=== PATIENT | female | born 1945 | race Caucasian/White ===

== ENCOUNTER → 2017-09-01 10:49 | Outpatient (POV) | payer MEDICARE, SELFPAY | PROVIDERS: PCP Internal Medicine Adolescent Medicine; Visit Provider Specialist | DX: R20.2 Paresthesia of skin (principal) | CPT/HCPCS: 95886; 95908 ==

== ENCOUNTER → 2018-04-30 10:43 | Outpatient (CLI) | payer MEDICARE, SELFPAY ==
--- NOTE | 2018-04-30 10:48 | MM_ITS ---
MM Dig screening mamm BI w/CAD ORDERING PHYSICIAN : Cheyenne Scott PATIENT AGE: 72 years GENDER: Female COMPARISON: Digital mammogram studies October 2016. June 2015. . Film screen mammogram February 2014. July INDICATION: ITS.REASON: SCREENING .... Takes Premarin.. No new complaints.Noncontributory family history TECHNIQUE: Standard CC and MLO images were obtained. R2 CAD reviewed. FINDINGS: Moderately dense breast bilaterally with a stable appearing mild asymmetry .. Overall parenchymal pattern and architecture is similar to previous studies. No suspicious dominant mass or suspicious calcifications either breast. Vascular calcifications bilaterally. RIGHT BREAST:. No significant new findings. Asymmetric glandular tissue at the central breast have been present since studies dating back to 2010, with no significant nor appreciable change. Follow-up in one year adequate LEFT BREAST:. No significant new findings. IMPRESSION: No significant new areas of concern Overall stable mammogram. Bilateral follow-up in one year recommended and should be encouraged. BI-RADS Category: 2 Benign Finding(s) RECOMMENDED FOLLOW-UP: 1YR 1 YEAR FOLLOW-UP (A letter has been sent to the patient regarding results of the study.)
== END ==
PROVIDERS: PCP Internal Medicine Adolescent Medicine; Visit Provider Nurse Practitioner Family
DX: Z12.31 Encounter for screening mammogram for malignant neoplasm of breast (principal)
CPT/HCPCS: 77067

== ENCOUNTER 2018-07-28 20:16 | Observation (INO) ==
--- NOTE | 2018-07-28 20:50 | Emergency Department Note ---
ED Disposition Clinical Impression: Urinary tract infection, Weakness, Fever Disposition: Admitted as Observation Condition on Discharge: Good Time of Disposition: 22:53 - Critical Care Critical Care Time: No Attestation: On , the high probability of a clinically significant, sudden or life threatening deterioration of the following system(s) required my full and direct attention, intervention and personal management. The time I documented below is in addition to time spent performing reported procedures but includes the following listed in this critical care notation. Medical Decision Making - Medical Records Medical records reviewed: Yes: I reviewed the patient's medical records. - Jose Inquiry Pt receiving controlled substance: No Jose was queried for this patient: No Vital Signs: 07/28/18 20:23 07/28/18 21:48 07/28/18 22:00 Temperature 101.4 F H Temperature Source Oral Pulse Rate Pulse Rate [Right] 124 H 105 H 89 Respiratory Rate 18 17 Blood Pressure Blood Pressure [Right Arm] 112/65 138/71 Blood Pressure Mean [Right Arm] 80 93 Blood Pressure Source [Right Arm] Blood Pressure Position [Right Arm] Sitting 02 Sat by Pulse Oximetry 94 L 97 Oxygen Delivery Method 07/28/18 22:30 07/28/18 23:00 07/28/18 23:13 Temperature 99 F Temperature Source Oral Pulse Rate 89 Pulse Rate [Right] 91 H 89 Respiratory Rate 18 16 17 Blood Pressure 132/69 Blood Pressure [Right Arm] 130/62 134/64 Blood Pressure Mean [Right Arm] 84 87 Blood Pressure Source [Right Arm] Automatic Cuff Blood Pressure Position [Right Arm] Sitting 02 Sat by Pulse Oximetry 97 Oxygen Delivery Method Room Air Room Air - Lab Data Lab results reviewed: Yes: I reviewed the patient's lab results. Lab Results 07/28/18 20:45: WBC 15.2 H, RBC 4.31, Hgb 13.0, Hct 40.2, MCV 93.3, MCH 30.1, MCHC 32.3, RDW 12.7, Plt Count 255, MPV 8.3, Neut % (Auto) 78.3, Lymph % (Auto) 11.7, [place] % (Auto) 9.4 H, Eos % (Auto) 0.3, Baso % (Auto) 0.4, Neut # (Auto) 11.9 H, Lymph # (Auto) 1.8, [place] # (Auto) 1.4 H, Eos # (Auto) 0.1, Baso # (Auto) 0.1, Total Counted 100, Neutrophils % (Manual) 84 H, Lymphocytes % (Manual) 10, Monocytes % (Manual) 6, Platelet Estimate Normal, Stomatocytes 1+ 07/28/18 20:45: Urine Color Yellow, Urine Appearance Clear, Urine pH 6.5, Ur Specific [place] 1.015, Urine Protein 1+, Urine Glucose (UA) 1+, Urine Ketones Trace, Urine Blood Trace-i, Urine Nitrate Positive, Urine Bilirubin Negative, Urine Urobilinogen 0.2, Ur Leukocyte Esterase Trace, Urine RBC 5-10, Urine WBC 5-10, Ur Squamous Epith Cells 5-10, Urine Bacteria 1+ 07/28/18 20:45: Sodium 133 L, Potassium 4.6, Chloride 97 L, Carbon Dioxide 26, Anion Gap 14.6, BUN 28 H, Creatinine 1.64 H, Estimated Creat Clear 43, Estimated GFR 31 L, Est GFR ( Amer) 37 L, Glucose 178 H, Calcium 8.9, Total Bilirubin 0.6, AST 18, ALT 28, Alkaline Phosphatase 75, Total Protein 7.1, Albumin 3.3 L, Globulin 3.8 H, Albumin/Globulin Ratio 0.9 L 07/28/18 20:45: Influenza Type A Ag Negative, Influenza Type B Ag Negative 07/28/18 20:45: Lactate 1.8 Result diagrams: 07/28/18 20:45 07/28/18 20:45 Orders (Tests/Meds): ED MEDICATIONS Generic Name Dose Route Start Last Admin Trade Name Freq PRN Reason Stop Dose Admin Carvedilol 12.5 mg 07/29/18 09:00 Coreg 12.5mg Tablet PO 08/28/18 08:59 DAILY ELISSA Gabapentin 300 mg 07/29/18 09:00 Neurontin 300mg Capsule PO 08/28/18 08:59 BID ELISSA Sodium Chloride 1,000 mls @ 999 mls/hr 07/28/18 23:08 Sod Chlor 0.9% 1000ml Bag IV 07/29/18 00:08 .Q1H1M ELISSA Ceftriaxone Sodium 2 gm/ 100 mls @ 200 mls/hr 07/29/18 22:15 Sodium Chloride IV 08/11/18 22:14 Q24H [facility] Protocol Insulin Human Lispro 0 unit 07/29/18 06:00 Humalog 100 Units/Ml 3ml Vial (Ssi) SQ 08/28/18 05:59 ACHS ELISSA Protocol Levothyroxine Sodium 50 mcg 07/29/18 09:00 Synthroid 50mcg (0.05mg) Tablet PO 08/28/18 08:59 DAILY ELISSA Non-Formulary Medication 150 mg 07/29/18 09:00 Fluconazole [Fluconazole] PO 08/28/18 08:59 DAILY ELISSA Non-Formulary Medication 4 mg 07/29/18 09:00 Glimepiride [Glimepiride] PO 08/28/18 08:59 DAILY ELISSA Non-Formulary Medication 20 mg 07/29/18 09:00 Lisinopril/Hydrochlorothiazide [Lisinopril-Hctz 20-25 Mg Tab] PO 08/28/18 08:59 DAILY ELISSA Non-Formulary Medication 15 mg 07/29/18 09:00 Meloxicam [Meloxicam] PO 08/28/18 08:59 DAILY ELISSA Sodium Chloride 10 ml 07/28/18 23:08 Saline Flush 10ml Syringe IV 08/27/18 20:42 NEEDED PRN Maintain IV Site Discontinued Medications Generic Name Dose Route Start Last Admin Trade Name Freq PRN Reason Stop Dose Admin Acetaminophen 1,000 mg 07/28/18 20:43 07/28/18 20:51 Tylenol 500mg Tablet PO 07/28/18 20:44 1,000 mg ONCE ONE Administration Sodium Chloride 1,000 mls @ 999 mls/hr 07/28/18 20:45 07/28/18 20:51 Sod Chlor 0.9% 1000ml Bag IV 07/28/18 21:45 999 mls/hr .Q1H1M ELISSA Administration Ceftriaxone Sodium 2 gm/ 100 mls @ 200 mls/hr 07/28/18 22:15 07/28/18 22:19 Sodium Chloride IV 08/11/18 22:14 200 mls/hr Q24H ELISSA Administration Protocol Ondansetron HCl 4 mg 07/28/18 20:45 07/28/18 20:52 Zofran 4mg/2ml Vial IV 07/28/18 20:46 4 mg ONCE ONE Administration Sodium Chloride 10 ml 07/28/18 20:43 Saline Flush 10ml Syringe IV 08/27/18 20:42 NEEDED PRN Maintain IV Site ORDERS Category Date Time Status Basic Metabolic Panel AMLAB Lab 07/29/18 06:00 Ordered Complete Blood Count Auto Diff AMLAB Lab 07/29/18 06:00 Ordered Blood Culture Stat Micro 07/28/18 20:52 Ordered - Radiology Data #1 Image(s): Chest Preliminary Findings: Normal/NAD #2 Image(s): Pelvis Image Reviewed: Yes I have reviewed radiologist's interpretation - CT Data CT Scan: Head, C-Spine Time Received: 11:[address] Reviewed: Yes: I have reviewed the patient's CT results Preliminary Findings: Normal/NAD - Physician Consults Physician Consulted: eliazar Time: 22:52 Reason -: Admission General Adult HPI - General Chief complaint: Weakness Stated complaint: DIZZY,NAUSA,FELL OUT OF CHAIR Time Seen by Provider: 07/28/18 22:08 Mode of Arrival: Wheelchair Limitations: No Limitations Description of Symptoms (Recalled from ER Triage Doc. by RN): pt c/o generalized weakness/dizziness that started at approx 1500, associated nausea/vomiting that started approx 30 mins ago after a ground level fall, no LOC, no complaints from fall. - History of Present Illness HPI narrative: Acute onset illness today, fever/rigors and weakness. Attempted to get out of a chair and rolled forward. No injuries. - Related Data Home Medications Medication Instructions Recorded Confirmed Fluconazole 150 mg PO DAILY 07/28/18 07/28/18 Glimepiride 4 mg PO DAILY 07/28/18 07/28/18 Lisinopril/Hydrochlorothiazide 20 mg PO DAILY 07/28/18 07/28/18 [Lisinopril-Hctz 20-25 mg Tab] Meloxicam 15 mg PO DAILY 07/28/18 07/28/18 RX: Carvedilol [Carvedilol 12.5mg 12.5 mg PO DAILY 07/28/18 07/28/18 Tab] RX: Gabapentin [Gabapentin 300mg 300 mg PO BID 07/28/18 07/28/18 Cap] RX: Levothyroxine Sodium 50 mcg PO DAILY 07/28/18 07/28/18 [Levothyroxine 50mcg (0.05mg) Tab] Allergies Allergy/AdvReac Type Severity Reaction Status Date / Time Sulfa (Sulfonamide Allergy Unknown UNKNOWN Verified 07/28/18 20:31 Antibiotics) [SULFA (SULFONAMIDE ANTIBIOTICS)] [facility] History - Hepatitis A Screen Drug use history?: No High risk sexual behaviors?: No History of sexually transmitted infection?: No Currently employed?: No Childcare worker?: No Do you have indoor plumbing?: Yes Do you have electricity?: Yes Attestation statement:: This patient has been screened for Hepatitis A risk factors. I have reviewed the patient's past medical history: Yes Medical History: Reports:: Diabetes Mellitus Type 1 - Social History Alcohol Intake: never - Psychiatric History Expresses thoughts of harming self/others: None Suicide Plan Description: No Plan ROS Obtained: Yes All systems reviewed & no additional complaints - Constitutional Constitutional: Reports system reviewed and no additional complaints, except as docu, Reports chills, Reports fever(s), Reports malaise, Reports weakness - Eyes Eyes: Reports system reviewed and no additional complaints, except as docu, Denies change in vision - ENT Ears, Nose, Mouth, and Throat: Reports system reviewed and no additional complaints, except as docu, Denies sore throat - Cardiovascular Cardiovascular: Reports system reviewed and no additional complaints, except as docu, Denies chest pain, Denies chest pain at rest, Denies diaphoresis, Denies slow heart rate - Respiratory Respiratory: Yes system reviewed and no additional complaints, except as docu, No chest congestion, No cough, No pain with cough - Gastrointestinal Gastrointestingal: Reports: system reviewed and no additional complaints, except as docu, nausea, vomiting, other (after the fall) - Genitourinary Female Genitourinary: Reports system reviewed and no additional complaints, e xcept as docu, Denies dysuria, Denies flank pain, Denies hematuria - Musculoskeletal Musculoskeletal: Reports system reviewed and no additional complaints, except as docu, Denies joint pain, Denies joint swelling - Integumentary/Breasts Skin/Breast: Reports system reviewed and no additional complaints, except as docu, Denies rash - Neurologic Neurologic: Reports system reviewed and no additional complaints, except as docu, Denies confusion, Denies headache(s), Denies sensory deficit, Denies syncope - Hematologic/Lymphatic Henatologic/Lymphatic: Denies easy bleeding, Denies easy bruising, Denies lymphadenopathy Physical Exam - General General appearance: alert, in no apparent distress - Head Head exam: atraumatic, normocephalic, normal inspection - Eye Eye exam: Present: normal appearance, PERRL, EOMI - ENT ENT exam: Present: normal exam, normal oropharynx, mucous membranes moist, TM's normal bilaterally, normal external ear exam - Respiratory Respiratory exam: Present: normal lung sounds bilaterally. Absent: respiratory distress - Cardiovascular Cardiovascular exam: Present: regular rate, normal rhythm. Absent: JVD - Abdominal Exam Abdominal exam: Present: soft, normal bowel sounds. Absent: distention, tenderness, guarding - Extremities Exam Extremities exam: Present: normal inspection, full ROM, normal capillary refill. Absent: calf tenderness - Back Exam Back exam: Present: normal inspection. Absent: tenderness - Neurological Exam Neurological exam: Present: alert, oriented X3 - Psychiatric Psychiatric exam: Present: normal affect, normal mood - Skin Skin exam: Present: warm, dry, intact, normal color
[2018-07-28 21:02] LABS: Basophils # 0.1 K/mm3 (0-0.2); Basophils % 0.4 % (0.1-2.0); Eosinophils # 0.1 K/mm3 (0.0-0.4); Eosinophils % 0.3 % (0.1-12.0); Hematocrit 40.2 % (37.0-47.0); Lymphocytes # 1.8 K/mm3 (0.7-4.5); Lymphocytes % 11.7 % (10-50); Mean Corpuscular HGB Conc 32.3 g/dL (31.8-35.4); Mean Corpuscular Hemoglobin 30.1 pg (27.0-31.2); Mean Corpuscular Volume 93.3 fl (81-99); Mean Platelet Volume 8.3 fl (7.4-10.4); Monocytes # 1.4 K/mm3 (0.1-1.0); Monocytes % 9.4 % (1.7-9.3); Neutrophils # 11.9 K/mm3 (1.8-7.8); Neutrophils % 78.3 % (37.0-80.0); Platelet Count 255 K/mm3 (142-424); Red Blood Count 4.31 M/mm3 (4.20-5.40); Red Cell Distribution Width 12.7 % (11.5-17.5); White Blood Count 15.2 K/mm3 (4.8-10.8)
[2018-07-28 21:18] LABS: Albumin Level 3.3 gm/dL (3.4-5.0); Albumin/Globulin Ratio 0.9 (1.1-1.8); Anion Gap 14.6 mEq/L (5-15); Bilirubin,Total 0.6 mg/dL (0.2-1.0); Calcium 8.9 mg/dL (8.5-10.1); Globulin 3.8 gm/dl (1.3-3.2); Potassium 4.6 mmoL/L (3.5-5.1); Total Protein,Serum 7.1 gm/dL (6.4-8.2)
[2018-07-28 21:40] LABS: Lymphocytes % 10 % (10-50); Monocytes % 6 % (2-9); Neutrophils % 84 % (42-76); Total Cells Counted 100
[2018-07-28 21:41] LABS: Stomatocytes 1+
[2018-07-29 06:35] LABS: Basophils % 0.2 % (0.1-2.0); Eosinophils % 0.2 % (0.1-12.0); Hematocrit 36.5 % (37.0-47.0); Hemoglobin 11.7 g/dL (12.2-16.2); Lymphocytes # 1.7 K/mm3 (0.7-4.5); Lymphocytes % 15.7 % (10-50); Mean Corpuscular HGB Conc 31.9 g/dL (31.8-35.4); Mean Corpuscular Hemoglobin 30.8 pg (27.0-31.2); Mean Corpuscular Volume 96.5 fl (81-99); Mean Platelet Volume 7.8 fl (7.4-10.4); Monocytes # 0.8 K/mm3 (0.1-1.0); Monocytes % 6.9 % (1.7-9.3); Neutrophils # 8.5 K/mm3 (1.8-7.8); Neutrophils % 77.1 % (37.0-80.0); Platelet Count 175 K/mm3 (142-424); Red Blood Count 3.78 M/mm3 (4.20-5.40); Red Cell Distribution Width 12.8 % (11.5-17.5)
[2018-07-29 06:53] LABS: Calcium 7.7 mg/dL (8.5-10.1)
--- NOTE | 2018-07-29 07:53 | Pharmacy Consult Notes ---
[facility] Pharmacy VTE Monitoring - Patient Demographics Admission date: 07/29/18 Report Date: 07/29/18 Time: 07:53 Allergies/Adverse Reactions: Patient Allergies Sulfa (Sulfonamide Antibiotics) [SULFA (SULFONAMIDE ANTIBIOTICS)] Allergy (Unknown, Verified 07/28/18 20:31) UNKNOWN Height: 1.65 m Weight: 88.025 kg Patient Problems: Current Active Problems Urinary tract infection (Acute) Weakness (Acute) Fever (Acute) - VTE Risk Labs: VTE Related Lab Results Hgb 11.7 g/dL (12.2-16.2) L 07/29/18 06:05 Hct 36.5 % (37.0-47.0) L 07/29/18 06:05 Plt Count 175 K/mm3 (142-424) D 07/29/18 06:05 BUN 24 mg/dL (7-18) H 07/29/18 06:05 Creatinine 1.56 mg/dL (0.55-1.02) H 07/29/18 06:05 Estimated Creat Clear 43 mL/min (50-200) 07/28/18 20:45 Was VTE Risk Assessment Performed: Yes VTE Score: 3 VTE Risk Level: Low Risk - Prophylaxis VTE Prophylaxis Ordered?: Yes Types of VTE Prophylaxis: TEDS Knee High Location of Applied Device: Bilateral Lower Extremeties - VTE Diagnosis Confirmed Treatment or plan recommended: Continue Current Treatment
--- NOTE | 2018-07-29 08:06 | H&P/Discharge Summary ---
General - General Admission date:: 07/28/18 Discharge date: 07/29/18 *Admission Date: 07/29/18 *Chief complaint: Weakness and fever *History of present illness: 72-year-old white female with several medical problems who came to the emergency department with weakness, fever and poor p.o. intake. She was found to have evidence of urinary tract infection on cath urine specimen and also renal insufficiency with creatinine at 1.6 which is slightly above her baseline. She was admitted to hospital for IV antibiotics, IV fluids and repeat labs. [facility] History I have reviewed the patient's past medical history: Yes Medical History: Reports:: Diabetes Mellitus Type 2 Other Medical History: Reports: Thyroid Disease Comment: History of renal insufficiency with baseline creatinine 1.3 Laterality Cases: Bilateral: Tonsillectomy Other Surgeries: Yes: Hysterectomy-Total - *Social History Educational Level: Attended College Smoking Status: Never smoker Alcohol Intake: never Occupational Status: retired Housing: house Household Members: family - Psychiatric History Expresses thoughts of harming self/others: None Suicide Plan Description: No Plan *Family Hx:: Cancer, Coronary Artery Disease, Diabetes, Heart Attack, Hyperlipidemia, Hypertension, Kidney Disease, Thyroid Disorder Review of Systems - Review of Systems Review of systems:: pertinent systems reviewed and negative unless documented below This morning patient is feeling much better than on admission. Denies nausea or vomiting or diarrhea or constipation. Reports good p.o. intake. Denies shortness of air, chest pain or palpitations. Denies swelling. Denies confusion or disorientation. - *Neurologic Reports weakness, Denies confusion, Denies headache(s), Denies sensory deficit, Denies fainting Exam Vital signs and Labs for Last 24 Hours: Temp Pulse Resp BP Pulse Ox 97.8 F 84 18 121/52 L 98 07/29/18 04:00 07/29/18 04:00 07/29/18 04:00 07/29/18 04:00 07/29/18 04:00 Laboratory Results - last 24 hr 07/28/18 20:45: WBC 15.2 H, RBC 4.31, Hgb 13.0, Hct 40.2, MCV 93.3, MCH 30.1, MCHC 32.3, RDW 12.7, Plt Count 255, MPV 8.3, Neut % (Auto) 78.3, Lymph % (Auto) 11.7, [place] % (Auto) 9.4 H, Eos % (Auto) 0.3, Baso % (Auto) 0.4, Neut # (Auto) 11.9 H, Lymph # (Auto) 1.8, [place] # (Auto) 1.4 H, Eos # (Auto) 0.1, Baso # (Auto) 0.1, Total Counted 100, Neutrophils % (Manual) 84 H, Lymphocytes % (Manual) 10, Monocytes % (Manual) 6, Platelet Estimate Normal, Stomatocytes 1+ 07/28/18 20:45: Urine Color Yellow, Urine Appearance Clear, Urine pH 6.5, Ur Specific [place] 1.015, Urine Protein 1+, Urine Glucose (UA) 1+, Urine Ketones Trace, Urine Blood Trace-i, Urine Nitrate Positive, Urine Bilirubin Negative, Urine Urobilinogen 0.2, Ur Leukocyte Esterase Trace, Urine RBC 5-10, Urine WBC 5-10, Ur Squamous Epith Cells 5-10, Urine Bacteria 1+ 07/28/18 20:45: Sodium 133 L, Potassium 4.6, Chloride 97 L, Carbon Dioxide 26, Anion Gap 14.6, BUN 28 H, Creatinine 1.64 H, Estimated Creat Clear 43, Estimated GFR 31 L, Est GFR ( Amer) 37 L, Glucose 178 H, Calcium 8.9, Total Bilirubin 0.6, AST 18, ALT 28, Alkaline Phosphatase 75, Total Protein 7.1, Albumin 3.3 L, Globulin 3.8 H, Albumin/Globulin Ratio 0.9 L 07/28/18 20:45: Influenza Type A Ag Negative, Influenza Type B Ag Negative 07/28/18 20:45: Lactate 1.8 07/29/18 05:45: POC Glucose 229 H 07/29/18 06:05: WBC 11.0 H D, RBC 3.78 L, Hgb 11.7 L, Hct 36.5 L, MCV 96.5, MCH 30.8, MCHC 31.9, RDW 12.8, Plt Count 175 D, MPV 7.8, Neut % (Auto) 77.1, Lymph % (Auto) 15.7, [place] % (Auto) 6.9, Eos % (Auto) 0.2, Baso % (Auto) 0.2, Neut # (Auto) 8.5 H, Lymph # (Auto) 1.7, [place] # (Auto) 0.8, Eos # (Auto) 0.0, Baso # (Auto) 0.0 07/29/18 06:05: Sodium 137, Potassium 4.0, Chloride 104, Carbon Dioxide 25, BUN 24 H, Creatinine 1.56 H, Glucose 242 H D, Calcium 7.7 L D I & O for Last 24 hours: Intake & Output 07/26/18 07/27/18 07/28/18 07/29/18 11:59 11:59 11:59 11:59 Intake Total 120 / 120 Output Total 1300 / 1300 Balance -1180 / -1180 Weight 194 lb 1 oz Narrative: Patient is alert. Pleasant. Has eaten 80% of her breakfast. Oropharynx clear and moist. No JVD. No cranial nerve deficits. Able to move all arms and legs symmetric. No edema or clubbing. No cyanosis, distal peripheral excellent in all 4 extremities. Lungs are clear Heart rate regular without murmurs. Abdomen soft and nontender peer Hospital Course Hospital Course: Patient was admitted, hydrated overnight and this morning her creatinine had gone down to 1.5. She was feeling much better and ate well. Plan will be to discharge home on cephalosporin antibiotics while we await urine culture. she will have close follow-up with labs in 2 days to monitor her kidney function and blood counts and follow-up in the office on Friday morning. Please note that because of her weakness issues we will hold lisinopril/HCTZ until Friday and monitor renal function. She may need to be restarted on lisinopril only and hold the diuretic component because of her issues with kidney insufficiency. Results Labs on day of discharge: Labs from last 24 hours 07/29/18 07/29/18 07/29/18 06:05 06:05 05:45 WBC 11.0 H D RBC 3.78 L Hgb 11.7 L Hct 36.5 L MCV 96.5 MCH 30.8 MCHC 31.9 RDW 12.8 Plt Count 175 D MPV 7.8 Neut % (Auto) 77.1 Lymph % (Auto) 15.7 [place] % (Auto) 6.9 Eos % (Auto) 0.2 Baso % (Auto) 0.2 Neut # (Auto) 8.5 H Lymph # (Auto) 1.7 [place] # (Auto) 0.8 Eos # (Auto) 0.0 Baso # (Auto) 0.0 Total Counted Neutrophils % (Manual) Lymphocytes % (Manual) Monocytes % (Manual) Platelet Estimate Stomatocytes Sodium 137 Potassium 4.0 Chloride 104 Carbon Dioxide 25 Anion Gap BUN 24 H Creatinine 1.56 H Estimated Creat Clear Estimated GFR Est GFR ( Amer) Glucose 242 H D POC Glucose 229 H Lactate Calcium 7.7 L D Total Bilirubin AST ALT Alkaline Phosphatase Total Protein Albumin Globulin Albumin/Globulin Ratio Urine Color Urine Appearance Urine pH Ur Specific [place] Urine Protein Urine Glucose (UA) Urine Ketones Urine Blood Urine Nitrate Urine Bilirubin Urine Urobilinogen Ur Leukocyte Esterase Urine RBC Urine WBC Ur Squamous Epith Cells Urine Bacteria Influenza Type A Ag Influenza Type B Ag 07/28/18 07/28/18 07/28/18 20:45 20:45 20:45 WBC RBC Hgb Hct MCV MCH MCHC RDW Plt Count MPV Neut % (Auto) Lymph % (Auto) [place] % (Auto) Eos % (Auto) Baso % (Auto) Neut # (Auto) Lymph # (Auto) [place] # (Auto) Eos # (Auto) Baso # (Auto) Total Counted Neutrophils % (Manual) Lymphocytes % (Manual) Monocytes % (Manual) Platelet Estimate Stomatocytes Sodium 133 L Potassium 4.6 Chloride 97 L Carbon Dioxide 26 Anion Gap 14.6 BUN 28 H Creatinine 1.64 H Estimated Creat Clear 43 Estimated GFR 31 L Est GFR ( Amer) 37 L Glucose 178 H POC Glucose Lactate 1.8 Calcium 8.9 Total Bilirubin 0.6 AST 18 ALT 28 Alkaline Phosphatase 75 Total Protein 7.1 Albumin 3.3 L Globulin 3.8 H Albumin/Globulin Ratio 0.9 L Urine Color Urine Appearance Urine pH Ur Specific [place] Urine Protein Urine Glucose (UA) Urine Ketones Urine Blood Urine Nitrate Urine Bilirubin Urine Urobilinogen Ur Leukocyte Esterase Urine RBC Urine WBC Ur Squamous Epith Cells Urine Bacteria Influenza Type A Ag Negative Influenza Type B Ag Negative 07/28/18 07/28/18 20:45 20:45 WBC 15.2 H RBC 4.31 Hgb 13.0 Hct 40.2 MCV 93.3 MCH 30.1 MCHC 32.3 RDW 12.7 Plt Count 255 MPV 8.3 Neut % (Auto) 78.3 Lymph % (Auto) 11.7 [place] % (Auto) 9.4 H Eos % (Auto) 0.3 Baso % (Auto) 0.4 Neut # (Auto) 11.9 H Lymph # (Auto) 1.8 [place] # (Auto) 1.4 H Eos # (Auto) 0.1 Baso # (Auto) 0.1 Total Counted 100 Neutrophils % (Manual) 84 H Lymphocytes % (Manual) 10 Monocytes % (Manual) 6 Platelet Estimate Normal Stomatocytes 1+ Sodium Potassium Chloride Carbon Dioxide Anion Gap BUN Creatinine Estimated Creat Clear Estimated GFR Est GFR ( Amer) Glucose POC Glucose Lactate Calcium Total Bilirubin AST ALT Alkaline Phosphatase Total Protein Albumin Globulin Albumin/Globulin Ratio Urine Color Yellow Urine Appearance Clear Urine pH 6.5 Ur Specific [place] 1.015 Urine Protein 1+ Urine Glucose (UA) 1+ Urine Ketones Trace Urine Blood Trace-i Urine Nitrate Positive Urine Bilirubin Negative Urine Urobilinogen 0.2 Ur Leukocyte Esterase Trace Urine RBC 5-10 Urine WBC 5-10 Ur Squamous Epith Cells 5-10 Urine Bacteria 1+ Influenza Type A Ag Influenza Type B Ag DS: Diagnosis - Discharge Diagnosis (1) Fever Status: Resolved (2) Urinary tract infection Status: Acute (3) Weakness Status: Resolved (4) Acute kidney injury Status: Acute Discharge Medications - Medications for Discharge Home Medication List at Discharge: New Cefdinir [Omnicef 300mg Capsule] 300 mg PO BID #14 cap Cefdinir [Omnicef 300mg Capsule] 300 mg PO BID #14 cap Continue Levothyroxine Sodium [Levothyroxine 50mcg (0.05mg) Tab] 50 mcg PO DAILY Glimepiride 4 mg PO DAILY Fluconazole 150 mg PO DAILY Carvedilol [Carvedilol 12.5mg Tab] 12.5 mg PO DAILY Aspirin [Aspirin 81mg chewable tab] 81 mg PO DAILY Gabapentin [Gabapentin 300mg Cap] 900 mg PO HS Sitagliptin Phosphate [Januvia 100mg tablet] 100 mg PO DAILY Metformin HCl [Glucophage Xr] 500 mg PO BID Estrogens, Conjugated [Premarin] 0.3 mg PO DAILY Discontinued Lisinopril/Hydrochlorothiazide [Lisinopril-Hctz 20-25 mg Tab] 20 mg PO DAILY Meloxicam 15 mg PO DAILY Disposition Disposition: Home, Self-Care
== END 2018-07-29 09:15 | disposition home or self-care (01) ==
LOC: 2ND 20:16 → ER 20:16 → 2ND 23:32
PROVIDERS: ADMIT Family Medicine; ATTEND Internal Medicine Adolescent Medicine
CPT/HCPCS: 36415; 70450; 71010; 71045; 72125; 72170; 80048; 80053; 81001; 82962; 83605; 85007; 85025; 87040; 87086; 87088; 87186; 87275; 87276; 96365; 96367; 96375; 99285; G0378; J2405

== ENCOUNTER → 2018-07-31 11:04 | Outpatient (CLI) | payer MEDICARE, SELFPAY ==
[2018-07-31 11:37] LABS: Basophils % 0.5 % (0.1-2.0); Eosinophils # 0.2 K/mm3 (0.0-0.4); Eosinophils % 2.7 % (0.1-12.0); Hemoglobin 11.7 g/dL (12.2-16.2); Lymphocytes # 1.3 K/mm3 (0.7-4.5); Mean Corpuscular HGB Conc 32.5 g/dL (31.8-35.4); Mean Corpuscular Hemoglobin 30.8 pg (27.0-31.2); Mean Corpuscular Volume 94.9 fl (81-99); Mean Platelet Volume 8.3 fl (7.4-10.4); Monocytes # 0.4 K/mm3 (0.1-1.0); Monocytes % 7.7 % (1.7-9.3); Neutrophils # 3.9 K/mm3 (1.8-7.8); Neutrophils % 67.2 % (37.0-80.0); Platelet Count 207 K/mm3 (142-424); Red Blood Count 3.79 M/mm3 (4.20-5.40); Red Cell Distribution Width 12.6 % (11.5-17.5); White Blood Count 5.7 K/mm3 (4.8-10.8)
[2018-07-31 12:31] LABS: Anion Gap 12.5 mEq/L (5-15); Blood Urea Nitrogen 15 mg/dL (7-18); Calcium 8.4 mg/dL (8.5-10.1); Carbon Dioxide 27 mmol/L (21.0-32.0); Chloride 98 mmol/L (98-107); Estimated Glomerular Filt Rate 44 ml/min (>60); GFR (African American) 54 ML/MIN (>60); Glucose 213 mg/dL (74-106); Potassium 4.5 mmoL/L (3.5-5.1); Sodium 133 mmol/L (136-145)
== END ==
PROVIDERS: Visit Provider Internal Medicine Adolescent Medicine
DX: N17.9 Acute kidney failure, unspecified (principal)
CPT/HCPCS: 36415; 80048; 85025

== ENCOUNTER → 2019-03-11 12:33 | Outpatient (CLI) | payer MEDICARE, SELFPAY ==
--- NOTE | 2019-03-11 12:36 | MM_ITS ---
PROCEDURE: MM DIG MAMM DX UNILAT RT CAD CLINICAL INDICATION: NEW PALPABLE NODULE Palpable nodule reported in the medial aspect of the right breast COMPARISON: [facility] DIG MAMM-SCREEN VERONICA from 07/26/2015 [facility] DIG MAMM-SCREEN VERONICA W/CAD from 10/28/2016 [facility] MM Dig screening mamm BI w/CAD from 04/30/2018 US BREAST RT COMPLETE from 03/11/2019 TECHNIQUE: Standard images performed along with spot compression views and right breast ultrasound FINDINGS: There is average fibroglandular tissue.. No mammographic abnormality detected in the region of the reported palpable abnormality. There is a small a asymmetric density in the upper outer aspect of the right breast which appeared to partially compress out with the spot compression views. No malignant appearing mass or malignant-appearing microcalcification. Right breast ultrasound: There is a 3 mm cyst at 1 o'clock, 2 mm cyst at 3 o'clock, a 3 mm cyst at 9 o'clock. No sonographic abnormality noted in the area of the palpable abnormality. IMPRESSION: No mammographic abnormality or sonographic abnormality in the area palpable concern. Any palpable abnormality should be managed on clinical basis despite negative mammogram and negative ultrasound. There is an asymmetric density in the upper outer aspect of the right breast which may be due to overlapping fibroglandular tissue. Six-month mammographic and sonographic follow-up suggested BI-RAD Category: 3 Probably Benign Finding Short Term Follow-up FOLLOW-UP: 6M 6Month Follow-up Dictated by: Shamar Edwards MD 03/15/2019 09:50 Signed by: <Electronically signed by Shamar Edwards MD in [place]> 03/15/2019 09:50
--- NOTE | 2019-03-11 12:37 | US_ITS ---
PROCEDURE: US BREAST RT COMPLETE CLINICAL INDICATION: NEW PALPABLE NODULE Palpable nodule upper inner aspect of the right breast COMPARISON: Mammogram of the same day FINDINGS: There is a 3 mm cyst at 1 o'clock, a 2 mm cyst at 3 o'clock, a 3 mm cyst at 9 o'clock, small nodes in the right axilla. No sonographic abnormality evident at the region of the palpable abnormality IMPRESSION: Small right breast cyst. No sonographic abnormality evident at the region of the palpable abnormality. Negative ultrasound does not exclude the possibility of malignancy. Any palpable nodule should be managed on a clinical basis. Dictated by: Shamar Edwards MD 03/15/2019 10:03 Signed by: <Electronically signed by Shamar Edwards MD in [facility]> 03/15/2019 10:03
== END ==
PROVIDERS: PCP Nurse Practitioner Family; Visit Provider Nurse Practitioner Family
DX: N63.12 Unspecified lump in the right breast, upper inner quadrant (principal)
CPT/HCPCS: 76641; 77065

== ENCOUNTER → 2019-09-13 12:32 | Outpatient (CLI) | payer MEDICARE, SELFPAY ==
--- NOTE | 2019-09-13 12:42 | MM_ITS ---
PROCEDURE: MM DIG MAMM DX UNILAT RT CAD CLINICAL INDICATION: ABNORMAL MAMM COMPARISON: [facility] DIG MAMM-SCREEN VERONICA W/CAD from 10/28/2016 [facility] MM Dig screening mamm BI w/CAD from 04/30/2018 MM DIG MAMM DX UNILAT RT CAD from 03/11/2019 TECHNIQUE: Standard CC and MLO images and 3D Tomosynthesis was obtained. R2 CAD reviewed. FINDINGS: Previously reported area of asymmetrical density in the upper-outer quadrant of the right breast is not reproduced. Note is made of a benign appearing nodule at the 12 o'clock position of the central right breast 2.8 millimeters. There is no new findings suspicious for malignancy. Benign appearing calcifications are noted. IMPRESSION: BI-RAD Category: 3 probably benign FOLLOW-UP: Six-month follow-up bilateral mammogram to place the patient back on routine screening schedule is recommended. (A letter has been sent to the patient regarding results of the study.) Dictated by: Bacilio Smith 09/14/2019 17:26 Electronically signed by Bacilio Smith in [facility] 09/14/2019 17:26
--- NOTE | 2019-09-13 12:43 | US_ITS ---
PROCEDURE: US BREAST RT COMPLETE CLINICAL INDICATION: ABNORMAL MAMM COMPARISON: US BREAST RT COMPLETE from 03/11/2019 mammogram from FINDINGS: 09/13/2019 at the 1 o'clock position near the nipple a 3.2 x 2.6 millimeter hypoechoic nodule is noted. At 9 o'clock near the nipple a 2.9 x 4.8 x 1.6 millimeter hypoechoic nodule is noted. These are probably benign. No definite mammographic correlates are apparent. No sonographic correlate for the probably benign 2.9 millimeter nodule in the right breast at 12 o'clock is apparent. The lesion at 1 o'clock is not significantly changed over the interval. There is no predominantly solid nodule suspicious for malignancy. IMPRESSION: BI-RADS category 3 probably benign findings. Dictated by: Bacilio Smith 09/14/2019 17:30 Electronically signed by Bacilio Smith in [facility] 09/14/2019 17:30
== END ==
PROVIDERS: PCP Nurse Practitioner Family; Visit Provider Nurse Practitioner Family
DX: R92.8 Other abnormal and inconclusive findings on diagnostic imaging of breast (principal)
CPT/HCPCS: 76641; 77061; 77065; G0279

== ENCOUNTER → 2020-03-22 10:38 | Outpatient (CLI) | payer MEDICARE, SELFPAY ==
--- NOTE | 2020-03-22 10:44 | MM_ITS ---
PROCEDURE: MM DIG SCREENING MAMM BI W/CAD Digital Breast Tomosynthesis Included CLINICAL INDICATION: SCREENING There is no personal or family history of breast cancer. The patient is currently on Premarin. COMPARISON: MG [facility] MM Dig screening mamm BI w/CAD from 04/30/2018 MG MM DIG MAMM DX UNILAT RT CAD from 03/11/2019 MG MM DIG MAMM DX UNILAT RT CAD from 09/13/2019 TECHNIQUE: Standard CC and MLO images and 3D Tomosynthesis was obtained. R2 CAD reviewed. FINDINGS: Moderate diffuse fibroglandular densities are seen in both breasts. There is moderate arterial calcification in both breasts. There are scattered benign-appearing calcifications in both breasts more numerous left than right. There is no suspicious lesion in either breast and no suspicious microcalcifications. IMPRESSION: Moderate breast density with no suspicious lesions seen BI-RAD Category: 2 Benign Finding(s) FOLLOW-UP: 1YR 1 Year Follow-up (A letter has been sent to the patient regarding results of the study.) Dictated by: Dr. Sushil Padilla MD 03/25/2020 13:39 Dr. Sushil Padilla MD in [place] 03/25/2020 13:39
== END ==
PROVIDERS: PCP Nurse Practitioner Family; Visit Provider Nurse Practitioner Family
DX: Z12.31 Encounter for screening mammogram for malignant neoplasm of breast (principal)
CPT/HCPCS: 77063; 77067

== ENCOUNTER 2020-05-26 17:43 | Inpatient (IN) | payer MEDICARE, SELFPAY ==
[2020-05-26] VITALS (17 sets, daily range): BP systolic 139–247; BP diastolic 73–115; PULSE 80–99; RESP 12–20; TEMP -17.7–37.1; O2SAT 92–99; BMI 32.4; BMI 32.6
--- NOTE | 2020-05-26 | IR_ITS ---
APPROVED REPORT Patient Location: Emergent Truck Crane Operator: RAOUL Rodriguez RT (R) PROCEDURES Left heart catheterization Left ventriculogram Selective coronary angiogram Drug-eluting stent deployment to the proximal LAD and mid LAD in a noncontiguous manner INDICATION Acute anterior ST elevation myocardial infarction, Coronary artery disease Informed consent was obtained prior to the procedure. COMPLICATIONS NONE Estimated Blood Loss: LESSS THAN 10 ML TECHNIQUE One percent lidocaine used to anesthetize the right anterior aspect of the wrist. The right radial artery was accessed via the Seldinger technique. A 6 Syrian sheath was placed in the right radial artery. 2.5 mg of verapamil, 800 mcg of nitroglycerin, 1mg Lidocaine and 5000 U Heparin were given through the arterial sheath. And I Maite left guide catheter was used to perform left heart catheterization left ventriculogram and selective coronary angiogram. Therapeutic heparin was administered with a therapeutic ACT. The guide catheter was placed in the left main artery and a Choice PT extra-support wire was placed distally in the LAD. Primary stenting could not be performed therefore a 2 mm balloon was used to predilate the stenosis. Following this a 2.5 x 38 mm resolute jessica stent was deployed at 16 anna reducing the critical stenosis to 0%. An additional 2 mm x 26 mm resolute jessica stent was placed in the mid LAD and deployed at 18 anna reducing the stenosis to 0%. MARTELL II flow was present at the beginning of the procedure with MARTELL-3 flow at the end of the procedure. At the end the procedure the apparatus was removed the sheath was removed good hemostasis was achieved using TR banding patient was transferred to the postop holding area stable condition ANGIOGRAPHIC RESULTS The left main artery Normal The left anterior descending artery Has critical 90% tandem stenoses followed by mid vessel 90% stenoses The circumflex artery Is a large dominant vessel with mild luminal irregularities The right coronary artery Small nondominant and normal The STINSON ventriculogram reveals Dilated ventricle mid anterior apical hypokinesis estimated ejection fraction 30% The left ventricular end-diastolic pressure Elevated at 30 mmHg IMPRESSION Critical coronary disease involving the proximal and mid LAD as described above Successful stenting in the proximal and mid LAD critical disease reduced to 0% with 2 drug-eluting stents in a noncontiguous manner Severely reduced ejection fraction with large regional wall motion abnormality Elevated LVEDP PLAN 1. Brilinta 90 twice daily plus aspirin 81 mg daily 2. Start ROBERT inhibitors and carvedilol once hemodynamically stable 3. LDL less than 55 4. Tight control of diabetes 5. Avoidance of tobacco products 6. Cardiac rehabilitation 7. Patient should remain in the hospital until Friday and obtain an echocardiogram. If ejection fraction is less than 35% as anticipated a LifeVest should be placed prior to discharge home Electronically signed by : Lucio Mckinnon, 05/26/2020 20:08:48
--- NOTE | 2020-05-26 18:06 | CT_ITS ---
PROCEDURE: CT ABDOMEN PELVIS W CON CLINICAL INDICATION: abd pain Vomiting, generalized abdominal pain and weakness COMPARISON: CT ABDPELW/O CT ABD PELVIS W/O CONTRAST from 11/19/2016 TECHNIQUE: IV Contrast: 75ML OPTIRAY 350 Oral Contrast None Axial images obtained with sagittal and coronal reformats. All CT scans at the facility use one or more dose reduction, viz: automated exposure control, ma/kV adjustment per patient size (including targeted exams where dose is matched to indication, i.e. head), or iterative reconstruction technique. FINDINGS: LOWER THORAX: There is mild thickening of the major fissure laterally on the right. There is minimal thickening of the pericardium and coronary artery calcifications are present. ABDOMEN & PELVIS: The liver, gallbladder, spleen, adrenal glands, and pancreas have an unremarkable appearance. There is mild stranding of the perinephric renal fat. Mild motion artifact somewhat obscures fine detail of the bowel. There are post hysterectomy changes. No renal or ureteral calculi. No hydronephrosis. No evidence of appendicitis, diverticulitis, intestinal obstruction, or free air. Degenerative disc disease is present at L3-L4. In the mid aspect of the left kidney there is an area of decreased attenuation which may be due to renal cyst. However, there is a question of an enhancing rim. This could be due to artifact from mild motion. MRI of the kidneys without and with gadolinium enhancement may provide further evaluation if the patient can remain motionless. IMPRESSION: 1. No acute finding. 2. Possible complex left renal cyst versus artifact from motion. MRI of the kidneys without and with enhancement may provide further evaluation. Dictated by: Shamar Edwards MD 05/27/2020 10:22 Shamar Edwards MD in [place] 05/27/2020 10:22
--- NOTE | 2020-05-26 18:07 | HMH.EDGENADL ---
ED Disposition Clinical Impression: STEMI (ST elevation myocardial infarction) Qualifiers: Involved coronary artery: LAD coronary artery Qualified Code(s): I21.02 - ST elevation (STEMI) myocardial infarction involving left anterior descending coronary artery Disposition: Admitted As Inpatient Condition on Discharge: Serious Referrals: Cheyenne Scott APRN [Primary Care Provider] - - Critical Care Critical Care Time: No Attestation: On 05/26/20, the high probability of a clinically significant, sudden or life threatening deterioration of the following system(s) required my full and direct attention, intervention and personal management. The time I documented below is in addition to time spent performing reported procedures but includes the following listed in this critical care notation. Medical Decision Making - Medical Records Medical records reviewed: Yes: I reviewed the patient's medical records. - Jose Inquiry Pt receiving controlled substance: No Vital Signs: 05/26/20 17:44 05/26/20 18:22 05/26/20 18:25 Temperature 98.7 F Temperature Source Oral Pulse Rate [Left Radial] 80 86 Respiratory Rate 20 18 Blood Pressure 247/115 H Blood Pressure [Right Arm] 215/115 H 191/96 H Blood Pressure Mean [Right Arm] 148 127 Blood Pressure Source [Right Arm] Automatic Cuff Automatic Cuff Blood Pressure Position [Right Arm] Sitting Sitting 02 Sat by Pulse Oximetry 94 L 93 L Oxygen Delivery Method Room Air Room Air - Lab Data Lab results reviewed: Yes: I reviewed the patient's lab results. Lab Results 05/26/20 18:12: WBC 8.0, RBC 4.73, Hgb 14.9, Hct 45.0, MCV 95.1, MCH 31.6 H, MCHC 33.2, RDW 12.5, Plt Count 235, MPV 8.1, Neut % (Auto) 69.3, Lymph % (Auto) 17.2, [place] % (Auto) 11.6 H, Eos % (Auto) 0.9, Baso % (Auto) 1.0, Neut # (Auto) 5.5, Lymph # (Auto) 1.4, [place] # (Auto) 0.9, Eos # (Auto) 0.1, Baso # (Auto) 0.1 05/26/20 18:12: Sodium 125 L, Potassium 4.0, Chloride 89 L, Carbon Dioxide 26, Anion Gap 14.0, BUN 12, Creatinine 0.90, Estimated Creat Clear 71, Estimated GFR 62, Est GFR ( Amer) 74, Glucose 260 H, Calcium 9.2, Total Bilirubin 0.5, AST 70 H, ALT 37, Alkaline Phosphatase 67, Troponin I 4.09 H, Total Protein 7.1, Albumin 4.2, Globulin 2.9, Albumin/Globulin Ratio 1.4, Lipase 115 Result diagrams: 05/26/20 18:12 05/26/20 18:12 Orders (Tests/Meds): ED MEDICATIONS Generic Name Dose Route Start Last Admin Trade Name Freq PRN Reason Stop Dose Admin Lactated Ringer's 1,000 mls @ 999 mls/hr 05/26/20 18:15 05/26/20 18:25 Lactated Ringer's 1000 Ml Bag IV 05/26/20 19:15 999 mls/hr .Q1H1M ELISSA Administration Discontinued Medications Generic Name Dose Route Start Last Admin Trade Name Freq PRN Reason Stop Dose Admin Labetalol HCl 10 mg 05/26/20 18:16 05/26/20 18:22 Labetalol 5mg/Ml 20ml Mdv IV 05/26/20 18:17 10 mg ONCE ONE Administration Promethazine HCl 12.5 mg 05/26/20 18:05 05/26/20 18:24 Promethazine Hcl 25mg/Ml 1ml Vial IV 05/26/20 18:06 12.5 mg ONCE ONE Administration Sodium Chloride 25 ml 05/26/20 18:05 05/26/20 18:24 Sodium Chloride 0.9% 25ml Bag IV 05/26/20 18:06 25 ml ONCE ONE Administration ORDERS Category Date Time Status CT abdomen pelvis w con Stat Cat Scan 05/26/20 18:06 Ordered Covid-19 IgG/IgM ([facility]) Stat Lab 05/26/20 18:18 Received Troponin I Q3H Lab 05/26/20 21:15 Ordered Troponin I Q3H Lab 05/27/20 00:15 Ordered Urinalysis-Acute [Urinalysis and Microscopic] Stat Lab 05/26/20 18:04 Ordered EKG Request [ECG Request by /Nse] Stat Y 05/26/20 18:04 Ordered Medical Decision Narrative: 74-year-old female with diabetes presenting with nausea and vomiting. Wellinoid changes on initial EKG initial troponin of 4.5 so cardiology was consulted and agreed to activate Cvor Nurse. Aspirin and Brilinta were administered as was Phenergan for her nausea. Patient remained stable in the ED prior to going to Cvor Nurse.
[2020-05-26 18:16] LABS: Basophils # 0.1 K/mm3 (0-0.2); Eosinophils # 0.1 K/mm3 (0.0-0.4); Eosinophils % 0.9 % (0.1-12.0); Hemoglobin 14.9 g/dL (12.2-16.2); Lymphocytes # 1.4 K/mm3 (0.7-4.5); Lymphocytes % 17.2 % (10-50); Mean Corpuscular HGB Conc 33.2 g/dL (31.8-35.4); Mean Corpuscular Hemoglobin 31.6 pg (27.0-31.2); Mean Corpuscular Volume 95.1 fl (81-99); Mean Platelet Volume 8.1 fl (7.4-10.4); Monocytes # 0.9 K/mm3 (0.1-1.0); Monocytes % 11.6 % (1.7-9.3); Neutrophils # 5.5 K/mm3 (1.8-7.8); Neutrophils % 69.3 % (37.0-80.0); Platelet Count 235 K/mm3 (142-424); Red Blood Count 4.73 M/mm3 (4.20-5.40); Red Cell Distribution Width 12.5 % (11.5-17.5)
--- NOTE | 2020-05-26 18:17 | ECG_ITS ---
APPROVED REPORT Exam: Resting ECG HR:85 bpm ECG Measurements Heart Rate 85 AXES OH 158 P 66 QRSd 84 QRS 4 QT 450 T 42 QTc 535 Conclusion Normal sinus rhythm [address] & T wave abnormality, consider inferior ischemia ST & T wave abnormality, consider anterolateral ischemia Prolonged QT Abnormal ECG Electronically signed by : Sami Jauregui, 05/29/2020 16:18:26
[2020-05-26 18:20] LABS: Chloride 89 mmol/L (98-107); Sodium 125 mmol/L (136-145)
[2020-05-26 18:22] LABS: Alanine Aminotransferase 37 U/L (12-78); Aspartate Amino Transferase 70 U/L (14-36); Blood Urea Nitrogen 12 mg/dl (7-17); Creatinine Clearance Estimated 71 mL/min (50-200); Estimated Glomerular Filt Rate 62 ml/min (>60); GFR (African American) 74 ML/MIN (>60)
[2020-05-26 18:23] LABS: Albumin Level 4.2 g/dl (3.5-5.0); Albumin/Globulin Ratio 1.4 (1.1-1.8); Alkaline Phosphatase 67 U/L (38-126); Bilirubin,Total 0.5 mg/dl (0.2-1.3); Calcium 9.2 mg/dl (8.4-10.2); Carbon Dioxide 26 mmol/L (22.0-30.0); Globulin 2.9 g/dL (1.3-3.2); Glucose 260 mg/dl (74-100); Lipase 115 U/L (23-300); Total Protein,Serum 7.1 g/dl (6.3-8.2)
[2020-05-26 18:44] LABS: Troponin I 4.09 ng/ml (0.00-0.034)
--- NOTE | 2020-05-26 18:44 | PC.NURSE ---
Troponin 4.09, aware
--- NOTE | 2020-05-26 18:44 | PC.NURSE ---
CRITICAL TROPONIN REPORTED TO DR WOODS. CARDIOLOGY PAGED FOR CONSULT.
--- NOTE | 2020-05-26 18:45 | PC.NURSE ---
speaking with cardiology
--- NOTE | 2020-05-26 18:48 | PC.NURSE ---
STEMI ALERT CALLED PER DR GUAJARDO AFTER CONSULT WITH DR WOODS.
--- NOTE | 2020-05-26 18:55 | PC.NURSE ---
radiology arrived with pt to room, pt is placed in a gown, shaved groins, pads placed on pt and placed back on the monitor. Second IV is started in right ac 20 g. VSS, pt awaiting transport to the pathology laboratory aide once they arrive at facility. Family is aware and daughter is at bedside.
--- NOTE | 2020-05-26 19:04 | XR_ITS ---
PROCEDURE: XR CHEST PORTABLE CLINICAL HISTORY: STEMI Chest pain COMPARISON: CR CXR CHEST(2 VIEWS-NOT PORTABLE) from 04/27/2015 CR CXR CHEST(2 VIEWS-NOT PORTABLE) from 07/26/2015 CR CXR1VP XR chest portable from 07/28/2018 FINDINGS: The cardiomediastinal silhouette and pulmonary vascularity are within normal limits. Right hemidiaphragm is slightly elevated. No lobar consolidation or collapse. No acute bony abnormalities. IMPRESSION: No change with no acute finding Dictated by: Shamar Edwards MD 05/27/2020 08:35 Shamar Edwards MD in [place] 05/27/2020 08:35
[2020-05-26 19:11] LABS: Coronavirus 19 IgG Antibody Negative (Negative); Coronavirus 19 IgM Antibody Negative (Negative)
--- NOTE | 2020-05-26 19:17 | PC.NURSE ---
Pt being transported to manufacturing laborer at this time
[2020-05-26 20:32] LABS: CATHL Activated Clotting Time > 400 SEC (74-125)
[2020-05-26 20:33] LABS: CATHL Activated Clotting Time > 400 SEC (74-125)
--- NOTE | 2020-05-26 22:06 | PC.NURSE ---
patient arrived to floor @ 20:39.
[2020-05-27] VITALS (12 sets, daily range): BP systolic 131–170; BP diastolic 57–107; PULSE 67–94; RESP 14–18; TEMP 36.4–37.1; O2SAT 96–100; BMI 32.2
--- NOTE | 2020-05-27 00:47 | PC.NURSE ---
dr. starkey notified of consistently elevated blood pressures. new orders received, repeated back and verified. orders sent to [facility]
--- NOTE | 2020-05-27 05:17 | PC.NURSE ---
shift summary blood pressures decreased since receiving dose of coreg. groundwater monitoring technician now shows sr with inverted t wave, st elevation improved. right radial cath site dressing clean dry intact. soft to touch. patient has denied pain, nausea or vomiting. patient complained of not being able to take deep breath, sats were 98% on r/a. o2 at t2l nc applied for comfort.
[2020-05-27 06:29] LABS: Chloride 92 mmol/L (98-107); Potassium 3.9 mmoL/L (3.5-5.1); Sodium 125 mmol/L (136-145)
[2020-05-27 06:32] LABS: Anion Gap 11.9 mEq/L (5-15); Blood Urea Nitrogen 15 mg/dl (7-17); Calcium 8.6 mg/dl (8.4-10.2); Carbon Dioxide 25 mmol/L (22.0-30.0); Creatinine Clearance Estimated 70 mL/min (50-200); Estimated Glomerular Filt Rate 62 ml/min (>60); GFR (African American) 74 ML/MIN (>60); Glucose 196 mg/dl (74-100)
[2020-05-27 07:14] LABS: Basophils % 0.4 % (0.1-2.0); Eosinophils % 0.4 % (0.1-12.0); Hematocrit 38.6 % (37.0-47.0); Hemoglobin 13.5 g/dL (12.2-16.2); Lymphocytes # 1.6 K/mm3 (0.7-4.5); Lymphocytes % 23.9 % (10-50); Mean Corpuscular HGB Conc 34.9 g/dL (31.8-35.4); Mean Corpuscular Volume 91.8 fl (81-99); Mean Platelet Volume 8.9 fl (7.4-10.4); Monocytes # 0.9 K/mm3 (0.1-1.0); Monocytes % 13.7 % (1.7-9.3); Neutrophils % 61.7 % (37.0-80.0); Platelet Count 173 K/mm3 (142-424); Red Blood Count 4.21 M/mm3 (4.20-5.40); Red Cell Distribution Width 12.8 % (11.5-17.5); White Blood Count 6.6 K/mm3 (4.8-10.8)
--- NOTE | 2020-05-27 08:33 | HMH.PHAVTE ---
[facility] Pharmacy VTE Monitoring - Patient Demographics Admission date: 05/26/20 Report Date: 05/27/20 Time: 08:33 Allergies/Adverse Reactions: Patient Allergies codeine Allergy (Mild, Verified 05/26/20 22:16) Flushing Sulfa (Sulfonamide Antibiotics) [SULFA (SULFONAMIDE ANTIBIOTICS)] Allergy (Unknown, Verified 05/26/20 22:16) UNKNOWN Height: 1.65 m Weight: 87.77 kg Patient Problems: Current Active Problems STEMI (ST elevation myocardial infarction) (Acute) - VTE Risk Labs: VTE Related Lab Results Hgb 13.5 g/dL (12.2-16.2) 05/27/20 05:00 Hct 38.6 % (37.0-47.0) 05/27/20 05:00 Plt Count 173 K/mm3 (142-424) D 05/27/20 05:00 BUN 15 mg/dl (7-17) 05/27/20 05:00 Creatinine 0.90 mg/dl (0.52-1.04) 05/27/20 05:00 Estimated Creat Clear 70 mL/min (50-200) 05/27/20 05:00 VTE Score: 3 VTE Risk Level: Low Risk - Prophylaxis VTE Prophylaxis Ordered?: Yes Types of VTE Prophylaxis: TEDS Knee High Location of Applied Device: Bilateral Lower Extremeties - VTE Diagnosis Confirmed Treatment or plan recommended: Continue Current Treatment
--- NOTE | 2020-05-27 08:33 | HMH.PHAINT ---
MEDICATION RECONCILIATION COMPLETED ON PATIENT USING EXTERNAL FILL HISTORY FROM PHARMACY. -LEVI DUQUE, DESTINEED
--- NOTE | 2020-05-27 08:39 | HMH.HP ---
*Admission Date: 05/26/20 *Chief complaint: Chest pain/non-STEMI *History of present illness: 74-year-old white female with multiple cardiac risk factors presented to the emergency department with chest pain and pressure and dyspnea. Initial troponin level was greater than 4. Cardiac Fitness Teacher was activated and patient was admitted to hospital after catheterization procedure. [facility] History I have reviewed the patient's past medical history: Yes Medical History: Reports:: Diabetes Mellitus Type 2, Hypertension Denies:: Cancer, Diabetes Mellitus Type 1, Internal Pacemaker, MRSA, Seizures *Have you ever received a pneumonia vaccine?: Yes *Have you received a flu vaccine this season?: Yes Other Medical History: Reports: Hypothyroidism, Thyroid Disease Laterality Cases: Bilateral: Tonsillectomy Other Surgeries: Yes: Hysterectomy-Total. No: Pacemaker Amputation: No Fractures: No - *Social History Last grade of school completed: Some college Smoking Status: Never smoker Alcohol Intake: never Substance Use Type: denies use *Occupational Status:: retired Housing: house Household Members: family *Travel in the last 8 weeks: None Family Hx:: Cancer, Coronary Artery Disease, Diabetes, Heart Attack, Hyperlipidemia, Hypertension, Kidney Disease, Thyroid Disorder Review of Systems - Review of Systems Review of systems:: pertinent systems reviewed and negative unless documented below Meds Home Medications Medication Instructions Recorded Confirmed Type Levothyroxine Sodium 50 mcg PO DAILY 07/28/18 05/26/20 History [Levothyroxine 50mcg (0.05mg) Tab] Aspirin [Aspirin 81mg chewable 81 mg PO DAILY 07/29/18 05/26/20 History tab] Escitalopram Oxalate [Lexapro] 20 mg PO DAILY 05/27/20 05/27/20 History Gabapentin [Neurontin 600mg 600 mg PO TID 05/27/20 05/27/20 History tablet] Glimepiride [Amaryl] 4 mg PO BID 05/27/20 05/27/20 History Meloxicam [Mobic 15 mg tab] 15 mg PO DAILY 05/27/20 05/27/20 History Metformin HCl [Metformin 1000mg 1,000 mg PO BIDWM 05/27/20 05/27/20 History Tablets] Rosuvastatin Calcium [Crestor 10mg 10 mg PO DAILY 05/27/20 05/27/20 History Tablets] carvediloL [Carvedilol 25mg Tab] 25 mg PO BID 05/27/20 05/27/20 History lisinopriL [Lisinopril 20mg Tab] 20 mg PO DAILY 05/27/20 05/27/20 History Allergies Allergy/AdvReac Type Severity Reaction Status Date / Time codeine Allergy Mild Flushing Verified 05/26/20 22:16 Sulfa (Sulfonamide Allergy Unknown UNKNOWN Verified 05/26/20 22:16 Antibiotics) [SULFA (SULFONAMIDE ANTIBIOTICS)] Exam Vital signs and Labs for Last 24 Hours: Temp Pulse Resp BP Pulse Ox 98.5 F 76 16 158/81 H 97 05/27/20 04:00 05/27/20 06:00 05/27/20 06:00 05/27/20 06:00 05/27/20 07:42 Laboratory Results - last 24 hr 05/26/20 18:12: WBC 8.0, RBC 4.73, Hgb 14.9, Hct 45.0, MCV 95.1, MCH 31.6 H, MCHC 33.2, RDW 12.5, Plt Count 235, MPV 8.1, Neut % (Auto) 69.3, Lymph % (Auto) 17.2, [place] % (Auto) 11.6 H, Eos % (Auto) 0.9, Baso % (Auto) 1.0, Neut # (Auto) 5.5, Lymph # (Auto) 1.4, [place] # (Auto) 0.9, Eos # (Auto) 0.1, Baso # (Auto) 0.1 05/26/20 18:12: Sodium 125 L, Potassium 4.0, Chloride 89 L, Carbon Dioxide 26, Anion Gap 14.0, BUN 12, Creatinine 0.90, Estimated Creat Clear 71, Estimated GFR 62, Est GFR ( Amer) 74, Glucose 260 H, Calcium 9.2, Total Bilirubin 0.5, AST 70 H, ALT 37, Alkaline Phosphatase 67, Troponin I 4.09 H, Total Protein 7.1, Albumin 4.2, Globulin 2.9, Albumin/Globulin Ratio 1.4, Lipase 115 05/26/20 18:18: SARS-CoV-2 IgG Ab (Rapid) Negative, SARS-CoV-2 IgM Ab (Rapid) Negative 05/26/20 19:44: Activated Clotting Time > 400 H* 05/26/20 20:03: Activated Clotting Time > 400 H* 05/27/20 05:00: WBC 6.6, RBC 4.21, Hgb 13.5, Hct 38.6, MCV 91.8, MCH 32.0 H, MCHC 34.9, RDW 12.8, Plt Count 173 D, MPV 8.9, Neut % (Auto) 61.7, Lymph % (Auto) 23.9, [place] % (Auto) 13.7 H, Eos % (Auto) 0.4, Baso % (Auto) 0.4, Neut # (Auto) 4.0, Lymph # (Auto)
--- NOTE | 2020-05-27 16:23 | PC.NURSE ---
Remains on room air. Denies chest pain, reports some soreness in (R) wrist from cardiac cath. (R) radial cath site w/ dressing C/D/I. 2+ pulses palpable. Cap refill <3 sec. Pt up to chair this shift. Showered independently using shower chair. Voiding w/o difficulty. Pt transferred out of step-down this shift. Family remain at bedside. Call bhargavi w/in reach.
[2020-05-27 21:26] LABS: POC Glucose,Bedside 257 (70-110)
--- NOTE | 2020-05-27 21:45 | PC.NURSE ---
patient complaining of feeling nervous and jittery inside. blood pressure 144/80, fsbs 257. medications reviewed. patient and family disagreeing on whether or not she has been taking lexapro. daughter that she resides with said she has been taking it since a resent in the family and the last time she took it was 3 days ago. patient states that she hasn't been taking it. dr. guzman was paged and notified, new order received, repeated back and clarified. order sent to pharmacy
[2020-05-28] VITALS: BP 134/70; PULSE 76; PULSE 80; RESP 18; TEMP 36.4; O2SAT 100
[2020-05-28 04:00] VITALS: BP 172/85; PULSE 80; PULSE 87; RESP 18; TEMP 36.6; O2SAT 97
[2020-05-28 05:00] VITALS: BMI 32.4
[2020-05-28 06:14] LABS: Basophils % 0.3 % (0.1-2.0); Eosinophils # 0.1 K/mm3 (0.0-0.4); Eosinophils % 1.6 % (0.1-12.0); Hematocrit 37.9 % (37.0-47.0); Hemoglobin 12.5 g/dL (12.2-16.2); Lymphocytes # 1.4 K/mm3 (0.7-4.5); Lymphocytes % 21.3 % (10-50); Mean Corpuscular HGB Conc 33.1 g/dL (31.8-35.4); Mean Corpuscular Hemoglobin 31.4 pg (27.0-31.2); Mean Corpuscular Volume 94.9 fl (81-99); Mean Platelet Volume 8.2 fl (7.4-10.4); Monocytes # 0.7 K/mm3 (0.1-1.0); Neutrophils # 4.4 K/mm3 (1.8-7.8); Platelet Count 187 K/mm3 (142-424); Red Blood Count 3.99 M/mm3 (4.20-5.40); Red Cell Distribution Width 12.8 % (11.5-17.5); White Blood Count 6.5 K/mm3 (4.8-10.8)
[2020-05-28 06:22] LABS: Anion Gap 9.1 mEq/L (5-15); Blood Urea Nitrogen 19 mg/dl (7-17); Calcium 8.2 mg/dl (8.4-10.2); Carbon Dioxide 26 mmol/L (22.0-30.0); Chloride 96 mmol/L (98-107); Creatinine Clearance Estimated 64 mL/min (50-200); Estimated Glomerular Filt Rate 49 ml/min (>60); GFR (African American) 59 ML/MIN (>60); Glucose 241 mg/dl (74-100); Potassium 4.1 mmoL/L (3.5-5.1); Sodium 127 mmol/L (136-145)
--- NOTE | 2020-05-28 07:00 | PC.NURSE ---
shift summary color television console monitor has shown sr with inverted t waves. patient has denied nausea, vomiting, diarrhea or pain. breath sounds clear to auscultation. sats greater than 92% on r/a. bowel sounds active x 4 quads. right radial cath site dressing removed, moderate size bruise present, soft to touch
[2020-05-28 08:00] VITALS: BP 137/83; PULSE 70; PULSE 95; RESP 18; TEMP 36.6; O2SAT 99
--- NOTE | 2020-05-28 08:39 | P.PN_ITS ---
Internal Medicine - PN: Subj *Date: 05/28/20 *Time: 08:39 Interval history: Patient did fairly well overnight. Has been somewhat nauseated with the new medication she is taking. Denies chest pain, shortness of air or palpitations. Exam Vital signs and Labs for Last 24 Hours: Temp Pulse Resp BP Pulse Ox 98 F 87 18 172/85 H 97 05/28/20 04:00 05/28/20 04:00 05/28/20 04:00 05/28/20 04:00 05/28/20 04:00 Laboratory Results - last 24 hr 05/27/20 21:16: POC Glucose 257 H 05/28/20 05:35: WBC 6.5, RBC 3.99 L, Hgb 12.5, Hct 37.9, MCV 94.9, MCH 31.4 H, MCHC 33.1, RDW 12.8, Plt Count 187, MPV 8.2, Neut % (Auto) 67.0, Lymph % (Auto) 21.3, Cavalier % (Auto) 10.0 H, Eos % (Auto) 1.6, Baso % (Auto) 0.3, Neut # (Auto) 4.4, Lymph # (Auto) 1.4, Cavalier # (Auto) 0.7, Eos # (Auto) 0.1, Baso # (Auto) 0.0 05/28/20 05:35: Sodium 127 L, Potassium 4.1, Chloride 96 L, Carbon Dioxide 26, Anion Gap 9.1, BUN 19 H D, Creatinine 1.10 H D, Estimated Creat Clear 64, Estimated GFR 49 L, Est GFR ( Amer) 59 D, Glucose 241 H, Calcium 8.2 L I & O for Last 24 hours: Intake & Output 05/25/20 05/26/20 05/27/20 05/28/20 11:59 11:59 11:59 10:59 Intake Total 360 / 360 480 / 480 Output Total 450 / 450 Balance 360 / 360 / 30 Weight 193 lb 8 oz 194 lb 9 oz Narrative: Alert, pleasant, no distress. Blood pressure noted to be somewhat high in the evening yesterday. Sinus rhythm on monitor. Very rare PACs noted. Heart rate regular. Lungs clear. Abdomen soft nontender. No clubbing or edema. ENT exam clear. Neurologic exam intact Assessment and Plan (1) Ischemic cardiomyopathy Status: Acute Category: Medical Code(s): I25.5 - Ischemic cardiomyopathy (2) Hyponatremia Status: Acute Category: Medical Code(s): E87.1 - Hypo-osmolality and hyponatremia (3) STEMI (ST elevation myocardial infarction) Status: Acute Qualifiers: Involved coronary artery: LAD coronary artery Qualified Code(s): I21.02 - ST elevation (STEMI) myocardial infarction involving left anterior descending coronary artery Category: Medical Code(s): I21.3 - ST elevation (STEMI) myocardial infarction of unspecified site (4) Acute kidney injury Status: Acute Category: Medical Code(s): N17.9 - Acute kidney failure, unspecified (5) Diabetes mellitus type 2 in obese Status: Acute Category: Medical Code(s): E11.69 - Type 2 diabetes mellitus with other specified complication; E66.9 - Obesity, unspecified - Assessment and plan all Dx Assessment and Plan for all problems:: Overall stable. No change in plans. Echocardiogram tomorrow, LifeVest possibility discussed with patient. Start sliding scale insulin today for hyperglycemia. Hold metformin and glimepiride. Patient will be a good candidate for SGLT2 inhibitor on discharge given her left ventricular dysfunction.
[2020-05-28 11:56] LABS: POC Glucose,Bedside 272 (70-110)
[2020-05-28 12:00] VITALS: BP 129/69; PULSE 70; RESP 16; TEMP 36.6; O2SAT 98
[2020-05-28 16:00] VITALS: BP 135/71; PULSE 68; PULSE 70; RESP 18; TEMP 36.7; O2SAT 98
[2020-05-28 16:26] LABS: POC Glucose,Bedside 305 (70-110)
--- NOTE | 2020-05-28 18:25 | PC.NURSE ---
Patient alert x 4. Has eaten rougly 50% of her meals today. Reported nausea at the beginning of the shift but responded well to zofran and has not had any additional complaints of nausea. Patient has had no c/o pain or discomfort. Patient has required insulin for elevated blood glucose levels. Has been drowsy for much of the day and just now appears to not be drowsy.
[2020-05-28 20:00] VITALS: BP 136/61; PULSE 77; PULSE 80; RESP 18; TEMP 36.6; O2SAT 96
[2020-05-28 20:46] LABS: POC Glucose,Bedside 141 (70-110)
[2020-05-29] VITALS (9 sets, daily range): BP systolic 123–155; BP diastolic 51–83; PULSE 58–93; RESP 16–18; TEMP 36.3–36.9; O2SAT 96–99; BMI 33.0
--- NOTE | 2020-05-29 03:02 | PC.NURSE ---
Pt is A&Ox3 and has ambulated to the BR with staff SBA and tolerated well. Pt reports to feeling weak but asl states it feels good to get up and out of bed. Pt encouraged to take a short walk outside of the room with staff, but pt refused and stated, I don't think I feel that good . Pt denies any pain, SOB, dyspnea, or nausea thus far. Pt sat in recliner chair for several hours after the change of shift and tolerated very well. NSR with inverted T wave noted on cardiac monitoring. Lungs CTA and on room air with sats >94%. ABD is soft, non-tender with active BS and pt reports BM during prev shift. Pt denies any diarrhea. Pt refused TEDS. Bruising noted to bilat forearms and edematous site noted beside lateral to peripheral IV. IV flushes well and good blood return is noted. IV is absent of any s/s/ of infiltration or infection. Pt reports she thinks site is from the other IV I had in. Family at bedside and active in pts care. NS infusing 75ml/hr. VSS, call light within reach. report given to Shweta Quiñones RN.
[2020-05-29 05:47] LABS: POC Glucose,Bedside 156 (70-110)
[2020-05-29 05:57] LABS: Basophils % 0.3 % (0.1-2.0); Eosinophils # 0.2 K/mm3 (0.0-0.4); Eosinophils % 2.3 % (0.1-12.0); Hematocrit 36.7 % (37.0-47.0); Hemoglobin 11.8 g/dL (12.2-16.2); Lymphocytes # 1.7 K/mm3 (0.7-4.5); Lymphocytes % 26.5 % (10-50); Mean Corpuscular HGB Conc 32.1 g/dL (31.8-35.4); Mean Corpuscular Hemoglobin 30.6 pg (27.0-31.2); Mean Corpuscular Volume 95.2 fl (81-99); Mean Platelet Volume 8.5 fl (7.4-10.4); Monocytes # 0.6 K/mm3 (0.1-1.0); Monocytes % 8.7 % (1.7-9.3); Neutrophils % 62.1 % (37.0-80.0); Platelet Count 184 K/mm3 (142-424); Red Blood Count 3.85 M/mm3 (4.20-5.40); Red Cell Distribution Width 12.9 % (11.5-17.5); White Blood Count 6.5 K/mm3 (4.8-10.8)
--- NOTE | 2020-05-29 07:48 | P.PN_ITS ---
Internal Medicine - PN: Subj *Date: 05/29/20 *Time: 07:48 Interval history: Patient feels much better than yesterday, no nausea, up in a chair. No chest pain, palpitations or dyspnea. Exam Vital signs and Labs for Last 24 Hours: Temp Pulse Resp BP Pulse Ox 98.5 F 93 H 16 139/83 98 05/29/20 04:00 05/29/20 04:00 05/29/20 04:00 05/29/20 04:00 05/29/20 04:00 Laboratory Results - last 24 hr 05/28/20 11:15: POC Glucose 272 H 05/28/20 16:10: POC Glucose 305 H* 05/28/20 20:39: POC Glucose 141 H 05/29/20 05:20: WBC 6.5, RBC 3.85 L, Hgb 11.8 L, Hct 36.7 L, MCV 95.2, MCH 30.6, MCHC 32.1, RDW 12.9, Plt Count 184, MPV 8.5, Neut % (Auto) 62.1, Lymph % (Auto) 26.5, Hamilton % (Auto) 8.7, Eos % (Auto) 2.3, Baso % (Auto) 0.3, Neut # (Auto) 4.0, Lymph # (Auto) 1.7, Hamilton # (Auto) 0.6, Eos # (Auto) 0.2, Baso # (Auto) 0.0 05/29/20 05:38: POC Glucose 156 H I & O for Last 24 hours: Intake & Output 05/26/20 05/27/20 05/28/20 05/29/20 12:59 12:59 11:59 11:59 Intake Total 2196 / 2197 Output Total 100 / 100 Balance 2096 / 2096 Weight 198 lb 6 oz Narrative: Patient alert, heart rate regular. Breathing easily. No abdominal distention. No visible edema. Neurologic exam grossly intact. Oropharynx clear Assessment and Plan (1) Ischemic cardiomyopathy Status: Acute Category: Medical Code(s): I25.5 - Ischemic cardiomyopathy (2) Hyponatremia Status: Acute Category: Medical Code(s): E87.1 - Hypo-osmolality and hyponatremia (3) STEMI (ST elevation myocardial infarction) Status: Acute Qualifiers: Involved coronary artery: LAD coronary artery Qualified Code(s): I21.02 - ST elevation (STEMI) myocardial infarction involving left anterior descending coronary artery Category: Medical Code(s): I21.3 - ST elevation (STEMI) myocardial infarction of unspecified site (4) Acute kidney injury Status: Acute Category: Medical Code(s): N17.9 - Acute kidney failure, unspecified (5) Diabetes mellitus type 2 in obese Status: Acute Category: Medical Code(s): E11.69 - Type 2 diabetes mellitus with other specified complication; E66.9 - Obesity, unspecified - Assessment and plan all Dx Assessment and Plan for all problems:: See yesterday's notes for plan. Echo today. Hopefully discharge today with LifeVest if ejection fraction still suppressed.
--- NOTE | 2020-05-29 08:36 | CA_ITS ---
APPROVED REPORT EXAM: Comprehensive 2D, Doppler, and color-flow Echocardiogram Agricultural Scientist: Elzbieta Schmid CRT Ht: 5 ft 4 in Wt: 198lbs BSA: 1.95 BP: 134/83 mmHg Indications: Chest Pain, Shortness of Breath, Diabetes, Hypertension/HDD, stents, ischemic cm Echo Enhancing Agent Indication: Endocardial border delineation Agent(s) / Amount(s) Used: Definity 2 cc 2D Dimensions Aortic Root 1.91 cm LVEF (Hurley's) 38.00 % LVOT 1.99 cm (M/F) 1.5-2.5 LV Volume 106.10 mL M-Mode Dimensions RVDd 2.79 cm (0.9-2.6) LA Diam 3.35 cm (1.9-4.0) LVDd 4.75 cm (3.5-5.7) Ao Diam 3.20 cm (2.0-3.7) LVDs 3.54 cm (3.5-5.7) IVSd 1.00 cm (0.6-1.1) PWd 0.68 cm (0.6-1.1) EF (Teich) 50.10% FS 25.50% EDV (Teich) 104.90 mL ESV (Teich) 52.30 mL LV Diastology E Decel Time 150.00 (160-240 msec) E/A Ratio 0.36 Aortic Valve AO Peak GR. 5.70 mmHg Mitral Valve MV E Max Ji. 50.00 (40-130 cm/s) MV A Velocity 137.00 (40-130 cm/s) E/A Ratio 0.36 MV Decel. Time 150.00 (160-240 ms) MV PHT 44.00 ms Tricuspid Valve TR P. Velocity 244.00 cm/s RAP Estimate 10.00 mmHg RVSP 33.80 mmHg Left Ventricle Technically difficult study, Definity contrast was utilized to delineate the endocardial surfaces. Left atrium is mildly enlarged, left ventricle is mildly dilated, there is severe reduced left ventricular systolic function, visually estimated ejection fraction 30%, there is marked hypokinesis involving mid to distal septum, anterior, anterior apical and anterolateral wall. There is no left ventricular thrombus seen. Grade 1 diastolic dysfunction seen with tissue Doppler evidence of raise left atrial pressure. Right Ventricle Right atrium and right ventricle are normal size and contractility. Aortic Valve Aortic valve is minimally thickened and fibrosed, there is no aortic stenosis or aortic insufficiency. Mitral Valve Mitral valve leaflets are minimally thickened, there is no mitral stenosis, there is moderate mitral regurgitation. Tricuspid Valve Tricuspid valve is grossly normal, there is moderate tricuspid regurgitation, tricuspid regurgitation jet velocity is inadequate for assessment of the right ventricular systolic pressure. Pulmonic Valve Pulmonic valve is poorly visualized. Great Vessels Aortic root is normal size. Pericardium No significant pericardial effusion noted. Conclusion 1. Mildly enlarged left atrium, mildly dilated left ventricle, visually estimated ejection fraction 30% with segmental wall motion abnormality described above, Definity contrast was utilized to delineate the endocardial surfaces, there is no left ventricular thrombus seen. Grade 1 diastolic dysfunction seen with tissue Doppler evidence of raise left atrial pressure. 2. Moderate mitral and tricuspid regurgitation. 3. No significant pericardial effusion noted. Electronically signed by : Kolby Germain, 05/30/2020 05:11:44
--- NOTE | 2020-05-29 09:45 | HMH.CNCARD ---
History of Present Illness Consult date: 05/29/20 Requesting physician: Edinson García Consult reason: shortness of breath Chief complaint: SOA Additional Medical History:: 1. Diabetes mellitus, treated for about 10 years 2. Hypertension 3. Hyperlipidemia 4. Family history of early coronary artery disease in her parents in their 60s 5. Coronary artery disease A. STEMI, 05/26/2020 B. [facility] results: ANGIOGRAPHIC RESULTS The left main artery Normal The left anterior descending artery Has critical 90% tandem stenoses followed by mid vessel 90% stenoses The circumflex artery Is a large dominant vessel and has a proximal 10 to 20% stenosis followed by a 30% stenosis between the first and second obtuse marginal artery followed by 30 to 40% stenosis in the mid vessel. A large first obtuse marginal artery has an ostial 60% stenosis The right coronary artery Small nondominant and normal The STINSON ventriculogram reveals Dilated ventricle mid anterior apical hypokinesis estimated ejection fraction 30% The left ventricular end-diastolic pressure Elevated at 30 mmHg IMPRESSION Critical coronary disease involving the proximal and mid LAD as described above Successful stenting in the proximal and mid LAD critical disease reduced to 0% with 2 drug-eluting stents in a noncontiguous manner Severely reduced ejection fraction with large regional wall motion abnormality Elevated LVEDP PLAN 1. Brilinta 90 twice daily plus aspirin 81 mg daily 2. Start ROBERT inhibitors and carvedilol once hemodynamically stable 3. LDL less than 55 4. Tight control of diabetes 5. Avoidance of tobacco products 6. Cardiac rehabilitation 7. Patient should remain in the hospital until Friday and obtain an echocardiogram. If ejection fraction is less than 35% as anticipated a LifeVest should be placed prior to discharge home 8. Medical management for the circumflex artery stenosis 6. Hypothyroidism History of present illness: 74-year-old white female with history of diabetes and hypertension presented to the emergency department for increasing shortness of breath with activity and severe nausea. Patient denies any significant chest pain, pressure or tightness. ER evaluation noted elevated troponin of greater than [address] elevation [place] on EKG and patient was taken urgently to the cardiac [facility] where she received coronary stenting to her LAD. Due to STEMI and ischemic cardiomyopathy, patient has been observed over the weekend on telemetry with plans for echocardiogram today to decide on whether she needs a LifeVest or not. Patient denies any chest discomfort or shortness of breath since the procedure. [facility] History Medical History: Reports:: Diabetes Mellitus Type 2, Hypertension Denies:: Cancer, Diabetes Mellitus Type 1, Internal Pacemaker, MRSA, Seizures *Have you ever received a pneumonia vaccine?: Yes *Have you received a flu vaccine this season?: Yes Other Medical History: Reports: Hypothyroidism, Thyroid Disease Laterality Cases: Bilateral: Tonsillectomy Other Surgeries: Yes: Hysterectomy-Total. No: Pacemaker Amputation: No Fractures: No - *Social History Last grade of school completed: Some college Smoking Status: Never smoker Alcohol Intake: never Substance Use Type: denies use *Occupational Status:: retired Housing: house Household Members: family *Travel in the last 8 weeks: None Family Hx:: Cancer, Coronary Artery Disease, Diabetes, Heart Attack, Hyperlipidemia, Hypertension, Kidney Disease, Thyroid Disorder Meds Home Medications Medication Instructions Recorded Confirmed Type Levothyroxine Sodium 50 mcg PO DAILY 07/28/18 05/26/20 History [Levothyroxine 50mcg (0.05mg) Tab] Aspirin [Aspirin 81mg chewable 81 mg PO DAILY 07/29/18 05/26/20 History tab] Escitalopram Oxalate [Lexapro] 20 mg PO DAILY 05/27/20 05/27/20 History Gabapentin [Neurontin 600mg 600 mg PO TID 05/27/20 05/27/20 Histor
[2020-05-29 11:56] LABS: POC Glucose,Bedside 201 (70-110)
[2020-05-29 12:50] LABS: Chloride 98 mmol/L (98-107); Sodium 128 mmol/L (136-145)
[2020-05-29 12:51] LABS: Potassium 4.3 mmoL/L (3.5-5.1)
[2020-05-29 12:54] LABS: Anion Gap 8.3 mEq/L (5-15); Blood Urea Nitrogen 20 mg/dl (7-17); Calcium 7.8 mg/dl (8.4-10.2); Carbon Dioxide 26 mmol/L (22.0-30.0); Creatinine Clearance Estimated 60 mL/min (50-200); Estimated Glomerular Filt Rate 44 ml/min (>60); GFR (African American) 53 ML/MIN (>60); Glucose 160 mg/dl (74-100)
--- NOTE | 2020-05-29 15:27 | PC.NURSE ---
A&O x4. Lungs clear. Bowel sounds active. She was up to the chair for a few hours this morning and tolerated well. She has ambulated to the bathroom with standby assist. Swelling noted to left forearm. Open area to left lower back as well. Pt states she thinks its from the zoll monitor pads. VSS. No complaints verbalized. Will continue to monitor.
--- NOTE | 2020-05-29 16:09 | ECG_ITS ---
APPROVED REPORT Exam: Resting ECG HR:67 bpm ECG Measurements Heart Rate 67 AXES MN 140 P 40 QRSd 78 QRS 14 QT 436 T 62 QTc 460 Conclusion Normal sinus rhythm Low voltage QRS Cannot rule out Anterior infarct, age undetermined T wave abnormality, consider Anterolateral ischemia Abnormal ECG Electronically signed by : Sami Jauregui, 05/30/2020 16:48:21
[2020-05-29 16:34] LABS: POC Glucose,Bedside 253 (70-110)
--- NOTE | 2020-05-29 16:43 | PC.NURSE ---
I received a call from the life vest jewelry sales representative, she requested a face sheet and recent note from cardiology to be faxed to her. She stated they bring the life vest tomorrow for patient.
--- NOTE | 2020-05-29 19:24 | PC.NURSE ---
report given to alexandrea
[2020-05-29 20:43] LABS: POC Glucose,Bedside 272 (70-110)
[2020-05-30] VITALS: PULSE 70
[2020-05-30 04:00] VITALS: BP 136/68; PULSE 70; RESP 18; TEMP 36.4; O2SAT 96
[2020-05-30 04:19] VITALS: BMI 32.5
--- NOTE | 2020-05-30 04:37 | PC.NURSE ---
patient has rested throughout the night, telemetry monitor has shown sr with a controlled rate. has remained on room air with sats greater than 95%. breath sounds clear. family voiced questions regarding life vest, information provided. has denied soa, pain, nausea, vomiting or diarrhea.
[2020-05-30 06:07] LABS: POC Glucose,Bedside 187 (70-110)
--- NOTE | 2020-05-30 07:14 | HMH.DCSUM ---
General - General Admission date:: 05/26/20 Discharge date: 05/30/20 HPI HPI: 74-year-old white female with multiple cardiac risk factors presented to the emergency department with chest pain and pressure and dyspnea. Initial troponin level was greater than 4. Cardiac Automobile Repossessor was activated and patient was admitted to hospital after catheterization procedure. Hospital Course Hospital Course: 74-year-old female admitted to the hospital for STEMI. Taken to the Automobile Repossessor urgently. Automobile Repossessor findings as follows: STEMI, 05/26/2020 with [facility] results: ANGIOGRAPHIC RESULTS The left main artery Normal The left anterior descending artery Has critical 90% tandem stenoses followed by mid vessel 90% stenoses The circumflex artery Is a large dominant vessel and has a proximal 10 to 20% stenosis followed by a 30% stenosis between the first and second obtuse marginal artery followed by 30 to 40% stenosis in the mid vessel. A large first obtuse marginal artery has an ostial 60% stenosis The right coronary artery Small nondominant and normal The STINSON ventriculogram reveals Dilated ventricle mid anterior apical hypokinesis estimated ejection fraction 30% The left ventricular end-diastolic pressure Elevated at 30 mmHg IMPRESSION Critical coronary disease involving the proximal and mid LAD as described above Successful stenting in the proximal and mid LAD critical disease reduced to 0% with 2 drug-eluting stents in a noncontiguous manner Severely reduced ejection fraction with large regional wall motion abnormality Elevated LVEDP Cardiology involved intimately with patient's care. Echo performed day before discharge showing EF of 30%. Met criteria for LifeVest. Will need follow-up in 3 months with repeat echo to see if left ventricular function improves or if she will need placement of an ICD. LifeVest to be fitted today prior to discharge. Patient will be discharged on goal-directed therapy including ROBERT inhibitor and beta-shaq which she was already on prior to admission. Continue statin therapy with resumption of her home Crestor. Initiated Brilinta for antiplatelet therapy along with aspirin for dual antiplatelet therapy. She will need improved control of her diabetes, transition from glimepiride to Jardiance given contraindication of glimepiride in the setting of heart failure. We will plan for cardiac rehab in the outpatient setting. Patient had no further episodes or chest pain after stenting. Stable for discharge home. Additional Notes from cardiology: Okay for discharge from cardiology standpoint after LifeVest has been fitted today. Patient she will follow-up in our office in 1 week. Plan to perform limited echocardiogram in about 45 days to decide if LifeVest is still needed. Full echo cardiogram planned in 90 days to decide if defibrillator is needed. Objective Vital signs: Temp Pulse Resp BP Pulse Ox 97.6 F 70 18 136/68 96 05/30/20 04:00 05/30/20 04:00 05/30/20 04:00 05/30/20 04:00 05/30/20 04:00 no acute distress, obese - *Routine HEENT Exam Head: Present: normocephalic Eye: Present: EOMI, PERRL ENT: Present: mucous membranes moist - *Routine Neck Exam Present: supple - *Routine Respiratory Exam Present: CTA bilaterally - *Routine Cardiovascular Exam Present: RRR - *Routine Abdominal Exam Present: soft, normoactive bowel sounds. Absent: tenderness - *Routine Extremities Exam Absent: cyanosis, clubbing, edema Comments: Ecchymoses on left forearm with clean dry intact insertion site from cath overlying right radial artery. No bruit - *Routine Skin Exam Present: warm. Absent: rash Results Labs on day of discharge: Labs from last 24 hours 05/30/20 05/29/20 05/29/20 05:52 20:29 16:25 Sodium Potassium Chloride Carbon Dioxide Anion Gap BUN Creatinine Estimated Creat Clear Estimated GFR Est GFR ( Amer)
[2020-05-30 07:54] VITALS: BP 128/64; PULSE 73; RESP 18; TEMP 36.6; O2SAT 98
[2020-05-30 08:00] VITALS: PULSE 76
--- NOTE | 2020-05-30 08:39 | HMH.PNCARD ---
Subjective Date: 05/30/20 Time: 08:39 Principal diagnosis: STEMI Interval history: Bang is 74-year-old white female sitting in chair in no acute distress. No complaints overnight. Her LifeVest was approved and will be fit today. Exam Vital signs and Labs for Last 24 Hours: Temp Pulse Resp BP Pulse Ox 97.9 F 73 18 128/64 98 05/30/20 07:54 05/30/20 07:54 05/30/20 07:54 05/30/20 07:54 05/30/20 07:54 Laboratory Results - last 24 hr 05/29/20 05:20: Sodium 128 L, Potassium 4.3, Chloride 98, Carbon Dioxide 26, Anion Gap 8.3, BUN 20 H, Creatinine 1.20 H, Estimated Creat Clear 60, Estimated GFR 44 L, Est GFR ( Amer) 53 L, Glucose 160 H D, Calcium 7.8 L 05/29/20 11:42: POC Glucose 201 H 05/29/20 16:25: POC Glucose 253 H 05/29/20 20:29: POC Glucose 272 H 05/30/20 05:52: POC Glucose 187 H I & O for Last 24 hours: Intake & Output 05/27/20 05/28/20 05/29/20 05/30/20 12:59 11:59 11:59 11:59 Intake Total 2197 / 2197 2800 / 2800 Output Total 100 / 100 Balance 2097 / 2097 2800 / 2800 Weight 198 lb 6 oz 195 lb 1.745 oz - Constitutional no acute distress - *Routine Respiratory Exam Present: CTA bilaterally - *Routine Cardiovascular Exam Present: RRR - *Routine Extremities Exam Absent: cyanosis, clubbing, edema - *Routine Neurological Exam Present: alert, oriented X3 Progress Note: A&P (1) Ischemic cardiomyopathy Status: Acute (2) Hyponatremia Status: Acute (3) STEMI (ST elevation myocardial infarction) Status: Acute (4) Acute kidney injury Status: Acute (5) Diabetes mellitus type 2 in obese Status: Acute Assessment and Plan for All Diagnoses:: 1. STEMI, status post LAD [place]. On aspirin and Brilinta 2. Ischemic cardiomyopathy, on Coreg, lisinopril and will add digoxin 0.125 mg daily with ejection fraction of about 30%. No evidence of CHF on chest x-ray or clinical exam. We will hold off on diuretic therapy at this time. 3. Hyperlipidemia, on atorvastatin therapy Okay for discharge from cardiology standpoint after LifeVest has been fitted today. Patient she will follow-up in our office in 1 week. Plan to perform limited echocardiogram in about 45 days to decide if LifeVest is still needed. Full echo cardiogram planned in 90 days to decide if defibrillator is needed.
[2020-05-30 10:00] VITALS: PULSE 78
--- NOTE | 2020-05-30 10:27 | HMH.PHACLD ---
Marilyn Sepulveda has received discharge medication counseling on the following medications: MD CONTINUING WITH ASPIRIN 81 MG DAILY, ATORVASTATIN 40 MG HS, LISINOPRIL 20 MG DAILY, AND CARVEDILOL 25 MG BID. MD ALSO STARTED BRILINTA 90 MG BID.
[2020-05-30 12:00] VITALS: BP 124/76; PULSE 72; RESP 16; O2SAT 98
== END 2020-05-30 12:20 | disposition home or self-care (01) | DRG 247 ==
LOC: ER 19:00 → CATHLAB 19:40 → 2ND 21:57
PROVIDERS: Admitting Provider Internal Medicine; Emergency Provider Physician Assistant; PCP Nurse Practitioner Family; Visit Provider Internal Medicine Adolescent Medicine
PROC: 027035Z Dilation of Coronary Artery, One Artery with Two Drug-eluting Intraluminal Devices, Percutaneous Approach (ICD-10-PCS; principal; 2020-05-26 19:15)
DX: I21.02 ST elevation (STEMI) myocardial infarction involving left anterior descending coronary artery (principal); E87.1 Hypo-osmolality and hyponatremia; N17.9 Acute kidney failure, unspecified; I25.10 Atherosclerotic heart disease of native coronary artery without angina pectoris; E11.9 Type 2 diabetes mellitus without complications; I10 Essential (primary) hypertension; E03.9 Hypothyroidism, unspecified; I25.5 Ischemic cardiomyopathy; Z88.2 Allergy status to sulfonamides; Z79.899 Other long term (current) drug therapy; Z79.84 Long term (current) use of oral hypoglycemic drugs
CPT/HCPCS: 36415; 71045; 74177; 80048; 80053; 82962; 83690; 84484; 85025; 85347; 86328; 92941; 93005; 93306; 93458; 96365; 96375; 99152; 99153; 99284; C1725; C1769; C1876; C9606; J1644; J2405; Q9957; Q9967

== ENCOUNTER 2020-06-13 09:05 | Outpatient (RCR) | payer MEDICARE, SELFPAY | END 2020-09-27 13:57 | disposition home or self-care (01) | LOC: PT 09:05 | PROVIDERS: Visit Provider Internal Medicine | DX: Z95.5 Presence of coronary angioplasty implant and graft (principal) | CPT/HCPCS: 93798 ==

== ENCOUNTER → 2020-07-14 14:08 | Outpatient (CLI) | payer MEDICARE, SELFPAY ==
--- NOTE | 2020-07-14 14:09 | CA_ITS ---
APPROVED REPORT EXAM: Limited 2D Echocardiogram Shoe Lay Out Planner: Maryuri Silva RVT Ht: 5 ft 4 in Wt: 182lbs BSA: 1.88 BP: 132/89 mmHg Indications: CM EF OF 30% ON 05/29,PT HAS LIFE VEST, DM,HTN,CAD M-Mode Dimensions RVDd 2.13 cm (0.9-2.6) LA Diam 3.47 cm (1.9-4.0) LVDd 4.34 cm (3.5-5.7) Ao Diam 2.74 cm (2.0-3.7) LVDs 3.50 cm (3.5-5.7) IVSd 0.93 cm (0.6-1.1) PWd 0.97 cm (0.6-1.1) EF (Teich) 40.00% FS 19.40% EDV (Teich) 84.90 mL ESV (Teich) 50.90 mL Conclusion 1. Limited echocardiogram was performed to assess left ventricular systolic function. 2. Normal left ventricular size, preserved left ventricular systolic function, visually estimated ejection fraction 55% with no regional wall motion abnormality. 3. No significant pericardial effusion noted. Electronically signed by : Kolby Germain, 07/18/2020 05:47:20
== END ==
PROVIDERS: PCP Nurse Practitioner Family; Visit Provider Urology
DX: E11.69 Type 2 diabetes mellitus with other specified complication (principal); E66.9 Obesity, unspecified; I25.10 Atherosclerotic heart disease of native coronary artery without angina pectoris; I25.5 Ischemic cardiomyopathy; I50.20 Unspecified systolic (congestive) heart failure; R00.0 Tachycardia, unspecified
CPT/HCPCS: 93308

== ENCOUNTER 2020-11-03 19:35 | Emergency (ER) | payer MEDICARE, SELFPAY ==
[2020-11-03 19:49] LABS: POC Glucose,Bedside 428 (70-110)
--- NOTE | 2020-11-03 20:14 | HMH.EDGENADL ---
ED Disposition Clinical Impression: Hyperglycemia, drug-induced Disposition: Home, Self-Care Condition on Discharge: Good Instructions: DI for Hyperglycemia -- Adult Additional Instructions: Drink plenty of water over the next several days. Check blood sugar every 2-3 hours or if there are any changes in patient's symptoms. If BGL > 400 mg/dL report back to our ER immediately. Call help desk intern in the morning to discuss decreasing steroids more aggressively. Do not abruptly stop steroids as this can lead to some serious adverse outcomes. Patient is a very closely observed and monitored to ensure no falls. If walking, someone should be at her side. She should follow-up with her PCP in 48 to 72 hours for recheck. If she has any nausea/vomiting, lightheadedness, worsening weakness, or other new concerning symptoms please immediately report back to our emergency department. Referrals: Cheyenne Scott APRN [Primary Care Provider] - - Critical Care Critical Care Time: No Attestation: On 11/03/20, the high probability of a clinically significant, sudden or life threatening deterioration of the following system(s) required my full and direct attention, intervention and personal management. The time I documented below is in addition to time spent performing reported procedures but includes the following listed in this critical care notation. Medical Decision Making - Medical Records Medical records reviewed: Yes: I reviewed the patient's medical records. - Jose Inquiry Pt receiving controlled substance: No Vital Signs: 11/03/20 20:20 Temperature 98.3 F Temperature Source Oral Pulse Rate [Left Radial] 95 H Respiratory Rate 16 Blood Pressure [Right Arm] 107/50 L Blood Pressure Mean [Right Arm] 69 Blood Pressure Source [Right Arm] Automatic Cuff Blood Pressure Position [Right Arm] Sitting 02 Sat by Pulse Oximetry 99 Oxygen Delivery Method Room Air - Lab Data Lab Results 11/03/20 19:41: POC Glucose 428 H* 11/03/20 19:50: Urine Color Yellow, Urine Appearance Clear, Urine pH 5.5, Ur Specific [place] 1.015, Urine Protein Negative, Urine Glucose (UA) 3+, Urine Ketones Negative, Urine Blood Negative, Urine Nitrate Negative, Urine Bilirubin Negative, Urine Urobilinogen 0.2, Ur Leukocyte Esterase Negative, Amorphous Sediment 2+ 11/03/20 19:50: WBC 12.9 H, RBC 4.08 L, Hgb 12.7, Hct 38.7, MCV 94.8, MCH 31.1, MCHC 32.8, RDW 13.1, Plt Count 231, MPV 8.4, Neut % (Auto) 88.8 H, Lymph % (Auto) 7.4 L, [place] % (Auto) 3.4, Eos % (Auto) 0.2, Baso % (Auto) 0.2, Neut # (Auto) 11.4 H, Lymph # (Auto) 1.0, [place] # (Auto) 0.4, Eos # (Auto) 0.0, Baso # (Auto) 0.0, Total Counted 100, Neutrophils % (Manual) 92 H, Lymphocytes % (Manual) 3 L, Monocytes % (Manual) 4, Eosinophils % (Manual) 1, Platelet Estimate Normal, RBC Morphology Normal 11/03/20 19:50: Sodium 127 L, Potassium 5.3 H, Chloride 98, Carbon Dioxide 20 L, Anion Gap 14.3, BUN 49 H, Creatinine 1.80 H, Estimated Creat Clear 33, Estimated GFR 28 L, Est GFR ( Amer) 33 L, Glucose 405 H*, Calcium 9.2, Total Bilirubin 0.5, AST 31, ALT 31, Alkaline Phosphatase 161 H, Total Protein 6.1 L, Albumin 3.6, Globulin 2.5, Albumin/Globulin Ratio 1.4 11/03/20 21:12: VBG pH 7.32, VBG pCO2 40.0, VBG pO2 72.8 H, VBG HCO3 20.3 L, VBG Total CO2 21.5 L, VBG O2 Saturation 94.1 H, VBG Base Excess -5.8 L 11/03/20 23:19: POC Glucose 346 H* Result diagrams: 11/03/20 19:50 11/03/20 19:50 Orders (Tests/Meds): ORDERS Category Date Time Status CT cervical spine wo con Stat Cat Scan 11/03/20 21:[address] head/brain wo con Stat Cat Scan 11/03/20 21:00 Taken Medical Decision Narrative: Patient presents with headache and blood sugar complaint. She has had some tremulousness, intermittent weakness. Weakness is generalized. Normal neurologic exam. Stable/steady gait. BGL is elevated to 450 mg/dL on arrival. Differential diagnosis does include DKA versus nonketotic hyperglycemia versus acute IC
[2020-11-03 20:20] VITALS: BP 107/50; PULSE 95; RESP 16; TEMP 36.8; O2SAT 99; BMI 28.8
[2020-11-03 20:41] LABS: Microscopic, Urine URINE MICROSCOPIC (MICROSCOPIC)
[2020-11-03 20:43] LABS: Appearance,Urine CLEAR (Clear); Basophils % 0.2 % (0.1-2.0); Bilirubin,Urine Negative (Negative); Blood, Urine Negative (Negative); Color,Urine YELLOW (Yellow); Eosinophils % 0.2 % (0.1-12.0); Glucose,Urine (UA) 3+ (Negative); Hematocrit 38.7 % (37.0-47.0); Hemoglobin 12.7 g/dL (12.2-16.2); Ketones,Urine Negative (Negative); Leukocyte Esterase,Urine Negative (Negative); Lymphocytes % 7.4 % (10-50); Mean Corpuscular HGB Conc 32.8 g/dL (31.8-35.4); Mean Corpuscular Hemoglobin 31.1 pg (27.0-31.2); Mean Corpuscular Volume 94.8 fl (81-99); Mean Platelet Volume 8.4 fl (7.4-10.4); Monocytes # 0.4 K/mm3 (0.1-1.0); Monocytes % 3.4 % (1.7-9.3); Neutrophils # 11.4 K/mm3 (1.8-7.8); Neutrophils % 88.8 % (37.0-80.0); Nitrate,Urine Negative (Negative); PH,Urine 5.5 (5.0-8.5); Platelet Count 231 K/mm3 (142-424); Protein,Urine Negative (Negative); Red Blood Count 4.08 M/mm3 (4.20-5.40); Red Cell Distribution Width 13.1 % (11.5-17.5); Specific Gravity, Urine 1.015 (1.005-1.030); Urobilinogen,Urine 0.2 EU/dl (0.2); White Blood Count 12.9 K/mm3 (4.8-10.8)
[2020-11-03 20:45] LABS: Chloride 98 mmol/L (98-107); Potassium 5.3 mmoL/L (3.5-5.1); Sodium 127 mmol/L (136-145)
[2020-11-03 20:47] LABS: Blood Urea Nitrogen 49 mg/dl (7-17); Creatinine Clearance Estimated 33 mL/min (50-200); Estimated Glomerular Filt Rate 28 ml/min (>60); GFR (African American) 33 ML/MIN (>60); MANUAL DIFFERENTIAL MANUAL DIFFERENTIAL (MANUAL DIFF)
[2020-11-03 20:48] LABS: Alanine Aminotransferase 31 U/L (12-78); Albumin Level 3.6 g/dl (3.5-5.0); Albumin/Globulin Ratio 1.4 (1.1-1.8); Alkaline Phosphatase 161 U/L (38-126); Anion Gap 14.3 mEq/L (5-15); Aspartate Amino Transferase 31 U/L (14-36); Bilirubin,Total 0.5 mg/dl (0.2-1.3); Calcium 9.2 mg/dl (8.4-10.2); Carbon Dioxide 20 mmol/L (22.0-30.0); Globulin 2.5 g/dL (1.3-3.2); Total Protein,Serum 6.1 g/dl (6.3-8.2)
[2020-11-03 20:49] LABS: Amorphous Sediment,Urine 2+ /lpf
[2020-11-03 20:50] LABS: Glucose 405 mg/dl (74-100)
--- NOTE | 2020-11-03 21:00 | CT_ITS ---
PROCEDURE: CT HEAD/BRAIN WO CON CLINICAL INDICATION: headache Severe headache COMPARISON: CT HEADWO CT head/brain wo con from 07/28/2018 TECHNIQUE: Axial images obtained. All CT scans at the facility use one or more dose reduction, viz: automated exposure control, ma/kV adjustment per patient size (including targeted exams where dose is matched to indication, i.e. head), or iterative reconstruction technique. FINDINGS: No midline shift, mass effect, intracranial hemorrhage, hydrocephalus, or extra-axial fluid collection is evident. Nonspecific decreased attenuation in the periventricular white matter. Focal small area of decreased density in the left centrum semiovale consistent with an old lacunar infarction. The calvarium has an unremarkable appearance. No mastoid effusion. No sinus air-fluid level. IMPRESSION: No acute intracranial finding Dictated by: Shamar Edwards MD 11/04/2020 08:44 Shamar Edwards MD in [place] 11/04/2020 08:44
--- NOTE | 2020-11-03 21:01 | CT_ITS ---
PROCEDURE: CT CERVICAL SPINE WO CON CLINICAL INDICATION: fall with neck pain Headache, extremity weakness COMPARISON: CT SPCERVWO CT cervical spine wo con from 07/28/2018 TECHNIQUE: Axial images obtained with sagittal and coronal reformats. All CT scans at the facility use one or more dose reduction, viz: automated exposure control, ma/kV adjustment per patient size (including targeted exams where dose is matched to indication, i.e. head), or iterative reconstruction technique. Axial spiral CT scanning performed of the cervical spine beginning at the base of the skull and continuing to the upper T-spine. 3-D multiplanar reconstruction with 3-D manipulation of volumetric data set in image rendering was completed by the radiologist and/or technologist with the supervision of the radiologist on independent workstation. FINDINGS: There is slight reversal of the cervical lordosis. No acute fracture or dislocation. No lytic or blastic change. Multilevel cervical spondylosis. C2-C3:. Left-sided foraminal narrowing from uncovertebral and facet hypertrophy not significantly changed C3-C4: Degenerative disc disease with broad-based partially calcified disc eccentric to the left with severe left-sided foraminal narrowing unchanged. C4-C5: 2 mm anterolisthesis of C4 C5-C6: Degenerative disc disease. C6-C7: Degenerative disc disease with mild uncovertebral hypertrophy. C7-T1: 3 mm anterolisthesis of C7 with mild degenerative disc disease. IMPRESSION: Multilevel cervical spondylosis as described above. Overall not significantly changed Dictated by: Shamar Edwards MD 11/04/2020 08:49 Shamar Edwards MD in [place] 11/04/2020 08:49
[2020-11-03 21:26] LABS: VBG Base Excess -5.8 mmol/L (-2.4-2.3); VBG HCO3 20.3 mmol/L (23-30); VBG Oxygen Saturation 94.1 % (50-70); VBG PH 7.32 mmol/L (7.31-7.41); VBG PO2 72.8 mmol/L (28-40); VBG Total CO2 21.5 mmol/L (23-27)
[2020-11-03 21:31] LABS: Eosinophils % 1 % (0-3); Lymphocytes % 3 % (10-50); Monocytes % 4 % (2-9); Neutrophils % 92 % (42-76); Platelet Estimate Normal; RBC Morphology Normal; Total Cells Counted 100
[2020-11-03 22:30] VITALS: BP 133/61; PULSE 72; RESP 18; O2SAT 97
[2020-11-03 23:00] VITALS: BP 132/64; PULSE 86; O2SAT 98
--- NOTE | 2020-11-03 23:23 | PC.NURSE ---
FS 348
[2020-11-03 23:27] LABS: POC Glucose,Bedside 346 (70-110)
[2020-11-03 23:30] VITALS: BP 138/61; PULSE 86; RESP 18; O2SAT 100
[2020-11-04] VITALS: BP 150/71; PULSE 77; RESP 18; O2SAT 98
[2020-11-04 00:37] VITALS: BP 152/61; PULSE 84; RESP 20; TEMP 36.7; O2SAT 99
== END 2020-11-04 00:44 | disposition home or self-care (01) ==
PROVIDERS: Emergency Medicine; Emergency Provider Student in an Organized Health Care Education/Training Program; PCP Nurse Practitioner Family
DX: E11.65 Type 2 diabetes mellitus with hyperglycemia (principal); E03.9 Hypothyroidism, unspecified; I25.10 Atherosclerotic heart disease of native coronary artery without angina pectoris; I10 Essential (primary) hypertension; Z88.2 Allergy status to sulfonamides; Z88.5 Allergy status to narcotic agent; Z79.51 Long term (current) use of inhaled steroids; Z79.899 Other long term (current) drug therapy
CPT/HCPCS: 70450; 72125; 80053; 81001; 82803; 82962; 85007; 85025; 96365; 99283

== ENCOUNTER → 2020-12-20 15:14 | Outpatient (CLI) | payer MEDICARE, SELFPAY ==
[2020-12-20 15:55] LABS: Basophils # 0.1 K/mm3 (0-0.2); Basophils % 0.5 % (0.1-2.0); Eosinophils % 0.4 % (0.1-12.0); Hematocrit 41.4 % (37.0-47.0); Hemoglobin 13.6 g/dL (12.2-16.2); Lymphocytes # 0.8 K/mm3 (0.7-4.5); Lymphocytes % 8.9 % (10-50); Mean Corpuscular HGB Conc 32.8 g/dL (31.8-35.4); Mean Corpuscular Hemoglobin 31.3 pg (27.0-31.2); Mean Corpuscular Volume 95.6 fl (81-99); Mean Platelet Volume 8.5 fl (7.4-10.4); Monocytes # 0.2 K/mm3 (0.1-1.0); Monocytes % 2.1 % (1.7-9.3); Neutrophils # 8.2 K/mm3 (1.8-7.8); Neutrophils % 88.1 % (37.0-80.0); Platelet Count 207 K/mm3 (142-424); Red Blood Count 4.33 M/mm3 (4.20-5.40); Red Cell Distribution Width 13.9 % (11.5-17.5); White Blood Count 9.3 K/mm3 (4.8-10.8)
[2020-12-20 16:03] LABS: MANUAL DIFFERENTIAL MANUAL DIFFERENTIAL (MANUAL DIFF)
[2020-12-20 20:25] LABS: Alanine Aminotransferase 16 U/L (12-78); Alkaline Phosphatase 90 U/L (38-126); Aspartate Amino Transferase 29 U/L (14-36); Bilirubin,Direct 0.5 mg/dl (0.0-0.4); Bilirubin,Indirect 0.1 mg/dL (0.0-0.9); Bilirubin,Total 0.6 mg/dl (0.2-1.3); Bilirubin,Unconjugated 0.1 mg/dL (0.0-1.1); Chol/HDL Ratio 4.3 (1-3.5); Cholesterol 248 mg/dl (140-200); HDL Cholesterol 58 mg/dl (40-60); Total Protein,Serum 6.6 g/dl (6.3-8.2); Triglycerides 297 mg/dl (30-150); VLDL Cholesterol 59 mg/dL (0-40)
[2020-12-20 20:26] LABS: Alanine Aminotransferase 15 U/L (12-78); Albumin/Globulin Ratio 1.5 (1.1-1.8); Alkaline Phosphatase 88 U/L (38-126); Anion Gap 12.3 mEq/L (5-15); Aspartate Amino Transferase 27 U/L (14-36); Bilirubin,Total 0.6 mg/dl (0.2-1.3); Blood Urea Nitrogen 28 mg/dl (7-17); Calcium 9.2 mg/dl (8.4-10.2); Carbon Dioxide 25 mmol/L (22.0-30.0); Chloride 102 mmol/L (98-107); Estimated Glomerular Filt Rate 37 ml/min (>60); GFR (African American) 45 ML/MIN (>60); Globulin 2.6 g/dL (1.3-3.2); Glucose 263 mg/dl (74-100); Magnesium 1.7 mg/dl (1.6-2.3); Potassium 5.3 mmoL/L (3.5-5.1); Sodium 134 mmol/L (136-145); Total Protein,Serum 6.6 g/dl (6.3-8.2)
[2020-12-20 20:37] LABS: Direct LDL Cholesterol 136.08 mg/dL (100-129)
[2020-12-20 20:41] LABS: Hemoglobin A1C 9.8 % (4.0-6.0)
[2020-12-20 20:57] LABS: Thyroid Stimulating Hormone 1.41 uIU/mL (0.465-4.68)
[2020-12-20 21:15] LABS: Vitamin B12 295 pg/mL (239-931)
[2020-12-20 23:09] LABS: Eosinophils % 1 % (0-3); Lymphocytes % 5 % (10-50); Neutrophils % 94 % (42-76); Platelet Estimate Normal; RBC Morphology Normal; Total Cells Counted 100
== END ==
PROVIDERS: Nurse Practitioner Family; Visit Provider Physician Assistant
DX: E11.69 Type 2 diabetes mellitus with other specified complication (principal); E66.9 Obesity, unspecified; I21.02 ST elevation (STEMI) myocardial infarction involving left anterior descending coronary artery; I25.10 Atherosclerotic heart disease of native coronary artery without angina pectoris; I25.5 Ischemic cardiomyopathy; I50.20 Unspecified systolic (congestive) heart failure; R94.31 Abnormal electrocardiogram [ECG] [EKG]; Z79.84 Long term (current) use of oral hypoglycemic drugs; Z68.29 Body mass index [BMI] 29.0-29.9, adult
CPT/HCPCS: 36415; 80053; 80061; 80076; 82607; 83036; 83735; 84443; 85007; 85025

== ENCOUNTER → 2020-12-27 08:25 | Outpatient (CLI) | payer MEDICARE, SELFPAY ==
--- NOTE | 2020-12-27 | CA_ITS ---
APPROVED REPORT Childbirth Educator: SIS Laterality: Bilateral Indications: Dizziness, left foot drop, back pain Risk Factors Hypertension: Diabetes Doppler Spectral Velocity Analysis ECA (R) 68.10/7.10 cm/s ECA (L) 52.70/11.60 cm/s dICA (R) 63.30/21.40 cm/s dICA (L) 52.00/15.40 cm/s Dee (R) 92.50/28.30 cm/s Dee (L) 55.90/14.80 cm/s pICA (R) 50.70/14.10 cm/s pICA (L) 65.10/18.00 cm/s dCCA (R) 48.80/12.80 cm/s dCCA (L) 52.40/8.50 cm/s pCCA (R) 100.50/11.80 cm/s pCCA (L) 86.80/9.70 cm/s Vert (R) 35.50/9.80 cm/s Vert (L) 31.50/10.30 cm/s ICA/CCA 1.90 ICA/CCA 1.24 Findings Duplex evaluation demonstrates stenosis of the right proximal internal carotid artery <20%. Duplex evaluation demonstrates stenosis of the left proximal internal carotid artery <20%. Conclusion Duplex evaluation demonstrates stenosis of the right proximal internal carotid artery <20%. Duplex evaluation demonstrates stenosis of the left proximal internal carotid artery <20%. Electronically signed by : Shamar Edwards MD 12/27/2020 16:43:57
--- NOTE | 2020-12-27 08:28 | MR_ITS ---
PROCEDURE INFORMATION: Exam: MR Lumbar Spine Without Contrast Exam date and time: 12/27/2020 8:28 AM Age: 75 years old Clinical indication: Low back pain; Additional info: Foot drop left, lumbar ddd. Headaches, pain in shoulders that goes down arms, muscle weakness in lower extremities more so on left side, left foot drop. Symptoms x5 months. Prior mri 04-01-17. TECHNIQUE: Imaging protocol: Multiplanar magnetic resonance images of the lumbar spine without intravenous contrast. COMPARISON: [employer]PER[employer]OR/O MRI-L-SPINE W/O 04/01/2017 3:49 PM FINDINGS: Vertebrae: There is what likely represents a hemangioma in the L1 vertebra. Spinal cord: Normal signal. No cord compression. L1-L2: There is disc desiccation. There is mild disc bulging. There is mild bilateral neuroforaminal narrowing. There is facet arthropathy and ligamentum flavum hypertrophy. There is mild spinal canal stenosis. L2-L3: There is disc desiccation. There is mild disc bulging. Disc bulging extends into both neural foramen causing mild bilateral neural foraminal narrowing. There is facet arthropathy and ligamentum flavum hypertrophy. There is mild spinal canal stenosis. L3-L4: There is mild retrolisthesis at this level. There is disc space narrowing and desiccation. There are moderate degenerative end plate changes at this level. There is a moderate disc/osteophyte complex that flattens the ventral thecal sac. There is moderate/severe bilateral neural foraminal narrowing on a degenerative basis. There is exuberant bilateral facet arthropathy and ligamentum flavum hypertrophy. There is mild/moderate spinal canal stenosis. L4-L5: There is degenerative disc disease including disc space narrowing and dessication. There is a moderate disc bulge with a moderate superimposed broad-based right paracentral/foraminal disc herniation that causes moderate compromise of the right L4/5 neural foramen. This is exacerbated by exuberant bilateral facet arthropathy, right worse than left. There is a small right-sided synovial cyst. There is moderate/severe spinal canal stenosis. L5-S1: There is mild retrolisthesis at this level. There is disc space narrowing and desiccation. There are moderate degenerative end plate changes at this level. There is a moderate disc/osteophyte complex that flattens the ventral thecal sac. Disc bulging extends into both neural foramen causing moderate/severe bilateral neural foraminal narrowing, left worse than right. There is facet arthropathy and ligamentum flavum hypertrophy. There is mild spinal canal stenosis. Soft tissues: Unremarkable. IMPRESSION: Advanced multilevel degenerative changes causing variable degrees of spinal canal and neuroforaminal narrowing as described above. Moderate/severe spinal canal stenosis at L4/5, partly due to a broad-based disc herniation and exuberant facet arthropathy. These findings have moderately progressed since prior study, especially at L4/5. Please see details above.
--- NOTE | 2020-12-27 08:28 | MR_ITS ---
PROCEDURE: MR HEAD/BRAIN WO CON CLINICAL INDICATION: FOOT DROP LEFT, DIZZINESS, HEADACHE Muscle weakness COMPARISON: CT HEADWO CT head/brain wo con from 07/28/2018 TECHNIQUE: Routine multiplanar multi echo sequences are performed without gadolinium enhancement. FINDINGS: No midline shift, mass effect, intracranial hemorrhage, hydrocephalus, or acute cortical infarction apparent. The cerebellopontine angles cerebellum, and brainstem have an unremarkable appearance. Nonspecific central T2 hyperintensity of the shady as well as nonspecific periventricular and subcortical T2 white matter hyperintensities most commonly seen with ischemic gliotic foci from microvascular disease. No evidence corpus callosum ule or cerebellar involvement. There is a small rounded area of decreased T1 and increased T2 signal in the left centrum semiovale measuring 8 mm with some peripheral increased T2 signal consistent with cystic encephalomalacia change from an old lacunar infarction. No evidence of acute infarction or restricted diffusion. The pituitary, optic chiasm, corpus callosum, and craniocervical junction have an unremarkable appearance. There are degenerative changes in the upper and mid cervical spine. Minimal amount of fluid signal noted in the left mastoid sinus. No paranasal sinus air-fluid level. IMPRESSION: 1. No acute intracranial findings. 2. Old small lacunar infarction of the left centrum semiovale with scattered periventricular and shady T2 hyperintensity most commonly seen with microvascular gliotic changes. Dictated by: Shamar Edwards MD 12/28/2020 08:53 Shamar Edwards MD in [place] 12/28/2020 08:53
== END ==
PROVIDERS: PCP Nurse Practitioner Family; Visit Provider Nurse Practitioner Family
DX: R42 Dizziness and giddiness (principal); R51.9 Headache, unspecified; M51.36 Other intervertebral disc degeneration, lumbar region; M21.372 Foot drop, left foot
CPT/HCPCS: 70551; 72148; 76376; 93880

== ENCOUNTER → 2021-02-26 11:23 | Outpatient (CLI) | payer MEDICARE, SELFPAY ==
--- NOTE | 2021-02-26 11:27 | XR_ITS ---
PROCEDURE: XR FOOT WT BEARING RT 3V CLINICAL INDICATION: RT FOOT PAIN COMPARISON: No exams were available for comparison FINDINGS: Mild hallux valgus with mild osteoarthritic change at the 1st MTP joint and bunion formation. There are some subchondral cystic changes involving the distal aspect of the 1st metatarsal. Nonspecific small calcific density is also present at the distal aspect of the 1st metatarsal medially. Mild osteoarthritic changes are present at the tarsal metatarsal junction of digits 2 through 5. There is a small calcaneal spur and nonspecific vascular calcification. IMPRESSION: Degenerative changes of the foot with hallux valgus Dictated by: Shamar Edwards MD 02/26/2021 11:57 Shamar Edwards MD in [place] 02/26/2021 11:57
== END ==
PROVIDERS: PCP Nurse Practitioner Family; Visit Provider Nurse Practitioner Family
DX: M79.671 Pain in right foot (principal)
CPT/HCPCS: 73630

== ENCOUNTER → 2021-03-20 15:55 | Outpatient (CLI) | payer MEDICARE, SELFPAY ==
[2021-03-20 17:14] LABS: Blood Urea Nitrogen 39 mg/dl (7-17); Estimated Glomerular Filt Rate 34 ml/min (>60); GFR (African American) 41 ML/MIN (>60)
== END ==
PROVIDERS: Visit Provider Nurse Practitioner Family
DX: R63.4 Abnormal weight loss (principal)
CPT/HCPCS: 36415; 82565; 84520

== ENCOUNTER → 2021-03-21 13:41 | Outpatient (CLI) | payer MEDICARE, SELFPAY ==
--- NOTE | 2021-03-21 13:48 | CT_ITS ---
PROCEDURE: CT CHEST W CON CLINCAL INDICATION: UNINTENTIONAL WEIGHT LOSS COMPARISON: CT CT ABDOMEN PELVIS W CON from 05/26/2020 TECHNIQUE: IV Contrast: 75ml Isovue 370 Axial images obtained with sagittal and coronal reformats. All CT scans at the facility use one or more dose reduction, viz: automated exposure control, ma/kV adjustment per patient size (including targeted exams where dose is matched to indication, i.e. head), or iterative reconstruction technique. FINDINGS: HEART AND MEDIASTINAL STRUCTURES: There is mild thickening of the pericardium. No mediastinal or hilar mass. No evidence of aortic aneurysm dissection. No central pulmonary embolus. Small amount air noted in the main pulmonary artery and may be due to IV access. Small nodes are present in the mediastinum LUNGS AND PLEURAL SPACES: Minimal nodularity is present in the right minor fissure and may be due to small lymph node measuring approximately 3 mm. There is evidence of old granulomatous disease. Calcified granuloma is present in the left lower lobe and in the left upper lobe. No lobar consolidation or collapse. BONY STRUCTURES: Mild midthoracic curvature convex right 11 UPPER ABDOMEN: 11 mm left renal cyst. Mild fatty liver. ADDITIONAL FINDINGS: No other significant abnormalities. IMPRESSION: No acute finding. Minimal thickening of the pericardium suggesting small pericardial effusion at approximately 7 mm in thickness. Dictated by: Shamar Edwards MD 03/22/2021 05:33 Shamar Edwards MD in [place] 03/22/2021 05:33
== END ==
PROVIDERS: PCP Nurse Practitioner Family; Visit Provider Nurse Practitioner Family
DX: R63.4 Abnormal weight loss (principal)
CPT/HCPCS: 71260; Q9967

== ENCOUNTER → 2021-04-30 15:50 | Outpatient (CLI) | payer MEDICARE, SELFPAY ==
--- NOTE | 2021-04-30 15:52 | MM_ITS ---
PROCEDURE: MM DIG SCREENING MAMM BI W/CAD Digital Breast Tomosynthesis Included CLINICAL INDICATION: SCREENING There is no personal or family history of breast cancer. COMPARISON: MG MM DIG MAMM DX UNILAT RT CAD from 09/13/2019 MG MM DIG SCREENING MAMM BI W/CAD from 03/22/2020 TECHNIQUE: Standard CC and MLO images and 3D Tomosynthesis was obtained. R2 CAD reviewed. FINDINGS: Moderate diffuse fibroglandular densities are seen in the central portions of both breast. There is prominent arterial calcification in each breast. There are few scattered benign-appearing microcalcifications in each breast CAD markings were reviewed and they appear to be benign. There is a mole marker left breast. There is no suspicious lesion and no suspicious microcalcifications. IMPRESSION: Moderate diffuse breast density with no suspicious lesions seen BI-RAD Category: 2 Benign Finding(s) FOLLOW-UP: 1YR 1 Year Follow-up (A letter has been sent to the patient regarding results of the study.) Dictated by: Dr. Sushil Padilla MD 05/04/2021 08:30 Dr. Sushil Padilla MD in [place] 05/04/2021 08:30
== END ==
PROVIDERS: PCP Nurse Practitioner Family; Visit Provider Nurse Practitioner Family
DX: Z12.31 Encounter for screening mammogram for malignant neoplasm of breast (principal)
CPT/HCPCS: 77063; 77067

== ENCOUNTER → 2021-06-05 13:52 | Outpatient (CLI) | payer MEDICARE, SELFPAY ==
--- NOTE | 2021-06-05 13:53 | CA_ITS ---
APPROVED REPORT EXAM: Comprehensive 2D, Doppler, and color-flow Echocardiogram Timber Framer Helper: JYOTI Humphries, RVS Ht: 5 ft 4 in Wt: 162lbs BSA: 1.79 BP: 99/59 mmHg Indications: Pre-op clearene, Syncope, Hx-CM, Dizziness, Hx-CVA 2D Dimensions LVDd 5.12 cm LVEF (Visual) 54.00 % LVDs 3.68 cm LA Volume 53.80 mL LVOT 1.80 cm (M/F) 1.5-2.5 LA Volume Index 30.10 mL/m2 (M/F) 16-34 M-Mode Dimensions RVDd 2.43 cm (0.9-2.6) LA Diam 3.46 cm (1.9-4.0) LVDd 5.08 cm (3.5-5.7) Ao Diam 2.78 cm (2.0-3.7) LVDs 3.08 cm (3.5-5.7) IVSd 0.97 cm (0.6-1.1) PWd 0.93 cm (0.6-1.1) EF (Teich) 69.60% EPSs 0.54 cm FS 39.40% EDV (Teich) 122.70 mL TAPSE 1.87 (<1.7) ESV (Teich) 37.30 mL LV Diastology E Decel Time 287.00 (160-240 msec) E/A Ratio 0.67 MED E' 5.10 (< 7 cm/sec) MED A' 12.80 cm/s E'/MED E' Ratio 18.86 (>14) LAT E' 9.40 (<10 cm/sec) LAT A' 18.60 cm/s E/LAT E' Ratio 10.23 (>14) Aortic Valve LVOT Max 112.00 (70-110 cm/s) LVOT VTI 24.87 cm AoV Peak Ji. 148.00 (50-130 cm/s) AO Peak GR. 8.80 mmHg AO Mean GR. 4.40 (<5 mmHg) AO VTI 30.39 (18-25 cm) ANTHONY (VTI) 2.08 (2.5-4.5 cm2) Mitral Valve MV A Velocity 144.00 (40-130 cm/s) E/A Ratio 0.67 MV Decel. Time 287.00 (160-240 ms) MV Mean Gr. 3.00 (<2mmHg) Pulmonary Valve PV Peak Velocity 86.00 (50-150 cm/s) Tricuspid Valve TR P. Velocity 262.00 cm/s RAP Estimate 10.00 mmHg RVSP 37.40 mmHg Left Ventricle Left atrium is mildly enlarged, left ventricle is normal size, mild concentric left ventricular hypertrophy, visually estimated ejection fraction 55% with no regional wall motion abnormality, grade 1 diastolic dysfunction seen without tissue Doppler evidence of late left atrial pressure. Right Ventricle Right atrium and right ventricle are normal size and contractility. Aortic Valve Aortic valve is minimally thickened and fibrosed, there is no aortic stenosis or aortic insufficiency. Mitral Valve Mitral valve grossly normal, there is mild mitral regurgitation. Tricuspid Valve Tricuspid grossly normal, there is mild tricuspid regurgitation, calculated right ventricular systolic pressure 32 mmHg. Pulmonic Valve Pulmonic valve is poorly visualized. Great Vessels Aortic root is normal size. Inferior vena cava is normal size with normal inspiratory collapse. Pericardium Trivial pericardial effusion noted. Conclusion 1. Mildly enlarged left atrium, normal left ventricular size, mild concentric left ventricular hypertrophy seen, visually estimated ejection fraction 55% with no regional wall motion abnormality, grade 1 diastolic dysfunction seen without tissue Doppler evidence of raise left atrial pressure. 2. Mild mitral and tricuspid regurgitation. 3. Trivial pericardial effusion noted. 4. Inferior vena cava is normal size with normal inspiratory collapse. Electronically signed by : Kolby Germain MD 06/05/2021 20:05:44
== END ==
PROVIDERS: PCP Nurse Practitioner Family; Visit Provider Nurse Practitioner Family
DX: E11.69 Type 2 diabetes mellitus with other specified complication (principal); E66.9 Obesity, unspecified; I21.02 ST elevation (STEMI) myocardial infarction involving left anterior descending coronary artery; I25.10 Atherosclerotic heart disease of native coronary artery without angina pectoris; I25.5 Ischemic cardiomyopathy; I50.20 Unspecified systolic (congestive) heart failure; R94.31 Abnormal electrocardiogram [ECG] [EKG]
CPT/HCPCS: 93306

== ENCOUNTER → 2021-06-27 10:02 | Outpatient (CLI) | payer MEDICARE, SELFPAY ==
[2021-06-27 11:39] LABS: Chloride 102 mmol/L (98-107); Sodium 140 mmol/L (136-145)
[2021-06-27 11:40] LABS: Potassium 4.7 mmoL/L (3.5-5.1)
[2021-06-27 11:42] LABS: Blood Urea Nitrogen 26 mg/dl (7-17); Estimated Glomerular Filt Rate 32 ml/min (>60); GFR (African American) 38 ML/MIN (>60)
[2021-06-27 11:43] LABS: Anion Gap 8.7 mEq/L (5-15); Calcium 9.6 mg/dl (8.4-10.2); Carbon Dioxide 34 mmol/L (22.0-30.0); Chol/HDL Ratio 3.2 (1-3.5); Cholesterol 227 mg/dl (140-200); Glucose 107 mg/dl (74-100); HDL Cholesterol 72 mg/dl (40-60); Triglycerides 142 mg/dl (30-150); VLDL Cholesterol 28 mg/dL (0-40)
[2021-06-27 11:54] LABS: Direct LDL Cholesterol 127.19 mg/dL (100-129)
== END ==
PROVIDERS: Visit Provider Nurse Practitioner Family
DX: E11.40 Type 2 diabetes mellitus with diabetic neuropathy, unspecified (principal)
CPT/HCPCS: 36415; 80048; 80061; 83036

== ENCOUNTER → 2021-07-09 12:01 | Outpatient (CLI) | payer MEDICARE, SELFPAY | PROVIDERS: PCP Nurse Practitioner Family; Visit Provider Nurse Practitioner | DX: Z20.822 Contact with and (suspected) exposure to COVID-19 (principal) | CPT/HCPCS: C9803; U0003; U0005 ==

== ENCOUNTER → 2021-08-17 08:48 | Outpatient (CLI) | payer MEDICARE, SELFPAY ==
--- NOTE | 2021-08-17 08:56 | XR_ITS ---
FINAL REPORT TECHNIQUE: Bone mineral density was calculated of the lumbar spine and hip. CLINICAL HISTORY: . post menopausal screening FINDINGS: Using L1-4, the bone mineral density of the spine is 1.435 g/cm2, corresponding to T-score of 3.5. Using the left hip, the bone mineral density of the femoral neck is 0.952 g/cm2, corresponding to a T-score of 0.9. NOTE: T-score: Standard deviation compared with peak bone mass of young adult mean. *Following the recommendations of the International Society of Bone densitometry, classification of hip BMD is based on the lower of two T-scores; total hip or femoral neck. IMPRESSION: Normal bone mineral density of the lumbar spine and left hip. Reviewed, Interpreted and Dictated by Carlos Bennett III, MD Transcribed by Lacy Gale Authenticated by Carlos Bennett III, MD on 08/17/2021 10:33:05 AM [facility]
== END ==
PROVIDERS: PCP Nurse Practitioner Family; Visit Provider Nurse Practitioner Family
DX: Z78.0 Asymptomatic menopausal state (principal); Z13.820 Encounter for screening for osteoporosis
CPT/HCPCS: 77080

== ENCOUNTER 2021-10-02 14:14 | Emergency (ER) | payer MEDICARE, SELFPAY ==
[2021-10-02] VITALS (10 sets, daily range): BP systolic 150–175; BP diastolic 81–108; PULSE 92–136; RESP 16–20; TEMP 36.6; O2SAT 77–100; BMI 26.9
[2021-10-02 14:37] LABS: Basophils # 0.2 K/mm3 (0-0.2); Basophils % 1.3 % (0.1-2.0); Eosinophils # 0.2 K/mm3 (0.0-0.4); Eosinophils % 1.2 % (0.1-12.0); Hematocrit 54.1 % (37.0-47.0); Hemoglobin 17.4 g/dL (12.2-16.2); Lymphocytes # 2.5 K/mm3 (0.7-4.5); Lymphocytes % 14.6 % (10-50); Mean Corpuscular HGB Conc 32.2 g/dL (31.8-35.4); Mean Corpuscular Hemoglobin 31.5 pg (27.0-31.2); Mean Corpuscular Volume 97.9 fl (81-99); Mean Platelet Volume 8.8 fl (7.4-10.4); Monocytes # 0.6 K/mm3 (0.1-1.0); Monocytes % 3.8 % (1.7-9.3); Neutrophils # 13.4 K/mm3 (1.8-7.8); Neutrophils % 79.2 % (37.0-80.0); Platelet Count 353 K/mm3 (142-424); Red Blood Count 5.53 M/mm3 (4.20-5.40); Red Cell Distribution Width 13.1 % (11.5-17.5)
[2021-10-02 14:39] LABS: MANUAL DIFFERENTIAL MANUAL DIFFERENTIAL (MANUAL DIFF)
--- NOTE | 2021-10-02 14:40 | HMH.EDGENADL ---
ED Disposition Clinical Impression: Dehydration Vomiting Qualifiers: Vomiting type: unspecified Nausea presence: with nausea Qualified Code(s): R11.2 - Nausea with vomiting, unspecified Disposition: Home, Self-Care Condition on Discharge: Good Instructions: DI for Nausea -- Adult Additional Instructions: Phenergan as prescribed for nausea and vomiting. Follow-up with Dr. Mendez in his office, call tomorrow to arrange follow-up. Additional instructions for VOMITING: See your physician as soon as possible for further evaluation. Return immediately if severe abdominal pain, uncontrollable vomiting, shortness of breath, fever, vomiting of blood or abdominal distention. Prescriptions: Promethazine HCl [Phenergan 12.5mg tablet] 12.5 mg PO Q6H PRN #6 tab PRN Reason: Nausea Transmission Status: Pending to [id number] Referrals: Dylan Mendez MD [Primary Care Provider] - - Critical Care Critical Care Time: No Attestation: On 10/02/21, the high probability of a clinically significant, sudden or life threatening deterioration of the following system(s) required my full and direct attention, intervention and personal management. The time I documented below is in addition to time spent performing reported procedures but includes the following listed in this critical care notation. Medical Decision Making - Jose Inquiry Pt receiving controlled substance: No Vital Signs: 10/02/21 14:15 10/02/21 14:19 10/02/21 14:46 Temperature 97.9 F Temperature Source Oral Pulse Rate 136 H 95 H Pulse Rate [Right Radial] 110 H Respiratory Rate 16 Blood Pressure 150/88 H Blood Pressure [Right Arm] 158/108 H Blood Pressure Mean Blood Pressure Mean [Right Arm] 124 Blood Pressure Source [Right Arm] Automatic Cuff Blood Pressure Position [Right Arm] Sitting 02 Sat by Pulse Oximetry 98 77 L 99 Oxygen Delivery Method Room Air 10/02/21 14:47 10/02/21 15:00 10/02/21 15:30 Temperature Temperature Source Pulse Rate 105 H 98 H 98 H Pulse Rate [Right Radial] Respiratory Rate Blood Pressure 150/88 H 163/81 H 155/88 H Blood Pressure [Right Arm] Blood Pressure Mean Blood Pressure Mean [Right Arm] Blood Pressure Source [Right Arm] Blood Pressure Position [Right Arm] 02 Sat by Pulse Oximetry 100 99 100 Oxygen Delivery Method 10/02/21 16:00 10/02/21 16:30 10/02/21 17:00 Temperature Temperature Source Pulse Rate 98 H 94 H 94 H Pulse Rate [Right Radial] Respiratory Rate 18 18 Blood Pressure 161/87 H 161/96 H 164/86 H Blood Pressure [Right Arm] Blood Pressure Mean 111 107 Blood Pressure Mean [Right Arm] Blood Pressure Source [Right Arm] Blood Pressure Position [Right Arm] 02 Sat by Pulse Oximetry 98 98 98 Oxygen Delivery Method Room Air Room Air - Lab Data Lab Results 10/02/21 14:21: POC Glucose 228 H 10/02/21 14:25: WBC 17.0 H, RBC 5.53 H, Hgb 17.4 H, Hct 54.1 H, MCV 97.9, MCH 31.5 H, MCHC 32.2, RDW 13.1, Plt Count 353, MPV 8.8, Neut % (Auto) 79.2, Lymph % (Auto) 14.6, [place] % (Auto) 3.8, Eos % (Auto) 1.2, Baso % (Auto) 1.3, Neut # (Auto) 13.4 H, Lymph # (Auto) 2.5, [place] # (Auto) 0.6, Eos # (Auto) 0.2, Baso # (Auto) 0.2, Total Counted 100, Neutrophils % (Manual) 78 H, Lymphocytes % (Manual) 17, Monocytes % (Manual) 4, Eosinophils % (Manual) 1, Platelet Estimate Normal 10/02/21 14:25: Sodium 136, Potassium 4.5, Chloride 95 L, Carbon Dioxide 28, Anion Gap 17.5 H, BUN 24 H, Creatinine 1.30 H, Estimated Creat Clear 43, Estimated GFR 40 L, Est GFR ( Amer) 48 L, Glucose 252 H, Calcium 10.2, Total Bilirubin 0.8, AST 29, ALT 22, Alkaline Phosphatase 95, Total Protein 8.0, Albumin 4.7, Globulin 3.3 H, Albumin/Globulin Ratio 1.4 10/02/21 14:25: Lipase 131 10/02/21 16:37: Urine Color Yellow, Urine Appearance Clear, Urine pH 5.5, Ur Specific [place] 1.010, Urine Protein Negative, Urine Glucose (UA) 3+, Urine Ketones 1+, Urine Blood Negative, Ur
[2021-10-02 14:41] LABS: POC Glucose,Bedside 228 (70-110)
[2021-10-02 14:44] LABS: Alanine Aminotransferase 22 U/L (12-78); Albumin Level 4.7 g/dl (3.5-5.0); Albumin/Globulin Ratio 1.4 (1.1-1.8); Alkaline Phosphatase 95 U/L (38-126); Anion Gap 17.5 mEq/L (5-15); Aspartate Amino Transferase 29 U/L (14-36); Bilirubin,Total 0.8 mg/dl (0.2-1.3); Blood Urea Nitrogen 24 mg/dl (7-17); Calcium 10.2 mg/dl (8.4-10.2); Carbon Dioxide 28 mmol/L (22.0-30.0); Chloride 95 mmol/L (98-107); Creatinine Clearance Estimated 43 mL/min (50-200); Estimated Glomerular Filt Rate 40 ml/min (>60); GFR (African American) 48 ML/MIN (>60); Globulin 3.3 g/dL (1.3-3.2); Glucose 252 mg/dl (74-100); Potassium 4.5 mmoL/L (3.5-5.1); Sodium 136 mmol/L (136-145)
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
--- NOTE | 2021-10-02 15:03 | PC.NURSE ---
pt to rad
[2021-10-02 15:05] LABS: Lipase 131 U/L (23-300)
[2021-10-02 15:08] LABS: Eosinophils % 1 % (0-3); Lymphocytes % 17 % (10-50); Monocytes % 4 % (2-9); Neutrophils % 78 % (42-76); Total Cells Counted 100
[2021-10-02 15:09] LABS: Platelet Estimate Normal
--- NOTE | 2021-10-02 15:32 | PC.NURSE ---
pt resting in bed at this time, updated pt that we are waiting on CT scan results. pt states no needs at this time, will continue to monitor
--- NOTE | 2021-10-02 16:24 | PC.NURSE ---
notified pt family that pt ct scan just recently resulted, stated I will notify ER that it has resulted and have him review it and update pt and discuss POC.
--- NOTE | 2021-10-02 16:34 | PC.NURSE ---
waiting credit control administrator back from Dr. Mendez
--- NOTE | 2021-10-02 16:35 | PC.NURSE ---
took pt to restroom
--- NOTE | 2021-10-02 16:38 | PC.NURSE ---
Urine sent to lab at this time
--- NOTE | 2021-10-02 16:39 | PC.NURSE ---
Dr Mendez talking to Dr Hernandez about patient that he sent over.
[2021-10-02 16:43] LABS: Microscopic, Urine URINE MICROSCOPIC (MICROSCOPIC)
[2021-10-02 16:46] LABS: Appearance,Urine CLEAR (Clear); Bilirubin,Urine Negative (Negative); Blood, Urine Negative (Negative); Color,Urine YELLOW (Yellow); Glucose,Urine (UA) 3+ (Negative); Ketones,Urine 1+ (Negative); Leukocyte Esterase,Urine Negative (Negative); Nitrate,Urine POSITIVE (Negative); PH,Urine 5.5 (5.0-8.5); Protein,Urine Negative (Negative); Urobilinogen,Urine 0.2 EU/dl (0.2)
--- NOTE | 2021-10-02 16:49 | PC.NURSE ---
updated pt on POC, given warm blanket, call light within reach, family at BS. will continue to monitor
[2021-10-02 16:59] LABS: Bacteria,Urine 1+ /lpf
--- NOTE | 2021-10-02 17:29 | PC.NURSE ---
pt resting in bed, family at BS, call light within reach. pt states no needs at this time. notified ER pt has approx 400 ML of IVF bolus left at this time.
== END 2021-10-02 18:17 | disposition home or self-care (01) ==
PROVIDERS: Emergency Provider Emergency Medicine; PCP Internal Medicine Adolescent Medicine
DX: E86.0 Dehydration (principal); E11.65 Type 2 diabetes mellitus with hyperglycemia; I25.10 Atherosclerotic heart disease of native coronary artery without angina pectoris; I10 Essential (primary) hypertension; I25.2 Old myocardial infarction; E03.9 Hypothyroidism, unspecified; Z79.899 Other long term (current) drug therapy; Z88.2 Allergy status to sulfonamides; Z88.5 Allergy status to narcotic agent
CPT/HCPCS: 74177; 80053; 81001; 82962; 83690; 85007; 85025; 87086; 87088; 87186; 96365; 96367; 96375; 99284; J2405; Q9967

== ENCOUNTER → 2021-11-15 12:10 | Outpatient (CLI) | payer MEDICARE, SELFPAY ==
--- NOTE | 2021-11-15 12:17 | XR_ITS ---
FINAL REPORT CLINICAL HISTORY: TYPE II DIABETES,RT FOOT PAIN ON TOP OF FOOT COMPARISON: February 26, 2021 FINDINGS: RIGHT FOOT: Three views of the right foot were obtained. There is no acute fracture or dislocation. There is hallux valgus deformity. There are mild degenerative changes. There is a plantar calcaneal spur. Vascular calcifications are present. IMPRESSION: Mild degenerative change. Reviewed, Interpreted and Dictated by Carlos Bennett III, MD Transcribed by Noel Ozuna Authenticated by Carlos Bennett III, MD on 11/15/2021 01:18:53 PM [facility]
== END ==
PROVIDERS: PCP Nurse Practitioner Family; Visit Provider Nurse Practitioner Family
DX: E11.22 Type 2 diabetes mellitus with diabetic chronic kidney disease (principal); M79.671 Pain in right foot
CPT/HCPCS: 73630

== ENCOUNTER 2022-03-27 13:05 | Emergency (ER) | payer MEDICARE, SELFPAY ==
[2022-03-27 13:05] VITALS: BP 193/100; PULSE 92; RESP 12; TEMP 36.7; O2SAT 97; BMI 27.4
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
[2022-03-27 14:09] VITALS: BP 204/106; PULSE 86; O2SAT 97
--- NOTE | 2022-03-27 14:30 | PC.NURSE ---
pt reports need to urinate, offered pt a bedpan as ER MD states pt does not need to be up ambulating yet until CT scans are resulted. Pt refused bedpan, states she will just hold it . Stated to pt if she changed her mind I would be happy to help her, call light hooked on bedrail an within reach of pt. Pt daughter at .
[2022-03-27 16:31] VITALS: BP 189/98; PULSE 85; RESP 19; TEMP 36.7; O2SAT 95
== END 2022-03-27 16:40 | disposition home or self-care (01) ==
PROVIDERS: Emergency Provider Emergency Medicine; PCP Internal Medicine Adolescent Medicine
DX: M54.2 Cervicalgia (principal); V43.63XA Car passenger injured in collision with pick-up truck in traffic accident, initial encounter
CPT/HCPCS: 70450; 71046; 72125; 72128; 73521; 99285

== ENCOUNTER 2022-05-10 14:00 | Outpatient (RCR) | payer MEDICARE, SELFPAY | END 2022-05-10 14:05 | disposition home or self-care (01) | LOC: PT 14:00 | PROVIDERS: Visit Provider Nurse Practitioner Family | DX: S16.1XXD Strain of muscle, fascia and tendon at neck level, subsequent encounter (principal) | CPT/HCPCS: 97010; 97014; 97035; 97110; 97163; G0283 ==

== ENCOUNTER → 2022-05-27 10:39 | Outpatient (CLI) | payer MEDICARE, SELFPAY ==
--- NOTE | 2022-05-27 10:43 | MM_ITS ---
PROCEDURE INFORMATION: Exam: MG Bilateral Screening 3D Mammography Exam date and time: 05/27/2022 10:42 AM Age: 76 years old Clinical indication: Screening mammogram TECHNIQUE: Imaging protocol: Bilateral Screening tomosynthesis and 2D mammography including computer-aided detection (CAD) when performed. COMPARISON: 1. MG MM DIG SCREENING MAMM BI W/CAD 04/30/2021 3:47 PM 2. MG MM DIG SCREENING MAMM BI W/CAD 03/22/2020 10:49 AM 3. MG MM DIG MAMM DX UNILAT RT CAD 09/13/2019 1:06 PM 4. MG MM DIG MAMM DX UNILAT RT CAD 03/11/2019 1:16 PM FINDINGS: MAMMOGRAPHY: Breast composition: The breast is heterogeneously dense, which may obscure small masses. Mass: None. Architectural distortion: No new or suspicious architectural distortion. Calcifications: Stable benign-appearing calcifications are present. No new or suspicious cluster of microcalcifications have developed. Asymmetric density: No new or suspicious asymmetric density is present Skin thickening: None. Axillary adenopathy: None. IMPRESSION: No mammographic evidence of malignancy. Recommend annual screening mammography unless otherwise clinically indicated. ASSESSMENT: BI-RADS category 2: Benign
== END ==
PROVIDERS: PCP Internal Medicine Adolescent Medicine; Visit Provider Nurse Practitioner Family
DX: Z12.31 Encounter for screening mammogram for malignant neoplasm of breast (principal)
CPT/HCPCS: 77063; 77067

== ENCOUNTER → 2022-07-01 07:09 | Outpatient (CLI) | payer MEDICARE, SELFPAY ==
--- NOTE | 2022-07-01 09:33 | HMH.ITSHM ---
Current Home Medications as stated by this patient Marilyn Sepulveda or fraud representative. []SITAGLIPTIN SEMAGLUTIDE LEVOTHYROXINE ISOSORBIDE INSULIN GABAPENTIN ESCITILOPRAM DAPAGLIFLOZIN CARVEDILOL ATORVASTATIN ASA ALLOPURINOL
== END ==
PROVIDERS: PCP Nurse Practitioner Family; Visit Provider Nurse Practitioner Family
DX: R06.02 Shortness of breath; I20.8 Other forms of angina pectoris
CPT/HCPCS: 78452; 93017; 93306; A9502; J2785

== ENCOUNTER → 2022-07-11 13:56 | Outpatient (CLI) | payer MEDICARE, SELFPAY ==
--- NOTE | 2022-07-11 14:01 | XR_ITS ---
FINAL REPORT CLINICAL HISTORY: shoulder pain FINDINGS: LEFT SHOULDER 3 views of the left shoulder were obtained. There is no acute fracture or dislocation. There is mild degenerative change of the acromioclavicular joint. There is no soft tissue abnormality. IMPRESSION: Mild degenerative change of the acromioclavicular joint with no acute bony abnormality. Reviewed, Interpreted and Dictated by Carlos Bennett III, MD Transcribed by Lacy Gale Authenticated and . [facility]
== END ==
PROVIDERS: PCP Nurse Practitioner Family; Visit Provider Nurse Practitioner Family
DX: M25.512 Pain in left shoulder
CPT/HCPCS: 73030

== ENCOUNTER → 2022-08-13 10:59 | Outpatient (POV) | payer MEDICARE, SELFPAY | PROVIDERS: Visit Provider Dermatology | DX: Z00.00 Encounter for general adult medical examination without abnormal findings (principal) ==

== ENCOUNTER 2023-03-24 10:01 | Emergency (ER) | payer MEDICARE, SELFPAY ==
[2023-03-24 10:10] VITALS: BP 169/97; PULSE 83; O2SAT 96
[2023-03-24 10:12] VITALS: BP 169/97; PULSE 85; RESP 16; TEMP 36.4; O2SAT 94; BMI 26.6
--- NOTE | 2023-03-24 10:17 | CT_ITS ---
FINAL REPORT TECHNIQUE: multiple axial CT images were performed from the foramen magnum to the vertex without enhancement. CLINICAL HISTORY: fall, injury COMPARISON: 03/27/2022 FINDINGS: There is mild atrophy with proportional ventriculomegaly. Low-attenuation is seen in the deep white matter of the posterior left frontal lobe likely representing microvascular ischemic change. Physiologic calcifications are noted in the basal ganglia. There is no evidence of hemorrhage. No masses are identified. No extra-axial fluid is seen. The sinuses are normal. IMPRESSION: Atrophy and chronic changes without acute process. Reviewed, Interpreted and Dictated by Brendan Norton MD Transcribed by Tere Aguero Authenticated and [facility]
--- NOTE | 2023-03-24 10:17 | XR_ITS ---
FINAL REPORT CLINICAL HISTORY: fall, injury, lt shoulder pain COMPARISON: 07/11/2022 FINDINGS: LEFT SHOULDER 3 views of the left shoulder were obtained. There is no acute fracture or dislocation. Visualized joint spaces are normally aligned. Soft tissues are unremarkable. IMPRESSION: No acute bony abnormality. Reviewed, Interpreted and Dictated by Brendan Norton MD Transcribed by Ana Rosa Nolasco Authenticated and [facility]
--- NOTE | 2023-03-24 10:17 | XR_ITS ---
FINAL REPORT CLINICAL HISTORY: fall, injury COMPARISON: 03/27/2022 FINDINGS: The heart size is normal. The mediastinum is normal. There is no focal infiltrate or edema. There are no pleural effusions. There is no pneumothorax. There is no osseous abnormality. IMPRESSION: No acute cardiopulmonary process Reviewed, Interpreted and Dictated by Brendan Norton MD Transcribed by Ana Rosa Nolasco Authenticated and . [facility]
--- NOTE | 2023-03-24 10:17 | CT_ITS ---
FINAL REPORT TECHNIQUE: Axial images were obtained from skull base to the thoracic inlet by computed tomography. Coronal and sagittal reconstruction process performed. This study was performed with techniques to keep radiation doses as low as reasonably achievable (ALARA). Individualized dose reduction techniques using automated exposure control or adjustment of mA and/or kV according to the patient''s size were employed. CLINICAL HISTORY: fall, injury COMPARISON: 03/27/2022 FINDINGS: There is no acute fracture or subluxation. There is moderate disc space narrowing at C5-6 and C6-7. The facets are normally aligned. The soft tissues are unremarkable. Limited images of the lung apices are unremarkable. C2-3: Unremarkable. C3-4: Posterior osteophytes. C4-5: Unremarkable. C5-6: Mild endplate hypertrophy with mild bilateral neuroforaminal narrowing. C6-7: Mild endplate hypertrophy with mild bilateral neuroforaminal narrowing. C7-T1: Mild endplate hypertrophy with mild bilateral neuroforaminal narrowing. IMPRESSION: No acute fracture. Multilevel degenerative changes as above. Reviewed, Interpreted and Dictated by Brendan Norton MD Transcribed by Tere Aguero Authenticated and [facility]
--- NOTE | 2023-03-24 10:18 | HMH.EDGENADL ---
Discharge Plan Disposition Patient Disposition: Home, Self-Care Prescriptions Prescriptions: No Action allopurinol 300 mg tablet 150 mg PO DAILY prednisone 10 mg tablet 10 mg PO Q OTHER DAY isosorbide mononitrate 30 mg tablet extended release 24 hr 30 mg PO DAILY 90 Days Qty: 90 3RF venlafaxine 37.5 mg capsule,extended release 24hr 37.5 mg PO DAILY (DME) blood pressure monitor [Blood Pressure Kit] Kit See Rx Instructions .Route Qty: 1 0RF Rx Instructions: As directed aspirin 81 mg tablet,chewable 81 mg PO DAILY Qty: 30 5RF Ozempic 1 mg/dose (4 mg/3 mL) pen injector 1 mg SQ WEEKLY Toujeo Max U-300 SoloStar 300 unit/mL (3 mL) insulin pen 34 unit SQ HS Januvia 100 mg tablet 100 mg PO DAILY Farxiga 10 mg tablet 10 mg PO DAILY carvedilol 6.25 mg tablet See Rx Instructions .ROUTE .COMPLEX Qty: 180 3RF Dose Instruction: TAKE 1 TABLET TWICE DAILY. MUST ADMINISTER WITH A MEAL/FOOD. Rx Instructions: TAKE 1 TABLET TWICE DAILY. MUST ADMINISTER WITH A MEAL/FOOD. atorvastatin [Lipitor] 20 mg tablet 20 mg PO DAILY Qty: 90 3RF levothyroxine 50 MCG tablet 50 mcg PO DAILY gabapentin 600 MG tablet 600 mg PO TID escitalopram oxalate 20 MG tablet 20 mg PO DAILY promethazine 12.5 MG tablet 12.5 mg PO Q6H PRN (Reason: Nausea) Qty: 6 0RF Referrals Follow up/Referrals: Cheyenne Scott APRN [Primary Care Provider] - See instructions Activity Restrictions/Add. Instructions Additional Instructions/Restrictions: No acute injuries found on your CT imaging or x-rays. Take [id number] medication as needed for your symptoms and return with any worsening symptoms Clinical Impressions Clinical Impression: Minor head injury, Cervical strain, Contusion of left shoulder, Chest wall contusion, Fall Discharge ED Provider: Mac Carrillo General Adult HPI General Chief complaint: Fall Stated complaint: [email or web address], head pain, dizzy, blurry vision Time Seen by Provider: 03/24/23 10:09 Mode of Arrival: Ambulatory Source of Information: Patient Limitations: No Limitations Description of Symptoms (Recalled from ER Triage Doc. by RN): 77 yo F presents to ED with c/o fall that occurred 03/23 around 1800. pt states that her feet got tripped up and she fell. pt hit her head on the concrete floor. pt reports headache. History of Present Illness HPI narrative: 77-year-old female here after a fall yesterday evening. States it was mechanical she did not have any lightheadedness or syncopal episodes. She fell directly onto the back of her head and her left shoulder. Did not have any loss of consciousness no neurologic symptoms since that time had a little bit of bleeding on the posterior scalp. She is on aspirin but no other anticoagulants or antiplatelets that she is aware of. Has some mild neck pain left anterior chest and shoulder pain and posterior head pain. Her daughter who is a nurse wanted her to come get checked out today. No nausea vomiting or other neurologic complaints. No injuries elsewhere. Related Data Home Medications Medication Instructions Recorded Confirmed levothyroxine 50 mcg tablet 50 mcg PO DAILY THYROID 07/28/18 10/08/22 escitalopram oxalate 20 mg tablet 20 mg PO DAILY MOOD 05/27/20 10/08/22 gabapentin 600 mg tablet 600 mg PO TID NEUROPATHY 05/27/20 10/08/22 allopurinol 300 mg tablet 150 mg PO DAILY 01/04/21 10/08/22 dapagliflozin propanediol 10 mg 10 mg PO DAILY 09/03/21 10/08/22 tablet (Farxiga) insulin glargine U-300 conc 300 34 unit SQ HS 09/03/21 10/08/22 unit/mL (3 mL) subcutaneous pen (Toujeo Max U-300 SoloStar) semaglutide 1 mg/dose (4 mg/3 mL) 1 mg SQ WEEKLY 09/03/21 10/08/22 subcutaneous pen injector (Ozempic) sitagliptin phosphate 100 mg 100 mg PO DAILY 09/03/21 10/08/22 tablet (Januvia) prednisone 10 mg tablet 10 mg PO Q OTHER DAY 06/05/22 10/08/22 venlafaxine 37.5 mg 37.5 mg PO
[2023-03-24 11:01] VITALS: BP 141/79; PULSE 79; O2SAT 99
--- NOTE | 2023-03-24 11:25 | PC.NURSE ---
contacted rad to check on status of ct results, rad staff reports preliminaries are available and will send them down
[2023-03-24 11:30] VITALS: BP 149/71; PULSE 84; O2SAT 100
--- NOTE | 2023-03-24 11:33 | PC.NURSE ---
Rounded on patient; she states no needs at this time. Family at BS. Call burk within reach
[2023-03-24 12:01] VITALS: BP 149/71; PULSE 75; RESP 16; TEMP 36.7
== END 2023-03-24 12:02 | disposition home or self-care (01) ==
PROVIDERS: Emergency Provider Student in an Organized Health Care Education/Training Program; PCP Nurse Practitioner Family
DX: S09.8XXA Other specified injuries of head, initial encounter (principal); S16.1XXA Strain of muscle, fascia and tendon at neck level, initial encounter; S20.219A Contusion of unspecified front wall of thorax, initial encounter; S40.012A Contusion of left shoulder, initial encounter; W01.0XXA Fall on same level from slipping, tripping and stumbling without subsequent striking against object, initial encounter; I20.9 Angina pectoris, unspecified; I25.5 Ischemic cardiomyopathy; I50.9 Heart failure, unspecified
CPT/HCPCS: 70450; 71045; 72125; 73030; 99285

== ENCOUNTER → 2023-04-01 10:45 | Outpatient (POV) | payer MEDICARE, SELFPAY | PROVIDERS: Visit Provider Dermatology | DX: Z00.00 Encounter for general adult medical examination without abnormal findings (principal) ==

== ENCOUNTER → 2023-06-04 10:40 | Outpatient (CLI) | payer MEDICARE, SELFPAY ==
--- NOTE | 2023-06-04 10:41 | MM_ITS ---
PROCEDURE INFORMATION: Exam: MG Bilateral Screening 3D Mammography Exam date and time: 06/04/2023 10:31 AM Age: 77 years old Clinical indication: Screening examination TECHNIQUE: Imaging protocol: Bilateral Screening tomosynthesis and 2D mammography including computer-aided detection (CAD) when performed. COMPARISON: 1. MG MM DIG SCREENING MAMM BI W/CAD 05/27/2022 10:42 AM 2. MG MM DIG SCREENING MAMM BI W/CAD 04/30/2021 3:47 PM FINDINGS: MAMMOGRAPHY: Breast composition: The breasts are heterogeneously dense, which may obscure small masses. Mass: None. Architectural distortion: None. Calcifications: No suspicious calcifications. Asymmetric density: None. Skin thickening: None. Axillary adenopathy: None. IMPRESSION: No mammographic evidence of malignancy. Annual screening is recommended unless otherwise clinically indicated. ASSESSMENT: BI-RADS Category 1: Negative
== END ==
PROVIDERS: PCP Nurse Practitioner Family; Visit Provider Nurse Practitioner Family
DX: Z12.31 Encounter for screening mammogram for malignant neoplasm of breast (principal)
CPT/HCPCS: 77063; 77067

== ENCOUNTER → 2023-06-24 14:09 | Outpatient (POV) | payer MEDICARE, SELFPAY | PROVIDERS: PCP Nurse Practitioner Family; Visit Provider Dermatology | DX: Z00.00 Encounter for general adult medical examination without abnormal findings (principal) ==

== ENCOUNTER 2023-10-02 10:58 | Outpatient (CLI) | payer MEDICARE, SELFPAY ==
[2023-10-02 11:39] LABS: Chloride 103 mmol/L (98-107); Potassium 4.4 mmoL/L (3.5-5.1); Sodium 136 mmol/L (136-145)
[2023-10-02 11:42] LABS: Blood Urea Nitrogen 27 mg/dl (7-17); Calcium 9.2 mg/dl (8.4-10.2); Carbon Dioxide 33 mmol/L (22.0-30.0); Estimated Glomerular Filt Rate 34 ml/min (>60); GFR (African American) 41 ML/MIN (>60); Glucose 176 mg/dl (74-100)
[2023-10-02 11:43] LABS: Anion Gap 4.4 mEq/L (5-15)
[2023-10-02 12:14] LABS: Thyroid Stimulating Hormone 4.59 uIU/mL (0.465-4.68)
[2023-10-02 13:01] LABS: Hemoglobin A1C 10.8 % (4.0-6.0)
== END 2023-10-02 23:59 ==
LOC: LAB 10:59
PROVIDERS: PCP Nurse Practitioner Family; Visit Provider Nurse Practitioner Family
DX: E11.22 Type 2 diabetes mellitus with diabetic chronic kidney disease (principal); E03.9 Hypothyroidism, unspecified; Z79.4 Long term (current) use of insulin; Z79.84 Long term (current) use of oral hypoglycemic drugs; Z79.85 Long-term (current) use of injectable non-insulin antidiabetic drugs; N18.9 Chronic kidney disease, unspecified
CPT/HCPCS: 36415; 80048; 83036; 84443

== ENCOUNTER 2023-11-06 10:55 | Outpatient (POV) | payer MEDICARE, SELFPAY ==
[2023-11-06 11:31] VITALS: BP 108/62; PULSE 94; RESP 18; O2SAT 93; BMI 26.6
--- NOTE | 2023-11-06 11:45 | A.OFFVIS_ITS ---
HPI Data of Consult Patient: new to practice Consult date: 11/06/23 Requesting Physician: Supriya Pineda APRN Primary Care Provider: Cheyenne Scott APRN Consult Narrative Reason for consult: Herpes zoster outbreak History of present illness: Ms. Sepulveda is a 78 year old female who presents today as a new patient. She is a referral from Cheyenne Scott's office. Today she rates her pain an 8 out of 10. Patient states her pain is all related to a shingles outbreak that occurred approximately 1 month ago. She describes this as a constant sharp shooting pain that is all along her left upper abdomen that wraps around to her back as well as having pain from the top of her head down into her neck left arm and abdomen. Patient has had 2 rounds of acyclovir as well as on gabapentin 600 mg 3 times a day from her primary care provider with minimal relief. Patient has tried a local topical however does not state that it provided significant relief. Patient does state the pain is debilitating and interferes with her ability to perform activities of daily living. Patient is interested in any help we may be able. Her Jose has been reviewed and is appropriate. CC: Supriya Pineda APRN [facility] Disclaimer: The information contained in this section may have been updated after the patient was seen, as this information can be updated by other users. Medical History Abnormal EKG Angina pectoris Dizziness Ischemic cardiomyopathy Left shoulder pain NYHA class 2 heart failure with reduced ejection fraction Obesity (BMI 30.0-34.9) Sinus tachycardia SOB (shortness of breath) on exertion Syncope Family History (Updated 11/06/23 @ 11:32 by Ida Carroll RN) Other Unknown family medical history Social History (Updated 11/06/23 @ 11:33 by Ida Carroll RN) Smoking Status: Never smoker second hand exposure: No alcohol intake: never substance use type: denies use current occupational status: retired Travel in the last 8 weeks: None household members: family housing: house caffeine: Yes Review of Systems Review of Systems Review of systems:: pertinent systems reviewed and negative unless documented below Review of systems (narrative): Review of Systems: General: No recent weight changes, no fever, no sleep disturbances Respiratory: No cough, no shortness of air, no recurring pulmonary infections Cardiovascular/peripheral vascular: No chest pain, no palpitations, no edema, no shortness of breath Gastrointestinal: No new onset incontinence, normal bowel movements reported Genitourinary: No new onset incontinence Musculoskeletal: Left upper abdomen pain, low back pain, left hip pain, left arm pain, neck pain Psychiatric: [Normal mood/affect] Neurological: [Denies weakness in extremities], [denies balance issues] Meds Home Medications and Allergies Home Medications Medication Instructions Recorded Confirmed Type levothyroxine 50 mcg tablet 50 mcg PO DAILY THYROID 07/28/18 11/06/23 History escitalopram oxalate 20 mg tablet 20 mg PO DAILY MOOD 05/27/20 11/06/23 History gabapentin 600 mg tablet 600 mg PO TID NEUROPATHY 05/27/20 11/06/23 History aspirin 81 mg chewable tablet 81 mg PO DAILY HEART HEALTH #30 06/05/20 11/06/23 Rx tabs allopurinol 300 mg tablet 150 mg PO DAILY 01/04/21 11/06/23 History dapagliflozin propanediol 10 mg 10 mg PO DAILY 09/03/21 11/06/23 History tablet (Farxiga) insulin glargine U-300 conc 300 34 unit SQ HS 09/03/21 11/06/23 History unit/mL (3 mL) subcutaneous pen (Toujeo Max U-300 SoloStar) semaglutide 1 mg/dose (4 mg/3 mL) 1 mg SQ WEEKLY 09/03/21 11/06/23 History subcutaneous pen injector (Ozempic) sitagliptin phosphate 100 mg 100 mg PO DAILY 09/03/21 11/06/23 History tablet (Januvia) promethazine 12.5 mg tablet 12.5 mg PO Q6H PRN Nausea #6 tabs 10/02/21 11/06/23 Rx isosorbide mononitrate 30 mg 30 mg PO DAILY 90 days #90 tabs 06/05/22 11/06/23 Rx tablet,extended release 24 hr prednisone 10 mg tablet 10 mg PO Q OTHER DAY 06/05/22 11/06/23 History atorvastatin 20 mg tablet (Lipitor) 20 mg PO DAILY #90 tabs 08/06/22 11/06/23 Rx blood pressure monitor (Blood #1 ea 10/08/22 11/06/23 Rx Pressure Kit) venlafaxine 37.5 mg 37.5 mg PO DAILY 10/08/22 11/06/23 History capsule,extended release 24 hr carvedilol 6.25 mg tablet See Rx Instructions .Route 06/04/23 11/06/23 Rx .COMPLEX #180 tabs New Prescriptions to Start Prescriptions: Allergies Allergy/AdvReac Type Severity Reaction Status Date / Time codeine Allergy Mild Flushing Verified 05/20/23 11:07 Sulfa (Sulfonamide Allergy Unknown UNKNOWN Verified 05/20/23 11:07 Antibiotics) [SULFA (SULFONAMIDE ANTIBIOTICS)] Sulfa (Sulfonamide AdvReac Mild Uncoded 05/20/23 11:07 Antibiotics Objective Vital signs: Pulse Resp BP Pulse Ox O2 Del Method 94 H 18 108/62 L 93 L Room Air 11/06/23 11:11/06/23 11:31 11/06/23 11:31 11/06/23 11:31 11/06/23 11:31 Narrative: Physical Exam: General: Alert and oriented x3, no acute distress, pleasant and cooperative Lungs: Respirations even and unlabored, symmetrical chest expansion Eyes: PERRL Musculoskeletal: Flexion and extension of cervical [spine] somewhat guarded secondary to pain, [antalgic gait noted] point tenderness along left upper abdomen and left back Neurological: Speech clear, no gross sensory deficit Skin: Diffuse rash noted along the left upper abdomen that extends into the left mid back Assessment and Plan *Assessment and plan (1) Herpes zoster: Status: Acute Category: Medical Code(s): B02.9 - Zoster without complications Plan Patient is experiencing significant pain related to a shingles outbreak. I have discussed with the patient that she may benefit from trigger point injections in and around her diffuse rash that is located on her left upper abdomen and goes around into her left mid back. Risk and benefits were discussed with the patient regarding this injection and she would like to proceed forward with this plan of care. I will also order the patient a compounded cream. Patient will be scheduled for trigger point injections of her left upper abdomen and left thoracic paraspinous area. I also discussed with the patient in future she may benefit from a cervical epidural. We will follow-up with this at future visits. Patient has been instructed to contact the clinic with any concerns before the next appointment. Dr. Cochran has reviewed this note and agrees with this plan of care. This note was dictated using voice recognition software and make contain errors or omissions.
== END 2023-11-06 23:59 ==
LOC: SC.PAIN 10:56
PROVIDERS: PCP Nurse Practitioner Family; Visit Provider Nurse Practitioner Family
DX: B02.9 Zoster without complications (principal)
CPT/HCPCS: 99202; G0463

== ENCOUNTER 2023-11-11 11:46 | Day surgery (SDC) | payer MEDICARE, SELFPAY ==
[2023-11-11 11:59] VITALS: BP 124/68; PULSE 125; RESP 18; O2SAT 96; BMI 25.7
[2023-11-11] MEDS: BUPIVACAINE 0.25% 10ML INJ 25 MG IJ (12:02)
[2023-11-11] MEDS: methylPREDNISolone ACETATE 80MG/ML VIAL 80 MG (12:02)
[2023-11-11] MEDS: LIDOCAINE 1% 5ML PF VIAL 5 ML (12:02)
[2023-11-11 12:08] VITALS: BP 136/93; PULSE 118; RESP 18; O2SAT 96
--- NOTE | 2023-11-11 12:11 | EXP.PAIN.PRO ---
Procedure Date: 11/11/23 Time: 11:50 Anesthesiologist:: Gagan Rosario CRNA Complications:: None Pre-procedure Diagnosis:: Postherpetic neuralgia Post-procedure Diagnosis:: Same. Indications for Procedure:: Patient presents to clinic today for trigger point injections over the left posterior thoracic area of shingles. Patient reports outbreak started about 30 days ago. It does trace around the left thoracic cavity under the breast on the left side. Lesions are essentially healed and or scabbed over. However, she continues having postherpetic neuralgia pain. Procedure Details:: Details of the procedure explained to the patient. The patient taken procedure room placed in sitting position. Using a 25-gauge inch and half needle the posterior thoracic area of shingles invasion was injected in 4 different areas subcutaneously with a solution containing 40 mg of Depo-Medrol 6 mL of 0.25% Marcaine and 6 mL of 1% lidocaine. Patient tolerated procedure without difficulty. There are no complications. Plan and Disposition:: Patient was discharged without incident.
== END 2023-11-11 12:08 | disposition home or self-care (01) ==
PROVIDERS: PCP Nurse Practitioner Family; Visit Provider Nurse Anesthetist, Certified Registered
DX: B02.29 Other postherpetic nervous system involvement (principal); M79.18 Myalgia, other site
CPT/HCPCS: 20552; J1010

== ENCOUNTER 2023-11-24 11:41 | Emergency (ER) | payer MEDICARE, SELFPAY ==
[2023-11-24 11:42] VITALS: BP 172/99; PULSE 115; RESP 16; TEMP 36.7; O2SAT 99; BMI 25.0
--- NOTE | 2023-11-24 11:52 | XR_ITS ---
FINAL REPORT TECHNIQUE: Single view chest CLINICAL HISTORY: syncope FINDINGS: A single view of the chest was obtained. The heart and mediastinum are within normal limits. The lungs are clear. There is no pneumothorax. Osseous structures are unremarkable. IMPRESSION: No acute cardiopulmonary process. Reviewed, Interpreted and Dictated by Treva Renee MD Transcribed by Tere Aguero Authenticated and [facility]
--- NOTE | 2023-11-24 11:52 | CT_ITS ---
FINAL REPORT TECHNIQUE: Axial images were obtained from skull base to the thoracic inlet by computed tomography. Coronal and sagittal reconstruction process performed. This study was performed with techniques to keep radiation doses as low as reasonably achievable (ALARA). Individualized dose reduction techniques using automated exposure control or adjustment of mA and/or kV according to the patient''s size were employed. CLINICAL HISTORY: fall FINDINGS: There is no acute fracture or subluxation. There is moderate, diffuse degenerative disc disease. The facets are normally aligned. The soft tissues are unremarkable. Limited images of the lung apices are unremarkable. IMPRESSION: No acute fracture. Reviewed, Interpreted and Dictated by Treva Renee MD Transcribed by Tere Aguero Authenticated and [facility]
--- NOTE | 2023-11-24 11:52 | CT_ITS ---
FINAL REPORT TECHNIQUE: Noncontrast exam CLINICAL HISTORY: recurrent syncope hitting head COMPARISON: 03/24/2023 FINDINGS: There is moderate atrophy. No abnormal density is seen. Ventricles are normal. There is no hemorrhage. No mass effect is seen. Bone windows show no evidence of fracture. IMPRESSION: No acute findings Reviewed, Interpreted and Dictated by Treva Renee MD Transcribed by Tere Aguero Authenticated and [facility]
--- NOTE | 2023-11-24 11:53 | CT_ITS ---
FINAL REPORT TECHNIQUE: Postcontrast axial images of the chest were performed in a CTA protocol. This study was performed with techniques to keep radiation doses as low as reasonably achievable, (ALARA). Individualized dose reduction technique using automated exposure control or adjustment of mA and/or kV according to the patient's size were employed. CLINICAL HISTORY: tachy, syncope FINDINGS: The heart is normal in size. No adenopathy is identified. No pleural or pericardial effusion is identified. The thoracic aorta is normal in caliber with no focal aneurysm or dissection identified. There is no filling defect to suggest pulmonary embolism. No lung infiltrate or mass is identified. There is no pneumothorax. No acute osseous abnormality is seen. The images of the upper abdomen are unremarkable. IMPRESSION: No evidence for PE on this exam. Reviewed, Interpreted and Dictated by Treva Renee MD Transcribed by Tere Aguero Authenticated and [facility]
--- NOTE | 2023-11-24 11:54 | HMH.EDGENADL ---
Discharge Plan Disposition Patient Disposition: Home, Self-Care Chief Complaint: Fall Prescriptions Prescriptions: No Action allopurinol 300 mg tablet 150 mg PO DAILY prednisone 10 mg tablet 10 mg PO Q OTHER DAY isosorbide mononitrate 30 mg tablet extended release 24 hr 30 mg PO DAILY 90 Days Qty: 90 3RF venlafaxine 37.5 mg capsule,extended release 24hr 37.5 mg PO DAILY (DME) blood pressure monitor [Blood Pressure Kit] Kit See Rx Instructions .Route Qty: 1 0RF Rx Instructions: As directed carvedilol 3.125 mg tablet 3.125 mg PO BID Qty: 90 3RF aspirin 81 mg tablet,chewable 81 mg PO DAILY Qty: 30 5RF Ozempic 1 mg/dose (4 mg/3 mL) pen injector 1 mg SQ WEEKLY Toujeo Max U-300 SoloStar 300 unit/mL (3 mL) insulin pen 34 unit SQ HS Januvia 100 mg tablet 100 mg PO DAILY Farxiga 10 mg tablet 10 mg PO DAILY atorvastatin [Lipitor] 20 mg tablet 20 mg PO DAILY Qty: 90 3RF levothyroxine 50 MCG tablet 50 mcg PO DAILY gabapentin 600 MG tablet 600 mg PO TID escitalopram oxalate 20 MG tablet 20 mg PO DAILY promethazine 12.5 MG tablet 12.5 mg PO Q6H PRN (Reason: Nausea) Qty: 6 0RF Referrals Follow up/Referrals: Cheyenne Scott APRN [Primary Care Provider] - See instructions Activity Restrictions/Add. Instructions Additional Instructions/Restrictions: At this time it was felt you are safe to be discharged home. If new or worsening symptoms please do not hesitate to return the emergency department. If symptoms persist please follow-up with your family doctor as you are able. Clinical Impressions Clinical Impression: Syncope, Blunt trauma Discharge ED Provider: Markell Campos General Adult HPI General Chief complaint: Fall Stated complaint: AO-fainted, fell, hit face, head and R side Time Seen by Provider: 11/24/23 11:45 History of Present Illness HPI narrative: Patient is a 78-year-old female with past medical history of recurrent syncope, hypertension, hyperlipidemia who presents emergency department for evaluation of syncope. History is obtained by patient at bedside. Patient has had recurrent syncope for some time, lately multiple episodes a day. All are from rising from a seated position or standing rapidly while walking. Today patient walked up a flight of stairs became lightheaded and passed out hitting the floor. Patient is not on anticoagulation. She is complaining of midline neck pain, right-sided headache. Patient also struck her right elbow however has been able to range it, last Tdap unknown. Will expect a syncope which is currently under investigation by the department of cardiology here who has recently made medication adjustments decreasing one of her medications, unknown which one the patient. Related Data Home Medications Medication Instructions Recorded Confirmed levothyroxine 50 mcg tablet 50 mcg PO DAILY THYROID 07/28/18 11/19/23 escitalopram oxalate 20 mg tablet 20 mg PO DAILY MOOD 05/27/20 11/19/23 gabapentin 600 mg tablet 600 mg PO TID NEUROPATHY 05/27/20 11/19/23 allopurinol 300 mg tablet 150 mg PO DAILY 01/04/21 11/19/23 dapagliflozin propanediol 10 mg 10 mg PO DAILY 09/03/21 11/19/23 tablet (Farxiga) insulin glargine U-300 conc 300 34 unit SQ HS 09/03/21 11/19/23 unit/mL (3 mL) subcutaneous pen (Toujeo Max U-300 SoloStar) semaglutide 1 mg/dose (4 mg/3 mL) 1 mg SQ WEEKLY 09/03/21 11/19/23 subcutaneous pen injector (Ozempic) sitagliptin phosphate 100 mg 100 mg PO DAILY 09/03/21 11/19/23 tablet (Januvia) prednisone 10 mg tablet 10 mg PO Q OTHER DAY 06/05/22 11/19/23 venlafaxine 37.5 mg 37.5 mg PO DAILY 10/08/22 11/19/23 capsule,extended release 24 hr Previous Rx's Medication Instructions Recorded aspirin 81 mg chewable tablet 81 mg PO DAILY HEART HEALTH #30 06/05/20 tabs promethazine 12.5 mg tablet 12.5 mg PO Q6H PRN Nausea #6 tabs 10/02/21 isosorbide mononitrate 30 mg 30 mg PO DAILY 90 days #90 tabs 06/05/22 tablet,extended release 24 hr blood pressure monitor (Blood #1 ea 10/08/22 Pressure Kit) atorvastatin 20 mg tablet (Lipitor) 20 mg PO DAILY #90 tabs 11/19/23 carvedilol 3.125 mg tablet 3.125 mg PO BID #90 tabs 11/19/23 Allergies Allergy/AdvReac Type Severity Reaction Status Date / Time codeine Allergy Mild Flushing Verified 11/19/23 09:53 Sulfa (Sulfonamide Allergy Unknown UNKNOWN Verified 11/19/23 09:53 Antibiotics) [SULFA (SULFONAMIDE ANTIBIOTICS)] Sulfa (Sulfonamide AdvReac Mild Uncoded 11/19/23 09:53 Antibiotics [facility] Disclaimer: The information contained in this section may have been updated after the patient was seen, as this information can be updated by other users. Medical History Left shoulder pain SOB (shortness of breath) on exertion Angina pectoris Syncope Dizziness Sinus tachycardia Abnormal EKG NYHA class 2 heart failure with reduced ejection fraction Obesity (BMI 30.0-34.9) Ischemic cardiomyopathy Family History Other Unknown family medical history Social History Smoking Status: Never smoker second hand exposure: No alcohol intake: never substance use type: denies use current occupational status: retired Travel in the last 8 weeks: None household members: family housing: house caffeine: Yes ROS Obtained: Yes Systems reviewed as appropriate & no additional complaints except as documented Physical Exam General General appearance: alert and in no apparent distress Head Head exam: atraumatic and normocephalic Eye Eye exam: Present PERRL and EOMI ENT ENT exam: Present mucous membranes moist Neck Neck exam: Present normal inspection Chest Chest inspection: Present normal inspection and symmetric chest wall rise Respiratory Respiratory exam: Present normal lung sounds bilaterally; Absent respiratory distress Cardiovascular Cardiovascular exam: Present regular rate and normal rhythm Abdominal Exam Abdominal exam: Present soft; Absent tenderness Extremities Exam Extremities exam: Present other (Skin tear right elbow that is hemostatic, scattered abrasions right lateral upper arm. Palpable right radial pulse. Active range of motion at the right shoulder and elbow are preserved.) Neurological Exam Neurological exam: Present alert and CN II-XII intact; Absent motor sensory deficit Psychiatric Psychiatric exam: Present normal affect Skin Skin exam: Present warm and dry Medical Decision Making Jose Inquiry Pt receiving controlled substance: No Vital Signs: 11/24/23 11:42 11/24/23 12:00 11/24/23 13:02 Temperature 98.0 F Temperature Source Oral Pulse Rate 104 H 87 Pulse Rate [Radial] 115 H Respiratory Rate 16 Blood Pressure 152/99 H 177/87 H Blood Pressure [Right Arm] 172/99 H Blood Pressure Mean [Right Arm] 123 Blood Pressure Source [Right Arm] Automatic Cuff Blood Pressure Position [Right Arm] Sitting 02 Sat by Pulse Oximetry 99 98 100 Oxygen Delivery Method Room Air Room Air Room Air Lab Data Lab Results 11/24/23 12:05: WBC 8.7, RBC 5.19, Hgb 16.7 H, Hct 51.9 H, MCV 99.9 H, MCH 32.2 H, MCHC 32.3, RDW 14.5, Plt Count 233, MPV 8.2, Neut % (Auto) 65.1, Lymph % (Auto) 25.9, [place] % (Auto) 7.2, Eos % (Auto) 0.8, Baso % (Auto) 1.1, Neut # (Auto) 5.7, Lymph # (Auto) 2.3, [place] # (Auto) 0.6, Eos # (Auto) 0.1, Baso # (Auto) 0.1, Sodium 137, Potassium 4.0, Chloride 102, Carbon Dioxide 31 H, Anion Gap 8.0, BUN 33 H, Creatinine 1.30 H, Estimated Creat Clear 38, Estimated GFR 40 L, Est GFR ( Amer) 48 L, Glucose 247 H, Calcium 9.8, Magnesium 1.7, Total Bilirubin 0.6, AST 25, ALT 24, Alkaline Phosphatase 113, Total Protein 6.8, Albumin 3.9, Globulin 2.9, Albumin/Globulin Ratio 1.3 11/24/23 12:05 11/24/23 12:05 Orders (Tests/Meds): ED MEDICATIONS Discontinued Medications Generic Name Dose Route Start Last Admin Trade Name Freq PRN Reason Stop Dose Admin Acetaminophen 1,000 mg 11/24/23 11:56 11/24/23 12:07 Acetaminophen 1,000mg/100ml Vial IV 11/24/23 11:57 1,000 mg ONCE ONE Administration Lactated Ringer's 1,000 mls @ 999 mls/hr 11/24/23 11:52 11/24/23 12:07 Lactated Ringer's 1000 Ml Bag IV 11/24/23 12:52 999 mls/hr .Q1H1M ONE Administration Iopamidol 80 ml 11/24/23 12:34 11/24/23 12:43 Iopamidol-370 (76%);100ml Bottle IV 11/24/23 12:35 80 ml ONCE ONE Administration Iopamidol 10 ml 11/24/23 12:34 11/24/23 12:43 Iopamidol-200 (41%);10ml Vial IV 11/24/23 12:35 Not Given ONCE ONE Sodium Chloride 10 ml 11/24/23 12:34 11/24/23 12:42 Sodium Chloride 0.9% 10ml Syr (Rad Only) IV 11/24/23 12:35 10 ml ONCE ONE Administration Sodium Chloride 50 ml 11/24/23 12:43 11/24/23 12:44 0.9 % Sodium Chloride 50 Ml Vial IV 11/24/23 12:44 50 ml ONCE ONE Administration Tetanus/Reduced Diphtheria/Acell Pertussis 0.5 ml 11/24/23 11:56 11/24/23 13:22 Tet/Diphth/Pert-Adult 0.5ml Syringe IM 11/24/23 11:57 0.5 ml .ONCE ONE Administration ORDERS Category Date Time Status CT angio chest PE protocol Stat Cat Scan 11/24/23 11:[address] cervical spine wo con Stat Cat Scan 11/24/23 11:[address] head/brain wo con Stat Cat Scan 11/24/23 11:52 Completed CXR --portable [XR chest portable] Stat Exams 11/24/23 11:52 Completed Elbow XR right minimum 3 views [XR elbow RT min 3V] Exams 11/24/23 11:56 Completed Stat CBC w/Auto Diff [Complete Blood Count Auto Diff] Stat Lab 11/24/23 12:05 Completed CMP [Comprehensive Metabolic Panel] Stat Lab 11/24/23 12:05 Completed MG [Magnesium] Stat Lab 11/24/23 12:05 Completed ECG initial [place] Routine Y 11/24/23 11:59 Completed ECG Data Tracing #1: Independently interpreted by me, rate is 100, rhythm is regular, axis is normal, no ST elevation in anatomical contiguous lead, QTc 398, sinus tachycardia. Medical Decision Narrative: In summary patient is a 78-year-old female with past medical history described above who presents emergency department for evaluation of syncope and traumatic injury sustained in a fall. Patient is hemodynamically stable nontoxic-appearing upon arrival, afebrile with a nonfocal neurologic exam. Patient is slightly tachycardic. Differential includes intracranial hemorrhage, elbow fracture, cervical spine fracture therefore C-spine precautions were initiated. With respect to syncope differential includes vasovagal syncope, pulmonary embolism, cardiogenic syncope, among others. History is strongly consistent with vasovagal syncope. Workup will be conducted with hematologic labs, noncontrasted CT scan of the head and cervical spine, plain film of the chest and right elbow. Tdap will be updated. Initial inventions include crystalloid bolus and IV Tylenol. Workup reviewed by me, hematologic labs are nonactionable, stable CKD, no critical electrolyte abnormalities. Glucose is elevated without evidence of elevated anion gap to suggest DKA. CT imaging shows no acute traumatic pathology, no evidence of pulmonary embolism. Upon repeat evaluation patient was ambulatory bedside without significant symptoms, resolving tachycardia. Given this patient is appropriate for outpatient management at this time and was given return precautions. Critical Care Critical Care Time Critical Care Time: No
--- NOTE | 2023-11-24 11:56 | XR_ITS ---
FINAL REPORT CLINICAL HISTORY: trauma FINDINGS: RIGHT ELBOW 3 views of the elbow were obtained. There is no acute fracture or dislocation. The joint spaces are intact. There is not soft tissue abnormality. IMPRESSION: No acute fracture Reviewed, Interpreted and Dictated by Treva Renee MD Transcribed by Tere Aguero Authenticated and [facility]
--- NOTE | 2023-11-24 11:59 | ECG_ITS ---
APPROVED REPORT Exam: Resting ECG HR:100 bpm ECG Measurements Heart Rate 100 AXES AL 145 P 73 QRSd 77 QRS 60 QT 341 T 76 QTc 398 Conclusion SINUS TACHYCARDIA Electronically signed by : COLLINS STEWARD, 11/26/2023 07:24:55
[2023-11-24 12:00] VITALS: BP 152/99; PULSE 104; O2SAT 98
[2023-11-24] MEDS: LACTATED RINGERS 1000ML 1,000 ML 999 ML IV (12:07)
[2023-11-24] MEDS: ACETAMINOPHEN 1,000MG/100ML VIAL 1000 MG IV (12:07)
[2023-11-24 12:12] LABS: Basophils # 0.1 K/mm3 (0-0.2); Basophils % 1.1 % (0.1-2.0); Eosinophils # 0.1 K/mm3 (0.0-0.4); Eosinophils % 0.8 % (0.1-12.0); Hematocrit 51.9 % (37.0-47.0); Hemoglobin 16.7 g/dL (12.2-16.2); Lymphocytes # 2.3 K/mm3 (0.7-4.5); Lymphocytes % 25.9 % (10-50); Mean Corpuscular HGB Conc 32.3 g/dL (31.8-35.4); Mean Corpuscular Hemoglobin 32.2 pg (27.0-31.2); Mean Corpuscular Volume 99.9 fl (81-99); Mean Platelet Volume 8.2 fl (7.4-10.4); Monocytes # 0.6 K/mm3 (0.1-1.0); Monocytes % 7.2 % (1.7-9.3); Neutrophils # 5.7 K/mm3 (1.8-7.8); Neutrophils % 65.1 % (37.0-80.0); Platelet Count 233 K/mm3 (142-424); Red Blood Count 5.19 M/mm3 (4.20-5.40); Red Cell Distribution Width 14.5 % (11.5-17.5); White Blood Count 8.7 K/mm3 (4.8-10.8)
--- NOTE | 2023-11-24 12:18 | PC.NURSE ---
c-collar applied to pt
[2023-11-24 12:24] LABS: Alanine Aminotransferase 24 U/L (12-78); Albumin Level 3.9 g/dl (3.5-5.0); Albumin/Globulin Ratio 1.3 (1.1-1.8); Alkaline Phosphatase 113 U/L (38-126); Aspartate Amino Transferase 25 U/L (14-36); Bilirubin,Total 0.6 mg/dl (0.2-1.3); Blood Urea Nitrogen 33 mg/dl (7-17); Calcium 9.8 mg/dl (8.4-10.2); Carbon Dioxide 31 mmol/L (22.0-30.0); Chloride 102 mmol/L (98-107); Creatinine Clearance Estimated 38 mL/min (50-200); Estimated Glomerular Filt Rate 40 ml/min (>60); GFR (African American) 48 ML/MIN (>60); Globulin 2.9 g/dL (1.3-3.2); Glucose 247 mg/dl (74-100); Magnesium 1.7 mg/dl (1.6-2.3); Sodium 137 mmol/L (136-145); Total Protein,Serum 6.8 g/dl (6.3-8.2)
--- NOTE | 2023-11-24 12:26 | PC.NURSE ---
Pt gone to RAD via stretcher
--- NOTE | 2023-11-24 12:41 | PC.NURSE ---
Pt returned to room
[2023-11-24] MEDS: SODIUM CHLORIDE 0.9% 10ML SYR (RAD ONLY) 10 ML IV (12:42)
[2023-11-24] MEDS: IOPAMIDOL-370 (76%);100ML BOTTLE 80 ML IV (12:43)
[2023-11-24] MEDS: 0.9 % SODIUM CHLORIDE 50 ML VIAL IV (12:44)
[2023-11-24 13:02] VITALS: BP 177/87; PULSE 87; O2SAT 100
--- NOTE | 2023-11-24 13:04 | PC.NURSE ---
Pt wounds cleaned and dressed
[2023-11-24] MEDS: TET/DIPHTH/PERT-ADULT 0.5ML SYRINGE 0.5 ML IM (13:22)
[2023-11-24 13:45] VITALS: BP 168/90; PULSE 85; O2SAT 97
[2023-11-24 14:15] VITALS: BP 186/98; PULSE 85; O2SAT 99
[2023-11-24 14:41] VITALS: BP 140/81; PULSE 88; RESP 20; TEMP 36.7; O2SAT 100
== END 2023-11-24 14:42 | disposition home or self-care (01) ==
PROVIDERS: Emergency Provider Emergency Medicine; PCP Nurse Practitioner Family
DX: R55 Syncope and collapse (principal); M54.2 Cervicalgia; R51.9 Headache, unspecified; R00.0 Tachycardia, unspecified; I10 Essential (primary) hypertension; E78.5 Hyperlipidemia, unspecified; W10.8XXA Fall (on) (from) other stairs and steps, initial encounter; Z23 Encounter for immunization
CPT/HCPCS: 70450; 71045; 71275; 72125; 73080; 80053; 83735; 85025; 90471; 90715; 93005; 96361; 96374; 99285; J0131; Q9967

== ENCOUNTER 2023-11-25 08:44 | Outpatient (CLI) | payer MEDICARE, SELFPAY ==
--- NOTE | 2023-11-25 08:45 | CA_ITS ---
FINAL REPORT CLINICAL HISTORY: DIZZINESS,HTN FINDINGS: RIGHT CAROTID: CCA PSV - 52 cm/sec ICA PSV - 81 cm/sec ICA/CCA PSV ratio -2.2 . Comments: Mild plaque disease is noted. LEFTCAROTID: CCA PSV - 48. cm/sec ICA PSV - 75. cm/sec ICA/CCA PSV ratio - 1.8 . Comments: Moderate plaque disease is noted. Antegrade flow is seen within the vertebral arteries. IMPRESSION: Carotid stenosis classified less than 50%. Moderate plaque disease. Reviewed, Interpreted and Dictated by Treva Renee MD Transcribed by Rosemarie Tanner Authenticated and [facility]
== END 2023-11-25 23:59 | disposition home or self-care (01) ==
LOC: RT 08:45
PROVIDERS: PCP Nurse Practitioner Family; Visit Provider Physician Assistant
DX: R42 Dizziness and giddiness (principal)
CPT/HCPCS: 93880

== ENCOUNTER 2023-11-27 14:19 | Outpatient (POV) | payer MEDICARE, SELFPAY ==
--- NOTE | 2023-11-27 15:34 | A.OFFVIS_ITS ---
[facility] Pain Management SOAP Note Subjective:: Patient is a pleasant 78-year-old female who presents today for follow-up of trigger point injections at the last posterior thoracic area as well as under the breast cavity on the left side on 11/11/2023. Today she rates her pain an 8 out of 10. Patient states that she did have significant improvement with her rash following these injections however she is still experiencing significant pain related to this shingles outbreak. Patient states that it is constant and that the rash on her back just feels numb however she still has sharp pains under her breast area. Patient is interested in any help we may be able to provide. She is still taking her gabapentin and does state that the compounded cream did help some. Her Joes has been reviewed and is appropriate. Review of Systems: General: No recent weight changes, no fever, no sleep disturbances Respiratory: No cough, no shortness of air, no recurring pulmonary infections Cardiovascular/peripheral vascular: No chest pain, no palpitations, no edema, no shortness of breath Gastrointestinal: No new onset incontinence, normal bowel movements reported Genitourinary: No new onset incontinence Musculoskeletal: Mid back pain, left under breast pain Psychiatric: [Normal mood/affect] Neurological: [Denies weakness in extremities], [denies balance issues] Objective:: Physical Exam: General: Alert and oriented x3, no acute distress, pleasant and cooperative Lungs: Respirations even and unlabored, symmetrical chest expansion Eyes: PERRL Musculoskeletal: Flexion and extension of thoracic [spine] somewhat guarded secondary to pain, [antalgic gait noted] Neurological: Speech clear, no gross sensory deficit Skin: Shingles rash is still present on both her mid back as well as under her left breast, no open areas or drainage noted Assessment:: Acute shingles outbreak, postherpetic neuralgia, myofascial pain Plan:: Patient has had improvement following her first set of trigger point injections regarding her shingles outbreak. Patient however is still experiencing significant pain more prominent under her left breast however is having numbness there at her thoracic paraspinous muscles. I have discussed with the patient that she may benefit from repeat trigger point injections in these areas due to her severity of pain. Patient does also states she still has pain under her left arm. I have recommended that she try and apply the compounded cream to this location as well as still where she is have residual of the rash. Patient agrees with this plan of care. Risk and benefits of the trigger point injections were explained to the patient and we will schedule her for trigger point injections of the thoracic paraspinous muscles along the left side and left upper abdomen. Patient has been instructed to contact the clinic with any concerns before the next appointment. Dr. Cochran has reviewed this note and agrees with this plan of care. This note was dictated using voice recognition software and make contain errors or omissions. [facility] Disclaimer: The information contained in this section may have been updated after the patient was seen, as this information can be updated by other users. Medical History Left shoulder pain SOB (shortness of breath) on exertion Angina pectoris Syncope Dizziness Sinus tachycardia Abnormal EKG NYHA class 2 heart failure with reduced ejection fraction Obesity (BMI 30.0-34.9) Ischemic cardiomyopathy Family History Other Unknown family medical history Social History Smoking Status: Never smoker second hand exposure: No alcohol intake: never substance use type: denies use current occupational status: retired Travel in the last 8 weeks: None household members: family housing: house caffeine: Yes
[2023-11-27 15:38] VITALS: BP 125/78; PULSE 119; RESP 16; O2SAT 99; BMI 25.2
== END 2023-11-27 23:59 | disposition home or self-care (01) ==
LOC: SC.PAIN 14:20
PROVIDERS: PCP Nurse Practitioner Family; Visit Provider Nurse Practitioner Family
DX: B02.29 Other postherpetic nervous system involvement (principal); M79.10 Myalgia, unspecified site
CPT/HCPCS: 99212; G0463

== ENCOUNTER 2023-12-02 09:15 | Day surgery (SDC) | payer MEDICARE, SELFPAY ==
[2023-12-02 09:32] VITALS: BP 109/74; PULSE 125; RESP 18; O2SAT 97
[2023-12-02 09:34] VITALS: BP 122/81; PULSE 124; RESP 18; TEMP 36.4; O2SAT 96; BMI 25.4
[2023-12-02] MEDS: BUPIVACAINE 0.25% 10ML INJ 25 MG IJ (09:36)
[2023-12-02] MEDS: LIDOCAINE 1% 5ML PF VIAL 5 ML (09:36)
[2023-12-02] MEDS: methylPREDNISolone ACETATE 80MG/ML VIAL 80 MG (09:36)
[2023-12-02 09:43] VITALS: BP 109/74; PULSE 125; O2SAT 97
--- NOTE | 2023-12-02 09:49 | EXP.PAIN.PRO ---
Procedure Date: 12/02/23 Time: 09:40 Anesthesiologist:: Gagan Rosario CRNA Complications:: None Pre-procedure Diagnosis:: Postherpetic neuralgia Post-procedure Diagnosis:: Same. Indications for Procedure:: Patient is a pleasant 78-year-old female that is 6 weeks out from initial onset of herpes zoster outbreak. Lesions are in the area of the left thoracic around to the left chest. Midline to midline. Patient describes the pain as constant, dull, aching, sharp, stabbing. She rates her pain 9/10. Patient received some slight relief from her previous trigger point injections around the lesions. Today the lesions have dried although pain persist. Discussed in detail with the patient regarding thoracic epidural steroid injection if in fact she continues having pain after this round of trigger point injections. Procedure Details:: Details of the procedure explained to the patient. Patient taken procedure room placed in sitting position. Using a alcohol swab each area of injection was cleansed. 25-gauge inch and half needle was used at multiple sites from left thoracic spine around the thorax to the midline of the chest underneath the left breast. Multiple injections were given of 1% lidocaine and steroid. Patient tolerated procedure without difficulty. There are no complications Plan and Disposition:: Patient was discharged without incident.
[2023-12-02 09:56] VITALS: BP 151/94; PULSE 121; RESP 18; O2SAT 98
== END 2023-12-02 09:49 | disposition home or self-care (01) ==
PROVIDERS: PCP Nurse Practitioner Family; Visit Provider Nurse Anesthetist, Certified Registered
DX: B02.29 Other postherpetic nervous system involvement (principal); M79.10 Myalgia, unspecified site
CPT/HCPCS: 20552; J1010

== ENCOUNTER 2023-12-09 11:02 | Outpatient (CLI) | payer MEDICARE, SELFPAY | END 2023-12-09 23:59 | disposition home or self-care (01) | PROVIDERS: PCP Nurse Practitioner Family; Visit Provider Nurse Practitioner Family | DX: R55 Syncope and collapse (principal) | CPT/HCPCS: 93225 ==

== ENCOUNTER 2023-12-11 10:52 | Outpatient (CLI) | payer MEDICARE, SELFPAY | END 2023-12-11 23:59 | disposition home or self-care (01) | LOC: RT 10:53 | PROVIDERS: PCP Nurse Practitioner Family; Visit Provider Nurse Practitioner Family | DX: R55 Syncope and collapse (principal) | CPT/HCPCS: 93270 ==

== ENCOUNTER 2023-12-11 11:17 | Emergency (ER) | payer MEDICARE, SELFPAY ==
[2023-12-11 11:30] VITALS: BP 129/89; PULSE 112; RESP 20; TEMP 36.6; O2SAT 100; BMI 24.9
[2023-12-11 11:48] LABS: Apearance,Urine Cloudy (Clear); Color,Urine Yellow (Yellow); PH,Urine 5.5 (5.0-8.5)
--- NOTE | 2023-12-11 11:48 | EXP.UTC ---
Discharge Plan Disposition Patient Disposition: Home, Self-Care Condition: Good Prescriptions Prescriptions: New cefdinir 300 mg capsule 300 mg PO BID Qty: 20 0RF No Action carvedilol 6.25 mg tablet 6.25 mg PO DAILY gabapentin 600 mg tablet 600 mg PO BID Patient Comments: TAKE 1 TABLET BY MOUTH TWICE DAILY FOR 90 DAYS atorvastatin 20 mg tablet 20 mg PO DAILY Patient Comments: TAKE 1 TABLET BY MOUTH ONCE DAILY venlafaxine 150 mg capsule,extended release 24hr 150 mg PO DAILY levothyroxine 50 mcg tablet 50 mcg PO DAILY Patient Comments: TAKE 1 TABLET BY MOUTH ONCE DAILY FOR 90 DAYS prednisone 2.5 mg tablet 2.5 mg PO DAILY Patient Comments: TAKE 1 TABLET BY MOUTH ONCE DAILY insulin glargine U-300 conc [Toujeo Max U-300 SoloStar] 300 unit/mL (3 mL) insulin pen See Rx Instructions .ROUTE .COMPLEX Rx Instructions: . Ozempic 0.25 mg or 0.5 mg (2 mg/3 mL) pen injector 0.25 mg SQ WEEKLY Referrals Follow up/Referrals: Cheyenne Scott APRN [Primary Care Provider] - See instructions Activity Restrictions/Add. Instructions Additional Instructions/Restrictions: *Increase fluids. Water not Soda or Tea *Start antibiotic immediately and be sure to take as ordered for the FULL length of time although you should start to see improvement over the next 48 hours *Be SURE to follow up anytime for new or worsening symptoms with your family doctor. AND in 48 hours for urine culture results with your family doctor, if you do not have a doctor then you may call back to the [facility] for urine culture results and further treatment. We do recommend that you choose and establish care with a Primary Care Physician. ?AND follow up with them ?in 10-14 days to repeat UA to ensure infection is resolved and blood no longer present *Be sure to let your PCP know that we sent urine cultures from the [facility] so they can follow up to ensure that you area the on the correct antibiotic Call your doctor office and make appointment for 48 hours (2 days from today) ?to follow up and get the results of your urine culture and further treatment You have had Glucose in your urine the last several times you have had your urine checked make sure to follow up with your Family Doctor Clinical Impressions Clinical Impression: Urinary tract infection Instructions Patient Instructions: DI for Urinary Tract Infection (UTI), Cefdinir Discharge ED Provider: Marce Woodall [facility] HPI General Stated complaint: frequent urination, dizziness Mode of Arrival: Ambulatory Source of Information: Patient Limitations: No Limitations Time Seen by Provider: 12/11/23 11:50 Description of Symptoms (Recalled from Triage Doc. by RN): PATIENT C/O URINARY FREQUENCY AND LOWER ABDOMINAL PAIN THAT STARTED LAST WEEK HEENT Symptoms (Recalled from RN notes): No Resp Symptoms (Recalled from RN notes): No Skin Symptoms (Recalled from RN notes): No MS Symptoms (Recalled from RN notes): No Functional Status (Recalled from RN notes): WNL History of Present Illness Provider Complaint: Patient states that she has been having achy like feeling in her lower back, lower abdomen pressure like she has to go and having burning with urination that has got worse over the last week States today she came in to get a heart monitor put on so she came in to get checked worried she may have a UTI Related Data Home Medications Medication Instructions Recorded Confirmed atorvastatin 20 mg tablet 20 mg PO DAILY 12/11/23 12/11/23 carvedilol 6.25 mg tablet 6.25 mg PO DAILY 12/11/23 12/11/23 gabapentin 600 mg tablet 600 mg PO BID 12/11/23 12/11/23 insulin glargine U-300 conc 300 See Rx Instructions .Route .COMPLEX 12/11/23 12/11/23 unit/mL (3 mL) subcutaneous pen (Toujeo Max U-300 SoloStar) levothyroxine 50 mcg tablet 50 mcg PO DAILY 12/11/23 12/11/23 prednisone 2.5 mg tablet 2.5 mg PO DAILY 12/11/23 12/11/23 semaglutide 0.25 mg or 0.5 mg (2 0.25 mg SQ WEEKLY 12/11/23 12/11/23 mg/3 mL) subcutaneous pen injector (Ozempic) venlafaxine 150 mg 150 mg PO DAILY 12/11/23 12/11/23 capsule,extended release 24 hr Previous Rx's Medication Instructions Recorded cefdinir 300 mg capsule 300 mg PO BID #20 caps 12/11/23 Allergies Allergy/AdvReac Type Severity Reaction Status Date / Time codeine Allergy Mild Flushing Verified 12/09/23 10:22 Sulfa (Sulfonamide Allergy Unknown UNKNOWN Verified 12/09/23 10:22 Antibiotics) [SULFA (SULFONAMIDE ANTIBIOTICS)] Worker's Comp Is this a Worker's Comp case?: No [facility] Disclaimer: The information contained in this section may have been updated after the patient was seen, as this information can be updated by other users. Medical History Left shoulder pain SOB (shortness of breath) on exertion Angina pectoris Syncope Dizziness Sinus tachycardia Abnormal EKG NYHA class 2 heart failure with reduced ejection fraction Obesity (BMI 30.0-34.9) Ischemic cardiomyopathy Family History Other Unknown family medical history Social History Smoking Status: Never smoker second hand exposure: No alcohol intake: never substance use type: denies use current occupational status: other Travel in the last 8 weeks: None household members: family housing: house caffeine: Yes ROS Obtained: Yes All systems reviewed & no additional complaints except as documented and Yes Systems reviewed as appropriate & no additional complaints except as documented Constitutional Constitutional: Reports system reviewed and no additional complaints, except as documented, Reports as per HPI, Denies body ache, Denies chills and Denies fever(s) ENT Ears, Nose, Mouth, and Throat: Reports system reviewed and no additional complaints, except as documented and Reports as per HPI Cardiovascular Cardiovascular: Reports system reviewed and no additional complaints, except as documented and Reports as per HPI Respiratory Respiratory: Reports system reviewed and no additional complaints, except as documented and Reports as per HPI Gastrointestinal Gastrointestingal: Reports system reviewed and no additional complaints, except as documented and as per HPI; Denies abdominal pain, cramping, diarrhea, nausea or vomiting Genitourinary Female Genitourinary: Reports system reviewed and no additional complaints, except as documented, Reports as per HPI, Reports dysuria, Reports urinary frequency, Reports urinary urgency and Reports other (pressure like feeling in her lower abdomen feeling like she has to go ) Physical Exam General General appearance: alert and in no apparent distress ENT ENT exam: Present mucous membranes moist Respiratory Respiratory exam: Present normal lung sounds bilaterally; Absent respiratory distress or wheezes Cardiovascular Cardiovascular exam: Present regular rate, normal rhythm and normal heart sounds Abdominal Exam Abdominal exam: Present soft and normal bowel sounds; Absent distention or tenderness Neurological Exam Neurological exam: Present alert, oriented X3 and normal gait Medical Decision Making Jose Inquiry Pt receiving controlled substance: No Jose was queried for this patient: No Vital Signs: 12/11/23 11:30 Temperature 97.9 F Temperature Source Oral Pulse Rate [Left Brachial] 112 H Respiratory Rate 20 Blood Pressure [Left Arm] 129/89 Blood Pressure Mean [Left Arm] 102 Blood Pressure Source [Left Arm] Automatic Cuff Blood Pressure Position [Left Arm] Sitting 02 Sat by Pulse Oximetry 100 Oxygen Delivery Method Room Air Lab Data Lab results reviewed: Yes I reviewed the patient's lab results. Orders (Tests/Meds): ORDERS Category Date Time Status Urine Culture Stat Micro 12/11/23 11:29 Received
[2023-12-11 11:49] LABS: Bilirubin,Urine Negative (Negative); Blood, Urine Trace (Negative); Glucose,Urine (UA) >=1000 (Negative); Ketones,Urine Negative (Negative); Protein,Urine Negative (Negative); Specific Gravity, Urine 1.025 (1.005-1.030); UTC Leukocyte Esterase,Urine Negative (Negative); UTC Nitrate,Urine Positive (Negative); Urobilinogen,Urine 0.2 EU/dl (0.2)
[2023-12-11 12:00] VITALS: BP 129/89; PULSE 112; RESP 20; TEMP 36.6; O2SAT 100
== END 2023-12-11 12:04 | disposition home or self-care (01) ==
PROVIDERS: Emergency Provider Nurse Practitioner; PCP Nurse Practitioner Family
DX: N39.0 Urinary tract infection, site not specified (principal); B96.29 Other Escherichia coli [E. coli] as the cause of diseases classified elsewhere; M54.59 Other low back pain; R30.0 Dysuria; R10.30 Lower abdominal pain, unspecified
CPT/HCPCS: 81003; 87086; 87088; 87186; 93270; 99204; 99212; G0463

== ENCOUNTER 2023-12-16 11:11 | Outpatient (POV) | payer MEDICARE, SELFPAY | END 2023-12-16 23:59 | disposition home or self-care (01) | LOC: SC 11:12 | PROVIDERS: PCP Nurse Practitioner Family; Visit Provider Dermatology | DX: Z00.00 Encounter for general adult medical examination without abnormal findings (principal) ==

== ENCOUNTER 2023-12-17 10:54 | Outpatient (POV) | payer MEDICARE, SELFPAY ==
--- NOTE | 2023-12-17 11:02 | EXP.PAIN.SOA ---
[facility] [place] Pain Management SOAP Note Subjective:: Patient is a pleasant 78-year-old female who presents today for follow-up of trigger point injections of left thoracic and left breast cavity on 12/02/2023. Today she rates her pain an 5 out of 10. She does state that she has had at least 50% improvement following these injections. She states that overall the rash is now dried up. She does state that she still is having some pain that radiates from her mid back to up under her left breast. Patient describes it as a aching, throbbing sensation with still burning sensations and tingling. She states the pain can interfere with her ability perform activities of daily living such as cooking and cleaning. Patient does also state that she is scheduled for a neurology consult coming up. She states that she has been experiencing more shaking in her arms. She states this was present even before the shingles outbreak however it progressively worsened following this illness. She does also state that occasionally she will get lightheaded and can even fall. She is prescribed gabapentin from an outside provider and compounded cream from our office. She denies any side effects from these medications. Her Jose has been reviewed and is appropriate. Review of Systems: General: No recent weight changes, no fever, no sleep disturbances Respiratory: No cough, no shortness of air, no recurring pulmonary infections Cardiovascular/peripheral vascular: No chest pain, no palpitations, no edema, no shortness of breath Gastrointestinal: No new onset incontinence, normal bowel movements reported Genitourinary: No new onset incontinence Musculoskeletal: Mid back pain, left under breast pain Psychiatric: [Normal mood/affect] Neurological: [Denies weakness in extremities], [denies balance issues] Objective:: Physical Exam: General: Alert and oriented x3, no acute distress, pleasant and cooperative Lungs: Respirations even and unlabored, symmetrical chest expansion Eyes: PERRL Musculoskeletal: Flexion and extension of thoracic [spine] somewhat guarded secondary to pain, [antalgic gait noted] Neurological: Speech clear, no gross sensory deficit Assessment:: postherpetic neuralgia left thoracic cavity and left breast, mid back pain with thoracic radiculopathy symptoms Plan:: Patient is experiencing continued pain related to her postherpetic neuralgia. Patient did have limited range of motion of her thoracic spine. I have discussed with patient that she may now benefit from a thoracic epidural since her rash has officially healed up. Risk and benefits were discussed with the patient and she would like to proceed forward with this plan of care. Patient has tried and failed conservative therapy including continued at home exercise and stretching between injections. Patient is not on any blood thinners. We will schedule the patient for a thoracic epidural steroid injection T9-T10 under fluoroscopy. I have also discussed with the patient at times where she feels like she gets lightheaded and may even fall I do recommend that she check her blood sugar as well as her blood pressure and keep a journal of this to discuss with her provider. Patient acknowledges understanding and agrees with plan of care. Patient has been instructed to contact the clinic with any concerns before the next appointment. Dr. Cochran has reviewed this note and agrees with this plan of care. This note was dictated using voice recognition software and make contain errors or omissions. [facility] Disclaimer: The information contained in this section may have been updated after the patient was seen, as this information can be updated by other users. Medical History Left shoulder pain SOB (shortness of breath) on exertion Angina pectoris Syncope Dizziness Sinus tachycardia Abnormal EKG NYHA class 2 heart failure with reduced ejection fraction Obesity (BMI 30.0-34.9) Ischemic cardiomyopathy Family History Other Unknown family medical history Social History Smoking Status: Never smoker second hand exposure: No alcohol intake: never substance use type: denies use current occupational status: retired Travel in the last 8 weeks: None household members: family housing: house caffeine: Yes
[2023-12-17 11:08] VITALS: BP 148/83; PULSE 91; RESP 16; O2SAT 98; BMI 24.3
== END 2023-12-17 23:59 | disposition home or self-care (01) ==
LOC: SC.PAIN 10:56
PROVIDERS: PCP Nurse Practitioner Family; Visit Provider Nurse Practitioner Family
DX: B02.23 Postherpetic polyneuropathy (principal); M54.6 Pain in thoracic spine
CPT/HCPCS: 99212; G0463

== ENCOUNTER 2023-12-18 07:01 | Outpatient (CLI) | payer MEDICARE, SELFPAY ==
--- NOTE | 2023-12-18 | CA_ITS ---
APPROVED REPORT Exam: Pharmacologic Technologist: Flores Huffman, Ht: 5 ft 4 in Wt: 142 lbs BSA: 1.69 m2 HR: 78 bpm BP: 197/92 mmHg Rhythm: NSR, NORMAL Medical History Medical History: HTN, Hyperlipidemia, Diabetes Medications: Levothyroxine,,,,, Aspirin,,,,, Gabapentin,,,,, Allopurinol,,,,, Atorvastatin,,,,, Carvedilol,,,,, Januvia,,,,, Prednisone,,,,, Escitalopram Oxalate,,,,, DApagliflozin,,,,, SeMaglutide,,,,, Isosorbide Monoitrate ER,,,,, Allergies: CODEINE, SULFA Cardiac Risk Factors: HTN, Hyperlipidemia, Diabetes Stress Test Details Test: LEXISCAN HR Resting HR: 83 bpm Max Heart Rate (APMHR): 144 bpm Max HR Achieved: 100 bpm Target HR (85% APMHR): 122 bpm % of APMHR: 69 Recovery HR: 94 bpm BP Resting BP: 197/92 mmHg Max BP: 197/92 mmHg Recovery BP: 179.0/93.0 mmHg ECG Resting ECG: NSR, NORMAL Stress ECG: No significant ST changes Arrhythmia: None Clinical Exercise duration: 04:01 min Highest Stage Achieved: Exercise capacity: 1.0 METs Stress ECG Conclusion PT HAD MILD SOA, AND BECAME MIDLY LIGHT HEADED NO CP NO SIGNIFICANT ST CHANGES UNREMARKABLE LEXISCAN STRESS MYOVIEW IMAGES REPORTED SEPARATELY HOME BP MEDS GIVEN POST TEST (@ 0920) CARVEDILOL AND IMDUR WILL MONITOR BP AT HOME POST IMAGING BP: 176/96 Test Summary REST 07:50 . . 83 . 197/ 92 . . Stage 1 01:00 . . 93 . . . . Stage 2 01:00 . . 96 . 154/ 85 . . Stage 3 01:00 . . 93 . 171/ 92 . . Stage 4 01:00 . . 92 . 181/ 97 . . Stage 4 01:01 . . 92 . 181/ 97 . Stop exercise at 04:01 RECOVERY 01:00 . . 95 . . . . RECOVERY 02:00 . . 91 . 190/ 98 . . RECOVERY 03:00 . . 97 . 190/ 98 . . RECOVERY 04:00 . . 90 . 179/ 93 . . RECOVERY 05:00 . . 89 . 179/ 93 . . Electronically signed by : Karime Johnson MD 12/18/2023 13:49:36
--- NOTE | 2023-12-18 07:03 | CA_ITS ---
APPROVED REPORT EXAM: Comprehensive 2D, Doppler, and color-flow Echocardiogram Buffing Turner And Counter: JYOTI Humphries, RVS Ht: 5 ft 4 in Wt: 180lbs BSA: 1.87 BP: 130/80 mmHg Indications: Ischemic CM, SOB, Syncope, Abn EKG 2D Dimensions Left Atrium 3.38 cm LA Volume 40.20 mL LA Volume Index 20.90 mL/m2 (M/F) 16-34 EF AP4 60.80 % GL Strain -31.2 % M-Mode Dimensions RVDd 2.47 cm (0.9-2.6) LA Diam 3.51 cm (1.9-4.0) LVDd 4.03 cm (3.5-5.7) LVDs 3.08 cm (3.5-5.7) IVSd 1.06 cm (0.6-1.1) PWd 1.03 cm (0.6-1.1) EF (Teich) 47.70% EPSs 1.22 cm FS 23.60% EDV (Teich) 71.30 mL TAPSE 1.28 (<1.7) ESV (Teich) 37.30 mL LV Diastology E Decel Time 100 (160-240 msec) E/A Ratio 11.03 MED A' 12.60 cm/s LAT A' 17.30 cm/s Aortic Valve ANTHONY Index 1.20 cm2/m2 AoV Peak Ji. 107.0 (50-130 cm/s) AO Peak GR. 4.60 mmHg AO Mean GR. 2.30 (<5 mmHg) AO VTI 18.2 (18-25 cm) ANTHONY (VTI) 2.30 (2.5-4.5 cm2) Mitral Valve MV A Velocity 12.0 (40-130 cm/s) E/A Ratio 11.03 Pulmonary Valve PV Peak Velocity 92.0 (50-150 cm/s) Tricuspid Valve TR P. Velocity 197.00 cm/s RAP Estimate 10.00 mmHg RVSP 25.50 mmHg Left Ventricle The left ventricle is normal size. The left ventricular systolic function is normal. The left ventricular ejection fraction is within the normal range. There is increased LV wall thickness. There is normal LV segmental wall motion. The left ventricular diastolic function is normal. LVEF is 55%. Right Ventricle The right ventricle is normal size. The right ventricular systolic function is normal. Atria The left atrium size is normal. The right atrium size is normal. There is no Doppler evidence of interatrial shunt. Aortic Valve The aortic valve is mildly thickened. There is no aortic valvular stenosis. No aortic regurgitation is present. Mitral Valve Mild mitral annular calcification (MAC). The mitral valve is normal in structure. No evidence of mitral valve stenosis. Mild mitral regurgitation. Tricuspid Valve The tricuspid valve leaflets are thin and pliable. Mild tricuspid regurgitation. RVSP is normal. Pulmonic Valve The pulmonary valve is normal in structure. Trace pulmonic regurgitation. Great Vessels The aortic root is normal in size. The ascending aorta is normal in size. IVC is normal in size and collapses >50% with inspiration. Pericardium There is no pericardial effusion. Other Information Study Quality: Fair Conclusion Normal biventricular systolic function. Mild MR, mild TR. Electronically signed by : Karime Johnson MD 12/21/2023 20:53:58
--- NOTE | 2023-12-18 07:05 | NM_ITS ---
APPROVED REPORT Exam: Nuclear Stress Test Indication: fatigue..syncope Patient Location: Outpatient Stress Tech: Flores Huffman [place] Tech:RAOUL Jaquez RT(R)(N) Ht: 5 ft 4 in Wt: 142 lbs Bra Size: 38b HR: 83 bpm BP: 197/92 mmHg BSA: 1.69 m2 TID: 1.07 BMI: 24.3 History: fatigue..syncope Procedure: Patient received 0.4 mg of intravenous Lexiscan, resting heart rate 83 bpm, resting blood pressure 197/92 mmHg, with Lexiscan maximum heart rate achieved was 100 bpm which is 85 % of the maximum predicted heart rate and blood pressure was 197/92 mmHg. With Lexiscan, patient denied any complaint of chest pain. Cardiac Stress and Resting SPECT Images: Cardiac Stress and Resting SPECT images were obtained using technetium 99m Myoview 31.0 mCi stress and 10.41 mCi at rest. Resting and stress imaging in supine and prone positions demonstrate no evidence of fixed or reversible perfusion defects. Gated imaging demonstrates mildly reduced LV systolic function. LVEF is calculated at 45%. The LVEF calculation may be inaccurate in the setting of occasional PVCs, correlation with new or recent TTE is recommended. Conclusion: No evidence of fixed or reversible perfusion defects. Gated imaging demonstrates mildly reduced LV systolic function. LVEF is calculated at 45%. The LVEF calculation may be inaccurate in the setting of occasional PVCs, correlation with new or recent TTE is recommended. Electronically signed by : Karime Johnson MD 12/18/2023 13:51:17
[2023-12-18] MEDS: ISOTOPE MYOVIEW (PER STUDY) 1 DOSE IV (10:13)
[2023-12-18] MEDS: REGADENOSON 0.4MG/5ML SYRINGE 0.400000000000000022 MG IV (10:13)
[2023-12-18] MEDS: SODIUM CHLORIDE 0.9% 10ML SYR (RAD ONLY) 10 ML IV ×2 (10:13)
== END 2023-12-18 23:59 | disposition home or self-care (01) ==
LOC: RAD 07:03
PROVIDERS: PCP Nurse Practitioner Family; Visit Provider Nurse Practitioner Family
DX: R55 Syncope and collapse (principal); R06.02 Shortness of breath; I11.9 Hypertensive heart disease without heart failure; E78.2 Mixed hyperlipidemia; I10 Essential (primary) hypertension; R00.0 Tachycardia, unspecified; I25.5 Ischemic cardiomyopathy; E11.69 Type 2 diabetes mellitus with other specified complication; E66.9 Obesity, unspecified; I25.118 Atherosclerotic heart disease of native coronary artery with other forms of angina pectoris; R94.31 Abnormal electrocardiogram [ECG] [EKG]; I50.20 Unspecified systolic (congestive) heart failure
CPT/HCPCS: 78452; 93017; 93018; 93306; A9502; J2785

== ENCOUNTER 2024-01-13 08:02 | Day surgery (SDC) | payer MEDICARE, SELFPAY ==
[2024-01-13 08:15] VITALS: BP 136/80; PULSE 118; RESP 18; TEMP 36.3; O2SAT 99; BMI 23.6
[2024-01-13 08:40] VITALS: BP 114/78; PULSE 118; RESP 18; O2SAT 97
[2024-01-13] MEDS: methylPREDNISolone ACETATE 80MG/ML VIAL 80 MG (08:40)
--- NOTE | 2024-01-13 08:42 | EXP.PAIN.PRO ---
Procedure Date: 01/13/24 Time: 08:30 Anesthesiologist:: Gagan Rosario CRNA Complications:: None Pre-procedure Diagnosis:: Degenerative disc thoracic spine. Thoracolumbar pain. Thoracolumbar radiculopathy. Post-procedure Diagnosis:: Same. Indications for Procedure:: Patient is a very pleasant 78-year-old female comes our clinic today for T9-10 thoracic epidural steroid injection. Patient describes thoracolumbar pain. She describes it as constant, dull, aching. Patient also reports bilateral thoracic radiculopathy. Procedure Details:: Procedure:Thoracic epidural steroid injection under fluoroscopy Informed consent was obtained and the risks and benefits of the procedure were explained to the patient. The patient was taken to the procedure room and noninvasive monitors placed, including noninvasive blood pressure cuff and pulse oximeter. The back was viewed using C-Arm fluoroscopy and prepped using Betadine as a cleansing solution and the T9-T10 interspace was palpated. Skin and subcutaneous tissues were anesthetized using lidocaine 1.5% and a 25-gauge needle. After this, an 18-gauge Touhy epidural needle was placed into the T9-T10 interspace and advanced using fluoroscopic guidance and loss of resistance to air until the epidural space was encountered. After confirmation of needle placement in the epidural space, with dye, a solution containing lidocaine 1.5%, 4 mL and Depo-Medrol 80 mg were incrementally injected into the thoracic epidural space. The patient tolerated the procedure well with no complications. The patient was observed in the Pain Clinic and then discharged home neurologically intact. Plan and Disposition:: Patient was discharged out incident.
[2024-01-13 08:43] VITALS: BP 114/78; PULSE 118; RESP 18; O2SAT 97
[2024-01-13 08:48] VITALS: BP 142/89; PULSE 115; RESP 18; O2SAT 98
== END 2024-01-13 08:50 | disposition home or self-care (01) ==
PROVIDERS: PCP Nurse Practitioner Family; Visit Provider Nurse Anesthetist, Certified Registered
DX: M54.15 Radiculopathy, thoracolumbar region (principal); M51.34 Other intervertebral disc degeneration, thoracic region
CPT/HCPCS: 62321; J1010

== ENCOUNTER 2024-02-04 09:24 | Outpatient (CLI) | payer MEDICARE, SELFPAY ==
[2024-02-04 09:52] LABS: Basophils % 0.6 % (0.1-2.0); Eosinophils % 0.2 % (0.1-12.0); Hemoglobin 14.4 g/dL (12.2-16.2); Lymphocytes # 1.6 K/mm3 (0.7-4.5); Lymphocytes % 27.5 % (10-50); Mean Corpuscular HGB Conc 32.7 g/dL (31.8-35.4); Mean Corpuscular Hemoglobin 32.8 pg (27.0-31.2); Mean Corpuscular Volume 100.2 fl (81-99); Mean Platelet Volume 8.7 fl (7.4-10.4); Monocytes # 0.4 K/mm3 (0.1-1.0); Monocytes % 6.9 % (1.7-9.3); Neutrophils # 3.7 K/mm3 (1.8-7.8); Neutrophils % 64.7 % (37.0-80.0); Platelet Count 188 K/mm3 (142-424); Red Blood Count 4.39 M/mm3 (4.20-5.40); Red Cell Distribution Width 13.7 % (11.5-17.5); White Blood Count 5.7 K/mm3 (4.8-10.8)
[2024-02-04 10:07] LABS: Alanine Aminotransferase 31 U/L (12-78); Albumin Level 3.5 g/dl (3.5-5.0); Albumin/Globulin Ratio 1.2 (1.1-1.8); Alkaline Phosphatase 158 U/L (38-126); Aspartate Amino Transferase 32 U/L (14-36); Bilirubin,Total 0.5 mg/dl (0.2-1.3); Blood Urea Nitrogen 33 mg/dl (7-17); Calcium 9.2 mg/dl (8.4-10.2); Carbon Dioxide 30 mmol/L (22.0-30.0); Chloride 106 mmol/L (98-107); Estimated Glomerular Filt Rate 54 ml/min (>60); GFR (African American) 65 ML/MIN (>60); Globulin 2.9 g/dL (1.3-3.2); Glucose 97 mg/dl (74-100); Sodium 140 mmol/L (136-145); Total Protein,Serum 6.4 g/dl (6.3-8.2)
[2024-02-04 11:14] LABS: Vitamin B12 566 pg/mL (239-931)
[2024-02-05 12:14] LABS: Rapid Plasma Reagin Ab Titer Non Reactive titer (NonRea<1:1)
== END 2024-02-04 23:59 | disposition home or self-care (01) ==
LOC: LAB 09:25
PROVIDERS: PCP Nurse Practitioner Family; Visit Provider Specialist
DX: E53.8 Deficiency of other specified B group vitamins (principal); Z86.39 Personal history of other endocrine, nutritional and metabolic disease; G25.3 Myoclonus; I95.1 Orthostatic hypotension; G90.A Postural orthostatic tachycardia syndrome [POTS]
CPT/HCPCS: 36415; 80053; 82607; 82746; 85025; 86593

== ENCOUNTER 2024-02-17 13:52 | Outpatient (CLI) | payer MEDICARE, SELFPAY ==
--- NOTE | 2024-02-17 14:02 | MR_ITS ---
FINAL REPORT TECHNIQUE: Multiplanar MR without contrast CLINICAL HISTORY: Recurrent synscope, myoclonus COMPARISON: 12/27/2020 FINDINGS: Diffusion sequences show no signal abnormality to indicate acute infarct. Scattered periventricular white matter signal changes are seen compatible with moderate chronic ischemic gliotic disease. Mild generalized atrophy is present. No mass, hemorrhage or edema is seen. Ventricles are normal. Major vascular flow voids are intact. IMPRESSION: No mass, acute infarct or hydrocephalus Atrophy and chronic ischemic white matter changes, which have progressed since the prior MRI of 2020. Reviewed, Interpreted and Dictated by rTeva Renee MD Transcribed by Amanda Baxter Authenticated and . [facility]
--- NOTE | 2024-02-17 14:02 | MR_ITS ---
FINAL REPORT TECHNIQUE: Multiplanar MR without gadolinium enhancement CLINICAL HISTORY: Segmental myoclonus, falls COMPARISON: None FINDINGS: Limited images of the posterior fossa are unremarkable. Alignment is normal. Cervical spinal cord shows normal signal and contour. C2-3: Bony hypertrophic changes are noted, with moderate left neural foraminal narrowing. C3-4: A moderate annular bulge is present with moderate facet arthropathy, severe left and moderate right neural foraminal narrowing. C4-5: A mild annular bulge is present with mild facet arthropathy and mild central canal stenosis. C5-6: A mild annular bulge is present with mild facet arthropathy, and mild bilateral neural foraminal narrowing. C6-7: A mild annular bulge is present with mild facet arthropathy, and mild right neural foraminal narrowing. C7-T1: A mild to moderate annular bulge is present without significant central canal stenosis. IMPRESSION: Multilevel cervical degenerative change, as described above. Reviewed, Interpreted and Dictated by Treva Renee MD Transcribed by Amanda Baxter Authenticated and [facility]
== END 2024-02-17 23:59 | disposition home or self-care (01) ==
LOC: RAD 13:53
PROVIDERS: PCP Nurse Practitioner Family; Visit Provider Specialist
DX: R55 Syncope and collapse (principal); G25.3 Myoclonus; Z86.39 Personal history of other endocrine, nutritional and metabolic disease
CPT/HCPCS: 70551; 72141

== ENCOUNTER → 2024-02-18 13:02 | Day surgery (SDC) | payer MEDICARE, SELFPAY ==
[2024-02-18 13:13] VITALS: BP 138/90; PULSE 115; RESP 18; O2SAT 99; BMI 24.9
--- NOTE | 2024-02-18 13:18 | PC.NURSE ---
Pt is poor historian and doesn't know home medication very well.
[2024-02-18 13:25] LABS: POC Glucose,Bedside 140 (70-110)
--- NOTE | 2024-02-19 12:22 | EXP.TILT ---
Findings:: PROCEDURE: Upright tilt table test REQUESTING PHYSICIAN: Baylee Cazares MD INDICATION: Syncope MEDICATIONS: Aspirin, Lipitor, Farxiga, gabapentin, thyroid replacement, Ozempic PRE-TEST VITAL SIGNS (supine): Blood pressure 162/104 mmHg, heart rate 111 bpm normal sinus rhythm, O2 sat 96% PROCEDURE SUMMARY: Patient was prepped per protocol. She was then tilted into the upright position at 70 degrees for a total of 30 minutes with the test being terminated at that point. She had no syncope or near syncope. She complained of some brief lightheadedness and dizziness. Blood pressure dropped to 104/68 with heart rate of 118 bpm within 2 minutes of standing and remained consistently in that range with the lowest blood pressure reading of 96/61 mmHg and heart rate gradually increasing to 136 bpm over 30 minutes. Rhythm noted to be sinus throughout. O2 sats remained in the high 90s throughout. Patient was returned to the starting position and test terminated at that time. COMPLICATIONS: None. CONCLUSION: Positive test for orthostasis with greater than 20 mmHg drop in blood pressure and greater than 20 bpm increase in heart rate but without resultant syncopal episode.
== END | disposition home or self-care (01) ==
PROVIDERS: PCP Nurse Practitioner Family; Visit Provider Specialist
DX: R55 Syncope and collapse (principal); E11.9 Type 2 diabetes mellitus without complications
CPT/HCPCS: 82962; 93660

== ENCOUNTER 2024-02-25 10:02 | Outpatient (POV) | payer MEDICARE, SELFPAY ==
[2024-02-25 10:15] VITALS: BP 147/89; PULSE 99; RESP 16; O2SAT 100; BMI 26.6
--- NOTE | 2024-02-25 12:43 | EXP.PAIN.SOA ---
[facility] Disclaimer: The information contained in this section may have been updated after the patient was seen, as this information can be updated by other users. Medical History (Updated 02/25/24 @ 12:49 by Supriya Pineda APRN) Anxiety Depression Left shoulder pain SOB (shortness of breath) on exertion Angina pectoris Syncope Dizziness Sinus tachycardia Abnormal EKG NYHA class 2 heart failure with reduced ejection fraction Obesity (BMI 30.0-34.9) Ischemic cardiomyopathy Surgical History Hx of heart artery stent Hx of adenoidectomy Hx of tonsillectomy Hx of hysterectomy Family History Other Cancer Coronary artery disease Diabetes Kidney disease Thyroid disorder Unknown family medical history Social History (Updated 02/18/24 @ 13:17 by Ana Rosa Friend RN) Smoking Status: Never smoker second hand exposure: No alcohol intake: never substance use type: denies use current occupational status: retired Travel in the last 8 weeks: None household members: family housing: house marital status: caffeine: Yes PM Subjective & Objective Subjective Subjective:: Patient is a pleasant 78-year-old female who presents today for follow-up of thoracic epidural T9-T10 on 01/13/2024. Today she rates her pain a 4 out of 10. Patient denies any new trauma or injury. She does state that she really did not feel significant relief following this procedure. Patient does state that she continues to still have the burning sensations that are related to her shingles outbreak all along the underside of her left breast and upper abdomen as well as it going into her breast area. She states that the pain is constant and that with certain movements or hitting a bump even while driving she can have shooting pains. Patient has been tried with trigger point injections that did provide at least 50% improvement however that she only got temporary relief. Patient was also prescribed compounded cream which she states she is still using with some improvement and she is on gabapentin from an outside provider. Patient does state that she has been recently experiencing worsening tailbone pain. She states that she lost weight and it seems to aggravate this pain. She states that it is constant and that she frequently has to change positions due to the worsening pain. She does state that she has used some pillows from time to time. Her Jose has been reviewed and is appropriate. Review of Systems: General: No recent weight changes, no fever, no sleep disturbances Respiratory: No cough, no shortness of air, no recurring pulmonary infections Cardiovascular/peripheral vascular: No chest pain, no palpitations, no edema, no shortness of breath Gastrointestinal: No new onset incontinence, normal bowel movements reported Genitourinary: No new onset incontinence Musculoskeletal: Left upper abdomen pain, left breast pain Psychiatric: [Normal mood/affect] Neurological: [Denies weakness in extremities], [denies balance issues] Pain at rest (0-10 scale): 4 Objective Objective:: Physical Exam: General: Alert and oriented x3, no acute distress, pleasant and cooperative Lungs: Respirations even and unlabored, symmetrical chest expansion Eyes: PERRL Musculoskeletal: Flexion and extension of thoracic [spine] somewhat guarded secondary to pain, [antalgic gait noted] Neurological: Speech clear, no gross sensory deficit Has patient had previous pain injection?: Yes Percent improvement in pain since last injection: 0 Conservative treatment options previously tried: Home exercise plan Length of treatment: Longer than 6 months Meds Home Medications and Allergies Home Medications ?Medication ?Instructions ?Recorded ?Confirmed ?Type atorvastatin 20 mg tablet 20 mg PO DAILY 12/11/23 02/25/24 History gabapentin 600 mg tablet 600 mg PO BID 12/11/23 02/25/24 History insulin glargine U-300 conc 300 See Rx Instructions .Route .COMPLEX 12/11/23 02/25/24 History unit/mL (3 mL) subcutaneous pen (Toujeo Max U-300 SoloStar) levothyroxine 50 mcg tablet 50 mcg PO DAILY 12/11/23 02/25/24 History prednisone 2.5 mg tablet 2.5 mg PO DAILY 12/11/23 02/25/24 History semaglutide 0.25 mg or 0.5 mg (2 0.25 mg SQ WEEKLY 12/11/23 02/25/24 History mg/3 mL) subcutaneous pen injector (Ozempic) venlafaxine 150 mg 150 mg PO DAILY 12/11/23 02/25/24 History capsule,extended release 24 hr aspirin 81 mg tablet,delayed 81 mg PO DAILY 02/03/24 02/25/24 History release dapagliflozin propanediol 10 mg 10 mg PO DAILY 02/03/24 02/25/24 History tablet (Onealxiga) baclofen 10 mg tablet 10 mg PO HS #14 tabs 02/25/24 Rx New Prescriptions to Start Prescriptions: baclofen Supriya Pineda Allergies Allergy/AdvReac Type Severity Reaction Status Date / Time codeine Allergy Mild Flushing Verified 02/18/24 13:17 Sulfa (Sulfonamide Allergy Unknown UNKNOWN Verified 02/18/24 13:17 Antibiotics) [SULFA (SULFONAMIDE ANTIBIOTICS)] Assessment and Plan *Assessment and plan (1) Herpes zoster: Status: Acute Qualifiers: Herpes zoster complications: with nervous system involvement Herpes zoster neurologic complication detail: postherpetic polyneuropathy Qualified Code(s): B02.23 - Postherpetic polyneuropathy Category: Medical Code(s): B02.9 - Zoster without complications Plan Patient continues to experience significant pain related to her postherpetic neuralgia. I did discuss with the patient that she still may benefit from additional trigger point injections however due to the extent that they were only temporary we might wait and see how she does with additional options. I did discuss with the patient at length regarding her gabapentin medication. Patient states she was on this previously before she ever got the shingles and that this was still the same dosage that she had initially. I have discussed with the patient that it may be beneficial to increase that dosage or even to try possibly Lyrica if she does not feel like the gabapentin has been doing anything for her overall symptoms. Patient was counseled to follow-up with her primary care regarding these options. I will send in a 2-week dose of baclofen 10 mg at bedtime. Patient was counseled for her tailbone pain that I would recommend pillow positioning such as a doughnut pillow or that she can try topical creams however being very cautious to where she actually applies it. Patient will return to clinic in 2 weeks for reevaluation of symptoms and plan of care. Patient has been instructed to contact the clinic with any concerns before the next appointment. Dr. Cochran has reviewed this note and agrees with this plan of care. This note was dictated using voice recognition software and make contain errors or omissions. All injections are used with Lidocaine or Bupivacaine and Depo Medrol.
== END 2024-02-25 23:59 | disposition home or self-care (01) ==
PROVIDERS: PCP Nurse Practitioner Family; Visit Provider Nurse Practitioner Family
DX: B02.23 Postherpetic polyneuropathy (principal); Z95.5 Presence of coronary angioplasty implant and graft; Z79.899 Other long term (current) drug therapy
CPT/HCPCS: 99212; G0463

== ENCOUNTER 2024-02-28 10:16 | Emergency (ER) | payer MEDICARE, SELFPAY ==
[2024-02-28] VITALS (9 sets, daily range): BP systolic 131–180; BP diastolic 71–103; PULSE 70–86; RESP 16–18; TEMP 36.6–36.7; O2SAT 96–100; BMI 24.9
--- NOTE | 2024-02-28 11:08 | ED_ITS ---
Discharge Plan Disposition Patient Disposition: Home, Self-Care Condition: Fair Prescriptions Prescriptions: No Action metoprolol succinate [Toprol XL] 25 mg tablet extended release 24 hr 25 mg PO DAILY Qty: 30 2RF aspirin 81 mg tablet,delayed release (DR/EC) 81 mg PO DAILY baclofen 10 mg tablet 10 mg PO HS Qty: 14 0RF gabapentin 600 mg tablet 600 mg PO BID Patient Comments: TAKE 1 TABLET BY MOUTH TWICE DAILY FOR 90 DAYS atorvastatin 20 mg tablet 20 mg PO DAILY Patient Comments: TAKE 1 TABLET BY MOUTH ONCE DAILY venlafaxine 150 mg capsule,extended release 24hr 150 mg PO DAILY levothyroxine 50 mcg tablet 50 mcg PO DAILY Patient Comments: TAKE 1 TABLET BY MOUTH ONCE DAILY FOR 90 DAYS prednisone 2.5 mg tablet 2.5 mg PO DAILY Patient Comments: TAKE 1 TABLET BY MOUTH ONCE DAILY insulin glargine U-300 conc [Toujeo Max U-300 SoloStar] 300 unit/mL (3 mL) insulin pen See Rx Instructions .ROUTE .COMPLEX Rx Instructions: . Referrals Follow up/Referrals: Lucio Mckinnon MD [Staff Physician] - See instructions Cheyenne Scott APRN [Primary Care Provider] - See instructions Activity Restrictions/Add. Instructions Additional Instructions/Restrictions: Please be careful with changing positions as discussed and drink plenty of fluids and follow-up with cardiology. Your symptoms today were most likely secondary to orthostatic hypotension as we discussed. Unlikely to be due to an arrhythmia or other underlying cardiac pathology. Return with any significant worsening of her symptoms. Clinical Impressions Clinical Impression: Syncope due to orthostatic hypotension, Minor head injury Instructions Patient Instructions: DI for Syncope in Adults (Fainting), DI for Syncope in Children (Fainting) Print Language Print Language: French Discharge ED Provider: Mac Carrillo [facility] [place] [facility] [place] General Chief complaint: Syncope Stated complaint: AO fall 02/27 @0900, head lac Mode of Arrival: Ambulatory Source of Information: Patient Limitations: No Limitations Time Seen by Provider: 02/28/24 11:08 Description of Symptoms (Recalled from Triage Doc. by RN): PATIENT REPORTS THAT SHE PASSED OUT THIS MORNING AND HIT HER FOREHEAD ON A CONCRETE FLOOR. 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 PATIENT C/O HEADACHE AND NAUSEA ABRASION/SKIN TEAR NOTED TO LEFT SIDE OF FOREHEAD. HEENT Symptoms (Recalled from RN notes): Yes Resp Symptoms (Recalled from RN notes): No Skin Symptoms (Recalled from RN notes): Yes MS Symptoms (Recalled from RN notes): No Functional Status (Recalled from RN notes): WNL History of Present Illness Provider Complaint: Patient states that this morning she got up and she passed out and struck the left side of her forehead on the floor causing injury to her forehead, States that she has been seeing her PCP and Cardiology for her blood pressure dropping and having dizziness States that she woke up on the floor and went and got family to help her and they brought her in States that since the fall she has been having headache nausea, and feeling dizzy Related Data Home Medications ?Medication ?Instructions ?Recorded ?Confirmed atorvastatin 20 mg tablet 20 mg PO DAILY 12/11/23 02/26/24 gabapentin 600 mg tablet 600 mg PO BID 12/11/23 02/26/24 insulin glargine U-300 conc 300 See Rx Instructions .Route .COMPLEX 12/11/23 02/26/24 unit/mL (3 mL) subcutaneous pen (Toujeo Max U-300 SoloStar) levothyroxine 50 mcg tablet 50 mcg PO DAILY 12/11/23 02/26/24 prednisone 2.5 mg tablet 2.5 mg PO DAILY 12/11/23 02/26/24 venlafaxine 150 mg 150 mg PO DAILY 12/11/23 02/26/24 capsule,extended release 24 hr aspirin 81 mg tablet,delayed 81 mg PO DAILY 02/03/24 02/26/24 release Previous Rx's ?Medication ?Instructions ?Recorded baclofen 10 mg tablet 10 mg PO HS #14 tabs 02/25/24 metoprolol succinate 25 mg 25 mg PO DAILY #30 tabs 02/26/24 tablet,extended release 24 hr (Toprol XL) Allergies Allergy/AdvReac Type Severity Reaction Status Date / Time codeine Allergy Mild Flushing Verified 02/26/24 13:27 Sulfa (Sulfonamide Allergy Unknown UNKNOWN Verified 02/26/24 13:27 Antibiotics) [SULFA (SULFONAMIDE ANTIBIOTICS)] Worker's Comp Is this a Worker's Comp case?: No [facility] Disclaimer: The information contained in this section may have been updated after the patient was seen, as this information can be updated by other users. Medical History Anxiety Depression Left shoulder pain SOB (shortness of breath) on exertion Angina pectoris Syncope Differential diagnosis: Neurogenic orthostatic hypotension, POTS Dizziness Sinus tachycardia Abnormal EKG NYHA class 2 heart failure with reduced ejection fraction Obesity (BMI 30.0-34.9) Ischemic cardiomyopathy Surgical History Hx of heart artery stent Hx of adenoidectomy Hx of tonsillectomy Hx of hysterectomy Family History Other Cancer Coronary artery disease Diabetes Kidney disease Thyroid disorder Unknown family medical history Social History Smoking Status: Never smoker second hand exposure: No alcohol intake: never substance use type: denies use current occupational status: retired Travel in the last 8 weeks: None household members: family housing: house marital status: caffeine: Yes ROS Obtained: Yes All systems reviewed & no additional complaints except as documented and Yes Systems reviewed as appropriate & no additional complaints except as documented Constitutional Constitutional: Reports system reviewed and no additional complaints, except as documented, Reports as per HPI and Reports headache(s) Eyes Eyes: Reports system reviewed and no additional complaints, except as documented and Reports as per HPI ENT Ears, Nose, Mouth, and Throat: Reports system reviewed and no additional complaints, except as documented, Reports as per HPI, Reports headache(s) and Denies neck pain Cardiovascular Cardiovascular: Reports system reviewed and no additional complaints, except as documented, Reports as per HPI and Reports syncope (this am at home) Respiratory Respiratory: Reports system reviewed and no additional complaints, except as documented and Reports as per HPI Gastrointestinal Gastrointestingal: Reports system reviewed and no additional complaints, except as documented, as per HPI and nausea Musculoskeletal Musculoskeletal: Reports system reviewed and no additional complaints, except as documented, Reports as per HPI, Denies back pain and Denies neck pain Neurologic Neurologic: Reports system reviewed and no additional complaints, except as documented, Reports as per HPI, Reports headache(s) and Reports syncope (this am at home) Physical Exam General General appearance: alert and in no apparent distress Expanded Head Exam Head exam physical: Present abrasion Head image: 2 1. abrasion noted Respiratory Respiratory exam: Present normal lung sounds bilaterally; Absent respiratory distress or wheezes Cardiovascular Cardiovascular exam: Present regular rate, normal rhythm and normal heart sounds Neurological Exam Neurological exam: Present alert, oriented X3 and normal gait Medical Decision Making Jose Inquiry Pt receiving controlled substance: No Jose was queried for this patient: No Vital Signs: 02/28/24 10:45 Temperature 97.9 F Temperature Source Oral Pulse Rate [Left Brachial] 83 Respiratory Rate 18 Blood Pressure [Left Arm] 131/71 Blood Pressure Mean [Left Arm] 91 Blood Pressure Source [Left Arm] Automatic Cuff Blood Pressure Position [Left Arm] Sitting 02 Sat by Pulse Oximetry 96 Oxygen Delivery Method Room Air Lab Data 02/28/24 11:28 02/28/24 11:28 Medical Decision Narrative: Patient reports had syncopal episode at home this morning and struck the left side of her forehead on floor causing abrasion to forehead and states that she has had headache, nausea and dizziness on and off since the fall States she hs been seeing Cardiology and PCP for recent episodes of blood pressure dropping and dizziness Discussed with patient and due to syncopal episode recommend transfer to the ED for further work up and evaluation and she agreed Called ED patient moved to room 10
--- NOTE | 2024-02-28 11:09 | PC.NURSE ---
Dr. Carrillo at [facility] for pt eval
--- NOTE | 2024-02-28 11:17 | CT_ITS ---
PROCEDURE INFORMATION: Exam: CT Cervical Spine Without Contrast Exam date and time: 02/28/2024 11:37 AM Age: 78 years old Clinical indication: Injury or trauma; Fall; Blunt trauma; Additional info: Fall injury TECHNIQUE: Imaging protocol: Computed tomography of the cervical spine without contrast. Radiation optimization: All CT scans at this facility use at least one of these dose optimization techniques: automated exposure control; mA and/or kV adjustment per patient size (includes targeted exams where dose is matched to clinical indication); or iterative reconstruction. COMPARISON: MR CERVICAL SPINE WO CON 02/17/2024 2:12 PM FINDINGS: Bones: There is 2 mm of anterolisthesis at C4-C5 and C7-T1. There is loss of disc space height at C5-C6 and C6-C7 related to degenerative disc disease. There are facet joint degenerative changes throughout as well. There is no acute cervical spine fracture. Lungs: Lung apices are normal. Thyroid: The thyroid is diminutive. Vasculature: There is atherosclerotic disease of carotid arteries not fully assessed. Soft tissues: Unremarkable. IMPRESSION: 1. Degenerative changes throughout. 2. There is no acute cervical spine fracture.
--- NOTE | 2024-02-28 11:17 | CT_ITS ---
PROCEDURE INFORMATION: Exam: CT Head Without Contrast Exam date and time: 02/28/2024 11:35 AM Age: 78 years old Clinical indication: Injury or trauma; Fall; Blunt trauma (contusions or hematomas); Additional info: Head injury TECHNIQUE: Imaging protocol: Computed tomography of the head without contrast. Radiation optimization: All CT scans at this facility use at least one of these dose optimization techniques: automated exposure control; mA and/or kV adjustment per patient size (includes targeted exams where dose is matched to clinical indication); or iterative reconstruction. COMPARISON: MR HEAD/BRAIN WO CON 02/17/2024 2:12 PM FINDINGS: Brain: The brain demonstrates diffuse volume loss. There is white matter hypodensity most consistent with chronic small vessel ischemic change. Cerebral ventricles: The ventricles and CSF spaces are proportionately enlarged. Paranasal sinuses: There is a small retention cyst/polyp in the inferior left maxillary sinus. No fluid levels. Mastoid air cells: Visualized mastoid air cells are well aerated. Bones: No acute fracture. Soft tissues: Unremarkable. IMPRESSION: 1. Atrophy and the sequela of prior small vessel ischemia. 2. No sequela of acute intracranial trauma.
--- NOTE | 2024-02-28 11:21 | HMH.EDGENADL ---
Discharge Plan Disposition Patient Disposition: Still a Patient Prescriptions Prescriptions: No Action metoprolol succinate [Toprol XL] 25 mg tablet extended release 24 hr 25 mg PO DAILY Qty: 30 2RF aspirin 81 mg tablet,delayed release (DR/EC) 81 mg PO DAILY baclofen 10 mg tablet 10 mg PO HS Qty: 14 0RF gabapentin 600 mg tablet 600 mg PO BID Patient Comments: TAKE 1 TABLET BY MOUTH TWICE DAILY FOR 90 DAYS atorvastatin 20 mg tablet 20 mg PO DAILY Patient Comments: TAKE 1 TABLET BY MOUTH ONCE DAILY venlafaxine 150 mg capsule,extended release 24hr 150 mg PO DAILY levothyroxine 50 mcg tablet 50 mcg PO DAILY Patient Comments: TAKE 1 TABLET BY MOUTH ONCE DAILY FOR 90 DAYS prednisone 2.5 mg tablet 2.5 mg PO DAILY Patient Comments: TAKE 1 TABLET BY MOUTH ONCE DAILY insulin glargine U-300 conc [Toujeo Max U-300 SoloStar] 300 unit/mL (3 mL) insulin pen See Rx Instructions .ROUTE .COMPLEX Rx Instructions: . Referrals Follow up/Referrals: Lucio Mckinnon MD [Staff Physician] - See instructions Cheyenne Scott APRN [Primary Care Provider] - See instructions Activity Restrictions/Add. Instructions Additional Instructions/Restrictions: Please be careful with changing positions as discussed and drink plenty of fluids and follow-up with cardiology. Your symptoms today were most likely secondary to orthostatic hypotension as we discussed. Unlikely to be due to an arrhythmia or other underlying cardiac pathology. Return with any significant worsening of her symptoms. Clinical Impressions Clinical Impression: Syncope due to orthostatic hypotension, Minor head injury Instructions Patient Instructions: DI for Syncope in Adults (Fainting), DI for Syncope in Children (Fainting) Print Language Print Language: Ghanaian Discharge ED Provider: Mac Carrillo General Adult HPI General Chief complaint: Syncope Stated complaint: AO fall 02/27 @0900, head lac Time Seen by Provider: 02/28/24 11:08 Mode of Arrival: Ambulatory Source of Information: Patient Limitations: No Limitations Description of Symptoms (Recalled from ER Triage Doc. by RN): PATIENT REPORTS THAT SHE PASSED OUT THIS MORNING AND HIT HER FOREHEAD ON A CONCRETE FLOOR. 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 PATIENT C/O HEADACHE AND NAUSEA ABRASION/SKIN TEAR NOTED TO LEFT SIDE OF FOREHEAD. History of Present Illness HPI narrative: Patient is a 78-year-old female presenting today from the urgent treatment clinic due to syncopal episode and head injury. Patient states for the last several weeks she has had significant symptoms consistent with orthostatic hypotension stating that she has had an abnormal tilt test that she has been followed by cardiology which she states was unremarkable and that she is getting lightheaded and/or passing out upon changing positions which happened this morning. She states that she had no prodromal symptoms no significant chest pain shortness of breath however she just woke up on the floor. No history of arrhythmias that she is aware of. She other than feeling a little bit lightheaded right now and just not feeling well and having minor injury to her forehead does not complain of any other significant complaints. No vomiting diarrhea etc. recently Related Data Home Medications ?Medication ?Instructions ?Recorded ?Confirmed atorvastatin 20 mg tablet 20 mg PO DAILY 12/11/23 02/26/24 gabapentin 600 mg tablet 600 mg PO BID 12/11/23 02/26/24 insulin glargine U-300 conc 300 See Rx Instructions .Route .COMPLEX 12/11/23 02/26/24 unit/mL (3 mL) subcutaneous pen (Toujeo Max U-300 SoloStar) levothyroxine 50 mcg tablet 50 mcg PO DAILY 12/11/23 02/26/24 prednisone 2.5 mg tablet 2.5 mg PO DAILY 12/11/23 02/26/24 venlafaxine 150 mg 150 mg PO DAILY 12/11/23 02/26/24 capsule,extended release 24 hr aspirin 81 mg tablet,delayed 81 mg PO DAILY 02/03/24 02/26/24 release Previous Rx's ?Medication ?Instructions ?Recorded baclofen 10 mg tablet 10 mg PO HS #14 tabs 02/25/24 metoprolol succinate 25 mg 25 mg PO DAILY #30 tabs 02/26/24 tablet,extended release 24 hr (Toprol XL) Allergies Allergy/AdvReac Type Severity Reaction Status Date / Time codeine Allergy Mild Flushing Verified 02/26/24 13:27 Sulfa (Sulfonamide Allergy Unknown UNKNOWN Verified 02/26/24 13:27 Antibiotics) [SULFA (SULFONAMIDE ANTIBIOTICS)] [facility] Disclaimer: The information contained in this section may have been updated after the patient was seen, as this information can be updated by other users. Medical History Anxiety Depression Left shoulder pain SOB (shortness of breath) on exertion Angina pectoris Syncope Differential diagnosis: Neurogenic orthostatic hypotension, POTS Dizziness Sinus tachycardia Abnormal EKG NYHA class 2 heart failure with reduced ejection fraction Obesity (BMI 30.0-34.9) Ischemic cardiomyopathy Surgical History Hx of heart artery stent Hx of adenoidectomy Hx of tonsillectomy Hx of hysterectomy Family History Other Cancer Coronary artery disease Diabetes Kidney disease Thyroid disorder Unknown family medical history Social History Smoking Status: Never smoker second hand exposure: No alcohol intake: never substance use type: denies use current occupational status: retired Travel in the last 8 weeks: None household members: family housing: house marital status: caffeine: Yes ROS Obtained: Yes All systems reviewed & no additional complaints except as documented Physical Exam General General appearance: alert and in no apparent distress Respiratory Respiratory exam: Present normal lung sounds bilaterally; Absent respiratory distress Cardiovascular Cardiovascular exam: Present regular rate; Absent normal rhythm Neurological Exam Neurological exam: Present alert, oriented X3, CN II-XII intact, normal gait and other (Upon standing patient nearly lost consciousness and I had to sit her back down); Absent motor sensory deficit Medical Decision Making Jose Inquiry Pt receiving controlled substance: No Vital Signs: 02/28/24 10:45 02/28/24 11:14 02/28/24 11:18 Temperature 97.9 F 97.9 F Temperature Source Oral Oral Pulse Rate 86 Pulse Rate [Left Brachial] 83 77 Pulse Rate [Orthostatic Lying Left Radial] Pulse Rate [Orthostatic Standing Left Radial] Respiratory Rate 18 18 Blood Pressure 138/82 Blood Pressure [Left Arm] 131/71 155/103 H Blood Pressure [Orthostatic Lying Right Arm] Blood Pressure [Orthostatic Standing Right Arm] Blood Pressure Mean [Left Arm] 91 120 Blood Pressure Source [Left Arm] Automatic Cuff Blood Pressure Position [Left Arm] Sitting 02 Sat by Pulse Oximetry 96 97 98 Oxygen Delivery Method Room Air Room Air 02/28/24 11:26 02/28/24 11:42 02/28/24 12:00 Temperature Temperature Source Pulse Rate 70 71 Pulse Rate [Left Brachial] Pulse Rate [Orthostatic Lying Left Radial] 77 Pulse Rate [Orthostatic Standing Left Radial] 78 Respiratory Rate Blood Pressure 168/88 H 180/89 H Blood Pressure [Left Arm] Blood Pressure [Orthostatic Lying Right Arm] 155/103 H Blood Pressure [Orthostatic Standing Right Arm] 138/82 Blood Pressure Mean [Left Arm] Blood Pressure Source [Left Arm] Blood Pressure Position [Left Arm] 02 Sat by Pulse Oximetry 96 96 Oxygen Delivery Method Room Air 02/28/24 12:30 02/28/24 13:05 Temperature Temperature Source Pulse Rate 77 80 Pulse Rate [Left Brachial] Pulse Rate [Orthostatic Lying Left Radial] Pulse Rate [Orthostatic Standing Left Radial] Respiratory Rate Blood Pressure 160/90 H 158/95 H Blood Pressure [Left Arm] Blood Pressure [Orthostatic Lying Right Arm] Blood Pressure [Orthostatic Standing Right Arm] Blood Pressure Mean [Left Arm] Blood Pressure Source [Left Arm] Blood Pressure Position [Left Arm] 02 Sat by Pulse Oximetry 97 100 Oxygen Delivery Method Room Air Lab Data Lab results reviewed: Yes I reviewed the patient's lab results. Lab Results 02/28/24 11:28: WBC 8.9, RBC 4.74, Hgb 15.2, Hct 47.0, MCV 99.0, MCH 32.0 H, MCHC 32.3, RDW 13.1, Plt Count 235, MPV 8.4, Neut % (Auto) 71.2, Lymph % (Auto) 18.5, [place] % (Auto) 7.3, Eos % (Auto) 0.5, Baso % (Auto) 2.5 H, Neut # (Auto) 6.3, Lymph # (Auto) 1.6, [place] # (Auto) 0.7, Eos # (Auto) 0.0, Baso # (Auto) 0.2, Sodium 140, Potassium 4.0, Chloride 105, Carbon Dioxide 31 H, Anion Gap 8.0, BUN 25 H, Creatinine 1.20 H, Estimated Creat Clear 41, Estimated GFR 44 L, Est GFR ( Amer) 53 L, Glucose 125 H, Calcium 9.1, Magnesium 1.7, Total Bilirubin 0.6, AST 31, ALT 28, Alkaline Phosphatase 115, Troponin I < 0.01, Total Protein 6.9, Albumin 3.9, Globulin 3.0, Albumin/Globulin Ratio 1.3, TSH 2.34 02/28/24 11:28 02/28/24 11:28 Orders (Tests/Meds): ED MEDICATIONS Discontinued Medications Generic Name Dose Route Start Last Admin Trade Name Borisq PRN Reason Stop Dose Admin Acetaminophen 1,000 mg 02/28/24 11:17 02/28/24 11:31 Acetaminophen 1,000mg/100ml Vial IV 02/28/24 11:18 1,000 mg ONCE ONE Administration Lactated Ringer's 1,000 mls @ 999 mls/hr 02/28/24 11:30 02/28/24 11:31 Lactated Ringer's 1000 Ml Bag IV 02/28/24 12:30 999 mls/hr .Q1H1M ELISSA Administration Ondansetron HCl 4 mg 02/28/24 11:17 02/28/24 11:31 Ondansetron 4mg/2ml Vial IV 02/28/24 11:18 4 mg ONCE ONE Administration ORDERS Category Date Time Status CT cervical spine wo con Stat Cat Scan 02/28/24 11:[address] head/brain wo con Stat Cat Scan 02/28/24 11:17 Completed CBC w/Auto Diff [Complete Blood Count Auto Diff] Stat Lab 02/28/24 11:28 Completed CMP [Comprehensive Metabolic Panel] Stat Lab 02/28/24 11:28 Completed Magnesium Stat Lab 02/28/24 11:28 Completed TSH [Thyroid Stimulating Hormone] Stat Lab 02/28/24 11:28 Completed Trop I [Troponin I] Stat Lab 02/28/24 11:28 Completed Troponin I Q3H Lab 02/28/24 14:30 Ordered Troponin I Q3H Lab 02/28/24 17:30 Ordered Medical Decision Narrative: 78-year-old female presenting today with symptoms consistent with orthostatic hypotension she was previously diagnosed with an abnormal tilt test and seems to have had another syncopal episode associated with this. Differential in terms of what could be causing this is very broad including autonomic dysfunction, she did state that this recently started after being diagnosed with shingles and is possible she has some peripheral neuropathic abnormalities preventing her from having appropriate vascular tone upon changing positions. She may be dehydrated we will give her IV fluids with only large intervention I can do in the setting of orthostatic hypotension in the ED. Will reassess after this. I doubt that she has significant arrhythmias she has been recently worked up by cardiology and we have an alternative diagnosis. Will place her on a monitor nonetheless get EKG and workup for syncope as well. I will reassess after initial workup is complete if she remains symptomatic as she was during my exam where she is about to lose consciousness just from standing up even on my exam she will need to be admitted for observation and further evaluation and treatment. Reassessment 121 patient feeling much better able to get up and move around without significant ongoing symptoms. She is much improved after IV fluids. CT scans performed which I first interpreted showed no acute intracranial abnormality or cervical pathology/fractures or dislocations. Labs unremarkable. As discussed above it is unlikely that the patient is having arrhythmias. I discussed with her the option of staying and being admitted to hospital for ongoing cardiac monitoring and IV fluids until she is completely asymptomatic but she opted to go home with shared decision making and she and her daughter at the bedside both are aware that she is at risk for falling and to be very careful with changing positions and to follow-up closely with cardiology and return with any worsening symptoms. Critical Care Critical Care Time Critical Care Time: No
--- NOTE | 2024-02-28 11:29 | ECG_ITS ---
APPROVED REPORT Exam: Resting ECG HR:70 bpm ECG Measurements Heart Rate 70 AXES [place] 141 P 58 QRSd 79 QRS 3 QT 404 T 71 QTc 426 Conclusion SINUS RHYTHM POSSIBLE LEFT ATRIAL ENLARGEMENT [-0.1mV P-WAVE IN V1/V2] BORDERLINE ECG Electronically signed by : COLLINS STEWARD, 02/28/2024 15:17:49
[2024-02-28] MEDS: ONDANSETRON 4MG/2ML VIAL 4 MG IV (11:31)
[2024-02-28] MEDS: LACTATED RINGERS 1000ML 1,000 ML 999 ML IV (11:31)
[2024-02-28] MEDS: ACETAMINOPHEN 1,000MG/100ML VIAL 1000 MG IV (11:31)
--- NOTE | 2024-02-28 11:37 | PC.NURSE ---
Pt gone to RAD via wheelchair
[2024-02-28 11:38] LABS: Basophils # 0.2 K/mm3 (0-0.2); Basophils % 2.5 % (0.1-2.0); Eosinophils % 0.5 % (0.1-12.0); Hemoglobin 15.2 g/dL (12.2-16.2); Lymphocytes # 1.6 K/mm3 (0.7-4.5); Lymphocytes % 18.5 % (10-50); Mean Corpuscular HGB Conc 32.3 g/dL (31.8-35.4); Mean Platelet Volume 8.4 fl (7.4-10.4); Monocytes # 0.7 K/mm3 (0.1-1.0); Monocytes % 7.3 % (1.7-9.3); Neutrophils # 6.3 K/mm3 (1.8-7.8); Neutrophils % 71.2 % (37.0-80.0); Platelet Count 235 K/mm3 (142-424); Red Blood Count 4.74 M/mm3 (4.20-5.40); Red Cell Distribution Width 13.1 % (11.5-17.5); White Blood Count 8.9 K/mm3 (4.8-10.8)
[2024-02-28 11:44] LABS: Albumin Level 3.9 g/dl (3.5-5.0); Chloride 105 mmol/L (98-107); Sodium 140 mmol/L (136-145)
--- NOTE | 2024-02-28 11:45 | PC.NURSE ---
Pt returned from RAD. Warm blanket provided.
[2024-02-28 11:46] LABS: Blood Urea Nitrogen 25 mg/dl (7-17); Creatinine Clearance Estimated 41 mL/min (50-200); Estimated Glomerular Filt Rate 44 ml/min (>60); GFR (African American) 53 ML/MIN (>60)
[2024-02-28 11:47] LABS: Alanine Aminotransferase 28 U/L (12-78); Albumin/Globulin Ratio 1.3 (1.1-1.8); Alkaline Phosphatase 115 U/L (38-126); Aspartate Amino Transferase 31 U/L (14-36); Bilirubin,Total 0.6 mg/dl (0.2-1.3); Calcium 9.1 mg/dl (8.4-10.2); Carbon Dioxide 31 mmol/L (22.0-30.0); Glucose 125 mg/dl (74-100); Magnesium 1.7 mg/dl (1.6-2.3); Total Protein,Serum 6.9 g/dl (6.3-8.2)
[2024-02-28 12:06] LABS: Troponin I < 0.01 ng/ml (0.00-0.034)
[2024-02-28 12:24] LABS: Thyroid Stimulating Hormone 2.34 uIU/mL (0.465-4.68)
== END 2024-02-28 13:30 | disposition home or self-care (01) ==
LOC: UTC 10:19 → ER 11:07
PROVIDERS: Emergency Provider Student in an Organized Health Care Education/Training Program; PCP Nurse Practitioner Family
DX: S09.90XA Unspecified injury of head, initial encounter (principal); I95.1 Orthostatic hypotension; W19.XXXA Unspecified fall, initial encounter
CPT/HCPCS: 70450; 72125; 80050; 80053; 83735; 84443; 84484; 85025; 93005; 96361; 96374; 96375; 99285; J0131; J2405; J7120

== ENCOUNTER 2024-03-11 10:40 | Observation (INO) | payer MEDICARE, SELFPAY ==
[2024-03-11] VITALS (15 sets, daily range): BP systolic 97–175; BP diastolic 64–100; PULSE 76–111; RESP 16–18; TEMP 36.4; O2SAT 94–100; BMI 24.7
--- NOTE | 2024-03-11 10:45 | PC.NURSE ---
DR GÓMEZ AT BEDSIDE
--- NOTE | 2024-03-11 10:46 | PC.NURSE ---
Dr. Marx at BS for pt eval
--- NOTE | 2024-03-11 10:48 | XR_ITS ---
FINAL REPORT CLINICAL HISTORY: syncope COMPARISON: 11/24/2023 FINDINGS: SINGLE-VIEW CHEST The heart size is normal. The mediastinum is normal. The lungs are clear. There is no pneumothorax. IMPRESSION: No acute cardiopulmonary process. Reviewed, Interpreted and Dictated by Carlos Bennett III, MD Transcribed by Rosemarie Tanner Authenticated and [facility]
--- NOTE | 2024-03-11 10:48 | CT_ITS ---
FINAL REPORT CLINICAL HISTORY: fall, struck head, on asa COMPARISON: 02/28/2024 FINDINGS: Axial images of the head were obtained without contrast. Coronal and sagittal reformatted images were also obtained. This study was performed with techniques to keep radiation doses as low as reasonably achievable (ALARA). Individualized dose reduction techniques using automated exposure control or adjustment of mA and/or kV according to the patient''s size were employed. There is generalized age-appropriate atrophy. Periventricular low-attenuation areas are seen consistent with mild chronic ischemic changes. There is no evidence of intracranial hemorrhage or mass. There is no evidence of acute infarct. There is no evidence of shift of the midline structures. No skull abnormality is seen on the bone window images. IMPRESSION: Atrophy and mild periventricular chronic ischemic changes. No acute intracranial abnormality identified. Authenticated and [facility]
--- NOTE | 2024-03-11 10:48 | CT_ITS ---
FINAL REPORT TECHNIQUE: Axial images were obtained of the cervical spine by computed tomography. Coronal and sagittal reconstruction process performed. This study was performed with techniques to keep radiation doses as low as reasonably achievable (ALARA). Individualized dose reduction techniques using automated exposure control or adjustment of mA and/or kV according to the patient''s size were employed. CLINICAL HISTORY: fall, neck pain COMPARISON: 02/28/2024 FINDINGS: There is no acute fracture. There are moderate degenerative changes with multilevel osteophytes. There is mild multilevel neural foraminal narrowing. IMPRESSION: No acute fracture. Degenerative disc disease as above. Reviewed, Interpreted and Dictated by Carlos Bennett III, MD Transcribed by Rosemarie Tanner Authenticated and [facility]
--- NOTE | 2024-03-11 10:51 | ECG_ITS ---
APPROVED REPORT Exam: Resting ECG HR:88 bpm ECG Measurements Heart Rate 88 AXES [place] 139 P 42 QRSd 76 QRS 0 QT 371 T 64 QTc 417 Conclusion SINUS RHYTHM POSSIBLE LEFT ATRIAL ENLARGEMENT [-0.1mV P-WAVE IN V1/V2] BORDERLINE ECG Electronically signed by : MADONNA GÓMEZ, 03/11/2024 15:52:17
--- NOTE | 2024-03-11 10:51 | ED_ITS ---
Discharge Plan Disposition Patient Disposition: Admitted Prescriptions Prescriptions: No Action metoprolol succinate [Toprol XL] 25 mg tablet extended release 24 hr 25 mg PO DAILY Qty: 30 2RF aspirin 81 mg tablet,delayed release (DR/EC) 81 mg PO DAILY baclofen 10 mg tablet 10 mg PO HS Qty: 14 0RF gabapentin 600 mg tablet 600 mg PO BID Patient Comments: TAKE 1 TABLET BY MOUTH TWICE DAILY FOR 90 DAYS atorvastatin 20 mg tablet 20 mg PO DAILY Patient Comments: TAKE 1 TABLET BY MOUTH ONCE DAILY venlafaxine 150 mg capsule,extended release 24hr 150 mg PO DAILY levothyroxine 50 mcg tablet 50 mcg PO DAILY Patient Comments: TAKE 1 TABLET BY MOUTH ONCE DAILY FOR 90 DAYS prednisone 2.5 mg tablet 2.5 mg PO DAILY Patient Comments: TAKE 1 TABLET BY MOUTH ONCE DAILY insulin glargine U-300 conc [Toujeo Max U-300 SoloStar] 300 unit/mL (3 mL) insulin pen See Rx Instructions .ROUTE .COMPLEX Rx Instructions: . Referrals Follow up/Referrals: Cheyenne Scott APRN [Primary Care Provider] - See instructions Clinical Impressions Clinical Impression: Syncope, Orthostatic hypotension, Laceration of face Instructions Patient Instructions: DI for Syncope in Adults (Fainting), DI for Syncope in Children (Fainting) Print Language Print Language: Divehi Discharge ED Provider: Harsha Marx General Adult HPI General Chief complaint: Syncope Stated complaint: AO 03/11/24 @ 09:30, fell, lac to left side of face Time Seen by Provider: 03/11/24 10:43 History of Present Illness HPI narrative: 78-year-old female presents to the ER with fall. Patient reports she stood up, got lightheaded, fell. Patient has had multiple of these episodes recently and is being evaluated by both cardiology and neurology for them. Patient has been taken off some of her blood pressure medications but continues to take metoprolol, she also takes aspirin. Patient struck her head. It is believed she struck her head on the corner of a dresser which is what caused injury to the left cheek. Patient did have loss of consciousness though this was quickly regained. She has no numbness, tingling, weakness. She does report neck pain and was placed in a c-collar. Patient has small abrasion on her right kelly, she denies other pain or injuries, ROS otherwise negative. Patient denies having chest pain or headache preceding her syncopal episode, she and family at bedside also deny any seizure-like activity Related Data Home Medications ?Medication ?Instructions ?Recorded ?Confirmed atorvastatin 20 mg tablet 20 mg PO DAILY 12/11/23 02/26/24 gabapentin 600 mg tablet 600 mg PO BID 12/11/23 02/26/24 insulin glargine U-300 conc 300 See Rx Instructions .Route .COMPLEX 12/11/23 02/26/24 unit/mL (3 mL) subcutaneous pen (Toujeo Max U-300 SoloStar) levothyroxine 50 mcg tablet 50 mcg PO DAILY 12/11/23 02/26/24 prednisone 2.5 mg tablet 2.5 mg PO DAILY 12/11/23 02/26/24 venlafaxine 150 mg 150 mg PO DAILY 12/11/23 02/26/24 capsule,extended release 24 hr aspirin 81 mg tablet,delayed 81 mg PO DAILY 02/03/24 02/26/24 release Previous Rx's ?Medication ?Instructions ?Recorded baclofen 10 mg tablet 10 mg PO HS #14 tabs 02/25/24 metoprolol succinate 25 mg 25 mg PO DAILY #30 tabs 02/26/24 tablet,extended release 24 hr (Toprol XL) Allergies Allergy/AdvReac Type Severity Reaction Status Date / Time codeine Allergy Mild Flushing Verified 02/26/24 13:27 Sulfa (Sulfonamide Allergy Unknown UNKNOWN Verified 02/26/24 13:27 Antibiotics) [SULFA (SULFONAMIDE ANTIBIOTICS)] [facility] Disclaimer: The information contained in this section may have been updated after the patient was seen, as this information can be updated by other users. Medical History Anxiety Depression Left shoulder pain SOB (shortness of breath) on exertion Angina pectoris Syncope Differential diagnosis: Neurogenic orthostatic hypotension, POTS Dizziness Sinus tachycardia Abnormal EKG NYHA class 2 heart failure with reduced ejection fraction Obesity (BMI 30.0-34.9) Ischemic cardiomyopathy Surgical History Hx of heart artery stent Hx of adenoidectomy Hx of tonsillectomy Hx of hysterectomy Family History Other Cancer Coronary artery disease Diabetes Kidney disease Thyroid disorder Unknown family medical history Social History Smoking Status: Never smoker second hand exposure: No alcohol intake: never substance use type: denies use current occupational status: retired Travel in the last 8 weeks: None household members: family housing: house marital status: caffeine: Yes ROS Obtained: Yes All systems reviewed & no additional complaints except as documented Positive ROS per HPI Physical Exam General General appearance: alert and in no apparent distress Head Head exam: normocephalic and other (Abrasion on left forehead, skin tear and laceration overlying left zygomatic arch) Eye Eye exam: Present PERRL, EOMI and other (No hyphema or findings of ocular injury); Absent nystagmus ENT ENT exam: Present mucous membranes moist and other (No intraoral injury) Neck Neck exam: Present normal inspection and tenderness (Midline and paraspinal tenderness, placed in c-collar) Chest Chest inspection: Present symmetric chest wall rise; Absent tenderness Respiratory Respiratory exam: Present normal lung sounds bilaterally; Absent respiratory distress, wheezes or stridor Cardiovascular Cardiovascular exam: Present regular rate and normal rhythm Abdominal Exam Abdominal exam: Present soft; Absent distention or tenderness Extremities Exam Extremities exam: Present full ROM and other (1 cm diameter abrasion on right kelly, hemostatic); Absent tenderness or joint swelling Neurological Exam Neurological exam: Present alert and oriented X3; Absent motor sensory deficit Psychiatric Psychiatric exam: Present normal affect and normal mood Skin Skin exam: Present warm, dry and other (Abrasion right kelyl, superficial abrasion left forehead, larger area of skin tear with laceration on left cheek. Laceration is approximately 2 cm in length and parallel with the left zygomatic arch, skin tear surrounding this area approximately 1.5 cm wide, 4 cm long, no underlying deformity) Medical Decision Making Medical Records Medical records reviewed: Yes I reviewed the patient's medical records. MR Comment: Most recent cardiology note demonstrates patient was evaluated on 02/25 for abnormal ECG. They report dizziness and lightheadedness a little at times mostly with positional changes. She often feels shaky before this happens. Neurology had stopped her beta-shaq because her blood pressure was falling too much. Of note, patient does not meet criteria for POTS, she did have findings of orthostasis. Their recommendation at the time was to stop Ozempic and Farxiga, start Toprol XL 25 for tachycardia, wear compression socks, follow-up in 3-4 weeks Jose Obando Pt receiving controlled substance: No Vital Signs: 03/11/24 10:42 03/11/24 11:01 03/11/24 11:02 Temperature 97.6 F Temperature Source Oral Pulse Rate 85 86 Pulse Rate [Left] 98 H Pulse Rate [Orthostatic Lying] Pulse Rate [Orthostatic Sitting] Pulse Rate [Orthostatic Standing] Respiratory Rate 16 18 Blood Pressure 149/92 H 110/72 Blood Pressure [Orthostatic Lying Right Arm] Blood Pressure [Orthostatic Sitting] Blood Pressure [Orthostatic Standing] Blood Pressure [Right Arm] 107/71 L Blood Pressure Mean 84 Blood Pressure Mean [Right Arm] 83 Blood Pressure Source [Right Arm] Automatic Cuff Blood Pressure Position [Right Arm] Sitting 02 Sat by Pulse Oximetry 99 100 99 Oxygen Delivery Method Room Air Room Air 03/11/24 11:06 03/11/24 11:54 03/11/24 12:00 Temperature Temperature Source Pulse Rate 78 78 Pulse Rate [Left] Pulse Rate [Orthostatic Lying] 83 Pulse Rate [Orthostatic Sitting] 89 Pulse Rate [Orthostatic Standing] 85 Respiratory Rate Blood Pressure 163/88 H 175/87 H Blood Pressure [Orthostatic Lying Right Arm] 149/92 H Blood Pressure [Orthostatic Sitting] 110/72 Blood Pressure [Orthostatic Standing] 97/64 L Blood Pressure [Right Arm] Blood Pressure Mean 135 136 Blood Pressure Mean [Right Arm] Blood Pressure Source [Right Arm] Blood Pressure Position [Right Arm] 02 Sat by Pulse Oximetry 94 L 94 L Oxygen Delivery Method 03/11/24 12:16 03/11/24 12:30 03/11/24 13:00 Temperature Temperature Source Pulse Rate 76 80 79 Pulse Rate [Left] Pulse Rate [Orthostatic Lying] Pulse Rate [Orthostatic Sitting] Pulse Rate [Orthostatic Standing] Respiratory Rate 16 Blood Pressure 163/86 H 168/90 H 167/97 H Blood Pressure [Orthostatic Lying Right Arm] Blood Pressure [Orthostatic Sitting] Blood Pressure [Orthostatic Standing] Blood Pressure [Right Arm] Blood Pressure Mean 112 Blood Pressure Mean [Right Arm] Blood Pressure Source [Right Arm] Blood Pressure Position [Right Arm] 02 Sat by Pulse Oximetry 95 98 98 Oxygen Delivery Method Room Air Room Air Lab Data Lab Results 03/11/24 10:50: WBC 8.7, RBC 5.04, Hgb 15.9, Hct 50.6 H, MCV 100.5 H, MCH 31.6 H , MCHC 31.4 L, RDW 13.0, Plt Count 268, MPV 9.0, Neut % (Auto) 65.0, Lymph % (Auto) 27.3, Kidder % (Auto) 6.6, Eos % (Auto) 0.3, Baso % (Auto) 0.9, Neut # (Auto) 5.6, Lymph # (Auto) 2.4, Kidder # (Auto) 0.6, Eos # (Auto) 0.0, Baso # (Auto) 0.1, PT 10.7, INR 0.95, Sodium 137, Potassium 4.3, Chloride 102, Carbon Dioxide 30, Anion Gap 9.3, BUN 23 H, Creatinine 1.30 H, Estimated Creat Clear 38, Estimated GFR 40 L, Est GFR ( Amer) 48 L, Glucose 190 H, Calcium 9.2, Total Bilirubin 0.8, AST 29, ALT 24, Alkaline Phosphatase 122, Troponin I < 0.01, Total Protein 7.2, Albumin 4.1, Globulin 3.1, Albumin/Globulin Ratio 1.3 03/11/24 11:03: Urine Color Yellow, Urine Appearance Cloudy, Urine pH 6.0, Ur Specific Nolan 1.025, Urine Protein 1+, Urine Glucose (UA) 3+, Urine Ketones Negative, Urine Blood Trace-i, Urine Nitrate Negative, Urine Bilirubin Negative, Urine Urobilinogen 0.2, Ur Leukocyte Esterase 1+ A, Urine RBC 3-5, Urine WBC 20- 50, Ur Squamous Epith Cells 5-10, Urine Bacteria 3+ 03/11/24 10:50 03/11/24 10:50 Orders (Tests/Meds): ED MEDICATIONS Discontinued Medications Generic Name Dose Route Start Last Admin Trade Name Borisq PRN Reason Stop Dose Admin Cocaine HCl 1 ml 03/11/24 10:48 03/11/24 11:04 Cocaine 4% Topical Soln 4ml Bottle TP 03/11/24 10:49 1 ml ONCE ONE Administration Epinephrine HCl 1 mg 03/11/24 10:48 03/11/24 11:04 Epinephrine 1 Mg/Ml Ampul TP 03/11/24 10:49 1 mg ONCE ONE Administration Lactated Ringer's 1,000 mls @ 999 mls/hr 03/11/24 10:49 03/11/24 11:04 Lactated Ringer's 1000 Ml Bag IV 03/11/24 11:49 999 mls/hr .Q1H1M ONE Administration Lidocaine HCl 1 ml 03/11/24 10:48 03/11/24 11:04 Lidocaine 2% Urojet 10ml TP 03/11/24 10:49 1 ml ONCE ONE Administration ORDERS Category Date Time Status CT cervical spine wo con Stat Cat Scan 03/11/24 10:[address] facial bones wo con Stat Cat Scan 03/11/24 10:[address] head/brain wo con Stat Cat Scan 03/11/24 10:48 Completed CXR --portable [XR chest portable] Stat Exams 03/11/24 10:48 Completed CBC w/Auto Diff [Complete Blood Count Auto Diff] Stat Lab 03/11/24 10:50 Completed CMP [Comprehensive Metabolic Panel] Stat Lab 03/11/24 10:50 Completed PT INR [Prothrombin Time INR] Stat Lab 03/11/24 10:50 Completed Trop I [Troponin I] Stat Lab 03/11/24 10:50 Completed Troponin I Q3H Lab 03/11/24 14:00 Ordered Troponin I Q3H Lab 03/11/24 17:00 Ordered UA [Urinalysis and Microscopic] Stat Lab 03/11/24 11:03 Completed Urine Culture Stat Micro 03/11/24 11:03 Received ECG Request Stat Y 03/11/24 10:48 Ordered Medical Decision Narrative: In summary, this 78-year-old female presents to the emergency department today with syncope, fall, facial injury. On initial evaluation patient is hemodynamically stable, afebrile, GCS 15, no focal neurologic deficits, patient has injuries to the face as documented in physical exam. She does not have findings of injury to the extremities except for superficial abrasion on the right kelly. All wounds are hemostatic.. Differential diagnosis includes but is not limited to intracranial bleed, facial fracture, cervical spine injury, paraspinal tenderness, arrhythmia, electrolyte abnormality, dehydration, laceration, orthostasis, UTI. Family at bedside is concerned for possible urinary tract infection. Based on these concerns, I ordered CT imaging of the head, neck, facial bones. Patient is also receiving cardiac workup, serum labs. ECG personally interpreted demonstrates normal sinus rhythm, rate 88, normal AL and QTc, no STEMI. Orthostatic vitals were performed which are positive for hypotension with positional changes. She is not developing tachycardia though this could be related to being back on metoprolol. Patient received IV fluids for treatment. Labs and been ordered by cardiology recently were reviewed and demonstrate mild kidney dysfunction, undetectable troponin, normal TSH and T4, normal D-dimer Labs today personally reviewed demonstrate no leukocytosis or anemia, normal platelets, normal PT/INR, baseline kidney dysfunction not significantly changed from previous, initial troponin undetectably low at less than 0.01 reassuring in the setting of no chest pain. UA contaminated with squamous cells does have WBCs, RBCs, bacteria but nitrate negative. Patient has no symptoms of UTI so I will let this grow for culture and not initiate antibiotics at this time. XR personally interpreted demonstrates no acute intrathoracic abnormality, see radiology read for final interpretation. CT imaging personally interpreted demonstrate no acute intracranial abnormality such as bleed or midline shift, no skull fracture, no facial fracture, no cervical spine injury. See radiology reads. Laceration was repaired with suture and Dermabond. Dermabond to help with the surrounding skin tear. See procedure note. Given patient has significant orthostatic changes in the setting of hypertension at baseline but is having syncope related to orthostatic changes, I consulted cardiology for evaluation. Remy Plaza evaluated the patient at bedside and at this time is recommending admission for medication management, he is anticipating starting midodrine on the patient and attempting to optimize her so she does not have such profound orthostatics which seem to be causing her syncope. I discussed this case with the hospitalist including cardiology recommendations and the pending urine culture. Patient accepted for admission. Procedures Laceration Laceration 1: Site: face Side (If applicable): left Size (cm): 2 Description: linear Depth: simple, single layer Local Anesthetic: other anesthetic (Topical lidocaine/epinephrine/cocaine) Pre-repair: wound explored and deep structures intact Skin layer closed with: Dermabond and other (Fast gut) Size (cm): 5-0 Number of sutures: 4 Critical Care Critical Care Time Critical Care Time: No
--- NOTE | 2024-03-11 10:57 | CT_ITS ---
FINAL REPORT TECHNIQUE: Axial CT images of the face were obtained without contrast. Coronal reformatted images were also obtained. This study was performed with techniques to keep radiation doses as low as reasonably achievable, (ALARA). Individualized dose reduction techniques using automated exposure control or adjustment of mA and/or kV according to the patient''s size were employed. CLINICAL HISTORY: fall, L cheek injury FINDINGS: There is no evidence of fracture. There is left temporal soft tissue swelling and a small focus of soft tissue air. There is mild mucosal thickening of the maxillary sinuses. IMPRESSION: No fracture or acute bony abnormality identified. Left temporal soft tissue swelling with a small focus of soft tissue air. Reviewed, Interpreted and Dictated by Carlos Bennett III, MD Transcribed by Rosemarie Tanner Authenticated and [facility]
[2024-03-11] MEDS: LACTATED RINGERS 1000ML 1,000 ML 999 ML IV (11:04)
[2024-03-11] MEDS: LIDOCAINE 2% UROJET 10ML TP (11:04)
[2024-03-11] MEDS: EPINEPHrine 1 MG/ML AMPUL TP (11:04)
[2024-03-11] MEDS: COCAINE 4% TOPICAL SOLN 4ML BOTTLE 1 ML TP (11:04)
--- NOTE | 2024-03-11 11:13 | PC.NURSE ---
Pt gone to RAD via wheelchair
[2024-03-11 11:15] LABS: Albumin Level 4.1 g/dl (3.5-5.0); Chloride 102 mmol/L (98-107); Potassium 4.3 mmoL/L (3.5-5.1); Sodium 137 mmol/L (136-145)
[2024-03-11 11:16] LABS: Microscopic, Urine URINE MICROSCOPIC (MICROSCOPIC)
[2024-03-11 11:17] LABS: Blood Urea Nitrogen 23 mg/dl (7-17); Creatinine Clearance Estimated 38 mL/min (50-200); Estimated Glomerular Filt Rate 40 ml/min (>60); GFR (African American) 48 ML/MIN (>60)
[2024-03-11 11:18] LABS: Alanine Aminotransferase 24 U/L (12-78); Albumin/Globulin Ratio 1.3 (1.1-1.8); Alkaline Phosphatase 122 U/L (38-126); Anion Gap 9.3 mEq/L (5-15); Aspartate Amino Transferase 29 U/L (14-36); Bilirubin,Total 0.8 mg/dl (0.2-1.3); Calcium 9.2 mg/dl (8.4-10.2); Carbon Dioxide 30 mmol/L (22.0-30.0); Globulin 3.1 g/dL (1.3-3.2); Glucose 190 mg/dl (74-100); Total Protein,Serum 7.2 g/dl (6.3-8.2)
[2024-03-11 11:21] LABS: Basophils # 0.1 K/mm3 (0-0.2); Basophils % 0.9 % (0.1-2.0); Eosinophils % 0.3 % (0.1-12.0); Hematocrit 50.6 % (37.0-47.0); Hemoglobin 15.9 g/dL (12.2-16.2); Lymphocytes # 2.4 K/mm3 (0.7-4.5); Lymphocytes % 27.3 % (10-50); Mean Corpuscular HGB Conc 31.4 g/dL (31.8-35.4); Mean Corpuscular Hemoglobin 31.6 pg (27.0-31.2); Mean Corpuscular Volume 100.5 fl (81-99); Monocytes # 0.6 K/mm3 (0.1-1.0); Monocytes % 6.6 % (1.7-9.3); Neutrophils # 5.6 K/mm3 (1.8-7.8); Platelet Count 268 K/mm3 (142-424); Red Blood Count 5.04 M/mm3 (4.20-5.40); White Blood Count 8.7 K/mm3 (4.8-10.8)
[2024-03-11 11:21] LABS: Appearance,Urine CLOUDY (Clear); Bilirubin,Urine Negative (Negative); Blood, Urine TRACE-I (Negative); Color,Urine YELLOW (Yellow); Glucose,Urine (UA) 3+ (Negative); Ketones,Urine Negative (Negative); Leukocyte Esterase,Urine 1+ (Negative); Nitrate,Urine Negative (Negative); Protein,Urine 1+ (Negative); Specific Gravity, Urine 1.025 (1.005-1.030); Urobilinogen,Urine 0.2 EU/dl (0.2)
--- NOTE | 2024-03-11 11:24 | PC.NURSE ---
Pt returned from RAD
--- NOTE | 2024-03-11 11:28 | PC.NURSE ---
LET applied to the pts skin tear.
[2024-03-11 11:31] LABS: Bacteria,Urine 3+ /lpf; WBC,Urine 20-50 #/hpf (0-3)
[2024-03-11 11:32] LABS: Troponin I < 0.01 ng/ml (0.00-0.034)
[2024-03-11 12:04] LABS: INR 0.95 (0.9-1.1); Prothrombin Time 10.7 seconds (10.1-12.5)
--- NOTE | 2024-03-11 12:15 | PC.NURSE ---
Dr. Marx at for LAC repair
--- NOTE | 2024-03-11 12:40 | PC.NURSE ---
CCOLLAR removed per MD
--- NOTE | 2024-03-11 12:50 | PC.NURSE ---
DR GÓMEZ AT BEDSIDE TO UPDATE PT
--- NOTE | 2024-03-11 13:09 | PC.NURSE ---
NITA Dave at BS for pt hima
--- NOTE | 2024-03-11 13:26 | PC.NURSE ---
DR GÓMEZ SPEAKING WITH DR PEACE
--- NOTE | 2024-03-11 13:30 | P.HP_ITS ---
History of Present Illness *Admission Date: 03/11/24 *Reason for visit:: Syncope *History of present illness: Ms. Sepulveda is a 78-year-old female who presented to the ER after falling at home. States she has been having some episodes of falling that have occurred since having shingles a few months ago. Continues to have persistent postherpetic neuralgia. States she stood up and paused as she has been instructed to do. As she was walking at home, she turned to go back to her seat when she got lightheaded and fell. She hit her head on a dresser which caused her to come to the ER for further evaluation. Found to have laceration/abrasion to her left jehovah's witness. Imaging of her head obtained showing no acute intracranial process or bleed. Workup in the ER positive for significant orthostatic hypotension. Cardiology was consulted and evaluated. Recommendation was for admission and further management. Discussed case with ER, request admission. Remainder of labs at baseline for patient with no signs of anemia. Kidney function normal. On arrival to the floor, patient is alert and oriented x 4. Denies any nausea or vomiting, chest pain, confusion or weakness. Did have some transient difficulty opening her right eye that is resolved. On room air, afebrile. [facility] Disclaimer: The information contained in this section may have been updated after the patient was seen, as this information can be updated by other users. Medical History Anxiety Depression Left shoulder pain SOB (shortness of breath) on exertion Angina pectoris Syncope Dizziness Sinus tachycardia Abnormal EKG NYHA class 2 heart failure with reduced ejection fraction Obesity (BMI 30.0-34.9) Ischemic cardiomyopathy Surgical History Hx of heart artery stent Hx of adenoidectomy Hx of tonsillectomy Hx of hysterectomy Family History Other Cancer Coronary artery disease Diabetes Kidney disease Thyroid disorder Unknown family medical history Social History Smoking Status: Never smoker second hand exposure: No alcohol intake: never substance use type: denies use current occupational status: retired Travel in the last 8 weeks: None household members: family housing: house marital status: caffeine: Yes Review of Systems Review of Systems Review of systems (narrative): 14 point review of systems performed, pertinent positives and negatives as per HPI Meds Home Medications and Allergies Home Medications ?Medication ?Instructions ?Recorded ?Confirmed ?Type atorvastatin 20 mg tablet 20 mg PO HS 12/11/23 03/11/24 History gabapentin 600 mg tablet 600 mg PO BID 12/11/23 03/11/24 History insulin glargine U-300 conc 300 38 unit SQ DAILY 12/11/23 03/11/24 History unit/mL (3 mL) subcutaneous pen (Toujeo Max U-300 SoloStar) levothyroxine 50 mcg tablet 50 mcg PO DAILY 12/11/23 03/11/24 History prednisone 2.5 mg tablet 2.5 mg PO DAILY 12/11/23 03/11/24 History venlafaxine 150 mg 150 mg PO DAILY 12/11/23 03/11/24 History capsule,extended release 24 hr aspirin 81 mg tablet,delayed 81 mg PO DAILY 02/03/24 03/11/24 History release baclofen 10 mg tablet 10 mg PO HS #14 tabs 02/25/24 03/11/24 Rx metoprolol succinate 25 mg 25 mg PO DAILY #30 tabs 02/26/24 03/11/24 Rx tablet,extended release 24 hr (Toprol XL) metformin 500 mg tablet 500 mg PO BID 03/11/24 03/11/24 History New Prescriptions to Start Prescriptions: Allergies Allergy/AdvReac Type Severity Reaction Status Date / Time codeine Allergy Mild Flushing Verified 02/26/24 13:27 Sulfa (Sulfonamide Allergy Unknown UNKNOWN Verified 02/26/24 13:27 Antibiotics) [SULFA (SULFONAMIDE ANTIBIOTICS)] Exam Data for Last 24 hours Vital signs and Labs for Last 24 Hours: Temp Pulse Resp BP Pulse Ox O2 Del Method 97.6 F 79 16 167/97 H 98 Room Air 03/11/24 10:42 03/11/24 13:00 03/11/24 12:30 03/11/24 13:00 03/11/24 13:00 03/11/24 13:00 Laboratory Results - last 24 hr 03/11/24 10:50: WBC 8.7, RBC 5.04, Hgb 15.9, Hct 50.6 H, MCV 100.5 H, MCH 31.6 H , MCHC 31.4 L, RDW 13.0, Plt Count 268, MPV 9.0, Neut % (Auto) 65.0, Lymph % (Auto) 27.3, [place] % (Auto) 6.6, Eos % (Auto) 0.3, Baso % (Auto) 0.9, Neut # (Auto) 5.6, Lymph # (Auto) 2.4, [place] # (Auto) 0.6, Eos # (Auto) 0.0, Baso # (Auto) 0.1, PT 10.7, INR 0.95, Sodium 137, Potassium 4.3, Chloride 102, Carbon Dioxide 30, Anion Gap 9.3, BUN 23 H, Creatinine 1.30 H, Estimated Creat Clear 38, Estimated GFR 40 L, Est GFR ( Amer) 48 L, Glucose 190 H, Calcium 9.2, Total Bilirubin 0.8, AST 29, ALT 24, Alkaline Phosphatase 122, Troponin I < 0.01, Total Protein 7.2, Albumin 4.1, Globulin 3.1, Albumin/Globulin Ratio 1.3 03/11/24 11:03: Urine Color Yellow, Urine Appearance Cloudy, Urine pH 6.0, Ur Specific [place] 1.025, Urine Protein 1+, Urine Glucose (UA) 3+, Urine Ketones Negative, Urine Blood Trace-i, Urine Nitrate Negative, Urine Bilirubin Negative, Urine Urobilinogen 0.2, Ur Leukocyte Esterase 1+ A, Urine RBC 3-5, Urine WBC 20- 50, Ur Squamous Epith Cells 5-10, Urine Bacteria 3+ I & O for Last 24 hours: Intake & Output 03/08/24 03/09/24 03/10/24 03/11/24 23:59 23:59 23:59 23:59 Weight 65.317 kg Constitutional Constitutional: no acute distress, average body habitus and cooperative *Routine HEENT Exam Head: Present normocephalic; Absent atraumatic Eye: Present EOMI and PERRL ENT: Present mucous membranes moist Comments: Laceration to left side of face *Routine Neck Exam Neck: Present supple; Absent lymphadenopathy *Routine Respiratory Exam Respiratory: Present CTA bilaterally; Absent rhonchi, wheezes or crackles *Routine Cardiovascular Exam Cardiovascular: Present RRR *Routine Abdominal Exam Abdominal: Present soft and normoactive bowel sounds; Absent tenderness *Routine Rectal Exam Rectal:: deferred *Routine Genitalia Exam Genitalia:: deferred *Routine Extremities Exam Extremities: Absent cyanosis, clubbing or edema *Routine Skin Exam Skin: Present warm; Absent rash *Routine Neurological Exam Neurological: Present alert, oriented X3 and moving all extremities; Absent altered mental status Assessment and Plan *Assessment and plan (1) Orthostatic hypotension: Status: Acute Category: Medical Code(s): I95.1 - Orthostatic hypotension (2) Syncope: Status: Acute Qualifiers: Syncope type: unspecified Qualified Code(s): R55 - Syncope and collapse Category: Medical Code(s): R55 - Syncope and collapse (3) Laceration of face: Status: Acute Qualifiers: Encounter type: subsequent encounter Qualified Code(s): S01.81XD - Laceration without foreign body of other part of head, subsequent encounter Category: Medical Code(s): S01.81XA - Laceration without foreign body of other part of head, initial encounter (4) S/P coronary artery stent placement: Status: Acute Category: Surgical Code(s): Z95.5 - Presence of coronary angioplasty implant and graft (5) 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 Category: Medical Code(s): I95.1 - Orthostatic hypotension (6) HTN (hypertension): Status: Chronic Qualifiers: Hypertension type: primary hypertension Qualified Code(s): I10 - Essential (primary) hypertension Category: Medical Code(s): I10 - Essential (primary) hypertension (7) HLD (hyperlipidemia): Status: Chronic Qualifiers: Hyperlipidemia type: mixed hyperlipidemia Qualified Code(s): E78.2 - Mixed hyperlipidemia Category: Medical Code(s): E78.5 - Hyperlipidemia, unspecified (8) HHD (hypertensive heart disease): Status: Chronic Qualifiers: Heart failure presence: without heart failure Qualified Code(s): I11.9 - Hypertensive heart disease without heart failure Category: Medical Code(s): I11.9 - Hypertensive heart disease without heart failure (9) CAD (coronary artery disease): Status: Chronic Qualifiers: Associated angina: with other forms of angina Coronary Disease- Associated Artery/Lesion type: [place] artery [place] vs. transplanted heart: [place] heart Qualified Code(s): I25.118 - Atherosclerotic heart disease of [place] coronary artery with other forms of angina pectoris Category: Medical Code(s): I25.10 - Atherosclerotic heart disease of [place] coronary artery without angina pectoris Plan 78-year-old female with recurrent episodes of syncope since having shingles earlier this year. Fell at home, hit her head. On eval in the ER, had profound orthostatic hypotension. Discussed case with ER physician, request admission for further management. Cardiology consulted to assist with care. Patient feeling somewhat better after arriving to the floor. Systolics elevated. Having mild headache. Alert and oriented x 4. Problems addressed as follows: Orthostatic hypotension dysautonomic syndrome Syncope with head trauma/facial laceration x 2 Essential hypertension -Serial troponins were unremarkable. Recent tilt table test was positive for orthostasis. -Cardiology consulted, discussed case, recommend starting midodrine 5 mg 3 times a day and fludrocortisone 0.1 mg daily to stabilize blood pressure and then treat her hypertension with metoprolol succinate. -Per my review of head CT, no mass or acute ischemic findings. - Recent stress test normal. Cardiology planning to proceed with left heart cath in the morning -Monitor on telemetry. - Hemoglobin normal at 15.9, platelets 268. Kidney function at baseline with creatinine 1.3, BUN 23. Repeat CBC, CMP, magnesium ordered for the morning. -Tylenol 650 mg as needed every 6 hours for headache or mild pain CAD -Proceed with left heart cath as above due to recurrent syncope and head trauma. Continue aspirin 81 mg daily. Further management pending findings tomorrow. Diabetes mellitus -A1c 7.9 earlier this month. Will continue insulin glargine at decreased dose of 25 mg daily. Sliding scale insulin and fingersticks ACHS. - Resume home metformin Hyperlipidemia: Continue Lipitor 20 mg nightly Postherpetic neuralgia: Continue gabapentin 600 mg twice daily Thyroid: Continue levothyroxine 50 mcg daily Depression: Continue venlafaxine 150 mg daily Full code Cardiac diet, n.p.o. at midnight Holding anticoagulation in the setting of fall and planned heart cath in the
--- NOTE | 2024-03-11 13:30 | PC.NURSE ---
PRODUCTION HELPER NOTIFIED OF ADMISSION
--- NOTE | 2024-03-11 13:34 | PC.NURSE ---
Rounded on pt. No needs voiced at this time. Second trop collected and sent to LAB.
--- NOTE | 2024-03-11 13:44 | P.CONCA_ITS ---
History of Present Illness History of Present Illness Consult date: 03/11/24 Requesting physician: Harsha Marx Consult reason: hypotension Chief complaint: syncope, orthostatic hypotension Additional Medical History:: 1. Diabetes mellitus, treated since 2009 2. Hypertension 3. Hyperlipidemia 4. Family history of early coronary artery disease in her parents in their 60s 5. Coronary artery disease A. STEMI, 05/26/2020, EF 30%, LifeVest B. LHC, 05/26/2020, 2 [place] to proximal and mid LAD. EF 30%. LVEDP 30 mmHg. Mild to moderate circumflex disease, medical management. C. Limited echo, 07/14/2020, EF 55% with no regional wall motion abnormality. D. Lexiscan Myoview, 12/2023, no fixed or reversible perfusion defects. EF 45%. EF may be low due to PVCs. E. Echocardiogram, 12/18/2023, EF 55% with normal wall motion, mild MR and TR. 6. Hypothyroidism 7. History of colon polyps and internal hemorrhoids by colonoscopy, 06/2019 8. History of chronic, clinically asymptomatic lacunar CVA, 2020 9. Subacute onset of left foot drop with chronic low back pain radicular component suggestive of L4-L5 symptomatic radiculopathy. 2020, Dr. Cazares 10. Recurrent syncope/orthostatic hypotension since 2020 A. Carotid ultrasound, 11/2023, less than 50% ICA stenosis bilaterally. B. Cardiac event monitor 01/16/2024, PACs, atrial couplets and atrial runs were noted. PVCs and a ventricular couplet noted. Patient events were sinus rhythm C. Upright tilt table test, 02/19/2024, positive for orthostasis with greater than 20 mm drop in blood pressure and greater than 20 bpm increase in heart rate but without resultant syncopal episode. D. 2 ER visits in the last 2 weeks with syncope and facial/forehead lacerations. 11. Postherpetic neuralgia, 2023 requiring trigger point injection over the left posterior thoracic area of shingles. History of present illness: In summary, this 78-year-old female presents to the emergency department today with syncope, fall, facial injury. On initial evaluation patient is hemodynamically stable, afebrile, GCS 15, no focal neurologic deficits, patient has injuries to the face as documented in physical exam. She does not have findings of injury to the extremities except for superficial abrasion on the right kelly. All wounds are hemostatic.. Differential diagnosis includes but is not limited to intracranial bleed, facial fracture, cervical spine injury, paraspinal tenderness, arrhythmia, electrolyte abnormality, dehydration, laceration, orthostasis, UTI. Family at bedside is concerned for possible urinary tract infection. Based on these concerns, I ordered CT imaging of the head, neck, facial bones. Patient is also receiving cardiac workup, serum labs. ECG personally interpreted demonstrates normal sinus rhythm, rate 88, normal DE and QTc, no STEMI. Orthostatic vitals were performed which are positive for hypotension with positional changes. She is not developing tachycardia though this could be related to being back on metoprolol. Patient received IV fluids for treatment. Labs and been ordered by cardiology recently were reviewed and demonstrate mild kidney dysfunction, undetectable troponin, normal TSH and T4, normal D-dimer Labs today personally reviewed demonstrate no leukocytosis or anemia, normal platelets, normal PT/INR, baseline kidney dysfunction not significantly changed from previous, initial troponin undetectably low at less than 0.01 reassuring in the setting of no chest pain. UA contaminated with squamous cells does have WBCs, RBCs, bacteria but nitrate negative. Patient has no symptoms of UTI so I will let this grow for culture and not initiate antibiotics at this time. XR personally interpreted demonstrates no acute intrathoracic abnormality, see radiology read for final interpretation. CT imaging personally interpreted demonstrate no acute intracranial abnormality such as bleed or midline shift, no skull fracture, no facial fracture, no cervical spine injury. See radiology reads. Laceration was repaired with suture and Dermabond. Dermabond to help with the surrounding skin tear. See procedure note. Given patient has significant orthostatic changes in the setting of hypertension at baseline but is having syncope related to orthostatic changes, I consulted cardiology for evaluation. Remy Plaza evaluated the patient at bedside and at this time is recommending admission for medication management, he is anticipating starting midodrine on the patient and attempting to optimize her so she does not have such profound orthostatics which seem to be causing her syncope. I discussed this case with the hospitalist including cardiology recommendations and the pending urine culture. Patient accepted for admission. The above per Dr. Marx The above events confirmed with the patient. Significant orthostatic drop in blood pressure without significant rise in heart rate noted. Patient has now had 2 ER visits in the last 2 weeks for syncope with facial trauma/head laceration. Would recommend admission for institution of midodrine along with fludrocortisone to support blood pressure with standing. In light of the patient's known coronary artery disease and recent normal stress test but with continued syncopal episodes, would recommend repeating left heart catheterization tomorrow. [facility] Disclaimer: The information contained in this section may have been updated after the patient was seen, as this information can be updated by other users. Medical History Anxiety Depression Left shoulder pain SOB (shortness of breath) on exertion Angina pectoris Syncope Differential diagnosis: Neurogenic orthostatic hypotension, POTS Dizziness Sinus tachycardia Abnormal EKG NYHA class 2 heart failure with reduced ejection fraction Obesity (BMI 30.0-34.9) Ischemic cardiomyopathy Surgical History Hx of heart artery stent Hx of adenoidectomy Hx of tonsillectomy Hx of hysterectomy Family History Other Cancer Coronary artery disease Diabetes Kidney disease Thyroid disorder Unknown family medical history Social History Smoking Status: Never smoker second hand exposure: No alcohol intake: never substance use type: denies use current occupational status: retired Travel in the last 8 weeks: None household members: family housing: house marital status: caffeine: Yes Review of Systems Review of Systems Review of systems:: pertinent systems reviewed and negative unless documented below Constitutional Constitutional: Denies body ache(s), Denies chills, Denies fever(s), Reports frequent falls, Denies lethargy and Denies weakness *Cardiovascular Cardiovascular: Denies chest pain, Denies dyspnea and Denies dyspnea on exertion *Respiratory Respiratory: Denies cough, Denies dyspnea and Denies dyspnea on exertion *Gastrointestinal Gastrointestinal: Denies loose stools, Denies nausea and Denies vomiting *Neurologic Neurologic: Reports frequent falls and Denies weakness Exam Data for Last 24 hours Vital signs and Labs for Last 24 Hours: Temp Pulse Resp BP Pulse Ox O2 Del Method 97.6 F 79 16 167/97 H 98 Room Air 03/11/24 10:42 03/11/24 13:00 03/11/24 12:30 03/11/24 13:00 03/11/24 13:00 03/11/24 13:00 Laboratory Results - last 24 hr 03/11/24 10:50: WBC 8.7, RBC 5.04, Hgb 15.9, Hct 50.6 H, MCV 100.5 H, MCH 31.6 H , MCHC 31.4 L, RDW 13.0, Plt Count 268, MPV 9.0, Neut % (Auto) 65.0, Lymph % (Auto) 27.3, [place] % (Auto) 6.6, Eos % (Auto) 0.3, Baso % (Auto) 0.9, Neut # (Auto) 5.6, Lymph # (Auto) 2.4, [place] # (Auto) 0.6, Eos # (Auto) 0.0, Baso # (Auto) 0.1, PT 10.7, INR 0.95, Sodium 137, Potassium 4.3, Chloride 102, Carbon Dioxide 30, Anion Gap 9.3, BUN 23 H, Creatinine 1.30 H, Estimated Creat Clear 38, Estimated GFR 40 L, Est GFR ( Amer) 48 L, Glucose 190 H, Calcium 9.2, Total Bilirubin 0.8, AST 29, ALT 24, Alkaline Phosphatase 122, Troponin I < 0.01, Total Protein 7.2, Albumin 4.1, Globulin 3.1, Albumin/Globulin Ratio 1.3 03/11/24 11:03: Urine Color Yellow, Urine Appearance Cloudy, Urine pH 6.0, Ur Specific [place] 1.025, Urine Protein 1+, Urine Glucose (UA) 3+, Urine Ketones Negative, Urine Blood Trace-i, Urine Nitrate Negative, Urine Bilirubin Negative, Urine Urobilinogen 0.2, Ur Leukocyte Esterase 1+ A, Urine RBC 3-5, Urine WBC 20- 50, Ur Squamous Epith Cells 5-10, Urine Bacteria 3+ I & O for Last 24 hours: Intake & Output 03/09/24 03/10/24 03/11/24 03/12/24 11:59 11:59 11:59 11:59 Weight 144 lb Constitutional Constitutional: no acute distress *Routine Respiratory Exam Respiratory: Present CTA bilaterally; Absent stridor, wheezes or crackles *Routine Cardiovascular Exam Cardiovascular: Present RRR; Absent murmur, gallop or rubs *Routine Extremities Exam Extremities: Absent edema *Routine Neurological Exam Neurological: Present alert, oriented X3 and CN II-XII intact Meds Home Medications and Allergies Home Medications ?Medication ?Instructions ?Recorded ?Confirmed ?Type atorvastatin 20 mg tablet 20 mg PO HS 12/11/23 03/11/24 History gabapentin 600 mg tablet 600 mg PO BID 12/11/23 03/11/24 History insulin glargine U-300 conc 300 38 unit SQ DAILY 12/11/23 03/11/24 History unit/mL (3 mL) subcutaneous pen (Toujeo Max U-300 SoloStar) levothyroxine 50 mcg tablet 50 mcg PO DAILY 12/11/23 03/11/24 History prednisone 2.5 mg tablet 2.5 mg PO DAILY 12/11/23 03/11/24 History venlafaxine 150 mg 150 mg PO DAILY 12/11/23 03/11/24 History capsule,extended release 24 hr aspirin 81 mg tablet,delayed 81 mg PO DAILY 02/03/24 03/11/24 History release baclofen 10 mg tablet 10 mg PO HS #14 tabs 02/25/24 03/11/24 Rx metoprolol succinate 25 mg 25 mg PO DAILY #30 tabs 02/26/24 03/11/24 Rx tablet,extended release 24 hr (Toprol XL) metformin 500 mg tablet 500 mg PO BID 03/11/24 03/11/24 History New Prescriptions to Start Prescriptions: Allergies Allergy/AdvReac Type Severity Reaction Status Date / Time codeine Allergy Mild Flushing Verified 02/26/24 13:27 Sulfa (Sulfonamide Allergy Unknown UNKNOWN Verified 02/26/24 13:27 Antibiotics) [SULFA (SULFONAMIDE ANTIBIOTICS)] Assessment and Plan *Assessment and plan (1) Laceration of face: Status: Acute Qualifiers: Encounter type: subsequent encounter Qualified Code(s): S01.81XD - Laceration without foreign body of other part of head, subsequent encounter Category: Medical Code(s): S01.81XA - Laceration without foreign body of other part of head, initial encounter (2) Orthostatic hypotension: Status: Acute Category: Medical Code(s): I95.1 - Orthostatic hypotension (3) Syncope: Status: Acute Qualifiers: Syncope type: unspecified Qualified Code(s): R55 - Syncope and collapse Category: Medical Code(s): R55 - Syncope and collapse (4) Syncope due to orthostatic hypotension: Status: Acute Category: Medical Code(s): I95.1 - Orthostatic hypotension (5) HTN (hypertension): Status: Chronic Qualifiers: Hypertension type: primary hypertension Qualified Code(s): I10 - Essential (primary) hypertension Category: Medical Code(s): I10 - Essential (primary) hypertension (6) HLD (hyperlipidemia): Status: Chronic Qualifiers: Hyperlipidemia type: mixed hyperlipidemia Qualified Code(s): E78.2 - Mixed hyperlipidemia Category: Medical Code(s): E78.5 - Hyperlipidemia, unspecified (7) CAD (coronary artery disease): Status: Chronic Qualifiers: Associated angina: with other forms of angina Coronary Disease- Associated Artery/Lesion type: [place] artery [place] vs. transplanted heart: [place] heart Qualified Code(s): I25.118 - Atherosclerotic heart disease of [place] coronary artery with other forms of angina pectoris Category: Medical Code(s): I25.10 - Atherosclerotic heart disease of [place] coronary artery without angina pectoris (8) Diabetes mellitus type 2 in obese: Status: Chronic Category: Medical Code(s): E11.69 - Type 2 diabetes mellitus with other specified complication; E66.9 - Obesity, unspecified (9) S/P coronary artery stent placement: Status: Acute Category: Surgical Code(s): Z95.5 - Presence of coronary angioplasty implant and graft Plan 1. Syncope with head trauma/facial laceration x 2 -Troponin normal -Recent tilt table test positive for orthostasis -Will start midodrine and fludrocortisone for suspected autonomic dysfunction/orthostatic hypotension -Head CT today no evidence of acute process -History of coronary artery disease with LAD stents. Recent stress test normal. Recommend proceeding with [facility]. 2. CAD -Clinically stable with normal troponin and no acute EKG changes -Despite recent normal stress test would recommend proceeding with left heart catheterization due to recurrent syncope and head trauma -Continue aspirin 3. Diabetes mellitus -Defer to Dr. Mendez 4. Hypertension -Continue metoprolol succinate 5. Hyperlipidemia -Continue statin therapy Start midodrine 5 mg 3 times daily along with fludrocortisone 0.1 mg daily Continuous telemetry Anticipate left heart catheterization tomorrow to reevaluate coronary artery disease as possible etiology for recurrent syncope Limited echo to reevaluate left ventricular ejection fraction Consider repeating outpatient event monitor versus implantation of loop recorder if no etiology found this admission
--- NOTE | 2024-03-11 13:47 | PC.NURSE ---
Report called to Nataliya Alston RN
--- NOTE | 2024-03-11 13:47 | HMH.PHAINT1 ---
Pharmacy Intervention Comments: MEDICATION RECONCILIATION COMPLETED ON PATIENT USING EXTERNAL FILL HISTORY FROM PHARMACY AND LIST FROM CARDIOLOGY OFFICE. -LEVI DUQUE, DESTINEED
--- NOTE | 2024-03-11 14:01 | PC.NURSE ---
patient arrived to floor by wheelchair at this time
--- NOTE | 2024-03-11 14:14 | CA_ITS ---
APPROVED REPORT EXAM: Limited 2D Echocardiogram Ground Equipment Mechanic: Beatriz Nichols, RCS, RVS Ht: 5 ft 4 in Wt: 144lbs BSA: 1.70 BP: 167/97 mmHg Indications: Recurrent Syncope, Hypotension, DM, SOB, HLD 2D Dimensions IVSd 0.79 cm LVEF (Visual) 58.50 % PWd 0.85 cm LVDd 4.52 cm LVDs 3.13 cm M-Mode Dimensions LA Diam 3.09 cm (1.9-4.0) LVDd 4.91 cm (3.5-5.7) LVDs 3.40 cm (3.5-5.7) EF (Teich) 58.20% EPSs 0.98 cm FS 30.80% EDV (Teich) 113.40 mL ESV (Teich) 47.40 mL Other Information Study Quality: Fair Conclusion This is a limited TTE to evaluate for LVEF and wall motion. Limited windows were obtained. The left ventricle is normal in size. There is increased LV wall thickness. There are no regional wall motion abnormalities noted. LVEF is 55%. The right ventricle is normal in size and function. Electronically signed by : Karime Johnson MD 03/12/2024 03:16:37
[2024-03-11 14:19] LABS: Troponin I < 0.01 ng/ml (0.00-0.034)
[2024-03-11] MEDS: FLUDROCORTISONE 0.1MG TABLET 0.1 MG PO (15:56)
[2024-03-11] MEDS: ACETAMINOPHEN 325MG TAB 650 MG PO ×2 (16:04→22:11)
[2024-03-11] MEDS: humaLOG 100 UNITS/ML 10ML VIAL (SSI) SQ ×2 (16:43→20:21)
[2024-03-11 17:23] LABS: Troponin I < 0.01 ng/ml (0.00-0.034)
[2024-03-11 17:23] LABS: POC Glucose,Bedside 216 (70-110)
[2024-03-11] MEDS: METFORMIN 500MG TABLET 500 MG PO (18:24)
--- NOTE | 2024-03-11 18:27 | PC.NURSE ---
Addendum entered by Shweta Crawford RN 03/11/24 18:32: MD aware of pt's episode. Original Note: Pt states her headache hasn't improved. Ambulated to BR with assistance of staff and was noted to be shaking. Family stated that she has these episodes. Pt tolerated ambulation back to bed. Call light within reach.
[2024-03-11] MEDS: MORPHINE 2MG/ML SYRINGE 2 MG IV (18:40)
[2024-03-11] MEDS: GABAPENTIN 600MG TABLET 600 MG PO (20:22)
[2024-03-11] MEDS: MIDODRINE HCL 5 MG TABLET PO (20:22)
[2024-03-11] MEDS: ATORVASTATIN 20MG TABLET 20 MG PO (20:23)
[2024-03-11 20:40] LABS: POC Glucose,Bedside 226 (70-110)
--- NOTE | 2024-03-11 21:18 | PC.NURSE ---
Orthostatic BP and HR completed on pt 30mins after medication admin. pt tolerated well however became shaky and dizzy after standing. Nursing staff x2 with pt for safety while standing.
[2024-03-12] VITALS (15 sets, daily range): BP systolic 98–183; BP diastolic 56–94; PULSE 50–116; RESP 16–20; TEMP 36.4–36.7; O2SAT 92–100; BMI 24.5
[2024-03-12 05:35] LABS: POC Glucose,Bedside 103 (70-110)
--- NOTE | 2024-03-12 05:55 | PC.NURSE ---
Pt is alert and oriented x4 and currently tolerating RA well. Pt remains NPO at this time in prep for heart cath. Pt is on telemetry with a NSR. Orthostatics perform after medication admin per MD request. Pt is pleasant and has no complaints. Pt denies pain and needs and has had no acute changes to note. Daughter at bedside.
[2024-03-12 06:49] LABS: Albumin Level 3.4 g/dl (3.5-5.0); Chloride 105 mmol/L (98-107); Potassium 3.9 mmoL/L (3.5-5.1); Sodium 136 mmol/L (136-145)
[2024-03-12 06:51] LABS: Basophils % 0.4 % (0.1-2.0); Eosinophils % 0.1 % (0.1-12.0); Hematocrit 45.9 % (37.0-47.0); Hemoglobin 14.7 g/dL (12.2-16.2); Lymphocytes # 2.4 K/mm3 (0.7-4.5); Lymphocytes % 33.1 % (10-50); Mean Corpuscular HGB Conc 31.9 g/dL (31.8-35.4); Mean Corpuscular Hemoglobin 32.1 pg (27.0-31.2); Mean Corpuscular Volume 100.4 fl (81-99); Mean Platelet Volume 9.1 fl (7.4-10.4); Monocytes # 0.5 K/mm3 (0.1-1.0); Monocytes % 7.3 % (1.7-9.3); Neutrophils # 4.3 K/mm3 (1.8-7.8); Platelet Count 207 K/mm3 (142-424); Red Blood Count 4.57 M/mm3 (4.20-5.40); Red Cell Distribution Width 12.9 % (11.5-17.5); White Blood Count 7.4 K/mm3 (4.8-10.8)
[2024-03-12 06:52] LABS: Alanine Aminotransferase 23 U/L (12-78); Albumin/Globulin Ratio 1.3 (1.1-1.8); Alkaline Phosphatase 111 U/L (38-126); Anion Gap 6.9 mEq/L (5-15); Aspartate Amino Transferase 31 U/L (14-36); Bilirubin,Total 0.6 mg/dl (0.2-1.3); Blood Urea Nitrogen 27 mg/dl (7-17); Calcium 8.7 mg/dl (8.4-10.2); Carbon Dioxide 28 mmol/L (22.0-30.0); Creatinine Clearance Estimated 45 mL/min (50-200); Estimated Glomerular Filt Rate 48 ml/min (>60); GFR (African American) 58 ML/MIN (>60); Globulin 2.7 g/dL (1.3-3.2); Glucose 122 mg/dl (74-100); Total Protein,Serum 6.1 g/dl (6.3-8.2)
[2024-03-12 06:53] LABS: Magnesium 1.3 mg/dl (1.6-2.3)
[2024-03-12] MEDS: LEVOTHYROXINE 50MCG (0.05MG) TAB 50 MCG PO (07:01)
--- NOTE | 2024-03-12 07:39 | EXP.CARD.PN ---
Documented by User: NITA Evans 03/12/24 08:48 Subjective Subjective Date: 03/12/24 Time: 07:39 Principal diagnosis: Orthostatic hypotension with syncope Interval history: 78-year-old white female in bed in no acute distress. No further episodes of syncope yesterday. She seems to tolerate the midodrine without side effects at this point. Fludrocortisone will start today. Left heart catheterization today. Exam Data for Last 24 hours Vital signs and Labs for Last 24 Hours: Temp Pulse Resp BP Pulse Ox O2 Del Method 98.1 F 116 H 20 128/71 100 Room Air 03/12/24 04:00 03/12/24 04:00 03/12/24 04:00 03/12/24 04:00 03/12/24 04:00 03/12/24 06:45 Laboratory Results - last 24 hr 03/11/24 10:50: WBC 8.7, RBC 5.04, Hgb 15.9, Hct 50.6 H, MCV 100.5 H, MCH 31.6 H, MCHC 31.4 L, RDW 13.0, Plt Count 268, MPV 9.0, Neut % (Auto) 65.0, Lymph % (Auto) 27.3, [place] % (Auto) 6.6, Eos % (Auto) 0.3, Baso % (Auto) 0.9, Neut # (Auto) 5.6, Lymph # (Auto) 2.4, [place] # (Auto) 0.6, Eos # (Auto) 0.0, Baso # (Auto) 0.1, PT 10.7, INR 0.95, Sodium 137, Potassium 4.3, Chloride 102, Carbon Dioxide 30, Anion Gap 9.3, BUN 23 H, Creatinine 1.30 H, Estimated Creat Clear 38, Estimated GFR 40 L, Est GFR ( Amer) 48 L, Glucose 190 H, Calcium 9.2, Total Bilirubin 0.8, AST 29, ALT 24, Alkaline Phosphatase 122, Troponin I < 0.01, Total Protein 7.2, Albumin 4.1, Globulin 3.1, Albumin/Globulin Ratio 1.3 03/11/24 11:03: Urine Color Yellow, Urine Appearance Cloudy, Urine pH 6.0, Ur Specific [place] 1.025, Urine Protein 1+, Urine Glucose (UA) 3+, Urine Ketones Negative, Urine Blood Trace-i, Urine Nitrate Negative, Urine Bilirubin Negative, Urine Urobilinogen 0.2, Ur Leukocyte Esterase 1+ A, Urine RBC 3-5, Urine WBC 20-50, Ur Squamous Epith Cells 5-10, Urine Bacteria 3+ 03/11/24 13:33: Troponin I < 0.01 03/11/24 16:29: POC Glucose 216 H 03/11/24 16:55: Troponin I < 0.01 03/11/24 20:19: POC Glucose 226 H 03/12/24 05:27: POC Glucose 103 03/12/24 06:00: WBC 7.4, RBC 4.57, Hgb 14.7, Hct 45.9, MCV 100.4 H, MCH 32.1 H, MCHC 31.9, RDW 12.9, Plt Count 207, MPV 9.1, Neut % (Auto) 59.0, Lymph % (Auto) 33.1, [place] % (Auto) 7.3, Eos % (Auto) 0.1, Baso % (Auto) 0.4, Neut # (Auto) 4.3, Lymph # (Auto) 2.4, [place] # (Auto) 0.5, Eos # (Auto) 0.0, Baso # (Auto) 0.0, Sodium 136, Potassium 3.9, Chloride 105, Carbon Dioxide 28, Anion Gap 6.9, BUN 27 H, Creatinine 1.10 H, Estimated Creat Clear 45, Estimated GFR 48 L, Est GFR ( Amer) 58 L D, Glucose 122 H D, Calcium 8.7, Magnesium 1.3 L, Total Bilirubin 0.6, AST 31, ALT 23, Alkaline Phosphatase 111, Total Protein 6.1 L, Albumin 3.4 L D, Globulin 2.7, Albumin/Globulin Ratio 1.3 I & O for Last 24 hours: Intake & Output 03/09/24 03/10/24 03/11/24 03/12/24 11:59 11:59 11:59 11:59 Intake Total 600 / 600 Output Total 0 / 0 Balance 600 / 600 Weight 144 lb 143 lb 15.989 oz Constitutional Constitutional: no acute distress *Routine Respiratory Exam Respiratory: Present CTA bilaterally *Routine Cardiovascular Exam Cardiovascular: Present RRR *Routine Extremities Exam Extremities: Absent edema Progress Note: A&P Assessment and plan (1) Orthostatic hypotension: Status: Acute (2) Syncope: Status: Acute (3) Laceration of face: Status: Acute (4) S/P coronary artery stent placement: Status: Acute (5) 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 Syncope with head trauma/facial laceration x 2 -Troponin normal -Recent tilt table test positive for orthostasis -Will start midodrine and fludrocortisone for suspected autonomic dysfunction/orthostatic hypotension -Head CT today no evidence of acute process -History of coronary artery disease with LAD stents. Recent stress test normal. Recommend proceeding with [facility]. 2. CAD -Clinically stable with normal troponin and no acute EKG changes -Despite recent normal stress test would recommend proceeding with left heart catheterization due to recurrent syncope and head trauma with prior prox LAD stenting. -Continue aspirin 3. Diabetes mellitus -Defer to Dr. Mendez 4. Hypertension -Continue metoprolol succinate 5. Hyperlipidemia -Continue statin therapy Continue initiating midodrine and fludrocortisone today and monitoring orthostatic vitals. If improved orthostatic vitals without further syncope then possibly home later today. Left heart catheterization today Limited echo yesterday confirms EF 55% with no regional wall motion abnormalities. Normal RV size and function. Home med recommendations: Midodrine 5 mg 3 times daily Fludrocortisone 0.1 mg daily Metoprolol succinate 25 mg daily Aspirin 81 mg daily Atorvastatin 20 mg daily If coronary stented then add Plavix. Follow-up in our office in 1 week. Documented by User: Sathish Johnson MD 03/15/24 06:55 Exam Data for Last 24 hours Vital signs and Labs for Last 24 Hours: Temp Pulse Resp BP Pulse Ox O2 Del Method 98.1 F 116 H 20 128/71 100 Room Air 03/12/24 04:00 03/12/24 04:00 03/12/24 04:00 03/12/24 04:00 03/12/24 04:00 03/12/24 06:45 Laboratory Results - last 24 hr 03/11/24 10:50: WBC 8.7, RBC 5.04, Hgb 15.9, Hct 50.6 H, MCV 100.5 H, MCH 31.6 H, MCHC 31.4 L, RDW 13.0, Plt Count 268, MPV 9.0, Neut % (Auto) 65.0, Lymph % (Auto) 27.3, [place] % (Auto) 6.6, Eos % (Auto) 0.3, Baso % (Auto) 0.9, Neut # (Auto) 5.6, Lymph # (Auto) 2.4, [place] # (Auto) 0.6, Eos # (Auto) 0.0, Baso # (Auto) 0.1, PT 10.7, INR 0.95, Sodium 137, Potassium 4.3, Chloride 102, Carbon Dioxide 30, Anion Gap 9.3, BUN 23 H, Creatinine 1.30 H, Estimated Creat Clear 38, Estimated GFR 40 L, Est GFR ( Amer) 48 L, Glucose 190 H, Calcium 9.2, Total Bilirubin 0.8, AST 29, ALT 24, Alkaline Phosphatase 122, Troponin I < 0.01, Total Protein 7.2, Albumin 4.1, Globulin 3.1, Albumin/Globulin Ratio 1.3 03/11/24 11:03: Urine Color Yellow, Urine Appearance Cloudy, Urine pH 6.0, Ur Specific [place] 1.025, Urine Protein 1+, Urine Glucose (UA) 3+, Urine Ketones Negative, Urine Blood Trace-i, Urine Nitrate Negative, Urine Bilirubin Negative, Urine Urobilinogen 0.2, Ur Leukocyte Esterase 1+ A, Urine RBC 3-5, Urine WBC 20-50, Ur Squamous Epith Cells 5-10, Urine Bacteria 3+ 03/11/24 13:33: Troponin I < 0.01 03/11/24 16:29: POC Glucose 216 H 03/11/24 16:55: Troponin I < 0.01 03/11/24 20:19: POC Glucose 226 H 03/12/24 05:27: POC Glucose 103 03/12/24 06:00: WBC 7.4, RBC 4.57, Hgb 14.7, Hct 45.9, MCV 100.4 H, MCH 32.1 H, MCHC 31.9, RDW 12.9, Plt Count 207, MPV 9.1, Neut % (Auto) 59.0, Lymph % (Auto) 33.1, [place] % (Auto) 7.3, Eos % (Auto) 0.1, Baso % (Auto) 0.4, Neut # (Auto) 4.3, Lymph # (Auto) 2.4, [place] # (Auto) 0.5, Eos # (Auto) 0.0, Baso # (Auto) 0.0, Sodium 136, Potassium 3.9, Chloride 105, Carbon Dioxide 28, Anion Gap 6.9, BUN 27 H, Creatinine 1.10 H, Estimated Creat Clear 45, Estimated GFR 48 L, Est GFR ( Amer) 58 L D, Glucose 122 H D, Calcium 8.7, Magnesium 1.3 L, Total Bilirubin 0.6, AST 31, ALT 23, Alkaline Phosphatase 111, Total Protein 6.1 L, Albumin 3.4 L D, Globulin 2.7, Albumin/Globulin Ratio 1.3 I & O for Last 24 hours: Intake & Output 03/09/24 03/10/24 03/11/24 03/12/24 11:59 11:59 11:59 11:59 Intake Total 600 / 600 Output Total 0 / 0 Balance 600 / 600 Weight 144 lb 143 lb 15.989 oz Progress Note: A&P Assessment and plan (1) Orthostatic hypotension: Status: Acute (2) Syncope: Status: Acute (3) Laceration of face: Status: Acute (4) S/P coronary artery stent placement: Status: Acute (5) 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 Syncope with head trauma/facial laceration x 2 -Troponin normal -Recent tilt table test positive for orthostasis -Will start midodrine and fludrocortisone for suspected autonomic dysfunction/orthostatic hypotension -Head CT today no evidence of acute process -History of coronary artery disease with LAD stents. Recent stress test normal. Recommend proceeding with [facility]. 2. CAD -Clinically stable with normal troponin and no acute EKG changes -Despite recent normal stress test would recommend proceeding with left heart catheterization due to recurrent syncope and head trauma with prior prox LAD stenting. -Continue aspirin 3. Diabetes mellitus -Defer to Dr. Mendez 4. Hypertension -Continue metoprolol succinate 5. Hyperlipidemia -Continue statin therapy Continue initiating midodrine and fludrocortisone today and monitoring orthostatic vitals. If improved orthostatic vitals without further syncope then possibly home later today. Left heart catheterization today Limited echo yesterday confirms EF 55% with no regional wall motion abnormalities. Normal RV size and function. As an outpatient, we recommend cardiac MRI (cardiomyopathy protocol) to evaluate for increased LV wall thickness and rule out LVOT obstruction as cause of syncope. Home med recommendations: Midodrine 5 mg 3 times daily Fludrocortisone 0.1 mg daily Metoprolol succinate 25 mg daily Aspirin 81 mg daily Atorvastatin 20 mg daily If coronary stented then add Plavix. Follow-up in our office in 1 week.
[2024-03-12] MEDS: MAGNESIUM SULFATE IN WATER 2 GM/50 ML PIGGYBACK IV ×2 (08:20→13:03)
[2024-03-12] MEDS: predniSONE 5MG TAB 2.5 MG PO (08:21)
[2024-03-12] MEDS: METOPROLOL SUCCINATE XL 25MG TABLET 25 MG PO (08:21)
[2024-03-12 08:50] LABS: POC Glucose,Bedside 104 (70-110)
--- NOTE | 2024-03-12 09:07 | IR_ITS ---
APPROVED REPORT Patient Location: Inpatient PROCEDURES Left heart catheterization Left ventriculogram Selective coronary angiogram INDICATION Known coronary disease, Syncope Informed consent was obtained prior to the procedure. COMPLICATIONS NONE Estimated Blood Loss: LESS THAN 10 ML TECHNIQUE One percent lidocaine used to anesthetize the right anterior aspect of the wrist. The right radial artery was accessed via the Seldinger technique. A 6 [place] sheath was placed in the right radial artery. 2.5 mg of Verapamil, 800 mcg of nitroglycerin, 1mg Lidocaine and 5000 U Heparin were given through the arterial sheath. The papa catheter was also used to perform left heart catheterization, left ventriculogram and selective coronary angiogram. At the end of the procedure the sheath was removed good hemostasis was achieved using Traclet band, patient was transferred to the postop holding area in stable condition. ANGIOGRAPHIC RESULTS The left main artery Normal The left anterior descending artery Has a proximal 30% stenosis followed by a proximal LAD stent which is widely patent. Immediately distal to the stent there is a 30 to 40% tapering. A noncontiguous mid LAD stent is then present which is widely patent with minimal in-stent restenosis with excellent proximal distal transitioning. The remaining LAD is widely patent The circumflex artery Large dominant with proximal and mid vessel 30% stenoses The right coronary artery Is a 1.5 mm vestigial nondominant vessel with a mid vessel greater than 90% stenosis. The [place] ventriculogram reveals Hyperdynamic estimated at 80% with angiographic evidence of cavitary obliteration suggesting hypertrophic cardiomyopathy The left ventricular end-diastolic pressure 25 mmHg IMPRESSION Patent coronary arteries as described above involving the LAD and dominant circumflex artery Severe stenosis in a vestigial nondominant right coronary which is clinically insignificant LV gram evidence suggesting possible apical hypertrophic cardiomyopathy Elevated LVEDP PLAN 1. Continue beta-blockers and midodrine 2. Recommend outpatient cardiac MRI to evaluate for hypertrophic cardiomyopathy 3. Medical management for coronary disease Electronically signed by : Lucio Mckinnon MD 03/12/2024 15:34:36
[2024-03-12] MEDS: ACETAMINOPHEN 325MG TAB 650 MG PO (10:02)
[2024-03-12] MEDS: GABAPENTIN 600MG TABLET 600 MG PO (10:03)
[2024-03-12] MEDS: MIDODRINE HCL 5 MG TABLET PO ×2 (10:03→13:03)
[2024-03-12] MEDS: FLUDROCORTISONE 0.1MG TABLET 0.1 MG PO (10:09)
[2024-03-12] MEDS: diphenhydrAMINE 50MG/ML VIAL 50 MG IV (15:00)
[2024-03-12] MEDS: FENTANYL 100MCG/2ML VIAL 50 MCG IV (15:01)
[2024-03-12] MEDS: MIDAZOLAM HCL 1MG/1ML 5ML VIAL 1 MG IV (15:01)
[2024-03-12] MEDS: LIDOCAINE 1% 10ML MDV 20 ML IJ (15:01)
[2024-03-12] MEDS: 0.9 % SODIUM CHLORIDE 500 ML 25 ML IV (15:03)
[2024-03-12] MEDS: VERAPAMIL 2.5MG/ML 2ML VIAL 2.5 MG IV (15:03)
[2024-03-12] MEDS: NITROGLYCERIN 800MCG/8ML SYR (CATH LAB) 800 MCG IA (15:03)
[2024-03-12] MEDS: HEPARIN 1,000 UNITS/500ML NS (CATH LAB) 3000 UNIT IV (15:03)
--- NOTE | 2024-03-12 16:04 | EXP.DC.SUM ---
General Admission date:: 03/11/24 Discharge date: 03/12/24 HPI HPI HPI: Ms. Sepulveda is a 78-year-old female who presented to the ER after falling at home. States she has been having some episodes of falling that have occurred since having shingles a few months ago. Continues to have persistent postherpetic neuralgia. States she stood up and paused as she has been instructed to do. As she was walking at home, she turned to go back to her seat when she got lightheaded and fell. She hit her head on a dresser which caused her to come to the ER for further evaluation. Found to have laceration/abrasion to her left protestant. Imaging of her head obtained showing no acute intracranial process or bleed. Workup in the ER positive for significant orthostatic hypotension. Cardiology was consulted and evaluated. Recommendation was for admission and further management. Discussed case with ER, request admission. Remainder of labs at baseline for patient with no signs of anemia. Kidney function normal. On arrival to the floor, patient is alert and oriented x 4. Denies any nausea or vomiting, chest pain, confusion or weakness. Did have some transient difficulty opening her right eye that is resolved. On room air, afebrile. Hospital Course Hospital Course Hospital Course: 78-year-old female with recurrent episodes of syncope since having shingles earlier this year. Fell at home, hit her head. On eval in the ER, had profound orthostatic hypotension. Discussed case with ER physician, request admission for further management. Cardiology consulted to assist with care. Patient feeling somewhat better after arriving to the floor. Systolics elevated. No further episodes of syncope during admission. Patient was taken for left heart cath due to concern for CAD being a component of her syncopal spells. No significant disease, no stents placed. Stable to discharge home with further management as an outpatient. Initiated on midodrine to help maintain blood pressure along with continuing to treat her hypertension. Close follow-up with cardiology scheduled. Problems addressed as follows: Orthostatic hypotension dysautonomic syndrome Syncope with head trauma/facial laceration x 2 Essential hypertension -Serial troponins were monitored, they remained unremarkable. Recent tilt table test was positive for orthostasis. Cardiology was consulted on admission. Recommended initiating midodrine 5 mg 3 times a day and fludrocortisone 0.1 mg daily to stabilize her blood pressure and then treating her hypertension with metoprolol succinate. CT was obtained of her head with no mass or acute ischemic findings. Recent stress test was normal. Cardiology however plan for left heart cath due to recurrent syncope and concern for CAD being a component. Cath was negative. Monitor on telemetry. Patient did well overall during admission. Stable to discharge home with further management as an outpatient. Continue Tylenol for pain from her fall and abrasions. CAD: Proceeded with left heart cath due to recurrent syncope. No acute findings, no stents were placed. Continue aspirin 81 mg daily. Diabetes mellitus -A1c 7.9 earlier this month. Continue patient's home regimen with glargine and metformin. Has had significant weight loss per family. This may be a component and some of her syncope. Continue to make adjustments in the outpatient setting, defer to PCP. Hyperlipidemia: Continue Lipitor 20 mg nightly Postherpetic neuralgia: Continue gabapentin 600 mg twice daily Thyroid: Continue levothyroxine 50 mcg daily Depression: Continue venlafaxine 150 mg daily Of note patient did have abnormal urinalysis but it was not a clean-catch. Patient was asymptomatic with no dysuria or abdominal pain. Did not treat urine culture due to suspected contaminant. If develops symptoms, would recommend reevaluation as an outpatient and consideration of treatment based on culture and sensitivity. Total time spent on discharge 32 minutes in counseling, documentation, chart review, and direct care with patient. Exam Data for Last 24 hours Vital signs and Labs for Last 24 Hours: Temp Pulse Resp BP Pulse Ox O2 Del Method 98.0 F 70 16 161/88 H 95 Room Air 03/12/24 15:55 03/12/24 15:55 03/12/24 15:55 03/12/24 15:55 03/12/24 15:55 03/12/24 15:55 Laboratory Results - last 24 hr 03/11/24 11:03: Urine Color Yellow, Urine Appearance Cloudy, Urine pH 6.0, Ur Specific [place] 1.025, Urine Protein 1+, Urine Glucose (UA) 3+, Urine Ketones Negative, Urine Blood Trace-i, Urine Nitrate Negative, Urine Bilirubin Negative, Urine Urobilinogen 0.2, Ur Leukocyte Esterase 1+ A, Urine RBC 3-5, Urine WBC 20-50, Ur Squamous Epith Cells 5-10, Urine Bacteria 3+ 03/11/24 16:29: POC Glucose 216 H 03/11/24 16:55: Troponin I < 0.01 03/11/24 20:19: POC Glucose 226 H 03/12/24 05:27: POC Glucose 103 03/12/24 06:00: WBC 7.4, RBC 4.57, Hgb 14.7, Hct 45.9, MCV 100.4 H, MCH 32.1 H, MCHC 31.9, RDW 12.9, Plt Count 207, MPV 9.1, Neut % (Auto) 59.0, Lymph % (Auto) 33.1, [place] % (Auto) 7.3, Eos % (Auto) 0.1, Baso % (Auto) 0.4, Neut # (Auto) 4.3, Lymph # (Auto) 2.4, [place] # (Auto) 0.5, Eos # (Auto) 0.0, Baso # (Auto) 0.0, Sodium 136, Potassium 3.9, Chloride 105, Carbon Dioxide 28, Anion Gap 6.9, BUN 27 H, Creatinine 1.10 H, Estimated Creat Clear 45, Estimated GFR 48 L, Est GFR ( Amer) 58 L D, Glucose 122 H D, Calcium 8.7, Magnesium 1.3 L, Total Bilirubin 0.6, AST 31, ALT 23, Alkaline Phosphatase 111, Total Protein 6.1 L, Albumin 3.4 L D, Globulin 2.7, Albumin/Globulin Ratio 1.3 03/12/24 08:24: POC Glucose 104 I & O for Last 24 hours: Intake & Output 03/09/24 03/10/24 03/11/24 03/12/24 23:59 23:59 23:59 23:59 Intake Total 360 / 600 240 / 240 Output Total 0 / 0 0 / 0 Balance 360 / 600 240 / 240 Weight 65.317 kg 65.317 kg Microbiology Reports for the Last 24 Hours: Microbiology 03/11/24 11:03 Urine,Clean Catch Urine Culture - Preliminary Gram Negative Rods Constitutional Constitutional: no acute distress, average body habitus and cooperative *Routine HEENT Exam Head: Present normocephalic Eye: Present EOMI and PERRL ENT: Present mucous membranes moist Comments: Abrasion to left side of face *Routine Neck Exam Neck: Present supple; Absent lymphadenopathy *Routine Respiratory Exam Respiratory: Present CTA bilaterally; Absent rhonchi, wheezes or crackles *Routine Cardiovascular Exam Cardiovascular: Present RRR *Routine Abdominal Exam Abdominal: Present soft and normoactive bowel sounds; Absent tenderness *Routine Rectal Exam Patient deferred: visual exam *Routine Exam Patient deferred: external exam *Routine Extremities Exam Extremities: Absent cyanosis, clubbing or edema *Routine Skin Exam Skin: Present warm; Absent rash *Routine Neurological Exam Neurological: Present alert, oriented X3 and moving all extremities; Absent altered mental status Results Data Completed and Pending Labs on day of discharge: Labs from last 24 hours 03/12/24 03/12/24 03/12/24 08:24 06:00 05:27 WBC 7.4 RBC 4.57 Hgb 14.7 Hct 45.9 MCV 100.4 H MCH 32.1 H MCHC 31.9 RDW 12.9 Plt Count 207 MPV 9.1 Neut % (Auto) 59.0 Lymph % (Auto) 33.1 [place] % (Auto) 7.3 Eos % (Auto) 0.1 Baso % (Auto) 0.4 Neut # (Auto) 4.3 Lymph # (Auto) 2.4 [place] # (Auto) 0.5 Eos # (Auto) 0.0 Baso # (Auto) 0.0 Sodium 136 Potassium 3.9 Chloride 105 Carbon Dioxide 28 Anion Gap 6.9 BUN 27 H Creatinine 1.10 H Estimated Creat Clear 45 Estimated GFR 48 L Est GFR ( Amer) 58 L D Glucose 122 H D POC Glucose 104 103 Calcium 8.7 Magnesium 1.3 L Total Bilirubin 0.6 AST 31 ALT 23 Alkaline Phosphatase 111 Troponin I Total Protein 6.1 L Albumin 3.4 L D Globulin 2.7 Albumin/Globulin Ratio 1.3 Urine Color Urine Appearance Urine pH Ur Specific [place] Urine Protein Urine Glucose (UA) Urine Ketones Urine Blood Urine Nitrate Urine Bilirubin Urine Urobilinogen Ur Leukocyte Esterase Urine RBC Urine WBC Ur Squamous Epith Cells Urine Bacteria 03/11/24 03/11/24 03/11/24 20:19 16:55 16:29 WBC RBC Hgb Hct MCV MCH MCHC RDW Plt Count MPV Neut % (Auto) Lymph % (Auto) [place] % (Auto) Eos % (Auto) Baso % (Auto) Neut # (Auto) Lymph # (Auto) [place] # (Auto) Eos # (Auto) Baso # (Auto) Sodium Potassium Chloride Carbon Dioxide Anion Gap BUN Creatinine Estimated Creat Clear Estimated GFR Est GFR ( Amer) Glucose POC Glucose 226 H 216 H Calcium Magnesium Total Bilirubin AST ALT Alkaline Phosphatase Troponin I < 0.01 Total Protein Albumin Globulin Albumin/Globulin Ratio Urine Color Urine Appearance Urine pH Ur Specific [place] Urine Protein Urine Glucose (UA) Urine Ketones Urine Blood Urine Nitrate Urine Bilirubin Urine Urobilinogen Ur Leukocyte Esterase Urine RBC Urine WBC Ur Squamous Epith Cells Urine Bacteria 03/11/24 11:03 WBC RBC Hgb Hct MCV MCH MCHC RDW Plt Count MPV Neut % (Auto) Lymph % (Auto) [place] % (Auto) Eos % (Auto) Baso % (Auto) Neut # (Auto) Lymph # (Auto) [place] # (Auto) Eos # (Auto) Baso # (Auto) Sodium Potassium Chloride Carbon Dioxide Anion Gap BUN Creatinine Estimated Creat Clear Estimated GFR Est GFR ( Amer) Glucose POC Glucose Calcium Magnesium Total Bilirubin AST ALT Alkaline Phosphatase Troponin I Total Protein Albumin Globulin Albumin/Globulin Ratio Urine Color Yellow Urine Appearance Cloudy Urine pH 6.0 Ur Specific [place] 1.025 Urine Protein 1+ Urine Glucose (UA) 3+ Urine Ketones Negative Urine Blood Trace-i Urine Nitrate Negative Urine Bilirubin Negative Urine Urobilinogen 0.2 Ur Leukocyte Esterase 1+ A Urine RBC 3-5 Urine WBC 20-50 Ur Squamous Epith Cells 5-10 Urine Bacteria 3+ Preliminary micro results at discharge 03/11/24 11:03 Urine Culture - Preliminary Urine,Clean Catch Gram Negative Rods DS: Diagnosis Discharge Diagnosis (1) Orthostatic hypotension: Status: Acute Code(s): I95.1 - Orthostatic hypotension (2) Syncope: Status: Acute Code(s): R55 - Syncope and collapse Qualifiers: Syncope type: unspecified Qualified Code(s): R55 - Syncope and collapse (3) Laceration of face: Status: Acute Code(s): S01.81XA - Laceration without foreign body of other part of head, initial encounter Qualifiers: Encounter type: subsequent encounter Qualified Code(s): S01.81XD - Laceration without foreign body of other part of head, subsequent encounter (4) S/P coronary artery stent placement: Status: Acute Code(s): Z95.5 - Presence of coronary angioplasty implant and graft (5) 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 Code(s): I95.1 - Orthostatic hypotension (6) HTN (hypertension): Status: Chronic Code(s): I10 - Essential (primary) hypertension Qualifiers: Hypertension type: primary hypertension Qualified Code(s): I10 - Essential (primary) hypertension (7) HLD (hyperlipidemia): Status: Chronic Code(s): E78.5 - Hyperlipidemia, unspecified Qualifiers: Hyperlipidemia type: mixed hyperlipidemia Qualified Code(s): E78.2 - Mixed hyperlipidemia (8) HHD (hypertensive heart disease): Status: Chronic Code(s): I11.9 - Hypertensive heart disease without heart failure Qualifiers: Heart failure presence: without heart failure Qualified Code(s): I11.9 - Hypertensive heart disease without heart failure (9) CAD (coronary artery disease): Status: Chronic Code(s): I25.10 - Atherosclerotic heart disease of [place] coronary artery without angina pectoris Qualifiers: Associated angina: with other forms of angina Coronary Disease-Associated Artery/Lesion type: [place] artery [place] vs. transplanted heart: ambler heart Qualified Code(s): I25.118 - Atherosclerotic heart disease of [place] coronary artery with other forms of angina pectoris Meds Home Medications and Allergies Home Medications ?Medication ?Instructions ?Recorded ?Confirmed ?Type atorvastatin 20 mg tablet 20 mg PO HS 12/11/23 03/11/24 History gabapentin 600 mg tablet 600 mg PO BID 12/11/23 03/11/24 History insulin glargine U-300 conc 300 24 unit SQ HS 12/11/23 03/12/24 History unit/mL (3 mL) subcutaneous pen (Toujeo Max U-300 SoloStar) levothyroxine 50 mcg tablet 50 mcg PO DAILY 12/11/23 03/11/24 History prednisone 2.5 mg tablet 2.5 mg PO DAILY 12/11/23 03/11/24 History venlafaxine 150 mg 150 mg PO HS 12/11/23 03/12/24 History capsule,extended release 24 hr aspirin 81 mg tablet,delayed 81 mg PO DAILY 02/03/24 03/11/24 History release metoprolol succinate 25 mg 25 mg PO DAILY #30 tabs 02/26/24 03/11/24 Rx tablet,extended release 24 hr (Toprol XL) metformin 500 mg tablet 500 mg PO BID 03/11/24 03/11/24 History fludrocortisone 0.1 mg tablet 0.1 mg PO DAILY 30 days #30 tabs 03/12/24 Rx midodrine 5 mg tablet 5 mg PO TID 30 days #90 tabs 03/12/24 Rx New Prescriptions to Start Prescriptions: fludrocortisone Dylan Mendez midodrine Dylan Mendez Allergies Allergy/AdvReac Type Severity Reaction Status Date / Time codeine Allergy Mild Flushing Verified 02/26/24 13:27 Sulfa (Sulfonamide Allergy Unknown UNKNOWN Verified 02/26/24 13:27 Antibiotics) [SULFA (SULFONAMIDE ANTIBIOTICS)] Discharge Plan Disposition Patient Disposition: Home, Self-Care Condition: Fair Follow up Plan Follow up with: Sathish Johnson MD [Staff Physician] - 03/24/24 1:15 pm Prescriptions/Medication Reconciliation: New midodrine 5 mg Tablet 5 mg PO TID 30 Days Qty: 90 0RF fludrocortisone 0.1 mg Tablet 0.1 mg PO DAILY 30 Days Qty: 30 0RF Continued metoprolol succinate [Toprol XL] 25 mg tablet extended release 24 hr 25 mg PO DAILY Qty: 30 2RF aspirin 81 mg tablet,delayed release (DR/EC) 81 mg PO DAILY metformin 500 mg tablet 500 mg PO BID Patient Comments: TAKE 1 TABLET BY MOUTH TWICE DAILY gabapentin 600 mg tablet 600 mg PO BID Patient Comments: TAKE 1 TABLET BY MOUTH TWICE DAILY FOR 90 DAYS atorvastatin 20 mg tablet 20 mg PO HS Patient Comments: TAKE 1 TABLET BY MOUTH ONCE DAILY venlafaxine 150 mg capsule,extended release 24hr 150 mg PO HS levothyroxine 50 mcg tablet 50 mcg PO DAILY Patient Comments: TAKE 1 TABLET BY MOUTH ONCE DAILY FOR 90 DAYS prednisone 2.5 mg tablet 2.5 mg PO DAILY Patient Comments: TAKE 1 TABLET BY MOUTH ONCE DAILY insulin glargine U-300 conc [Toujeo Max U-300 SoloStar] 300 unit/mL (3 mL) insulin pen 24 unit SQ HS Discontinued baclofen 10 mg tablet 10 mg PO HS Qty: 14 0RF Problem Reconciliation Problems Reviewed?: Yes Patient Discharge Instructions ACTIVITY: Continue current activity DIET: continue same diet Patient Instructions: DI for Syncope in Adults (Fainting), DI for Orthostatic Hypotension, DI for Cardiac Catheterization, DI for Surgical Site Infection Print Language: Kiswahili Providers Primary Care Provider: Cheyenne Scott Admit Provider: Dylan Mendez Attending Provider: Dylan Mendez
[2024-03-12] MEDS: IOPAMIDOL-370 (76%);100ML BOTTLE 50 ML IV (16:14)
--- NOTE | 2024-03-15 14:22 | CARE MANAGER ---
Contacted patient related to hospital discharge. She states her daughter takes care of her medication but is aware of medication changes. She is aware of follow up appointment and denies questions or concerns. JOSE Hickman
== END 2024-03-12 18:35 | disposition home or self-care (01) ==
LOC: ER 13:29 → 2ND 13:36
PROVIDERS: Internal Medicine; Admitting Provider Internal Medicine Adolescent Medicine; Emergency Provider Emergency Medicine; PCP Nurse Practitioner Family; Visit Provider Internal Medicine Adolescent Medicine
DX: I95.1 Orthostatic hypotension (principal); S01.81XA Laceration without foreign body of other part of head, initial encounter; Y92.013 Bedroom of single-family (private) house as the place of occurrence of the external cause; W01.190A Fall on same level from slipping, tripping and stumbling with subsequent striking against furniture, initial encounter; Z95.5 Presence of coronary angioplasty implant and graft; B02.23 Postherpetic polyneuropathy; E78.2 Mixed hyperlipidemia; I11.9 Hypertensive heart disease without heart failure; I25.118 Atherosclerotic heart disease of native coronary artery with other forms of angina pectoris; E66.9 Obesity, unspecified; E78.5 Hyperlipidemia, unspecified; E03.9 Hypothyroidism, unspecified; E11.9 Type 2 diabetes mellitus without complications; Z79.4 Long term (current) use of insulin; Z79.899 Other long term (current) drug therapy; Z68.24 Body mass index [BMI] 24.0-24.9, adult; R29.6 Repeated falls; F32.A Depression, unspecified; R55 Syncope and collapse; Z91.81 History of falling
CPT/HCPCS: 12011; 36415; 70450; 70486; 71045; 72125; 80053; 81001; 82962; 83735; 84484; 85025; 85610; 87086; 87088; 87186; 93005; 93308; 93458; 99152; 99285; C1725; C1769; G0378; J1200; J1644; J2250; J2270; J3010; J3475; J7120; J7512; Q9967

== ENCOUNTER 2024-03-24 14:24 | Outpatient (CLI) | payer MEDICARE, SELFPAY | END 2024-03-24 23:59 | disposition home or self-care (01) | LOC: RT 14:25 | PROVIDERS: PCP Nurse Practitioner Family; Visit Provider Internal Medicine | DX: R55 Syncope and collapse (principal); R42 Dizziness and giddiness; I25.118 Atherosclerotic heart disease of native coronary artery with other forms of angina pectoris; I11.9 Hypertensive heart disease without heart failure | CPT/HCPCS: 93225; 93227 ==

== ENCOUNTER 2024-03-26 15:08 | Outpatient (CLI) | payer MEDICARE, SELFPAY | END 2024-03-26 23:59 | disposition home or self-care (01) | LOC: RT 15:10 | PROVIDERS: PCP Nurse Practitioner Family; Visit Provider Internal Medicine | DX: R42 Dizziness and giddiness (principal); R55 Syncope and collapse | CPT/HCPCS: 93270 ==

== ENCOUNTER 2024-04-06 12:46 | Emergency (ER) | payer MEDICARE, SELFPAY ==
[2024-04-06] VITALS (7 sets, daily range): BP systolic 149–198; BP diastolic 71–101; PULSE 73–81; RESP 12–17; TEMP 36.7; O2SAT 92–98; BMI 25.7
--- NOTE | 2024-04-06 12:55 | PC.NURSE ---
Dr. Carrillo at [facility] for pt eval
--- NOTE | 2024-04-06 12:57 | PC.NURSE ---
Stroke alert called
--- NOTE | 2024-04-06 12:57 | PC.NURSE ---
Pt gone to RAD via stretcher
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
--- NOTE | 2024-04-06 13:03 | CT_ITS ---
FINAL REPORT TECHNIQUE: Thin section axial CT with IV contrast supplemented with multiplanar reconstruction under CT angiogram protocol. 3-D reconstructions were performed. This study was performed with techniques to keep radiation doses as low as reasonably achievable (ALARA). Individualized dose reduction techniques using automated exposure control or adjustment of mA and/or kV according to the patient''s size were employed. CLINICAL HISTORY: Stroke alert FINDINGS: No aneurysm is seen. Major intracranial vessels are patent without significant stenosis. IMPRESSION: There is no evidence of stenosis or major branch occlusion. Reviewed, Interpreted and Dictated by Carlos Bennett III, MD Transcribed by Rosemarie Tanner Authenticated and [facility]
--- NOTE | 2024-04-06 13:03 | CT_ITS ---
FINAL REPORT TECHNIQUE: Thin section axial CT with IV contrast supplemented with multiplanar reconstruction under CT angiogram protocol. This study was performed with techniques to keep radiation doses as low as reasonably achievable (ALARA). Individualized dose reduction techniques using automated exposure control or adjustment of mA and/or kV according to the patient''s size were employed. NASCET criteria was utilized during interpretation. CLINICAL HISTORY: Stroke alert FINDINGS: Aortic arch: Arch shows no significant narrowing. Great vessel origins are widely patent. Right carotid: There is calcified plaque at the carotid bulb. The more distal ICA is patent. Left carotid: There is calcified plaque at the carotid bulb. There is mild stenosis at the left carotid bulb. The more distal ICA is patent. Vertebral: Right vertebral artery is dominant. No significant stenosis is present. IMPRESSION: Mild stenosis at the left carotid bulb. Reviewed, Interpreted and Dictated by Carlos Bennett III, MD Transcribed by Rosemarie Tanner Authenticated and [facility]
--- NOTE | 2024-04-06 13:04 | CT_ITS ---
FINAL REPORT CLINICAL HISTORY: STROKE ALERT COMPARISON: March 11, 2024 FINDINGS: Axial images of the head were obtained without contrast. Coronal reformatted images were also obtained. This study was performed with techniques to keep radiation doses as low as reasonably achievable (ALARA). Individualized dose reduction techniques using automated exposure control or adjustment of mA and/or kV according to the patient''s size were employed. There is generalized age-appropriate atrophy. Periventricular low-attenuation areas are seen consistent with moderate chronic ischemic changes. There is no evidence of intracranial hemorrhage or mass. There is no evidence of acute infarct. There is no evidence of shift of the midline structures. No skull abnormality is seen on the bone window images. IMPRESSION: Atrophy and moderate periventricular chronic ischemic changes. No acute intracranial abnormality identified. Authenticated and [facility]
--- NOTE | 2024-04-06 13:14 | ECG_ITS ---
APPROVED REPORT Exam: Resting ECG HR:82 bpm ECG Measurements Heart Rate 82 AXES CO 152 P 55 QRSd 85 QRS 21 QT 397 T 53 QTc 435 Conclusion SINUS RHYTHM NORMAL ECG UNCONFIRMED REPORT Electronically signed by : Dylan Carrillo, 04/09/2024 23:46:03
--- NOTE | 2024-04-06 13:14 | PC.NURSE ---
Pt back to room from [facility]
[2024-04-06] MEDS: 0.9 % SODIUM CHLORIDE 50 ML VIAL IV (13:17)
[2024-04-06] MEDS: SODIUM CHLORIDE 0.9% 10ML SYR (RAD ONLY) 10 ML IV (13:17)
[2024-04-06] MEDS: IOPAMIDOL-370 (76%);100ML BOTTLE 80 ML IV (13:17)
--- NOTE | 2024-04-06 13:26 | PC.NURSE ---
calling [facility] for data entry coordinator and transfer pt to [facility]
--- NOTE | 2024-04-06 13:30 | PC.NURSE ---
speaking to [facility]
--- NOTE | 2024-04-06 13:38 | XR_ITS ---
FINAL REPORT CLINICAL HISTORY: Shortness of breath COMPARISON: 03/11/2024 FINDINGS: A single portable view of the chest was obtained. The heart size and pulmonary vascularity are within normal limits. The mediastinum is within normal limits. No acute pulmonary abnormality is identified. The bony thorax is intact. IMPRESSION: No active cardiopulmonary disease. Reviewed, Interpreted and Dictated by Carlos Bennett III, MD Transcribed by Lyn Sam Authenticated and [facility]
[2024-04-06 13:41] LABS: Anion Gap 5.2 mEq/L (5-15); Blood Urea Nitrogen 26 mg/dl (7-17); Calcium 8.9 mg/dl (8.4-10.2); Carbon Dioxide 33 mmol/L (22.0-30.0); Chloride 101 mmol/L (98-107); Creatinine Clearance Estimated 43 mL/min (50-200); Estimated Glomerular Filt Rate 44 ml/min (>60); GFR (African American) 53 ML/MIN (>60); Glucose 260 mg/dl (74-100); Potassium 4.2 mmoL/L (3.5-5.1); Sodium 135 mmol/L (136-145)
[2024-04-06 13:42] LABS: Activated Partial Thrombo Time 26.9 seconds (22.8-30.6); INR 0.97 (0.9-1.1); Prothrombin Time 10.9 seconds (10.1-12.5)
[2024-04-06] MEDS: CLOPIDOGREL 300MG TABLET 300 MG PO (13:44)
[2024-04-06] MEDS: LACTATED RINGERS 1000ML 1,000 ML 999 ML IV (13:44)
[2024-04-06 13:45] LABS: Albumin Level 3.7 g/dl (3.5-5.0)
[2024-04-06 13:47] LABS: Alanine Aminotransferase 24 U/L (12-78); Alkaline Phosphatase 118 U/L (38-126); Aspartate Amino Transferase 29 U/L (14-36); Bilirubin,Total 0.6 mg/dl (0.2-1.3)
[2024-04-06 13:48] LABS: Albumin/Globulin Ratio 1.2 (1.1-1.8); Globulin 3.1 g/dL (1.3-3.2); Total Protein,Serum 6.8 g/dl (6.3-8.2)
[2024-04-06 13:54] LABS: Basophils % 0.5 % (0.1-2.0); Eosinophils % 0.1 % (0.1-12.0); Hematocrit 44.4 % (37.0-47.0); Hemoglobin 14.1 g/dL (12.2-16.2); Lymphocytes # 2.1 K/mm3 (0.7-4.5); Lymphocytes % 23.2 % (10-50); Mean Corpuscular HGB Conc 31.7 g/dL (31.8-35.4); Mean Corpuscular Hemoglobin 31.2 pg (27.0-31.2); Mean Corpuscular Volume 98.5 fl (81-99); Mean Platelet Volume 9.2 fl (7.4-10.4); Monocytes # 0.8 K/mm3 (0.1-1.0); Monocytes % 8.4 % (1.7-9.3); Neutrophils # 6.2 K/mm3 (1.8-7.8); Neutrophils % 67.9 % (37.0-80.0); Platelet Count 272 K/mm3 (142-424); Red Blood Count 4.51 M/mm3 (4.20-5.40); Red Cell Distribution Width 12.8 % (11.5-17.5); White Blood Count 9.1 K/mm3 (4.8-10.8)
[2024-04-06 14:00] LABS: Troponin I < 0.01 ng/ml (0.00-0.034)
--- NOTE | 2024-04-06 14:44 | PC.NURSE ---
Bed assignment received. Report called to Elaine GARCIA.
--- NOTE | 2024-04-06 14:49 | PC.NURSE ---
EMS called for pt transport to [facility]. staff states, when a truck gets back in [facility], someone will be up to get the pt.
[2024-04-06] MEDS: LABETALOL 20MG/4ML SYRINGE 20 MG IV (16:11)
--- NOTE | 2024-04-06 16:14 | PC.NURSE ---
FS 190
== END 2024-04-06 16:19 | disposition critical access hospital (66) ==
PROVIDERS: Emergency Provider Student in an Organized Health Care Education/Training Program; PCP Nurse Practitioner Family
DX: I63.9 Cerebral infarction, unspecified (principal); E11.65 Type 2 diabetes mellitus with hyperglycemia; I11.0 Hypertensive heart disease with heart failure; I50.20 Unspecified systolic (congestive) heart failure; E78.5 Hyperlipidemia, unspecified; I25.119 Atherosclerotic heart disease of native coronary artery with unspecified angina pectoris; Z95.5 Presence of coronary angioplasty implant and graft; Z79.4 Long term (current) use of insulin; Z79.84 Long term (current) use of oral hypoglycemic drugs
CPT/HCPCS: 70450; 70496; 70498; 71045; 80053; 84484; 85025; 85610; 85730; 93005; 96361; 96374; 99291; J7120; Q9967

== ENCOUNTER 2024-04-13 10:20 | Outpatient (CLI) | payer MEDICARE, SELFPAY ==
--- NOTE | 2024-04-13 10:20 | MR_ITS ---
APPROVED REPORT Crank Hand: CLINICAL INDICATION LVgram during [facility] suggestive of apical HCM. Evaluation for HCM. TECHNIQUE Image Acquisition: Cardiac magnetic resonance (CMR) was performed on Siemens Espree MRI 1.5T scanner. Software platform sequences were performed using the Siemens Cherwell Softwareo MR B19 platform. A set of three-plane, low-resolution, large [id number] localizers were initially acquired. Then axial, coronal, sagittal TrueFISP, as well as axial HASTE images, were obtained. These were followed by gated TrueFISP breathold cinematic sequences obtained in the short axis with 8 mm slices and 2 mm gaps, 2-chamber (vertical long axis), 3-chamber, 4-chamber (horizontal long axis). A bolus of contrast was injected intravenously with first-pass sequences obtained in the short axis and four-chamber planes. After approximately 10 minutes, a TI news commentator sequence was performed to determine the optimal TI time. Using the optimized TI time, delayed contrast enhancement segmented inversion???recovery TurboFLASH sequences were obtained in the short axis, 2-chamber, 3-chamber, and 4-chamber projections. 2D-velocity phase mapping was performed. Functional parameters were calculated by offline analysis on an independent workstation ([employer] Platform, [employer]). Contrast: ProHance??? (Gadoteridol) FINDINGS MORPHOLOGY AND FUNCTION Left ventricle: The left ventricle is normal in size. The indexed left ventricular end-diastolic volume (LVEDVi) is 56 ml/m2 (reference range 57-105 ml/m2 in males, 56-96 ml/m2 in females). Normal left ventricular systolic function is present. There is increase in left ventricular wall thickness, up to 12 mm. There are no regional wall motion abnormalities noted. No evidence of apical hypertrophy. LVEF is calculated at 63.3% (reference range 57-77%). Right ventricle: The right ventricle is normal in size. The indexed right ventricular end-diastolic volume (RVEDVi) is 49 ml/m2 (reference range 61-121 ml/m2 in males, 48-112 ml/m2 in females). Normal right ventricular systolic function is present. RVEF is calculated at 53.9% (reference range 52-72% in males, 51-71% in females). Atria: The left atrium is normal in size. The maximum indexed left atrial volume is 30 ml/m2 (reference range 26-52 ml/m2 in males, 27-53 ml/m2 in females). The right atrium is normal in size. The maximum indexed right atrial volume is 22 ml/m2 (reference range 18-90 ml/m2). Aorta: The diameter of the aortic annulus is normal, measuring 20 mm (coronal view reference range 21-30 mm in males, 19-27 mm in females). The diameter of the aortic sinus is normal, measuring 27 mm (coronal view reference range 25-42 mm in males, 24-36 mm in females). The diameter of the sinotubular junction is normal, measuring 20 mm (coronal view reference range 18-32 mm in males, 18-28 mm in females). The diameters of the ascending and descending thoracic aorta are normal. Main pulmonary artery: The main pulmonary artery diameter is normal. Pericardium: The pericardial thickness is normal. The pericardial thickness measures 3.0 mm (normal < 4.0 mm). There is no pericardial effusion. VALVES The valvular morphologies in the visualized sequences appear normal. There is no significant valvular stenosis or regurgitation of the mitral, aortic, tricuspid, or pulmonic valve noted visually. Systolic anterior motion of the mitral valve is not visualized. Ratio of pulmonary to systemic flow, Qp:Qs ratio cannot be calculated due to logistic difficulty during image acquisition. TISSUE CHARACTERIZATION Resting Perfusion: Normal myocardial blood flow at rest. No evidence of resting hypoperfusion. Myocardial Fibrosis and/or edema: Normal gadolinium kinetics are present. No evidence of late gadolinium enhancement is noted, consistent with absence of myocardial scarring, infarction, or necrosis. T2-weighted imaging demonstrates no evidence of myocardial edema or inflammation. OTHER No other significant findings are noted. However, this exam is focused on the cardiac structure and function. IMPRESSION Normal LV size with normal LV systolic function. LVEDVi= 56 ml/m2 and LVEF= 63.3%. Increase in left ventricular wall thickness, up to 12 mm. There are no regional wall motion abnormalities noted. No evidence of apical hypertrophy. Normal RV size with normal RV systolic function. RVEDVi= 49 ml/m2 and RVEF= 53.9%. No atrial enlargement. No CMR evidence of myocardial scarring, infarction, or necrosis. No evidence of myocardial edema or inflammation. Perfusion analysis demonstrates normal blood flow at rest with no evidence of resting hypoperfusion. Overall, this CMR demonstrates normal biventricular size and systolic function. There is mild increase in LV wall thickness, which does not meet HCM criteria (<15 mm). No evidence of apical hypertrophy (i.e. no evidence of apical HCM). COMPARISON None CRITICAL RESULT None COMMUNICATION Per this written report The findings of this cardiac MR were reviewed, reported, and signed by Sathish Johnson MD (Bean Sorter). Conclusion Electronically signed by : Karime Johnson MD 04/21/2024 01:50:58
[2024-04-13] MEDS: GADOTERIDOL INJ 20ML SYRINGE 16 ML IV (11:16)
[2024-04-13] MEDS: SODIUM CHLORIDE 0.9% 10ML SYR (RAD ONLY) 10 ML IV (11:16)
[2024-04-13] MEDS: 0.9 % SODIUM CHLORIDE 50 ML VIAL 25 ML IV (11:16)
== END 2024-04-13 23:59 | disposition home or self-care (01) ==
LOC: RAD 10:20
PROVIDERS: PCP Nurse Practitioner Family; Visit Provider Internal Medicine
DX: R55 Syncope and collapse (principal); I10 Essential (primary) hypertension; E78.2 Mixed hyperlipidemia; I11.9 Hypertensive heart disease without heart failure; R42 Dizziness and giddiness; E11.69 Type 2 diabetes mellitus with other specified complication; E66.9 Obesity, unspecified; I25.118 Atherosclerotic heart disease of native coronary artery with other forms of angina pectoris; R94.31 Abnormal electrocardiogram [ECG] [EKG]
CPT/HCPCS: 75561; A9576

== ENCOUNTER 2024-05-13 09:55 | Outpatient (CLI) | payer MEDICARE, SELFPAY ==
--- NOTE | 2024-05-13 | XR_ITS ---
FINAL REPORT CLINICAL HISTORY: SCIATICA FINDINGS: LUMBAR SPINE Six views demonstrate no acute fracture. There is moderate to severe disc space narrowing at L3-4 and L5-S1. Endplate sclerosis is identified. There is moderate facet sclerosis in the lower lumbar spine. There is no malalignment. IMPRESSION: Moderate to advanced hypertrophic changes, most evident at L3-4 and L5-S1. Reviewed, Interpreted and Dictated by Brendan Norton MD Transcribed by Rosemarie Tanner Authenticated and [facility]
== END 2024-05-13 23:59 | disposition home or self-care (01) ==
LOC: RAD 09:56
PROVIDERS: PCP Nurse Practitioner Family; Visit Provider Nurse Practitioner Family
DX: M54.41 Lumbago with sciatica, right side (principal); M54.42 Lumbago with sciatica, left side; M53.3 Sacrococcygeal disorders, not elsewhere classified; G89.29 Other chronic pain
CPT/HCPCS: 72110

== ENCOUNTER 2024-06-03 09:59 | Outpatient (POV) | payer MEDICARE, SELFPAY ==
[2024-06-03 10:21] VITALS: BP 172/91; PULSE 98; RESP 16; O2SAT 98; BMI 26.1
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
== END 2024-06-03 23:59 | disposition home or self-care (01) ==
PROVIDERS: PCP Nurse Practitioner Family; Visit Provider Nurse Practitioner Family
DX: G57.03 Lesion of sciatic nerve, bilateral lower limbs (principal); M79.18 Myalgia, other site; Z73.89 Other problems related to life management difficulty
CPT/HCPCS: 99212; G0463

== ENCOUNTER → 2024-06-29 12:45 | Day surgery (SDC) | payer MEDICARE, SELFPAY ==
--- NOTE | 2024-06-29 13:11 | EXP.PAIN.PRO ---
Procedure Date: 06/29/24 Time: 13:00 Anesthesiologist:: Gagan Rosario CRNA Complications:: None Pre-procedure Diagnosis:: Piriformis syndrome Post-procedure Diagnosis:: Same. Indications for Procedure:: Patient arrives today for bilateral piriformis injection. However, her blood sugar is 265. Will reschedule her for an alternate date. I suggested to her was to have a early appointment and protein for breakfast. Procedure Details:: Procedure canceled. Plan and Disposition:: Patient was discharged.
[2024-06-29 13:16] LABS: POC Glucose,Bedside 269 (70-110)
== END | disposition home or self-care (01) ==
PROVIDERS: PCP Nurse Practitioner Family; Visit Provider Nurse Anesthetist, Certified Registered
DX: G57.03 Lesion of sciatic nerve, bilateral lower limbs (principal); Z53.8 Procedure and treatment not carried out for other reasons; E11.69 Type 2 diabetes mellitus with other specified complication; E66.9 Obesity, unspecified; I11.9 Hypertensive heart disease without heart failure; E78.2 Mixed hyperlipidemia; I25.118 Atherosclerotic heart disease of native coronary artery with other forms of angina pectoris
CPT/HCPCS: 82962

== ENCOUNTER 2024-07-02 13:29 | Outpatient (CLI) | payer MEDICARE, SELFPAY ==
--- NOTE | 2024-07-02 13:33 | MM_ITS ---
PROCEDURE INFORMATION: Exam: MG Bilateral Screening 3D Mammography Exam date and time: 07/02/2024 1:30 PM Age: 78 years old Clinical indication: Screening examination. TECHNIQUE: Imaging protocol: Bilateral Screening tomosynthesis and 2D mammography including computer-aided detection (CAD) when performed. COMPARISON: 1. MG MM DIG SCREENING MAMM BI W/CAD 06/04/2023 10:31 AM 2. MG MM DIG SCREENING MAMM BI W/CAD 05/27/2022 10:42 AM 3. MG MM DIG SCREENING MAMM BI W/CAD 04/30/2021 3:47 PM 4. MG MM DIG SCREENING MAMM BI W/CAD 03/22/2020 10:49 AM FINDINGS: MAMMOGRAPHY: Breast composition: The breasts are heterogeneously dense, which may obscure small masses. Mass: None. Architectural distortion: None. Calcifications: No suspicious calcifications. Asymmetric density: None. Skin thickening: None. Axillary adenopathy: None. IMPRESSION: No mammographic evidence of malignancy. Annual screening is recommended unless otherwise clinically indicated. ASSESSMENT: BI-RADS Category 1: Negative.
== END 2024-07-02 23:59 | disposition home or self-care (01) ==
LOC: RAD 13:29
PROVIDERS: PCP Nurse Practitioner Family; Visit Provider Nurse Practitioner Family
DX: Z12.31 Encounter for screening mammogram for malignant neoplasm of breast (principal)
CPT/HCPCS: 77063; 77067

== ENCOUNTER → 2024-07-13 12:47 | Day surgery (SDC) | payer MEDICARE, SELFPAY ==
[2024-07-13 13:33] LABS: POC Glucose,Bedside 295 (70-110)
--- NOTE | 2024-07-14 08:31 | PC.NURSE ---
late entry: on 07/13 pt presented for an injection. FSBS checked prior to injection, result 295. Provider was notified, stated glucose too high for steroid injection. Pt notified of unable to get injection r/t elevated fsbs by provider. Provider had a discussion with pt. Appt cancelled. Pt instructed to see pcp r/t elevated glucose levels. Pt had reported she had not eaten yet today (07/13/24) in hopes her glucose would be okay level for injection. Pt instructed to call to reschedule appt after glucose levels are more manageable per Provider (pat).
== END ==
LOC: SC.PAINP 12:47
PROVIDERS: PCP Nurse Practitioner Family; Visit Provider Nurse Anesthetist, Certified Registered
DX: G57.03 Lesion of sciatic nerve, bilateral lower limbs (principal); Z53.8 Procedure and treatment not carried out for other reasons; E11.9 Type 2 diabetes mellitus without complications
CPT/HCPCS: 82962

== ENCOUNTER 2024-08-10 11:26 | Day surgery (SDC) | payer MEDICARE, SELFPAY ==
[2024-08-10 11:44] VITALS: BP 174/79; PULSE 74; RESP 16; TEMP 36.4; O2SAT 100; BMI 25.1
[2024-08-10 11:44] LABS: POC Glucose,Bedside 98 (70-110)
[2024-08-10 11:55] VITALS: BP 159/93; PULSE 83; RESP 18; O2SAT 96
[2024-08-10] MEDS: methylPREDNISolone ACETATE 80MG/ML VIAL 80 MG (11:55)
[2024-08-10] MEDS: LIDOCAINE 1% 5ML PF VIAL 5 ML (11:55)
[2024-08-10] MEDS: BUPIVACAINE 0.25% 10ML INJ 25 MG IJ (11:55)
[2024-08-10 11:56] VITALS: BP 159/93; PULSE 83; RESP 18; O2SAT 96
--- NOTE | 2024-08-10 12:01 | P.PCN_ITS ---
Procedure Date: 08/10/24 Time: 11:40 Anesthesiologist:: Gagan Rosario CRNA Complications:: None Pre-procedure Diagnosis:: Bilateral sacroiliitis. Bilateral piriformis syndrome. Degenerative disc lumbar spine multilevels. Lumbar radiculopathy. Lumbar spondylosis. Multilevel lumbar facet arthropathy. Chronic arthritis. Post-procedure Diagnosis:: Same. Indications for Procedure:: Patient is a 78-year-old female who comes our clinic today for bilateral piriformis injections. I will include distal SI joint injection at the same time. Patient describes low lumbar back pain off the midline bilaterally. Bilateral posterior hip pain. Difficulty sitting. Difficulty ambulating. Dif ficulty transitioning from sitting to standing. Procedure Details:: Procedure: Bilateral sacroiliac joint injections under fluoroscopy Informed consent was obtained and the risks and benefits of the procedure were explained to the patient.~ The patient was taken to the procedure room and noninvasive monitors were placed including a noninvasive blood pressure cuff and pulse oximeter.~ The patient was placed prone on the procedure table. Both hips were cleansed using Betadine as a cleansing solution. C-arm fluoroscopy was used to view the right sacroiliac joint.~ The skin and subcutaneous tissues were anesthetized using lidocaine 1.5% and a 25-gauge needle.~ After this, a 22-gauge spinal needle was inserted under fluoroscopic guidance into the inferior aspect of the right sacroiliac joint.~ Omnipaque dye was injected and good spread was seen throughout the joint.~ After this, approximately 5 mL of bupivacaine, 0.25% and Depo-Medrol, 40 mg was incrementally injected into the right sacroiliac joint. We then moved to the left sacroiliac joint.~ The skin and subcutaneous tissues were anesthetized using lidocaine 1.5% and a 25-gauge needle.~ After this, a 22- gauge spinal needle was inserted under fluoroscopic guidance into the inferior aspect of the left sacroiliac joint.~ Omnipaque dye was injected and good spread was seen throughout the joint. After this, approximately 5 mL of bupivacaine, 0.25% and Depo-Medrol, 40 mg was incrementally injected into the left sacroiliac joint.~ The patient tolerated the procedure well with no complications. Bilateral piriformis muscle was injected along with bilateral sacroiliac joints. The above mentioned dose was split between the piriformis muscle and sacroiliac joint bilaterally. Plan and Disposition:: Patient was discharged without incident.
[2024-08-10 12:04] VITALS: BP 150/73; PULSE 73; RESP 18; O2SAT 100
[2024-08-10] MEDS: IOPAMIDOL-200 (41%);10ML VIAL IV (13:14)
== END 2024-08-10 12:05 | disposition home or self-care (01) ==
PROVIDERS: PCP Nurse Practitioner Family; Visit Provider Nurse Anesthetist, Certified Registered
DX: M46.1 Sacroiliitis, not elsewhere classified (principal); G57.03 Lesion of sciatic nerve, bilateral lower limbs; M51.16 Intervertebral disc disorders with radiculopathy, lumbar region; M47.26 Other spondylosis with radiculopathy, lumbar region; M19.90 Unspecified osteoarthritis, unspecified site; G89.29 Other chronic pain
CPT/HCPCS: 27096; 82962; G0260; J1010; Q9966

== ENCOUNTER 2024-08-25 09:31 | Outpatient (POV) | payer MEDICARE, SELFPAY ==
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
[2024-08-25 10:08] VITALS: BP 151/84; PULSE 72; RESP 14; O2SAT 97; BMI 25.0
== END 2024-08-25 23:59 | disposition home or self-care (01) ==
LOC: SC.PAIN 09:37
PROVIDERS: PCP Nurse Practitioner Family; Visit Provider Nurse Practitioner Family
DX: G57.03 Lesion of sciatic nerve, bilateral lower limbs (principal); M46.1 Sacroiliitis, not elsewhere classified; M54.50 Low back pain, unspecified; Z73.89 Other problems related to life management difficulty; Z79.02 Long term (current) use of antithrombotics/antiplatelets
CPT/HCPCS: 99212; G0463

== ENCOUNTER 2024-09-08 12:49 | Outpatient (CLI) | payer MEDICARE, SELFPAY ==
--- NOTE | 2024-09-08 12:54 | US_ITS ---
FINAL REPORT CLINICAL HISTORY: Pain and weakness in BLE s, HTN, HLD, DM, hx TIA/CVA, CAD, bilateral claudication. COMPARISON: None FINDINGS: ANKLE-BRACHIAL PRESSURE INDICES Right lower extremity ankle-brachial pressure index is 1.01 which is within normal limits. However, there are abnormal waveforms bilaterally with multiple areas of noncompressibility on the right and left. Findings are most suggestive of moderate to severe atherosclerotic disease. IMPRESSION: Moderate to severe atherosclerotic disease bilaterally Reviewed, Interpreted and Dictated by Candy Marrero MD Transcribed by Ana Rosa Nolasco Authenticated and [facility]
--- NOTE | 2024-09-08 12:54 | CA_ITS ---
FINAL REPORT TECHNIQUE: Color and spectral Doppler analysis CLINICAL HISTORY: pain and weakness in luis m legs COMPARISON: None FINDINGS: Right lower extremity, flow velocities (cm per second): Common femoral artery: 111 Profunda: 75 Proximal SFA: 70 Mid SFA: 87 Distal SFA: 101 Anterior tibial artery: 79 Posterior tibial artery: 50 Peroneal: 99 Left lower extremity, flow velocities (cm per second): Common femoral artery: 123 Profunda: 71 Proximal SFA: 88 Mid SFA: 115 Distal SFA: 84 Anterior tibial artery: 86 Posterior tibial artery: 51 Peroneal: 62 Waveforms are noted to be triphasic. No levels of stenosis or occlusion are identified. Mild diffuse plaque disease is present. IMPRESSION: No evidence of obstructive peripheral vascular disease. Reviewed, Interpreted and Dictated by Treva Renee MD Transcribed by Ana Rosa Nolasco Authenticated and [facility]
== END 2024-09-08 23:59 | disposition home or self-care (01) ==
LOC: RT 12:49
PROVIDERS: PCP Nurse Practitioner Family; Visit Provider Internal Medicine
DX: R29.898 Other symptoms and signs involving the musculoskeletal system (principal); M79.661 Pain in right lower leg; M79.662 Pain in left lower leg; I73.9 Peripheral vascular disease, unspecified
CPT/HCPCS: 93923; 93925

== ENCOUNTER 2024-09-15 15:29 | Outpatient (CLI) | payer MEDICARE, SELFPAY ==
[2024-09-15 15:58] LABS: Basophils % 0.1 % (0.1-2.0); Eosinophils % 0.1 % (0.1-12.0); Hematocrit 41.5 % (37.0-47.0); Hemoglobin 13.6 g/dL (12.2-16.2); Lymphocytes # 2.2 K/mm3 (0.7-4.5); Lymphocytes % 22.9 % (10-50); Mean Corpuscular HGB Conc 32.8 g/dL (31.8-35.4); Mean Corpuscular Hemoglobin 31.1 pg (27.0-31.2); Mean Corpuscular Volume 94.7 fl (81-99); Mean Platelet Volume 10.5 fl (7.4-10.4); Monocytes # 0.8 K/mm3 (0.1-1.0); Monocytes % 8.2 % (1.7-9.3); Neutrophils # 6.4 K/mm3 (1.8-7.8); Neutrophils % 68.3 % (37.0-80.0); Platelet Count 314 K/mm3 (142-424); Red Blood Count 4.38 M/mm3 (4.20-5.40); Red Cell Distribution Width 11.9 % (11.5-17.5); White Blood Count 9.4 K/mm3 (4.8-10.8)
[2024-09-15 18:16] LABS: Chloride 99 mmol/L (98-107)
[2024-09-15 18:17] LABS: Potassium 4.1 mmoL/L (3.5-5.1); Sodium 137 mmol/L (136-145)
[2024-09-15 18:19] LABS: Alanine Aminotransferase 21 U/L (12-78); Anion Gap 13.1 mEq/L (5-15); Aspartate Amino Transferase 26 U/L (14-36); Bilirubin,Unconjugated 0.2 mg/dL (0.0-1.1); Blood Urea Nitrogen 23 mg/dl (7-17); Carbon Dioxide 29 mmol/L (22.0-30.0); Cholesterol 228 mg/dl (140-200); Estimated Glomerular Filt Rate 40 ml/min (>60); GFR (African American) 48 ML/MIN (>60); Total Protein,Serum 6.7 g/dl (6.3-8.2); Triglycerides 266 mg/dl (30-150); VLDL Cholesterol 53 mg/dL (0-40)
[2024-09-15 18:20] LABS: Alkaline Phosphatase 111 U/L (38-126); Bilirubin,Direct 0.1 mg/dl (0.0-0.4); Bilirubin,Indirect 0.2 mg/dL (0.0-0.9); Bilirubin,Total 0.3 mg/dl (0.2-1.3); Calcium 9.3 mg/dl (8.4-10.2); Chol/HDL Ratio 4.3 (1-3.5); Glucose 214 mg/dl (74-100); HDL Cholesterol 53 mg/dl (40-60); Magnesium 1.5 mg/dl (1.6-2.3)
[2024-09-15 18:37] LABS: Direct LDL Cholesterol 119.31 mg/dL (100-129)
[2024-09-15 18:44] LABS: Free T4 (Free Thyroxine) 0.97 ng/dl (0.78-2.19)
[2024-09-15 19:00] LABS: Thyroid Stimulating Hormone 3.49 uIU/mL (0.465-4.68)
== END 2024-09-15 23:59 | disposition home or self-care (01) ==
LOC: LAB 15:29
PROVIDERS: PCP Nurse Practitioner Family; Visit Provider Internal Medicine
DX: E78.2 Mixed hyperlipidemia (principal); I73.9 Peripheral vascular disease, unspecified; M79.661 Pain in right lower leg; M79.662 Pain in left lower leg; R29.898 Other symptoms and signs involving the musculoskeletal system; I11.0 Hypertensive heart disease with heart failure; I25.118 Atherosclerotic heart disease of native coronary artery with other forms of angina pectoris; I50.20 Unspecified systolic (congestive) heart failure; R94.31 Abnormal electrocardiogram [ECG] [EKG]; E11.69 Type 2 diabetes mellitus with other specified complication
CPT/HCPCS: 36415; 80048; 80061; 80076; 83735; 84439; 84443; 85025

== ENCOUNTER 2024-10-12 11:18 | Day surgery (SDC) | payer MEDICARE, SELFPAY ==
[2024-10-12 11:37] VITALS: BP 188/93; PULSE 73; RESP 16; TEMP 36.6; O2SAT 100; BMI 26.6
[2024-10-12 11:39] LABS: POC Glucose,Bedside 121 (70-110)
[2024-10-12 12:09] VITALS: BP 144/80; PULSE 71; RESP 16; O2SAT 92
[2024-10-12 12:39] VITALS: BP 180/90; PULSE 82; RESP 18; O2SAT 94
[2024-10-12 12:46] VITALS: BP 180/90; PULSE 82; RESP 18; O2SAT 94
--- NOTE | 2024-10-12 13:04 | EXP.PAIN.PRO ---
Procedure Date: 10/12/24 Time: 12:00 Anesthesiologist:: Gagan Rosario CRNA Complications:: None Pre-procedure Diagnosis:: Degenerative disc lumbar spine multilevels. Lumbar radiculopathy. Lumbar disc bulge L4-5, L5-S1. Post-procedure Diagnosis:: Same Indications for Procedure:: Patient is a very pleasant 79-year-old female comes our clinic today for lumbar epidural steroid injection L5-S1 level. Patient describes low lumbar back pain as well as bilateral hip and leg radicular symptoms at times. She rates her pain 5/10. Procedure Details:: Procedure: Lumbar epidural steroid injection under fluoroscopy Informed consent was obtained and the risks and benefits of the procedure were explained to the patient. The patient was taken to the procedure room and noninvasive monitors placed, including noninvasive blood pressure cuff and pulse oximeter. The back was viewed using C-arm Fluoroscopy and prepped using Chloraprep as a cleansing solution and the L5-S1 interspace was palpated. Skin and subcutaneous tissues were anesthetized using lidocaine 1.5% and a 25-gauge needle. After this, an 18-gauge Touhy epidural needle was placed into the L5-S1 interspace and advanced using fluoroscopic guidance and loss of resistance to air until the epidural space was encountered. After confirmation of needle placement in the epidural space, with dye, a solution containing normal saline, 3 mL and Depo-Medrol 80 mg were incrementally injected into the lumbar epidural space. The patient tolerated the procedure well with no complications. The patient was observed in the Pain Clinic and then discharged home neurologically intact. Plan and Disposition:: Patient was discharged without incident.
== END 2024-10-12 12:09 | disposition home or self-care (01) ==
LOC: SC.PAINP 11:19
PROVIDERS: PCP Nurse Practitioner Family; Visit Provider Nurse Anesthetist, Certified Registered
DX: M51.16 Intervertebral disc disorders with radiculopathy, lumbar region (principal)
CPT/HCPCS: 62323; 82962; J1010

== ENCOUNTER 2024-10-14 10:17 | Outpatient (CLI) | payer MEDICARE, SELFPAY ==
--- NOTE | 2024-10-14 10:31 | CT_ITS ---
FINAL REPORT CLINICAL HISTORY: abnl shirley/claudication COMPARISON: None FINDINGS: CT ABDOMEN, CT PELVIS, CTA ABDOMEN, CTA PELVIS AND CTA LOWER EXTREMITY RUNOFF TECHNIQUE: Thin section axial CT with IV contrast supplemented with 3D MIP reconstruction under CT Angiogram protocol This study was performed with techniques to keep radiation doses as low as reasonably achievable, (ALARA). Individualized dose reduction techniques using automated exposure control or adjustment of mA and/or kV according to the patient's size were employed. FINDINGS: CT ANGIOGRAM ABDOMEN AND PELVIS: The abdominal aorta is patent. There is moderate diffuse plaque disease. Moderate bilateral renal artery stenosis is noted. There is moderate celiac and SMA stenosis. The ELEN is widely patent. The iliac vessels are widely patent. CTA RIGHT LOWER EXTREMITY: The femoral and popliteal vessels are widely patent. There is single-vessel runoff to the right calf through the posterior tibial artery. Chronic appearing occlusion is noted of the peroneal and anterior tibial arteries. CTA LEFT LOWER EXTREMITY: Femoral and popliteal vessels are widely patent. There is advanced popliteal trifurcation disease. Diseased runoff through the posterior tibial and to a lesser extent peroneal arteries. Abdomen: Mild left renal scarring. Remaining solid organs are normal. Gallbladder is negative. Bowel is unremarkable. Pelvis: Status post hysterectomy. Nonvisualization of the appendix. Pelvic bowel loops are unremarkable. IMPRESSION: No significant aortoiliac inflow disease. Significant distal outflow disease involving the infrapopliteal circulation bilaterally. Renal and mesenteric artery stenosis as above. Reviewed, Interpreted and Dictated by Treva Renee MD Transcribed by Ana Rosa Nolasco Authenticated and . [facility]
[2024-10-14 10:40] LABS: Blood Urea Nitrogen 27 mg/dl (7-17); Estimated Glomerular Filt Rate 48 ml/min (>60); GFR (African American) 58 ML/MIN (>60)
[2024-10-14] MEDS: 0.9 % SODIUM CHLORIDE 50 ML VIAL IV ×2 (12:07→12:08)
[2024-10-14] MEDS: IOPAMIDOL-370 (76%);100ML BOTTLE 100 ML IV (12:07)
[2024-10-14] MEDS: SODIUM CHLORIDE 0.9% 10ML SYR (RAD ONLY) 10 ML IV (12:07)
[2024-10-14] MEDS: IOPAMIDOL-370 (76%);100ML BOTTLE 20 ML IV (12:08)
== END 2024-10-14 23:59 | disposition home or self-care (01) ==
LOC: RAD 10:18
PROVIDERS: PCP Nurse Practitioner Family; Visit Provider Internal Medicine
DX: I73.9 Peripheral vascular disease, unspecified (principal); R68.89 Other general symptoms and signs; R29.898 Other symptoms and signs involving the musculoskeletal system; M79.661 Pain in right lower leg; M79.662 Pain in left lower leg; M79.10 Myalgia, unspecified site; E78.2 Mixed hyperlipidemia; E66.9 Obesity, unspecified; I25.118 Atherosclerotic heart disease of native coronary artery with other forms of angina pectoris; R94.31 Abnormal electrocardiogram [ECG] [EKG]; I50.20 Unspecified systolic (congestive) heart failure
CPT/HCPCS: 36415; 75635; 82565; 84520; Q9967

== ENCOUNTER 2024-10-27 09:49 | Outpatient (POV) | payer MEDICARE, SELFPAY ==
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
[2024-10-27 10:58] VITALS: BP 182/90; BP 183/79; PULSE 65; RESP 16; O2SAT 97; BMI 26.6
== END 2024-10-27 23:59 | disposition home or self-care (01) ==
LOC: SC.PAIN 09:50
PROVIDERS: PCP Nurse Practitioner Family; Visit Provider Nurse Practitioner Family
DX: M54.16 Radiculopathy, lumbar region (principal); M54.50 Low back pain, unspecified; Z79.01 Long term (current) use of anticoagulants
CPT/HCPCS: 99212; G0463

== ENCOUNTER 2024-11-02 15:28 | Emergency (ER) | payer MEDICARE, SELFPAY ==
[2024-11-02 15:30] VITALS: BP 138/79; PULSE 71; RESP 18; TEMP 36.6; O2SAT 97; BMI 25.7
--- NOTE | 2024-11-02 15:49 | ECG_ITS ---
APPROVED REPORT Exam: Resting ECG HR:77 bpm ECG Measurements Heart Rate 77 AXES VA 147 P 60 QRSd 83 QRS 4 QT 397 T 55 QTc 428 Conclusion SINUS RHYTHM NORMAL ECG Electronically signed by : MADONNA GÓMEZ, 11/03/2024 06:31:22
[2024-11-02 16:00] VITALS: BP 159/76; PULSE 80; O2SAT 99
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
[2024-11-02] MEDS: TET/DIPHTH/PERT-ADULT 0.5ML SYRINGE 0.5 ML IM (16:06)
[2024-11-02 16:23] VITALS: BP 159/76; PULSE 80; RESP 18; TEMP 36.8; O2SAT 100
== END 2024-11-02 16:24 | disposition home or self-care (01) ==
PROVIDERS: Emergency Provider Emergency Medicine; PCP Nurse Practitioner Family
DX: S41.112A Laceration without foreign body of left upper arm, initial encounter (principal); M79.602 Pain in left arm; Z79.01 Long term (current) use of anticoagulants; W01.198A Fall on same level from slipping, tripping and stumbling with subsequent striking against other object, initial encounter; Y93.89 Activity, other specified; Y92.89 Other specified places as the place of occurrence of the external cause; Z23 Encounter for immunization
CPT/HCPCS: 90471; 90715; 93005; 99283

== ENCOUNTER 2024-11-03 08:59 | Day surgery (SDC) | payer MEDICARE, SELFPAY ==
[2024-11-03] VITALS (13 sets, daily range): BP systolic 166–220; BP diastolic 78–115; PULSE 58–78; RESP 18–20; TEMP 36.9; O2SAT 90–97; BMI 26.6
--- NOTE | 2024-11-03 07:05 | IR_ITS ---
APPROVED REPORT Patient Location: Outpatient PROCEDURES Catheter placed in the abdominal aorta Abdominal aortography Positioning of the catheter in the abdominal aorta Bilateral iliofemoral runoff Bilateral renal artery selective angiogram Bare-metal stent deployment to the left renal artery INDICATION Abnormal YASMANI with Rabun claudication class III, Known renal artery stenosis based on CTA, Renovascular hypertension, Informed consent was obtained prior to the procedure. COMPLICATIONS NONE Estimated Blood Loss: LESS THAN 10 ML TECHNIQUE 1% lidocaine used to size right groin the right femoral artery was accessed via the central technique and a 4 Surinamese sheath was placed in the right femoral artery. A pigtail catheter was advanced and abdominal aortography was performed. The catheter was then repositioned and bilateral iliofemoral runoff was performed. At this point a JR4 catheter was used to intubate each renal artery and perform selective angiography. After finding severe left renal artery stenosis the 4 Surinamese sheath was exchanged for a 6 Surinamese sheath therapeutic heparin was administered given a therapeutic ACT and a renal catheter was used to intubate the left renal artery followed by Choice PT extra-support wire. A 6.5 x 12 mm Herculink stent was deployed at 12 anna reducing the severe to critical stenosis to 0%. Excellent angiograph results were obtained. At the end the procedure the apparatus was removed the groin is reprepped closure change sheath was removed hemostasis was achieved using Perclose device patient was transferred to the postop putting in stable condition ANGIOGRAPHIC RESULTS Right renal artery is singular and has a proximal eccentric 30% stenosis Left renal artery singular and has an ostial 80 to 90% stenosis Infrarenal abdominal aorta is normal Right common iliac artery is calcified but widely patent. The right common and internal iliac arteries are widely patent the right common femoral artery is calcified but widely patent right profunda femoris artery is patent right superficial femoral artery has diffuse concentric moderate calcification throughout the entire course of the SFA and into the popliteal artery. Below the knee and the anterior tibialis artery is patent as is the peroneal artery and there is slow flow into the calf. The posterior tibialis artery is occluded Left common iliac artery has a mid vessel concentric 30% stenosis the left internal and external iliac arteries are widely patent the left common femoral artery is widely patent the left profunda femoris artery is widely patent the left superficial femoral artery is calcified throughout its entire course and into the left popliteal artery. Below the knee the left anterior tibialis artery and peroneal arteries are patent however there is slow flow into the left ankle. The left posterior tibialis artery appears occluded IMPRESSION Mild right renal artery stenosis Severe left renal artery stenosis Successful stenting of left renal artery severe disease reduced to 0% with 1 bare-metal balloon mounted stent Mild left common iliac artery stenosis Extensive calcification throughout the bilateral SFA and popliteal arteries without focal stenosis greater than 30% Two-vessel runoff below the knee which is slow with a chronically occluded posterior tibialis artery bilaterally PLAN 1. Xarelto 2.5 twice daily plus aspirin 81 mg for peripheral artery disease 2. Control of hypertension 3. LDL less than 55 achieved with high intensity statin 4. Medical management for vascular disease with aggressive risk factor modification 5. Physical therapy for peripheral artery disease Electronically signed by : Lucio Mckinnon MD 11/05/2024 14:19:10
[2024-11-03 09:28] LABS: Eosinophils % 0.3 % (0.1-12.0); Hematocrit 40.7 % (37.0-47.0); Hemoglobin 13.5 g/dL (12.2-16.2); Lymphocytes # 1.6 K/mm3 (0.7-4.5); Lymphocytes % 24.3 % (10-50); Mean Corpuscular HGB Conc 33.2 g/dL (31.8-35.4); Mean Corpuscular Volume 93.6 fl (81-99); Mean Platelet Volume 10.6 fl (7.4-10.4); Monocytes # 0.7 K/mm3 (0.1-1.0); Monocytes % 11.1 % (1.7-9.3); Neutrophils # 4.1 K/mm3 (1.8-7.8); Platelet Count 229 K/mm3 (142-424); Red Blood Count 4.35 M/mm3 (4.20-5.40); White Blood Count 6.5 K/mm3 (4.8-10.8)
[2024-11-03 09:40] LABS: Chloride 102 mmol/L (98-107); Sodium 138 mmol/L (136-145)
[2024-11-03 09:41] LABS: Potassium 4.4 mmoL/L (3.5-5.1)
[2024-11-03 09:44] LABS: Anion Gap 10.4 mEq/L (5-15); Blood Urea Nitrogen 24 mg/dl (7-17); Calcium 9.5 mg/dl (8.4-10.2); Carbon Dioxide 30 mmol/L (22.0-30.0); Creatinine Clearance Estimated 48 mL/min (50-200); Estimated Glomerular Filt Rate 48 ml/min (>60); GFR (African American) 58 ML/MIN (>60); Glucose 157 mg/dl (74-100)
[2024-11-03] MEDS: HEPARIN 1,000 UNITS/500ML NS (CATH LAB) 3000 UNIT IV (11:08)
[2024-11-03] MEDS: 0.9 % SODIUM CHLORIDE 500 ML 25 ML IV (11:08)
[2024-11-03] MEDS: LIDOCAINE 1% 10ML MDV 10 ML IJ (11:08)
[2024-11-03] MEDS: diphenhydrAMINE 50MG/ML VIAL 50 MG IV (11:08)
[2024-11-03] MEDS: FENTANYL 100MCG/2ML VIAL 50 MCG IV (11:26)
[2024-11-03] MEDS: MIDAZOLAM HCL 1MG/ML 5ML VIAL 1 MG IV (11:27)
[2024-11-03] MEDS: HEPARIN 1,000 UNITS/ML 10ML VIAL (CATH LAB) 5000 UNIT IV (12:07)
[2024-11-03] MEDS: CLOPIDOGREL 75MG TAB 75 MG PO (12:18)
[2024-11-03] MEDS: IOHEXOL-240 100ML BOTTLE 120 ML IV (13:04)
[2024-11-03] MEDS: IOPAMIDOL-370 (76%);100ML BOTTLE 50 ML IV (13:04)
[2024-11-03 13:49] LABS: CATHL Activated Clotting Time > 400 SEC (74-125)
== END 2024-11-03 15:16 | disposition home or self-care (01) ==
PROVIDERS: PCP Nurse Practitioner Family; Visit Provider Internal Medicine
DX: I70.1 Atherosclerosis of renal artery (principal); I25.118 Atherosclerotic heart disease of native coronary artery with other forms of angina pectoris; I73.9 Peripheral vascular disease, unspecified; Z95.820 Peripheral vascular angioplasty status with implants and grafts; I77.1 Stricture of artery; I50.20 Unspecified systolic (congestive) heart failure; I25.2 Old myocardial infarction; I70.223 Atherosclerosis of native arteries of extremities with rest pain, bilateral legs; Z82.49 Family history of ischemic heart disease and other diseases of the circulatory system; Z88.2 Allergy status to sulfonamides; Z79.01 Long term (current) use of anticoagulants; Z79.4 Long term (current) use of insulin; E78.5 Hyperlipidemia, unspecified
CPT/HCPCS: 37236; 75716; 80048; 85025; 85347; 99152; 99153; C1725; C1760; C1769; C1876; C1887; C1894; J1200; J1644; J3010; Q9966; Q9967

== ENCOUNTER 2024-11-05 15:08 | Outpatient (CLI) | payer MEDICARE, SELFPAY ==
[2024-11-05 15:46] LABS: Basophils % 0.2 % (0.1-2.0); Eosinophils % 0.4 % (0.1-12.0); Hematocrit 38.8 % (37.0-47.0); Hemoglobin 12.7 g/dL (12.2-16.2); Lymphocytes # 1.3 K/mm3 (0.7-4.5); Lymphocytes % 23.7 % (10-50); Mean Corpuscular HGB Conc 32.7 g/dL (31.8-35.4); Mean Corpuscular Hemoglobin 30.8 pg (27.0-31.2); Mean Corpuscular Volume 93.9 fl (81-99); Mean Platelet Volume 10.7 fl (7.4-10.4); Monocytes # 0.5 K/mm3 (0.1-1.0); Monocytes % 8.4 % (1.7-9.3); Neutrophils # 3.7 K/mm3 (1.8-7.8); Neutrophils % 66.9 % (37.0-80.0); Nucleated Red Blood Cells # 0 10^3/uL; Nucleated Red Blood Cells % 0 %; Platelet Count 231 K/mm3 (142-424); Red Blood Count 4.13 M/mm3 (4.20-5.40); Red Cell Distribution Width 12.2 % (11.5-17.5); Red Cell Distribution Width-SD 42.4 fL; White Blood Count 5.6 K/mm3 (4.8-10.8)
[2024-11-05 16:26] LABS: Chloride 102 mmol/L (98-107); Potassium 4.3 mmoL/L (3.5-5.1); Sodium 137 mmol/L (136-145)
[2024-11-05 16:29] LABS: Anion Gap 12.3 mEq/L (5-15); Blood Urea Nitrogen 22 mg/dl (7-17); Calcium 8.8 mg/dl (8.4-10.2); Carbon Dioxide 27 mmol/L (22.0-30.0); Estimated Glomerular Filt Rate 44 ml/min (>60); GFR (African American) 53 ML/MIN (>60); Glucose 244 mg/dl (74-100)
== END 2024-11-05 23:59 | disposition home or self-care (01) ==
LOC: LAB 15:09
PROVIDERS: PCP Nurse Practitioner Family; Visit Provider Internal Medicine
DX: I25.10 Atherosclerotic heart disease of native coronary artery without angina pectoris (principal); I73.9 Peripheral vascular disease, unspecified; Z95.820 Peripheral vascular angioplasty status with implants and grafts
CPT/HCPCS: 36415; 80048; 85025

== ENCOUNTER 2024-12-08 10:27 | Outpatient (POV) | payer MEDICARE, SELFPAY ==
[2024-12-08 10:35] VITALS: BP 109/56; PULSE 83; RESP 14; O2SAT 99; BMI 25.7
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
== END 2024-12-08 23:59 | disposition home or self-care (01) ==
LOC: SC.PAIN 10:28
PROVIDERS: PCP Nurse Practitioner Family; Visit Provider Nurse Practitioner Family
DX: M54.16 Radiculopathy, lumbar region (principal); M54.50 Low back pain, unspecified; Z79.01 Long term (current) use of anticoagulants
CPT/HCPCS: 99212; G0463

== ENCOUNTER 2025-01-04 09:59 | Outpatient (RCR) | payer MEDICARE, SELFPAY | END 2025-03-03 08:00 | disposition home or self-care (01) | LOC: CR 09:59 | PROVIDERS: Visit Provider Internal Medicine | DX: I73.9 Peripheral vascular disease, unspecified (principal) | CPT/HCPCS: 93668 ==

== ENCOUNTER 2025-01-11 14:26 | Outpatient (CLI) | payer MEDICARE, SELFPAY ==
--- OUTSIDE RECORDS SUMMARY | 2024-10-30 17:30 | XMS_ITS ---
Author Organization [facility] Address [address] [place] [address] Care Team Providers Care Advertising Vice President Name Role Phone Edinson García Primary Care Provider Cheyenne Scott Unavailable [phone] Migration, Provider Unavailable Unavailable Allergies Allergen (clinical drug ingredient) Drug/Non Drug Allergy documented on EMR Reaction Allergy Type Onset Date Status SULFA (uncoded) rash Allergy Acti ve tramadol traMADol Unknown Drug Allergy [facility] Encounter Medications Medication SIG (Take, Route, Frequency, Duration) Notes Start Date End Date Status MiraLax - 17 GRAMS ORALLY ONCE A DAY for 30 DAYS *Please review and pick correct strength-formulation from [facility] options. If intended option is not shown, discontinue and re-order from Quick Search* 06/02/2023 Active ACCU CHECK TEST STRIPS FOR DIABETIC TESTING ONCE A DAY AND NEEDED for 90 DAYS *Please review for potential replacement for e-prescription and drug interaction check* Active ACCU-CHECK MULTICLIX ONCE A DAY TESTING for 90 DAYS E11.9 *Please review for potential replacement for e-prescription and drug interaction check* 12/10/2016 Active metFORMIN HCl 500 MG 1 tab(s) orally 2 times a day for 30 days Active Toujeo SoloStar 300 UNIT/ML 16 subcutaneously once a day plastic surgeon at Active Metoprolol Succinate ER 25 MG 1 TAB(S) ORALLY ONCE A DAY for 30 DAYS *[facility] review and [facility] If intended option is not shown, discontinue and re-order from Quick Search* 02/26/2024 Active Venlafaxine HCl ER 150 MG 1 cap(s) orally once a day for 30 days Active Gabapentin 600 MG 1 tab(s) orally twice a day for 90 days 07/12/2024 Active Levothyroxine Sodium 50 MCG TAKE 1 TABLET EVERY DAY orally once a day for 90 days Active Lidocaine 5 % 1 PATCH applied topically once a day for 12 hours for 30 days 05/12/2024 Active Clopidogrel Bisulfate 75 MG 1 tab(s) orally once a day for 90 days Active BD TJ 2ND GEN PEN NEEDLE 4MM X 32G - SQ ONCE A DAY for 90 DAYS *Please review for potential replacement for e-prescription and drug interaction check* Active Aspirin 81 MG 1 tab(s) orally once a day Active Atorvastatin Calcium 80 MG 1 tab(s) orally once a day for 30 days Active ACCU CHECK GLUCOMETER BID PRN E11.9 *Please review for potential replacement for e-prescription and drug interaction check* 12/10/2016 Active Midodrine HCl 5 MG 1 tab(s) orally 3 times a day Active Fludrocortisone Acetate 0.1 MG 1 tab(s) orally once a day Active Encounters Encounter Location Date Provider Diagnosis [facility] [address] [facility] [address] [place] [address] 10/30/2024 Provider Migration Plan Of Treatment Next Appt Details Provider Name:Cheyenne Alejandra Lynn ce, 01/12/2025 03:30:00 PM, [address] [place] [address], [phone], Progress Notes * Marilyn DIAZ RDOB:[birth year] (79 yo F)Acc No.[id number]:10/30/2024 Patient: Marilyn GARCÍA Provider: Che stewart Migration :1945 A ge:79 Y S ex:Female Date:10/30/2024 Address:[address] [place] [address], [facility] [place] [phone] Pcp:Edinson García Subjective: * Chief Complaints: * 1 . Multum To [facility]ispan Conversion Encounter. * Medical History: * Medications: Michael Mccullough SoloStar 300 UNIT/ML Solution Pen-injector 16 subcutaneously once a day , Notes to Pharmacist: plastic surgeon at , Taking Midodrine HCl 5 MG Tablet 1 tab(s) orally 3 times a day , Taking Fludrocortisone Acetate 0.1 MG Tablet 1 tab(s) orally once a day , Taking Atorvastatin Calcium 80 MG Tablet 1 tab(s) orally once a day , Taking ACCU CHECK GLUCOMETER BID PRN , Notes to Pharmacist: E11.9 *Please review for potential replacement for e-prescription and drug interaction check*, Taking Aspirin 81 MG Tablet Delayed Release 1 tab(s) orally once a day , Taking Clopidogrel Bisulfate 75 MG Tablet 1 tab(s) orally once a day , Taking BD TJ 2ND GEN PEN NEEDLE 4MM X 32G - SQ ONCE A DAY , Notes to Pharmacist: *Please review for potential replacement for e-prescription and drug interaction check*, Taking Metoprolol Succinate ER 25 MG CAPSULE, EXTENDED RELEASE 1 TAB(S) ORALLY ONCE A DAY , Notes to Pharmacist: *Please review and pick correct strength-formulation from [facility] options. If intended option is not shown, discontinue and re-order from Quick Search*, Taking Venlafaxine HCl ER 150 MG Capsule Extended Release 24 Hour 1 cap(s) orally once a day , Taking Levothyroxine Sodium 50 MCG Tablet TAKE 1 TABLET EVERY DAY orally once a day , Taking Lidocaine 5 % Patch 1 PATCH applied topically once a day for 12 hours , Taking Gabapentin 600 MG Tablet 1 tab(s) orally twice a day , Taking metFORMIN HCl 500 MG Tablet 1 tab(s) orally 2 times a day , Taking ACCU CHECK TEST STRIPS FOR DIABETIC TESTING ONCE A DAY AND NEEDED , Notes to Pharmacist: *Please review for potential replacement for e-prescription and drug interaction check*, Taking ACCU-CHECK MULTICLIX ONCE A DAY TESTING , Notes to Pharmacist: E11.9 *Please review for potential replacement for e-prescription and drug interaction check*, Taking MiraLax - POWDER FOR RECONSTITUTION 17 GRAMS ORALLY ONCE A DAY , Notes to Pharmacist: *Please review and pick correct strength-formulation from [facility] options. If intended option is not shown, discontinue and re-order from Quick Search* * Allergies: S ULFA: rash, traMADol. Objective: * Vitals: Assessment: Plan: * Treatment: * * Electronic signature of Prov ider Migration on 01/11/2025 at 02:28 PM EDT Sign off status: Pending * Provider: Che stewart Migration Date: 10/30/2024 Generated for Kimberly bradford/Otto/Lolis on: 0 01/11/2025 02:28 PM EDT
--- OUTSIDE RECORDS SUMMARY | 2024-11-08 08:00 | XMS_ITS ---
Author Organization [facility] Address [address] [place], [place] [address] Care Team Providers Care Driving Teacher Name Role Phone Edinson García Primary Care Provider Cheyenne Scott Unavailable [phone] REASON FOR VISIT 3 Month F/U Encounters Encounter Location Date Provider Diagnosis [facility] [address] [place] [address] 11/08/2024 Cheyenne Scott Plan Of Treatment Next Appt Details Provider Name:Cheyenne Lynn ce, 01/12/2025 03:30:00 PM, [address], [address], Progress Notes * EMILYMaraMarilyn RDOB:[birth year] (79 yo F)Acc No.[id number]:11/08/2024 Progress Notes Patient: Marilyn GARCÍA Provider: HONORIO Cm :1945 A ge:79 Y S ex:Female Date:11/08/2024 Address:[address], [place] Pcp:Edinson García Subjective: * Chief Complaints: * 1 . 3 Month F/U. * Medical History: Objective: * Vitals: Assessment: Plan: * Treatment: * * Electronic signature of Apryl Scott APRN on 01/11/2025 at 02:28 PM EDT Sign off status: Pending * Provider: HONORIO Cm Date: 0 11/08/2024 Generated for Kimberly bradford/Otto/Lolis on: 0 01/11/2025 02:28 PM EDT
--- OUTSIDE RECORDS SUMMARY | 2025-01-03 10:45 | XMS_ITS ---
Author Organization [facility] Address [address] [place], [place] [address] Care Team Providers Care Sap Bw Consultant Name Role Phone Edinson García Primary Care Provider Cheyenne Scott Unavailable [phone] REASON FOR VISIT 6 month ck Encounters Encounter Location Date Provider Diagnosis [facility] [address] [place] [address] 01/03/2025 Cheyenne Soctt Plan Of Treatment Next Appt Details Provider Name:Cheyenen Lnyn ce, 01/12/2025 03:30:00 PM, [address], [address], Progress Notes * Marilyn DIAZ RDOB:[birth year] (79 yo F)Acc No.[id number]:01/03/2025 Progress Notes Patient: Marilyn GARCÍA Provider: HONORIO [...] status: Pending * Provider: HONORIO Cm Date: 01/03/2025 Generated for Kimberly Fisher on: 01/11/2025 02:28 PM EDT
--- OUTSIDE RECORDS SUMMARY | 2025-01-11 14:28 | XMS_ITS | Clinical Summary ---
Author Organization [facility] Address [address] [place] [address] Care Team Providers Care Foundry Process Engineer Name Role Phone Edinson García MD Primary Care Provider [phone] Allergies Active Allergy Reactions Criticality Noted Date Comments Codeine Other - please docum ent in the comment field Low 02/03/2024 Sulfa Drugs Rash Low 07/26/2024 Tramadol Other - please docum ent in the comment field Low 04/05/2021 Medications aspirin 81 MG EC tablet Take 1 tablet (81 mg) by mouth 1 (one) time each day. 10/10/2020 Active carvedilol (Coreg) 6.25 MG tablet Take 1 tablet (6.25 mg) by mouth 1 (one) time each day. 10/29/2023 Active clopidogrel (Plavix) 75 MG tablet Take 1 tablet (75 mg) by mouth Daily. Active ezetimibe (Zetia) 10 MG tablet Take 1 tablet (10 mg) by mouth 1 (one) time each day. 07/13/2024 Active fludrocortisone (Florinef) 0.1 MG tablet Take 1 tablet (0.1 mg) by mouth Daily. Active gabapentin (Neurontin) 600 MG tablet Take 1 tablet (600 mg) by mouth 2 (two) times a day. 12/04/2023 Active levothyroxine (Synthroid, Levoxyl) 50 MCG tablet Take 1 tablet (50 mcg) by mouth 1 (one) time each day. Active metFORMIN (Glucophage) 500 MG tablet Take 1 tablet (500 mg) by mouth 2 (two) times a day. Active midodrine (Proamatine) 5 MG tablet Take 1 tablet (5 mg) by mouth 3 (three) times a day. Active predniSONE (Deltasone) 2.5 MG tablet Take 1 tablet (2.5 mg) by mouth 1 (one) time each day. Active venlafaxine XR (Effexor-XR) 150 MG 24 hr capsule Take 1 capsule (150 mg) by mouth 1 (one) time each day. Active insulin glargine (Lantus SoloStar, Basaglar) 100 UNIT/ML injection pen Inject 10 units at bedtime. Titrate as directed. MDD: 30 units 15 mL 1 07/26/2024 Active pen needle, diabetic (B-D UF III MINI PEN NEEDLES) 31G X 5 MM misc Use to inject insulin 1x per day 100 each 3 07/26/2024 Active Active Problems Problem Noted Date Diagnosed Date NYHA class 2 heart failure with reduced ejection fraction 07/26/2024 POTS (postural orthostatic tachycardia syndrome) 07/26/2024 STEMI (ST elevation myocardial infarction) 07/26 Type 2 diabetes mellitus wit h hyperglycemia, with long-term current use of insulin 07/26/2024 Abnormal renal function 07/26/2024 Arteriosclerosis of coronary artery 04/07/2024 Hyperlipidemia 04/07/2024 Hypothyroid 04/07/2024 Essential hypertension 10/10/2020 Social History Tobacco Use Types Packs/Day Years Used Date Smoking Tobacco: Never Smokeless Tobacco: Never Alcohol Use Standard Drinks/Week Comments Never 0 (1 standard drink = 0.6 oz pur e alcohol) Comments Unknown Sex and Gender Information Value Date Recorded Sex Assigned at Not on file Legal Sex Female 6:11 PM EDT Gender Identity Not on file Sexual Orientation Not on file Last Filed Vital Signs Vital Sign Reading Time Taken Comments Blood Pressure 140/85 07/26/2024 8:02 AM EST Pulse 78 07/26/2024 8:02 AM EST Temperature 36.2 C (97.2 F) 10/10/2020 12:17 PM EDT Respiratory Rate - - Oxygen Saturation - - Inhaled Oxygen Concentration - - Weight 68.8 kg (151 lb 10.8 oz) 07/26/2024 8:02 AM EST Height 162.6 cm (5' 4 ) 07/26/2024 8:02 AM EST Body Mass Index 26.04 07/26/2024 8:02 AM EST Plan of Treatment Health Maintenance Due Date Last Done Comments [facility]-Bone Density Scan 1945 [facility]-Depression Screening 1945 [facility]-Medicare Annual Wellness (AWV) 1945 [facility]-/Child/Adol SDOH Screenings 1945 Diabetes: Dental Exam 1957 [facility]- SDOH Screenings 1965 [facility]-Adult SDOH Screenings 1965 [facility]-Zoster Vaccines (1 of 2) 1966 [facility]-Pneumococcal Vaccine: 50+ Years (2 of 2 - PPSV23) 12/16/2016 10/21/2016 [id number] Vaccine (4 - season) 2024 06/07/2021, 10/14/2020, 09/21/2020 [facility]-Diabetes: Hemoglobin A1C 10/25/2024 07/26/2024, 04/07/2024 [facility]-DTaP,Tdap,and Td Vaccines (3 - Td or Tdap) 11/23/2033 11/24/2023, 12/16/2007 [facility]-Hepatitis C Screening Completed 10/10/2020 [facility]-RSV Vaccine: 60+ Years or Completed 06/02/2023 [facility]-Influenza Vaccine Completed 06/17/2024 , 06/02/2023, 04/05/2021, Additional history exists [facility]-Obesity Intervention Completed 07/26/2024 HPV Vaccines Aged Out No longer eligi ble based on patient's age to complete this topic [facility]-HIB Vaccines Aged Out No longer e ligible based on patient's age to complete this topic [facility]-Hepatitis A Vaccines Aged Out No longer eligible based on patient's age to complete this topic [facility]-IPV Vaccines Aged Out No longer e ligible based on patient's age to complete this topic [facility]-Rotavirus Vaccines Aged Out No lo nger eligible based on patient's age to complete this topic Procedures Procedure Name Priority Date/Time Associated Diagnosis Comments POCT GLYCOSYLATED HEMOGLOBIN (HGB A1C) Routine 07/26/2024 8:23 AM EST ACUTE HEPATITIS PANEL Routine 10/10/2020 1:24 PM EDT from Last 3 Months or Most Recently Relevant to Health Maintenance Results * POCT glycosylated hemoglobin (Hb A1C) (07/26/2024 8:23 AM EST) [facility] POCT Hemoglobin A1C 11.3 <5.7% Non-Diabet ic % [facility] Kit Lot Number [id number] ON LICENSE OF [facility] Kit Expiration Date 04/2026 [facility] Blood Venous blood specimen / Unknown 07/26/2024 8:23 AM EST Katelin [employer] ME[employer]IC POINT OF CARE TEST ENTER /EDIT ORDERABLES Final Result [facility] [address] [place] [address] * Acute Hepatitis Panel (10/10/2020 1:24 PM EDT) [facility] Hepatitis B Surf Antigen NEGATIVE Reference Value: Negative [facility] Hepatitis C Antibody NEGATIVE Reference Range: Negative [facility] Hepatitis A Antibody IgM NEGATIVE Reference Value: Negative [facility] External Hepatitis B Core IgM (HBCM) NEGATIVE Reference Value: Negative [facility] 10/10/2020 1:24 PM EDT 10/10/2020 2:44 PM EDT Lyssa Delgado APRN, DNP LAB BLOOD ORDERABLE S Final Result [facility] from Last 3 Months or Most Recently Relevant to Health Maintenance Insurance [facility] MEDICARE Care Teams Foundry Process Engineer Relationship Specialty Start Date End Date Edinson García MD [address] [place] [id number] PCP - General 12/08/20
--- OUTSIDE RECORDS SUMMARY | 2025-01-11 14:29 | XMS_ITS | Patient Health Record ---
Author Organization [facility] Address [address] [place] [address] Care Team Providers Care Adoption Counselor Name Role Phone Edinson García Primary Care Provider Cheyenne Scott Unavailable [phone] Cheryl Ferguson Unavailable [phone] Migration, Provider Unavailable Unavailable Allergies Allergen (clinical drug ingredient) Drug/Non Drug Allergy documented on EMR Reaction Allergy Type Onset Date Status SULFA (uncoded) rash Allergy Acti ve tramadol traMADol Unknown Drug Allergy Active Results Component Value Reference Range Notes COMPREHENSIVE METABOLIC PANE L ([id number]) Reviewed date:06/23/2024 04:34:22 PM Interpretation: Performing Lab:[facility], [facility] [id number] [facility]al[facility] Gaurav Sosa Notes/Report: NON-FASTING; NON-FASTING; NON-FASTING; NON-FASTING; NON-FAST GLUCOSE 172 65-99 mg/dL Fasting reference interval For someone without known diabetes, a glucose value >125 mg/dL indicates that they may have diabetes and this should be confirmed with a follow-up test. UREA NITROGEN (BUN) 20 7-25 mg/dL CREATININE 1.01 0.60-1.00 mg/dL EGFR 58 > OR = 60 mL/min/1.73m2 BUN/CREATININE RATIO 20 6-22 (calc) SODIUM 140 135-146 mmol/L POTASSIUM 4.2 3.5-5.3 mmol/L CHLORIDE 102 98-110 mmol/L CARBON DIOXIDE 30 20-32 mmol/L CALCIUM 9.2 8.6-10.4 mg/dL PROTEIN, TOTAL 6.5 6.1-8.1 g/dL ALBUMIN 3.8 3.6-5.1 g/dL GLOBULIN 2.7 1.9-3.7 g/dL (calc) ALBUMIN/GLOBULIN RATIO 1.4 1.0-2.5 (calc) BILIRUBIN, TOTAL 0.5 0.2-1.2 mg/dL ALKALINE PHOSPHATASE 123 37-153 U/L AST 14 10-35 U/L ALT 13 6-29 U/L CBC (INCLUDES DIFF/PLT) (639 9) Reviewed date:06/23/2024 04:34:22 PM Interpretation: Performing Lab:[facility], [facility] [id number] [facility], [place] [id number] Gaurav Sosa Notes/Report: NON-FASTING; NON-FASTING; NON-FASTING; NON-FASTING; NON-FAST WHITE BLOOD CELL COUNT 6.8 3.8-10.8 Thousand/ uL RED BLOOD CELL COUNT 4.45 3.80-5.10 Million/uL HEMOGLOBIN 13.7 11.7-15.5 g/dL HEMATOCRIT 41.4 35.0-45.0 % MCV 93.0 80.0-100.0 fL MCH 30.8 27.0-33.0 pg MCHC 33.1 32.0-36.0 g/dL For adults, a slight decrease in the calculated MCHC value (in the range of 30 to 32 g/dL) is most likely not clinically significant; however, it should be interpreted with caution in correlation with other red cell parameters and the patient's clinical condition. RDW 12.6 11.0-15.0 % PLATELET COUNT 242 140-400 Thousand/uL MPV 11.1 7.5-12.5 fL ABSOLUTE NEUTROPHILS 4434 6414-5699 cells/uL ABSOLUTE LYMPHOCYTES 0383 035-3797 cells/uL ABSOLUTE MONOCYTES 632 200-950 cells/uL ABSOLUTE EOSINOPHILS 0 15-500 cells/uL ABSOLUTE BASOPHILS 7 0-200 cells/uL NEUTROPHILS 65.2 LYMPHOCYTES 25.4 MONOCYTES 9.3 EOSINOPHILS 0.0 BASOPHILS 0.1 X ray : Spines, Lumbosacral Reviewed date:05/21/2024 09:55:37 AM Interpretation: Performing Lab: Notes/Report: Microalbumin (In-House) Reviewed date:06/17/2024 07:14:10 PM Interpretation:Negative Performing Lab: Notes/Report: Negative ALB 150mg/L CRE 100mg/dL A:C 30-300mg/g Mammogram : Bilateral Reviewed date:07/07/2024 02:39:29 PM Interpretation: Performing Lab: Notes/Report: TSH W/REFLEX TO FT4 (87730) Reviewed date:06/23/2024 04:34:22 PM Interpretation: Performing Lab:[facility] [id number] [employer] [address], [id number] Gaurav Sosa Notes/Report: NON-FASTING; NON-FASTING; NON-FASTING; NON-FASTING; NON-FAST TSH W/REFLEX TO FT4 2.43 0.40-4.50 mIU/L HEMOGLOBIN A1c (496) Reviewed date:06/23/2024 04:34:22 PM Interpretation: Performing Lab:[facility] [address], [id number] Gaurav Sosa Notes/Report: NON-FASTING; NON-FASTING; NON-FASTING; NON-FASTING; NON-FAST HEMOGLOBIN A1c 11.2 <5.7 % of total Hgb For someone without known diabetes, a hemoglobin A1c value of 6.5% or greater indicates that they may have diabetes and this should be confirmed with a follow-up test. For someone with known diabetes, a value <7% indicates that their diabetes is well controlled and a value greater than or equal to 7% indicates suboptimal control. A1c targets should be individualized based on duration of diabetes, age, comorbid conditions, and other considerations. Currently, no consensus exists regarding use of hemoglobin A1c for diagnosis of diabetes for children. MAGNESIUM (622) Reviewed date:06/23/2024 04:34:22 PM Interpretation: Performing Lab:[facility] [id number], [id number] Gaurav Sosa Notes/Report: NON-FASTING; NON-FASTING; NON-FASTING; NON-FASTING; NON-FAST MAGNESIUM 1.5 1.5-2.5 mg/dL M-Hemoglobin A1C Reviewed date:02/27/2024 02:20:20 PM Interpretation: Performing Lab: Notes/Report: HGBA1C 7.9 4.0-6.0 % < 6% Non-Diabetic Level < 7% Controlled Diabetic Level > 8% Poorly Controlled Diabetic Level Medications Medication SIG (Take, Route, Frequency, Duration) Notes Start Date End Date Status Aspirin 81 MG 1 tab(s) orally once a day Active Atorvastatin Calcium 80 MG 1 tab(s) orally once a day for 30 days Active ACCU CHECK TEST STRIPS FOR DIABETIC TESTING ONCE A DAY AND NEEDED for 90 DAYS *Please review for potential replacement for e-prescription and drug interaction check* Active ACCU CHECK GLUCOMETER BID PRN E11.9 *Please review for potential replacement for e-prescription and drug interaction check* 12/10/2016 Active ACCU-CHECK MULTICLIX ONCE A DAY TESTING for 90 DAYS E11.9 *Please review for potential replacement for e-prescription and drug interaction check* 12/10/2016 Active Midodrine HCl 5 MG 1 tab(s) orally 3 times a day Active Gabapentin 600 MG 1 tab(s) orally twice a day for 90 days 07/12/2024 Active Fludrocortisone Acetate 0.1 MG 1 tab(s) orally once a day Active Toujeo SoloStar 300 UNIT/ML 16 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 If intended option is not shown, discontinue and re-order from Quick Search* 02/26/2024 Active Levothyroxine Sodium 50 MCG TAKE 1 TABLET EVERY DAY orally once a day for 90 days Active Clopidogrel Bisulfate 75 MG 1 tab(s) orally once a day for 90 days Active metFORMIN HCl 500 MG 1 tab(s) orally 2 times a day for 90 days Active BD TJ 2ND GEN PEN NEEDLE 4MM X 32G - SQ ONCE A DAY for 90 DAYS *Please review for potential replacement for e-prescription and drug interaction check* Active MiraLax - 17 GRAMS ORALLY ONCE A DAY for 30 DAYS *Please review and pick correct strength-formulation from Delivery Agent options. If intended option is not shown, discontinue and re-order from Quick Search* 06/02/2023 Active Venlafaxine HCl ER 150 MG Take 1 capsule by mouth once daily for 90 days Active Immunizations Vaccine Route Administration Date Status Comme nts SHINGRIX IM Intramuscular 06/17/2024 Administered SHINGRIX IM Intramuscular 10/08/2024 Administered Prevnar PCV-13 (Pneumococcal conjugate 13) IM Intramuscular 10/21/2016 Administered Pneumovax-23 (pneumococccal vaccine polyvalent)2 years or older IM Intramuscular 03/09/2014 Administered Fluzone High Dose IM Intramuscular 04/23/2018 Administered Fluzone High Dose IM Intramuscular 04/13/2020 Administered Fluzone High Dose IM Intramuscular 04/05/2021 Administered Fluzone High Dose IM Intramuscular 06/12/2022 Administered Fluzone High Dose IM Intramuscular 06/02/2023 Administered Fluzone High Dose IM Intramuscular 06/17/2024 Administered Covid Pfizer Unknown 09/21/2020 Administered Covid Pfizer Unknown 10/14/2020 Administered Arexvy IM Intramuscular 06/02/2023 Administered Adacel (Tdap) Unknown 11/24/2023 Administered Problems Problem Type SNOMED Code ICD Code Onset Dates Problem Status W/U Status Risk Notes Problem 714589550 Type 2 diabetes mellitus with diabetic chronic kidney disease (E11.22) Active confirmed Problem Type II diabetes mellitus without complication (647367445) Type 2 diabetes mellitus without complications (E11.9) Active confirmed Problem 165970438 Hypomagnesemia (E83.42) Active confirmed Problem 428779521 Ischemic cardiomyopathy (I25.5) Active confirmed Problem 368565797566483 Lumbago with sciatica, right side (M54.41) Active confirmed Problem 704608647 Lumbago with sciatica, left side (M54.42) Active confirmed Problem 151174808 Vitamin B12 deficiency (E53.8) Active confirmed Problem 57565001 DDD (degenerativ e disc disease), cervical (M50.30) Active confirmed Problem 494396519 Depression with anxiety (F41.8) Active confirmed Problem 60501157 Vitamin D deficiency (E55.9) Active confirmed Problem Diabetes mellitus type 2 in nonobese (907701961) Diabetes mellitus type 2 in nonobese (E11.9) Active confirmed Problem 52547442 Chronic serous otitis media of right ear (H65.21) Active confirmed Problem 648398925 [facility]CI (current) use of insulin (Z79.4) Active confirmed Problem 85915162 Other chronic pain (G89.29) Active confirmed Problem 3986708 Postherpetic neuralgia (B02.29) Active confirmed Problem 43060137 Urge incontinenc e of urine (N39.41) Active confirmed Problem 91120304611346 Arthritis, 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) Active confirmed Problem 46673106 Constipation, unspecified constipation type (K59.00) Active confirmed Problem Atherosclerotic heart disease of [place] coronary artery without angina pectoris (196040969997730) Coronary artery disease involving [place] coronary artery of [place] heart without angina pectoris (I25.10) Active confirmed Problem 621029482 Frequent falls (R29.6) Active confirmed Problem 576264331 Abnormal mammogram (R92.8) Active confirmed Problem 253459305314472 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) Active confirmed Problem 677446637 Positive YURIDIA (antinuclear antibody) (R76.8) Active confirmed Problem 0163579 Inflammatory arthritis (M19.90) Active confirmed Problem 393722263 Paresthesia of both feet (R20.2) Active confirmed Problem 52965284 BARRY (generalized anxiety disorder) (F41.1) Active confirmed Problem 872370248 Elevated serum creatinine (R79.89) Active confirmed Problem 10773956 Lumbar degenerative disc disease (M51.36) Active confirmed Problem 95355733 Hypothyroidism, unspecified type (E03.9) Active confirmed Problem 3795315729194 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) Active confirmed Problem 18209161 Hyperlipidemia, unspecified hyperlipidemia type (E78.5) Active confirmed Problem 111831286173156 Primary osteoarthritis of right shoulder (M19.011) Active confirmed Problem 346933150 Sacroiliac pain (M53.3) Active confirmed Problem 02873064 Essential hypertension with goal blood pressure less than 130\/80 (I10) Active confirmed Problem 008270916 Leukocytosis, unspecified (D72.829) Active confirmed Problem 05623057371494519 Cyst of right breast (N60.01) Active confirmed Problem 87240051 Incontinence of feces, unspecified fecal incontinence type (R15.9) Active confirmed Problem 09805388 Polyneuropathy (G62.9) Active confirmed Problem 83613962 Type 2 diabetes mellitus with diabetic neuropathy, without long-term current use of insulin (E11.40) Active confirmed Problem 152109059 Normocytic anemi a (D64.9) Active confirmed Problem 50729067 Spinal stenosis of lumbar region with neurogenic claudication (M48.062) Active confirmed Problem 61194467 Breast nodule (N63.0) Active confirmed Problem 967666391 Uncontrolled typ e 2 diabetes mellitus with hyperglycemia (E11.65) Active confirmed Problem 598524954 Poor balance (R26.89) Active confirmed Problem 78119623654414282 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) Active confirmed Problem 705048809 Chronic kidney disease, stage 3a (N18.31) Active confirmed Problem 679170542 Stage 3b chronic kidney disease (N18.32) Active confirmed Problem 813881318 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) Active confirmed Problem 445430394871132 Foot drop, left (M21.372) Active confirmed Problem 80506236 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) Active confirmed Vital Signs Heart Rate 74 /min 08/24/2024 Temperature 97.7 degrees Fahrenheit 08/24/2024 Blood pressure diastolic 64 mm Hg 08/24/2024 Height 5 ft 3.75 in in 08/24/2024 Blood pressure systolic 152 mm Hg 08/24/2024 Weight 150.6 lbs 08/24/2024 BMI 26.05 kg/m2 08/24/2024 Encounters Encounter Location Date Provider Diagnosis [facility] [address] [address] 10/30/2024 Provider Migration [address] [address] 02/11/2024 Cheyenne Scott Diabetic peripheral neuropathy associated with type 2 diabetes mellitus E11.42 and Hypothyroidism, unspecified type E03.9 [facility] [address] [place], [place] [address] 04/13/2024 Cheyenne Scott Stroke-like symptoms R29.90 ; Orthostatic hypotension I95.1 ; Hypothyroidism, unspecified type E03.9 ; Diabetic peripheral neuropathy associated with type 2 diabetes mellitus E11.42 ; Ischemic cardiomyopathy I25.5 and Hypomagnesemia E83.42 [facility] [address] [address] 05/12/2024 Cheyenne Scott Lumbago with sciatic a, right side M54.41 ; Lumbago with sciatica, left side M54.42 ; Other chronic pain G89.29 and Sacroiliac pain M53.3 [facility] [address] [place] [address] 06/17/2024 Cheyenne Scott Hypothyroidism, unspecified type E03.9 ; Diabetic peripheral neuropathy associated with type 2 diabetes mellitus E11.42 ; Ischemic cardiomyopathy I25.5 ; Hypomagnesemia E83.42 and Immunization(s) administered Z23 [facility] [address] [place] [address] 08/09/2024 Cheyenne Scott Essential hypertensi on with goal blood pressure less than 130\/80 I10 ; Medicare annual wellness visit, subsequent Z00.00 ; Hypothyroidism, unspecified type E03.9 ; Hyperlipidemia, unspecified hyperlipidemia type E78.5 ; Vitamin B12 deficiency E53.8 ; Diabetic peripheral neuropathy associated with type 2 diabetes mellitus E11.42 ; BARRY (generalized anxiety disorder) F41.1 ; Vitamin D deficiency E55.9 ; Stage 3b chronic kidney disease N18.32 ; Inflammatory arthritis M19.90 ; Constipation, unspecified constipation type K59.00 ; BMI 26.0-26.9,adult Z68.26 ; Orthostatic hypotension I95.1 and Frequent falls R29.6 [facility] [address] [place] [address] 08/24/2024 Cheyenne Scott Cognitive decline R41.89 ; Polyneuropathy G62.9 ; Frequent falls R29.6 ; Poor balance R26.89 and Word finding difficulty R47.89 [facility] [address] [place] [address] 10/08/2024 Cheyenne Scott Encounter for immunization Z23 [facility] [address] [place] [address] 01/20/2024 Cheyenne Scott Herpes zoster withou t complication B02.9 ; Postherpetic neuralgia B02.29 and Skin infection L08.9 [facility] [address] [place] [address] 02/26/2024 Cheyenne Scott Diabetic peripheral neuropathy associated with type 2 diabetes mellitus E11.42 and Type 2 diabetes mellitus with diabetic chronic kidney disease E11.22 [facility] [address] [place] [address] 03/18/2024 Edinson García Type 2 diabetes mellitus with diabetic chronic kidney disease E11.22 [facility] [address] [place] [address] 04/08/2024 Cheryl Ferguson [facility] [address] [place] [address] 05/17/2024 Cheyenne Scott [facility] [address] [place] [address] 06/16/2024 Cheyenne Scott Breast cancer screening by mammogram Z12.31 [facility] [address] [facility] [address] [place] [address] 07/06/2024 Cheyenne Scott Type 2 diabetes mellitus with diabetic chronic kidney disease E11.22 [facility] [place] [address] [address] 08/05/2024 Cheyenne Scott Diabetic peripheral neuropathy associated with type 2 diabetes mellitus E11.42 [facility] [place] [address] [address] 11/10/2024 Edinson García [facility] [address] [address] 11/12/2024 Edinson Tsaison [facility] [address] [address] 01/05/2025 Cheyenne Scott Assessments Encounter Date Diagnosis (ICD Code) Assessment Notes Treatment Notes Treatment Clinical Notes Section Notes 01/20/2024 Herpes zoster without complication (ICD-10 - B02.9) 02/11/2024 Hypothyroidism, unspecified type (ICD-10 - E03.9) 02/11/2024 Diabetic peripheral neuropathy associated with type 2 diabetes mellitus (ICD-10 - E11.42) Recent labs done by neurology are unremarkable, stable renal/liver function. will obtain A1C and TSH next week. Consider additional intervention for anxiety if additional workup is negative 02/26/2024 Diabetic peripheral neuropathy associated with type 2 diabetes mellitus (ICD-10 - E11.42) 03/18/2024 Type 2 diabetes mellitus with diabetic chronic kidney disease (ICD-10 - E11.22) 04/13/2024 Orthostatic hypotension (ICD-10 - I95.1) 04/13/2024 Stroke-like symptoms (ICD-10 - R29.90) documentation reviewed and no changes recommended today, continue FU with cardiology. We will touch base again in about 8 weeks and re-eval labs with magnesium and A1C 05/12/2024 Lumbago with sciatica, right side (ICD-10 - M54.41) I cannot find any imaging of her lower back over the past year despite her multiple falls, recommend imaging to rule out any underlying compression or other fractures. Recommend scheduled Tylenol 3 times a day, rest, topical lidocaine. Return precautions reviewed 05/12/2024 Lumbago with sciatica, left side (ICD-10 - M54.42) 06/16/2024 Breast cancer screening by mammogram (ICD-10 - Z12.31) 06/17/2024 Hypothyroidism, unspecified type (ICD-10 - E03.9) labs need to be updated. encouraged compliance with diet and monitoring glucose so we can adjust medications appropriately, anabel in light of her other metabolic issues and pain necessitating injections. 06/17/2024 Diabetic peripheral neuropathy associated with type 2 diabetes mellitus (ICD-10 - E11.42) 07/06/2024 Type 2 diabetes mellitus with diabetic chronic kidney disease (ICD-10 - E11.22) 08/05/2024 Diabetic peripheral neuropathy associated with type 2 diabetes mellitus (ICD-10 - E11.42) 08/09/2024 Essential hypertension with goal blood pressure less than 130\/80 (ICD-10 - I10) Well-controlled on current regimen 08/24/2024 Polyneuropathy (ICD-10 - G62.9) Symptoms are likely multifactorial. Continue high-dose statin, aspirin, Plavix per cardiology. Suspect that her polyneuropathy is the main contributor. Discussed the importance of controlling her blood glucose, taking medications routinely. Also recommend referral back to cardiology and that she follow with them on a regular basis. She has had extensive imaging through the emergency department and outpatient including CT/CTA head and neck as well as MRI head 08/24/2024 Cognitive decline (ICD-10 - R41.89) 10/08/2024 Encounter for immunization (ICD-10 - Z23) 08/24/2024 Frequent falls (ICD-10 - R29.6) 08/09/2024 Medicare annual wellness visit, subsequent (ICD-10 - Z00.00) Wellness exams are currently up-to-date, she will continue regular follow-up with cardiology and endocrinology. Will need 2nd dose of Shingrix during her FU appt in October. Due for colonoscopy, will address in October if her CV health has been stable 06/17/2024 Ischemic cardiomyopathy (ICD-10 - I25.5) 08/09/2024 Hypothyroidism, unspecified type (ICD-10 - E03.9) Continue replacement 05/12/2024 Other chronic pain (ICD-10 - G89.29) 04/13/2024 Hypothyroidism, unspecified type (ICD-10 - E03.9) 02/26/2024 Type 2 diabetes mellitus with diabetic chronic kidney disease (ICD-10 - E11.22) 01/20/2024 Postherpetic neuralgia (ICD-10 - B02.29) 01/20/2024 Skin infection (ICD-10 - L08.9) 04/13/2024 Diabetic peripheral neuropathy associated with type 2 diabetes mellitus (ICD-10 - E11.42) 05/12/2024 Sacroiliac pain (ICD-10 - M53.3) 06/17/2024 Hypomagnesemia (ICD-10 - E83.42) 08/09/2024 Hyperlipidemia, unspecified hyperlipidemia type (ICD-10 - E78.5) Continue statin therapy 08/24/2024 Poor balance (ICD-10 - R26.89) 08/24/2024 Word finding difficulty (ICD-10 - R47.89) 06/17/2024 Immunization(s) administered (ICD-10 - Z23) 08/09/2024 Vitamin B12 deficiency (ICD-10 - E53.8) recommend continue supplement 04/13/2024 Ischemic cardiomyopathy (ICD-10 - I25.5) 04/13/2024 Hypomagnesemia (ICD-10 - E83.42) 08/09/2024 Diabetic peripheral neuropathy associated with type 2 diabetes mellitus (ICD-10 - E11.42) Discussed importance of good glucose control, continue gabapentin 08/09/2024 BARRY (generalized anxiety disorder) (ICD-10 - F41.1) Continue venlafaxine 08/09/2024 Vitamin D deficiency (ICD-10 - E55.9) encoruaged to continue supplement 08/09/2024 Stage 3b chronic kidney disease (ICD-10 - N18.32) stable on most recent labs, avoid NSAIDS, continue efforts for better glucose control 08/09/2024 Inflammatory arthritis (ICD-10 - M19.90) is off of prednisone, monitor 08/09/2024 Constipation, unspecified constipation type (ICD-10 - K59.00) 08/09/2024 BMI 26.0-26.9,adult (ICD-10 - Z68.26) slightly elevated but down significantly from prior, monitor. heart healthy diabetic diet encouraged. exercise as able. 08/09/2024 Orthostatic hypotension (ICD-10 - I95.1) cardiology managing 08/09/2024 Frequent falls (ICD-10 - R29.6) has had therapy in the past, declines additional. likely secondary to severity of neuropathy in addition to orthostasis/auton omic dysfunction. has consult with neurology in the past year Plan Of Treatment Pending Test Test Name Order Date DEXA Hip and Spine - Screening 4 Physical Therapy 11/06/2015 Physical Therapy 04/03/2022 Physical Therapy 04/09/2017 Occupational Therapy : Eval & Treatment 11/10/2015 CT Scan : Abdomen and Pelvis with contra st 02/26/2021 H-CBC with AUTO DIFF 07/18/2017 H-VITAMIN B12 07/18/2017 H-CMP 07/18/2017 H-LIPID PANEL 07/18/2017 H-HGBA1C 07/18/2017 H-TSH 07/18/2017 C-BUN 01/23/2015 C-CREATININE 01/23/2015 C-SODIUM 03/16/2019 C-CBC 07/05/2019 C-Sed Rate (ESR) 07/05/2019 C-BASIC METABOLIC 03/16/2019 C-CMP 07/05/2019 C-MICROALBUMIN 07/05/2019 C-LIPID PANEL 07/05/2019 C-MAGNESIUM 07/05/2019 C-URIC ACID 07/05/2019 C-TSH 07/05/2019 C-YURIDIA 04/04/2017 C-VITAMIN B12 07/05/2019 C-HGBA1C 07/05/2019 C-VITAMIN D, 25-HYDROXY 07/05/2019 C-CRP 07/05/2019 H-MICROALB/CORRECTIONS SPECIALIST UR 07/18/2017 M-Complete Blood Count Auto Diff 021 M-Erythrocyte Sedimentation Rate 021 M-Comprehensive Metabolic Panel 08/23/19 21 M-Basic Metabolic Panel 06/07/2021 M-Hemoglobin A1C 06/07/2021 M-Hemoglobin A1C 02/11/2024 M-Hemoglobin A1C 08/23/2020 Q-Y-Pvdgsczm Protein 08/23/2020 M-Lipid Panel 06/07/2021 M-Thyroid Stimulating Hormone 02/11/2024 M-Thyroid Stimulating Hormone 08/23/2020 P-Rirr-[place]omsph Antibody Titer 08/23/2020 M-Vitamin B12 12/20/2020 M-RA Latex Turbid. 08/23/2020 Next Appt Details Provider Name:Cheyenne Lynn ce, 01/12/2025 03:30:00 PM, [address], [address], Insurance Providers Payer Name Payer Address Payer Phone Subscriber Number Group Number Insured Name Patient Relationship to Insured Coverage Start Date Coverage End Date [employer] [address] [address] [place] [address] [id number] Marilyn Sepulveda Self - patient is the insured Jenn Rykert [address] [place] [address] [facility] Marilyn Sepulveda Self - patient is the insured Medications Administered Medication Instructions Date of Administration Dosage Notes Triamcinolone Acetonide 40mg Injection 03/22/2019 1 mL Kenalog 07/22/2013 1 Medical (General) History Medical History History ICD Code type II diabetes hypertension Hypothyroidism arthritis hormone replacement therapy Tachycardia Colonoscopy 2018, tubular adenoma x 2 DEXA 2013, normal STEMI with subsequent systolic CHF. Sten jorge alberto at [facility]. 04/2020 GERD Gout polymyalgia Rheumatica SCC left side of neck Surgical History Surgery Date(Month/Year) hysterectomy Heart Cath-2 cardiac stents 05/2020 Heart Cath 03/12/2024 Hospitalization History Reason Date(Month/Year) Heart issues 05/2020 [facility] 04/06-04/08/2024 dehydration/UTI above
[2025-01-11 15:10] LABS: Basophils % 0.3 % (0.1-2.0); Eosinophils # 0.3 Kmm3 (0.0-0.4); Eosinophils % 4.3 % (0.1-12.0); Hematocrit 39.5 % (37.0-47.0); Hemoglobin 13.2 g/dL (12.2-16.2); Immature Granulocytes # 0.01 10^3uL; Immature Granulocytes % 0.1 %; Lymphocytes # 1.8 K/mm3 (0.7-4.5); Lymphocytes % 25.3 % (10-50); Mean Corpuscular HGB Conc 33.4 g/dL (31.8-35.4); Mean Corpuscular Hemoglobin 30.3 pg (27.0-31.2); Mean Corpuscular Volume 90.8 fl (81-99); Mean Platelet Volume 10.7 fl (7.4-10.4); Monocytes # 0.6 K/mm3 (0.1-1.0); Monocytes % 8.9 % (1.7-9.3); Neutrophils # 4.3 K/mm3 (1.8-7.8); Neutrophils % 61.1 % (37.0-80.0); Nucleated Red Blood Cells # 0 10^3/uL; Nucleated Red Blood Cells % 0 %; Platelet Count 247 K/mm3 (142-424); Red Blood Count 4.35 M/mm3 (4.20-5.40); Red Cell Distribution Width 12.1 % (11.5-17.5); Red Cell Distribution Width-SD 40.4 fL
[2025-01-11 16:19] LABS: Albumin Level 3.8 g/dl (3.5-5.0)
[2025-01-11 16:20] LABS: Chloride 102 mmol/L (98-107); Potassium 5.2 mmoL/L (3.5-5.1); Sodium 137 mmol/L (136-145)
[2025-01-11 16:22] LABS: Alanine Aminotransferase 21 U/L (12-78); Alkaline Phosphatase 94 U/L (38-126); Anion Gap 9.2 mEq/L (5-15); Aspartate Amino Transferase 29 U/L (14-36); Bilirubin,Direct 0.1 mg/dl (0.0-0.4); Bilirubin,Indirect 0.3 mg/dL (0.0-0.9); Bilirubin,Total 0.4 mg/dl (0.2-1.3); Bilirubin,Unconjugated 0.3 mg/dL (0.0-1.1); Blood Urea Nitrogen 22 mg/dl (7-17); Carbon Dioxide 31 mmol/L (22.0-30.0); Estimated Glomerular Filt Rate 40 ml/min (>60); GFR (African American) 48 ML/MIN (>60); Total Protein,Serum 6.4 g/dl (6.3-8.2)
[2025-01-11 16:23] LABS: Calcium 9.4 mg/dl (8.4-10.2); Chol/HDL Ratio 2.2 (1-3.5); Cholesterol 96 mg/dl (140-200); Glucose 265 mg/dl (74-100); HDL Cholesterol 43 mg/dl (40-60); Magnesium 1.3 mg/dl (1.6-2.3); Triglycerides 128 mg/dl (30-150); VLDL Cholesterol 26 mg/dL (0-40)
[2025-01-11 16:35] LABS: Direct LDL Cholesterol < 30.00 mg/dL (100-129)
== END 2025-01-11 23:59 | disposition home or self-care (01) ==
LOC: LAB 14:26
PROVIDERS: PCP Nurse Practitioner Family; Visit Provider Internal Medicine
DX: I25.118 Atherosclerotic heart disease of native coronary artery with other forms of angina pectoris (principal); I73.9 Peripheral vascular disease, unspecified; E78.2 Mixed hyperlipidemia; I11.9 Hypertensive heart disease without heart failure
CPT/HCPCS: 36415; 80048; 80061; 80076; 83735; 85025

== ENCOUNTER 2025-02-05 18:20 | Emergency (ER) | payer MEDICARE, SELFPAY ==
--- OUTSIDE RECORDS SUMMARY | 2024-11-08 08:00 | XMS_ITS ---
Author Organization [facility] Address [address] [place], [place] [address] Care Team Providers Care Reproductive Surgeon Name Role Phone Edinson García Primary Care Provider [phone] Cheyenne Scott Unavailable [phone] REASON FOR VISIT 3 Month F/U Encounters Encounter Location Date Provider Diagnosis [facility] [address] [place], [place] [address] 11/08/2024 Cheyenne Scott Plan Of Treatment No Information Progress Notes * Marilyn DIAZ RDOB:[birth year] (79 yo F)Acc No.[id number]:11/08/2024 Progress Notes Patient: Marilyn GARCÍA Provider: HONORIO Cm :1945 A ge:79 Y S ex:Female Date:11/08/2024 Address:[address], [place] Pcp:Edinson García Subjective: * Chief Complaints: * 1 . 3 Month F/U. * Medical History: Objective: * Vitals: Assessment: Plan: * Treatment: * * Electronic signature of Apryl Scott APRN on 02/05/2025 at 06:49 PM EDT Sign off status: Pending * Provider: HONORIO Cm Date: 0 11/08/2024 Generated for Kimberly bradford/Otto/Lolis on: 0 02/05/2025 06:49 PM EDT
--- OUTSIDE RECORDS SUMMARY | 2025-01-03 10:45 | XMS_ITS ---
Author Organization [facility] Address [address] [place], [place] [address] Care Team Providers Care Retort Feeder Ground Bone Name Role Phone Edinson García Primary Care Provider [phone] Cheyenne Scott Unavailable [phone] REASON FOR VISIT 6 month ck Encounters Encounter Location Date Provider Diagnosis [facility] [address] [place], [place] [address] 01/03/2025 Cheyenne Scott Plan Of Treatment No Information Progress Notes * Marilyn DIAZ RDOB:[birth year] (79 yo F)Acc No.[id number]:01/03/2025 Progress Notes Patient: Marilyn GARCÍA Provider: HONORIO [...] 01/03/2025 Generated for Kimberly bradford/Otto/Lolis on: 0 02/05/2025 06:49 PM EDT
--- OUTSIDE RECORDS SUMMARY | 2025-01-19 08:15 | XMS_ITS ---
Author Organization [facility] D [facility] Address [address] [place] [address] Care Team Providers Care Air Antisubmarine Officer Name Role Phone Edinson García Primary Care Provider Cheyenne Scott [phone] Allergies Allergen (clinical drug ingredient) Drug/Non Drug Allergy documented on EMR Reaction Allergy Type Onset Date Status SULFA (uncoded) rash Allergy Acti ve tramadol traMADol Unknown Drug Allergy Active REASON FOR VISIT 6 month ck, med refill Medications Medication SIG (Take, Route, Frequency, Duration) Notes Start Date End Date Status Levothyroxine Sodium 50 MCG TAKE 1 TABLET EVERY DAY orally once a day; Duration: 90 days Active metFORMIN HCl 500 MG 1 tab(s) orally 2 times a day; Duration: 90 days Active Gabapentin 600 MG 1 tab(s) orally twice a day; Duration: 90 days 07/12/2024 Active Clopidogrel Bisulfate 75 MG 1 tab(s) orally once a day; Duration: 90 days Active BD TJ 2ND GEN PEN NEEDLE 4MM X 32G - SQ ONCE A DAY; Duration: 90 DAYS *Please review for potential replacement for e-prescription and drug interaction check* Active Metoprolol Succinate ER 100 MG 1 TAB(S) ORALLY ONCE A DAY; Duration: 30 days *Please review and pick correct strength-formulation from [employer] options. If intended option is not shown, discontinue and re-order from Quick Search* 02/26/2024 Active Rosuvastatin Calcium 20 MG 1 tablet Orally Once a day Active Fludrocortisone Acetate 0.1 MG 1 tab(s) orally once a day Active Aspirin 81 MG 1 tab(s) orally once a day Active Xarelto 2.5 MG 1 tablet with food Orally Twice a day Active Touchanelo SoloStar 300 UNIT/ML 20 units subcutaneously once a day; Duration: 30 days frame cleaner at Active Ezetimibe 10 MG 1 tablet Orally Once a day Active Venlafaxine HCl ER 150 MG Take 1 capsule by mouth once daily; Duration: 90 days Active Problems Problem Type SNOMED Code ICD Code Onset Dates Problem Status W/U Status Risk Notes Problem PAD (peripheral artery disease) (I73.9) Active confirmed Vital Signs BMI 26.81 kg/m2 01/19/2025 Weight 155 lbs 01/19/2025 Height 5 ft 3.75 in in 01/19/2025 Heart Rate 78 /min 01/19/2025 Blood pressure systolic 126 mm Hg 01/20/20 Blood pressure diastolic 78 mm Hg 025 Temperature 98.1 degrees Fahrenheit 01/20/20 Encounters Encounter Location Date Provider Diagnosis [address] [address] 01/19/2025 Cheyenne Scott Hypothyroidism, unspecified type E03.9 ; Hyperlipidemia, unspecified hyperlipidemia type E78.5 ; Vitamin B12 deficiency E53.8 ; Diabetic peripheral neuropathy associated with type 2 diabetes mellitus E11.42 ; BARRY (generalized anxiety disorder) F41.1 ; Vitamin D deficiency E55.9 ; Stage 3b chronic kidney disease N18.32 ; Orthostatic hypotension I95.1 ; Frequent falls R29.6 and PAD (peripheral artery disease) I73.9 Assessments Encounter Date Diagnosis (ICD Code) Assessment Notes Treatment Notes Treatment Clinical Notes Section Notes 01/19/2025 Hypothyroidism, unspecified type (ICD-10 - E03.9) Continue replacement She had labs done just last week by cardiology, those indicate stable kidney disease, normal CBC and lipid panel. They did not obtain a TSH or hemoglobin A1c. She will continue to have follow-up with endocrinology at and they should monitor her A1c. We will repeat labs next visit with TSH and vitamin levels if neurology does not do these in February. No medication changes were recommended today, encouraged to continue follow-up with specialty services. 01/19/2025 Hyperlipidemia, unspecified hyperlipidemia type (ICD-10 - E78.5) Continue statin therapy 01/19/2025 Vitamin B12 deficiency (ICD-10 - E53.8) recommend continue supplement 01/19/2025 Diabetic peripheral neuropathy associated with type 2 diabetes mellitus (ICD-10 - E11.42) Discussed importance of good glucose control, continue gabapentin 01/19/2025 BARRY (generalized anxiety disorder) (ICD-10 - F41.1) Continue venlafaxine 01/19/2025 Vitamin D deficiency (ICD-10 - E55.9) encoruaged to continue supplement 01/19/2025 Stage 3b chronic kidney disease (ICD-10 - N18.32) stable on most recent labs, avoid NSAIDS, continue efforts for better glucose control 01/19/2025 Orthostatic hypotension (ICD-10 - I95.1) cardiology managing 01/19/2025 Frequent falls (ICD-10 - R29.6) has had therapy in the past, declines additional. likely secondary to severity of neuropathy in addition to orthostasis/auto nomic dysfunction. has consult with neurology in the past year 01/19/2025 PAD (peripheral artery disease) (ICD-10 - I73.9) Plan Of Treatment Medication Medication Name Sig Start Date Stop Date Notes Toujeo SoloStar 300 UNIT/ML 20 units subcutaneously once a day; Duration: 30 days frame cleaner at [facility] Treatment Notes Assessment Notes Hypothyroidism, unspecified type Continu e replacement Hyperlipidemia, unspecified hyperlipidemia type Continue statin therapy Diabetic peripheral neuropat hy associated with type 2 diabetes mellitus Discussed importance of good glucose control, continue gabapentin BARRY (generalized anxiety disorder) Annalise nue venlafaxine Next Appt Details Follow Up: 6 Months, Reason: Progress Notes * Marilyn DIAZ RDOB:[birth year] (79 yo F)Acc No.[id number]:01/19/2025 Progress Notes Patient: Marilyn GARCÍA Provider: HONORIO Cm :1945 A ge:79 Y S ex:Female Date:01/19/2025 Address:[facility] [address], [place], [id number] Pcp:Edinson García Subjective: * Chief Complaints: * 1 . 6 month ck. 2. Med refill. * HPI: D martha: 79 yr old female presents today to FU on chronic health conditions. Feels near baseline without any new concerns She is following with pain management for back pain and postherpetic neuralgia. Tolerating gabapentin Has seen endocrinology who essentially maintained her on basal insulin and low dose metformin + stage 3 CKD. diet n oncompliant with diet. f oot lesions d enies, numbness/tingling left foot, some improvement with gabapentin. o phthalmology eval W ithin the past year. A CE inhibitor? o n previously, stopped due to orthostasis. A spirin therapy y es. S tatin therapy y es. C omplications N europathy, burning in both feet, improves some with gabapentin which was initiated by neurology. C ardiology: BP has been well controlled. No edema. Following with cardiology. Orthostatic. LEFT renal artery stented in October, lower extremities with chronic disease but no intervention required. c/o shortness of breath w orse with exertion, at baseline.? Denies : chest pain. D enies : dizziness. D enies : palpitations. D enies : leg edema. D enies : fatigue. D enies : cyanosis. D enies : diaphoresis. H ypothyroidism: Tolerating thyroid replacement. No voice changes, neck discomfort or difficulty swallowing. P sychology: Anxiety control improved on venlafaxine, less irritable, but still lots of stressors. multiple family members in the home, young children. Notes cognitive changes at times, difficulty with short term memory. Has neurology consult pending in February ([facility]). * ROS: R ESPIRATORY: no S hortness of breath. n o C ough. ? C ARDIOLOGY: no C hest pain. n o P alpitations. C ONSTITUTIONAL: no L oss of appetite. n o F ever. W eakness?yes. F atigue y es. D ERMATOLOGY: no R catrina. G ASTROENTEROLOGY: no V omiting. n o D iarrhea. H EMATOLOGY/LYMPH: no S wollen glands. M USCULOSKELETAL: back pain y es. J oint stiffness y es. J oint pain y es. n o J oint swelling. N EUROLOGY: Tingling numbness y es. n o S eizures. n o I nsomnia. M madelin loss y es. U ROLOGY: no D ifficulty urinating. n o B lood in urine. * Medical History: t ype II diabetes, Hypertension, Hypothyroidism, Arthritis, Hormone replacement therapy, Tachycardia, Colonoscopy 2019, tubular adenoma x 2, DEXA 2013, normal, STEMI with subsequent systolic CHF. Stented at [facility]. 04/2020, GERD, Gout, polymyalgia Rheumatica, SCC left side of neck. * Surgical History: h ysterectomy , Heart Cath-2 cardiac stents 05/2020, Heart Cath 03/12/2024 . * Hospitalization/Major Diagno stic Procedure: a ervin , dehydration/UTI , Heart issues 05/2020, [facility] 04/06-04/08/2024 . * Family History: F ather: , lung cancer. M other: , heart disease, type II diabetes-dialysis. P aternal Grand Father: . P aternal Grand Mother: . M aternal Grand Father: . M aternal Grand Mother: . P aternal uncle: . M aternal uncle: alive. M aternal aunt: alive. S iblings: alive. C hildren: alive. 1 sister(s) . 1 son(s) , 2 daughter(s) - healthy. . * Social History: S moking A re you a:: nonsmoker. R ecreational drug use: no. Exercise: yes, walk. Home smoke detector use: yes. Caffeine: yes, frequency:occasional soda. Living Will: No, has discussed wishes with her children, has Living Will/Medical POA papers at home to fill out. Alcohol: no. Sexually active: no. Travel outside [place]: no. Occupation: retired. * Medications: T aking Ezetimibe 10 MG Tablet 1 tablet Orally Once a day , Taking Xarelto 2.5 MG Tablet 1 tablet with food Orally Twice a day , Taking Rosuvastatin Calcium 20 MG Tablet 1 tablet Orally Once a day , Taking Toujeo SoloStar 300 UNIT/ML Solution Pen-injector 20 units subcutaneously once a day , Notes to Pharmacist: frame cleaner at , Taking Fludrocortisone Acetate 0.1 MG Tablet 1 tab(s) orally once a day , Taking Aspirin 81 MG Tablet Delayed Release 1 tab(s) orally once a day , Taking Clopidogrel Bisulfate 75 MG Tablet 1 tab(s) orally once a day , Taking BD TJ 2ND GEN PEN NEEDLE 4MM X 32G - SQ ONCE A DAY , Notes to Pharmacist: *Please review for potential replacement for e-prescription and drug interaction check*, Taking Metoprolol Succinate ER 100 MG Tablet Extended Release 24 Hour 1 TAB(S) ORALLY ONCE A DAY , Notes to Pharmacist: *Please review and pick correct strength-formulation from [employer] options. If intended option is not shown, discontinue and re-order from Quick Search*, Taking Gabapentin 600 MG Tablet 1 tab(s) orally twice a day , Taking Levothyroxine Sodium 50 MCG Tablet TAKE 1 TABLET EVERY DAY orally once a day , Taking metFORMIN HCl 500 MG Tablet 1 tab(s) orally 2 times a day , Taking Venlafaxine HCl ER 150 MG Capsule Extended Release 24 Hour Take 1 capsule by mouth once daily , Discontinued Midodrine HCl 5 MG Tablet 1 tab(s) orally 3 times a day , Discontinued ACCU CHECK GLUCOMETER BID PRN , Notes to Pharmacist: E11.9 *Please review for potential replacement for e-prescription and drug interaction check*, Discontinued Lidocaine 5 % Patch 1 PATCH applied topically once a day for 12 hours , Discontinued ACCU CHECK TEST STRIPS FOR DIABETIC TESTING ONCE A DAY AND NEEDED , Notes to Pharmacist: *Please review for potential replacement for e-prescription and drug interaction check*, Discontinued ACCU-CHECK MULTICLIX ONCE A DAY TESTING , Notes to Pharmacist: E11.9 *Please review for potential replacement for e-prescription and drug interaction check*, Discontinued MiraLax - POWDER FOR RECONSTITUTION 17 GRAMS ORALLY ONCE A DAY , Notes to Pharmacist: *Please review and pick correct strength-formulation from [employer] options. If intended option is not shown, discontinue and re-order from Quick Search*, Discontinued Atorvastatin Calcium 80 MG Tablet 1 tab(s) orally once a day , Medication List reviewed and reconciled with the patient * Allergies: S ULFA: rash, traMADol. Objective: * Vitals: N urse: dw, Pain: 0, Temp: 98.1, RR: 18, HR: 78, BP: 126/78, Ht: 5 ft 3.75 in, Wt: 155, BMI:26.81. * Examination: G eneral Examination: General P leasant and Cooperative, NAD on RA,. Oral cavity: M oist membranes. Heart: R egular Rate and Rhythm,. Lungs: c lear to auscultation,. Abdomen: s oft, BS present. Neurologic Exam: A lert and oriented x 3. Skin: w ithout acute rashes, abrasion right upper arm. Peripheral pulses: d iminished but palpable. Extremities: n o clubbing, no edema, diminished sensation bilat feet. neck s upple,, no thyromegaly,, no lymphadenopathy,. Psych N ormal Mood/Affect. Assessment: * Assessment: 1. H ypothyroidism, unspecified type - E03.9 (Primary) 2 . H yperlipidemia, unspecified hyperlipidemia type - E78.5 3 . V itamin B12 deficiency - E53.8? 4. D iabetic peripheral neuropathy associated with type 2 diabetes mellitus - E11.42 5 . G AD (generalized anxiety disorder) - F41.1 6 . V itamin D deficiency - E55.9 7 . S tage 3b chronic kidney disease - N18.32 ? 8 . O rthostatic hypotension - I95.1 9 . F requent falls - R29.6 1 0. P AD (peripheral artery disease) - I73.9 Plan: * Treatment: 2. H yperlipidemia, unspecified hyperlipidemia type Notes: Continue statin therapy 3. V itamin B12 deficiency Clinical Notes: recommend continue supplement 4. D iabetic peripheral neuropathy associated with type 2 diabetes mellitus Refill Toujeo SoloStar Solution Pen-injector, 300 UNIT/ML, 20 units, subcutaneously, once a day, 30 days, 1, Refills 5, Notes to Pharmacist: frame cleaner at . Notes: Discussed importance of good glucose control, continue gabapentin 5. G AD (generalized anxiety disorder) Notes: Continue venlafaxine 6. V itamin D deficiency Clinical Notes: encoruaged to continue supplement 7. S tage 3b chronic kidney disease Clinical Notes: stable on most recent labs, avoid NSAIDS, continue efforts for better glucose control 8. O rthostatic hypotension Clinical Notes: cardiology managing 9. F requent falls Clinical Notes: has had therapy in the past, declines additional. likely secondary to severity of neuropathy in addition to orthostasis/autonomic dysfunction. has consult with neurology in the past year * Follow Up: 6 Months * * Sign off status: Completed true * Provider: HONORIO Cm Date: 0 01/19/2025 Generated for Printi ng/Fatonig/eTransmitting on: 0 02/05/2025 06:49 PM EDT History and Physical Notes * HPI (History of Present Illness) Category Sub-Category Detail Notes Category Not es Cardiology shortness of breath worse with exertion, at baseline chest pain palpitations dizziness leg edema fatigue cyanosis diaphoresis Psychology Anxiety control improved on venlafaxine, less irritable, but still lots of stressors. multiple family members in the home, young children. Notes cognitive changes at times, difficulty with short term memory. Has neurology consult pending in February ([facility]) Diabetes diet noncompliant with diet foot lesions denies, numbness/tin gling left foot, some improvement with gabapentin ophthalmology eval Within the past year ROBERT inhibitor? on previously, stopp ed due to orthostasis Aspirin therapy yes Statin therapy yes Complications Neuropathy, burning in both feet, improves some with gabapentin which was initiated by neurology Examination Category Sub-Category Detail Notes Category Not es General Examination Heart: Regular Rate and Rhyt hm, Lungs: clear to auscultatio n, Abdomen: soft, BS present Extremities: no clubbing, no tonja a, diminished sensation bilat feet Skin: without acute rashes , abrasion right upper arm Neurologic Exam: Alert and oriented x 3 Oral cavity: Moist membranes Peripheral pulses: diminished but palpa ble neck supple,, no thyromeg fransisco,, no lymphadenopathy, General Pleasant and Coopera tive, NAD on RA, Psych Normal Mood/Affect
[2025-02-05] VITALS (22 sets, daily range): BP systolic 126–185; BP diastolic 57–97; PULSE 74–84; RESP 16; TEMP 36.4–36.7; O2SAT 94–100; BMI 26.6
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
--- OUTSIDE RECORDS SUMMARY | 2025-02-05 18:49 | XMS_ITS | Clinical Summary ---
Author Organization [facility] Address [address] [place] [address] Care Team Providers Care Yoker Machine Operator Name Role Phone Edinson García MD Primary Care Provider [phone] Allergies Active Allergy Reactions Criticality Noted Date [...] (2 of 2 - PPSV23) 12/16/2016 10/21/2016 [id number] Vaccine (4 - season) 2024 06/07/2021, 10/14/2020, 09/21/2020 [facility]-Diabetes: Hemoglobin A1C 10/25/2024 07/26/2024, 04/07/2024 [facility]-Influenza Vaccine (#1) 03/28/202506/17, 06/02/2023, 04/05/2021, Additional history exists [facility]-DTaP,Tdap,and Td Vaccines (3 - Td or Tdap) 11/23/2033 11/24/2023, 12/16/2007 [facility]-Hepatitis C Screening Completed 10/10/2020 [facility]-RSV Vaccine: 60+ Years or Completed 06/02/2023 [facility]-Obesity Intervention Completed 07/26/2024 HPV Vaccines Aged [...] hemoglobin (Hb A1C) (07/26/2024 8:23 AM EST) Pathologist [facility] [place] POCT Hemoglobin A1C 11.3 <5.7% Non-Diabet ic % [facility] Kit Lot Number [id number] [facility] Kit Expiration Date 04/2026 [facility] Blood Venous blood specimen / Unknown 07/26/2024 8:23 AM EST us Katelin Alicea APRN POINT OF CARE TEST ENTER /EDIT ORDERABLES Final Result [facility] [address] [place] [address] * Acute Hepatitis Panel (10/10/2020 1:24 PM EDT) [facility] Hepatitis B Surf Antigen NEGATIVE Reference Value: Negative [facility] Hepatitis C Antibody NEGATIVE Reference Range: Negative [facility] Hepatitis A Antibody IgM NEGATIVE Reference Value: Negative [facility] External Hepatitis B Core IgM (HBCM) NEGATIVE Reference Value: Negative [facility] 10/10/2020 1:24 PM EDT 10/10/2020 2:44 PM EDT us Lyssa Delgado APRN, DNP LAB BLOOD ORDERABLE S Final Result [facility] from Last 3 Months or Most Recently Relevant to Health Maintenance Insurance Care Teams Yoker Machine Operator Relationship Specialty Start Date End Date Edinson García MD [address] [place] [address] PCP - General 12/08/20
--- OUTSIDE RECORDS SUMMARY | 2025-02-05 18:50 | XMS_ITS | Patient Health Record ---
Author Organization [facility] Address [address] [place] [address] Care Team Providers Care Vessel Master Name Role Phone Edinson García Primary Care Provider [phone] Cheyenne Scott Unavailable [phone] Cheryl Ferguson Unavailable [phone] Migration, Provider Unavailable Unavailable Allergies Allergen (clinical drug ingredient) Drug/Non Drug Allergy documented on EMR Reaction Allergy Type Onset Date Status SULFA (uncoded) rash Allergy Acti ve tramadol traMADol Unknown Drug Allergy Active Results Component Value Reference Range Notes Mammogram : Bilateral Reviewed date:07/07/2024 02:39:29 PM Interpretation: Performing Lab: Notes/Report: Microalbumin (In-House) Reviewed date:06/17/2024 07:14:10 PM Interpretation:Negative Performing Lab: Notes/Report: Negative ALB 150mg/L CRE 100mg/dL A:C 30-300mg/g X ray : Spines, Lumbosacral Reviewed date:05/21/2024 09:55:37 AM Interpretation: Performing Lab: Notes/Report: M-Hemoglobin A1C Reviewed date:02/27/2024 02:20:20 PM Interpretation: Performing Lab: Notes/Report: HGBA1C 7.9 4.0-6.0 % < 6% Non-Diabetic Level < 7% Controlled Diabetic Level > 8% Poorly Controlled Diabetic Level TSH W/REFLEX TO FT4 (67235) Reviewed date:06/23/2024 04:34:22 PM Interpretation: Performing Lab:CB, [employer] [id number] [facility], [facility] CenterPiylXF[address] Gaurav Sosa Notes/Report: NON-FASTING; NON-FASTING; NON-FASTING; NON-FASTING; NON-FAST TSH W/REFLEX TO FT4 2.43 0.40-4.50 mIU/L HEMOGLOBIN A1c (496) Reviewed date:06/23/2024 04:34:22 PM Interpretation: Performing Lab:SIS [facility] [employer] [id number] [place] [facility], [facility] CenterRhmxBS[address] Gaurav Sosa Notes/Report: NON-FASTING; NON-FASTING; NON-FASTING; NON-FASTING; [...] A1c for diagnosis of diabetes for children. CBC (INCLUDES DIFF/PLT) (639 9) Reviewed date:06/23/2024 04:34:22 PM Interpretation: Performing Lab:SIS [facility] [employer] [id number] [place] [facility], [facility] ManorEobmLS[address] Gaurav Sosa Notes/Report: NON-FASTING; NON-FASTING; NON-FASTING; NON-FASTING; [...] MPV 11.1 7.5-12.5 fL ABSOLUTE NEUTROPHILS 4434 5631-7527 cells/uL ABSOLUTE LYMPHOCYTES 1941 328-3197 cells/uL ABSOLUTE MONOCYTES 632 200-950 cells/uL ABSOLUTE EOSINOPHILS 0 15-500 cells/uL ABSOLUTE BASOPHILS 7 0-200 cells/uL NEUTROPHILS 65.2 LYMPHOCYTES 25.4 MONOCYTES 9.3 EOSINOPHILS 0.0 BASOPHILS 0.1 MAGNESIUM (622) Reviewed date:06/23/2024 04:34:22 PM Interpretation: Performing Lab:SIS, [employer] [place] [id number] [employer], [employer]Vi TechnologiesOjalSS[address] Gaurav Sosa Notes/Report: NON-FASTING; NON-FASTING; NON-FASTING; NON-FASTING; NON-FAST MAGNESIUM 1.5 1.5-2.5 mg/dL COMPREHENSIVE METABOLIC PANE (94250) Reviewed date:06/23/2024 04:34:22 PM Interpretation: Performing Lab:SIS, [facility] [employer] [facility] [employer] [id number] [employer], CoVi TechnologiesKpmsUF[address] Gaurav Sosa Notes/Report: NON-FASTING; NON-FASTING; NON-FASTING; NON-FASTING; [...] 14 10-35 U/L ALT 13 6-29 U/L Medications Medication SIG (Take, Route, Frequency, Duration) Notes Start Date End Date Status Xarelto 2.5 MG 1 tablet with food Orally Twice a day Active Clopidogrel Bisulfate 75 MG 1 tab(s) orally once a day; Duration: 90 days Active Toujeo SoloStar 300 UNIT/ML 20 units subcutaneously once a day; Duration: 30 days knitter wire mesh at Active BD TJ 2ND GEN PEN NEEDLE 4MM X 32G - SQ ONCE A DAY; Duration: 90 DAYS *Please review for potential replacement for e-prescription and drug interaction check* Active Metoprolol Succinate ER 100 MG 1 TAB(S) ORALLY ONCE A DAY; Duration: 30 days *Please review and pick correct strength-formulation from [employer] options. If intended option is not shown, discontinue and re-order from Quick Search* 02/26/2024 Active Ezetimibe 10 MG 1 tablet Orally Once a day Active Fludrocortisone Acetate 0.1 MG 1 tab(s) orally once a day Active Levothyroxine Sodium 50 MCG TAKE 1 TABLET EVERY DAY orally once a day; Duration: 90 days Active metFORMIN HCl 500 MG 1 tab(s) orally 2 times a day; Duration: 90 days Active Aspirin 81 MG 1 tab(s) orally once a day Active Venlafaxine HCl ER 150 MG Take 1 capsule by mouth once daily; Duration: 90 days Active Rosuvastatin Calcium 20 MG 1 tablet Orally Once a day Active Gabapentin 600 MG Take 1 tablet by mouth twice daily; Duration: 90 02/02/2025 Active Immunizations Vaccine Route Administration Date Status [...] Problem Status W/U Status Risk Notes Problem Diabetic renal disease (509921001) Type 2 diabetes mellitus with diabetic chronic kidney disease (E11.22) Active confirmed Problem Type II diabetes mellitus without complication (529743102) Type 2 diabetes mellitus without complications (E11.9) Active confirmed Problem Hypomagnesemia (469440080) Hypomagnesemia (E83.42) Active confirmed Problem Ischemic cardiomyopathy (407614742) Ischemic cardiomyopathy (I25.5) Active confirmed Problem Sciatica (87040255) Lumbago with sciatica, right side (M54.41) Active confirmed Problem Sciatica (83201901) Lumbago with sciatica, left side (M54.42) Active confirmed Problem Vitamin B12 deficiency (187349569) Vitamin B12 deficiency (E53.8) Active confirmed Problem Cervical disc disorder (468556888) DDD (degenerative disc disease), cervical (M50.30) Active confirmed Problem Mixed anxiety and depressive disorder (295108359) Depression with anxiety (F41.8) Active confirmed Problem Vitamin D deficiency (51558060) Vitamin D deficiency (E55.9) Active confirmed Problem Diabetes mellitus type 2 in nonobese (127567906) Diabetes mellitus type 2 in nonobese (E11.9) Active confirmed Problem Chronic serous otitis media of right ear (265150750) Chronic serous otitis media of right ear (H65.21) Active confirmed Problem Long-term current use of insulin (880273491) alf (current) use of insulin (Z79.4) Active confirmed Problem Chronic pain (00920210) Other chronic pain (G89.29) Active confirmed Problem Postherpetic neuralgia (7800948) Postherpetic neuralgia (B02.29) Active confirmed Problem Urge incontinence of urine (92402228) Urge incontinence of urine (N39.41) Active confirmed Problem 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, 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) Active confirmed Problem Constipation (11959063) Constipation, unspecified constipation type (K59.00) Active confirmed Problem Atherosclerotic heart disease of minto coronary artery without angina pectoris (456324811873782) 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90) Active confirmed Problem Skin sensation disturbance (94183491) Paresthesia of both feet (R20.2) Active confirmed Problem Generalized anxiety disorder (53551401) BARRY (generalized anxiety disorder) (F41.1) Active confirmed Problem serum creatinine raised (054621107) Elevated serum creatinine (R79.89) Active confirmed Problem Degeneration of lumbar intervertebral disc (86928089) Lumbar degenerative disc disease (M51.36) Active confirmed Problem Hypothyroidism (77196385) Hypothyroidism, unspecified type (E03.9) Active confirmed Problem Polyneuropathy due to type 2 diabetes mellitus (126669345) 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) Active confirmed Problem Hyperlipidaemia (55070768) Hyperlipidemia, unspecified hyperlipidemia type (E78.5) Active confirmed Problem Localized, primary osteoarthritis of the shoulder region () Primary osteoarthritis of right shoulder (M19.011) Active confirmed Problem Sacroiliac joint pain (831219892) Sacroiliac pain (M53.3) Active confirmed Problem Essential hypertension (70989816) Essential hypertension with goal blood pressure less than 130\/80 (I10) Active confirmed Problem Leukocytosis (451750529) Leukocytosis, unspecified (D72.829) Active confirmed Problem Cyst of right breast (49860301984906006 ) Cyst of right breast (N60.01) Active confirmed Problem Incontinence of feces (60623215) Incontinence of feces, unspecified fecal incontinence type (R15.9) Active confirmed Problem Polyneuropathy (63208954) Polyneuropathy (G62.9) Active confirmed Problem Diabetic peripheral neuropathy associated with type 2 diabetes mellitus (9231701793794) Type 2 diabetes mellitus with diabetic neuropathy, without long-term current use of insulin (E11.40) Active confirmed Problem Normocytic anemia (507681857) Normocytic anemia (D64.9) Active confirmed Problem Neurogenic claudication (424131386) Spinal stenosis of lumbar region with neurogenic claudication (M48.062) Active confirmed Problem Nodule of skin of breast (310634855) Breast nodule (N63.0) Active confirmed Problem Hyperglycemia due to type 2 diabetes mellitus (429959332729809) Uncontrolled type 2 diabetes mellitus with hyperglycemia (E11.65) Active confirmed Problem Poor balance (666413451) Poor balance (R26.89) Active confirmed Problem Celiac artery compression syndrome (5225067) 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) Active confirmed Problem Chronic kidney disease stage 3A (disorder) (661871915) Chronic kidney disease, stage 3a (N18.31) Active confirmed Problem Chronic kidney disease stage 3B (disorder) (506598308) Stage 3b chronic kidney disease (N18.32) Active confirmed Problem Pustular psoriasis of palm of hand (264824084) 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) Active confirmed Problem Foot-drop (2780906) Foot drop, left (M21.372) Active confirmed Problem Chronic gouty arthritis (81829846) 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) Active confirmed Vital Signs Heart Rate 78 /min 01/19/2025 Temperature 98.1 degrees Fahrenheit 01/19/2025 Blood pressure diastolic 78 mm Hg 01/19/2025 Height 5 ft 3.75 in in 01/19/2025 Blood pressure systolic 126 mm Hg 01/19/2025 Weight 155 lbs 01/19/2025 BMI 26.81 kg/m2 01/19/2025 Encounters Encounter Location Date Provider Diagnosis [facility] [address] [place] [address] 10/30/2024 Provider Migration [facility] [address] [address] 02/11/2024 Cheyenne Scott Diabetic peripheral neuropathy associated with type 2 diabetes mellitus E11.42 and Hypothyroidism, unspecified type E03.9 [facility] [address] [place] [address] 04/13/2024 Cheyenne Scott Stroke-like symptoms R29.90 ; Orthostatic hypotension I95.1 ; Hypothyroidism, unspecified type E03.9 ; Diabetic peripheral neuropathy associated with type 2 diabetes mellitus E11.42 ; Ischemic cardiomyopathy I25.5 and Hypomagnesemia E83.42 [facility] [place] [address] [facility] [address] [place] [address] 05/12/2024 Cheyenne Scott Lumbago with sciatic a, right side M54.41 ; Lumbago with sciatica, left side M54.42 ; Other chronic pain G89.29 and Sacroiliac pain M53.3 [facility] [address] [place] [address] 06/17/2024 Cheyenne Scott Hypothyroidism, unspecified type E03.9 ; Diabetic peripheral neuropathy associated with type 2 diabetes mellitus E11.42 ; Ischemic cardiomyopathy I25.5 ; Hypomagnesemia E83.42 and Immunization(s) administered Z23 [facility] [address] [place] [address] 08/09/2024 Cheyenne Scott Essential hypertensi on with [...] Orthostatic hypotension I95.1 and Frequent falls R29.6 [facility] [address] [place] [address] 08/24/2024 Cheyenne Scott Cognitive decline R41.89 ; Polyneuropathy G62.9 ; Frequent falls R29.6 ; Poor balance R26.89 and Word finding difficulty R47.89 [facility] [address] [facility] [address] [place], [place] [address] 10/08/2024 Cheyenne Scott Encounter for immunization Z23 [facility] [place] [address] [address] 01/19/2025 Cheyenne Scott Hypothyroidism, unspecified type E03.9 ; Hyperlipidemia, unspecified hyperlipidemia type E78.5 ; Vitamin B12 deficiency E53.8 ; Diabetic peripheral neuropathy associated with type 2 diabetes mellitus E11.42 ; BARRY (generalized anxiety disorder) F41.1 ; Vitamin D deficiency E55.9 ; Stage 3b chronic kidney disease N18.32 ; Orthostatic hypotension I95.1 ; Frequent falls R29.6 and PAD (peripheral artery disease) I73.9 [facility] [address] [facility] [address] [place] [address] 02/26/2024 Cheyenne Sonia Diabetic peripheral neuropathy associated with type 2 diabetes mellitus E11.42 and Type 2 diabetes mellitus with diabetic chronic kidney disease E11.22 [facility] [address] [place] [address] 03/18/2024 Edinson García Type 2 diabetes mellitus with diabetic chronic kidney disease E11.22 [facility] [address] [place] [address] 04/08/2024 Cheryl Ferguson [facility] [address] [facility] [address] [place] [address] 05/17/2024 Cheyenne Sctot [facility] [address] [facility] [address] [place] [address] 06/16/2024 Cheyenne Scott Breast cancer screening by mammogram Z12.31 [facility] [address] [place] [address] 07/06/2024 Cheyenne Sonia Type 2 diabetes mellitus with diabetic chronic kidney disease E11.22 [facility] [place] [address] [address] 08/05/2024 Cheyennesiomara Scott Diabetic peripheral neuropathy associated with type 2 diabetes mellitus E11.42 [facility] [address] [address] 11/10/2024 Edinson García [facility] [address] [address] 11/12/[address] [address] 01/05/2025 Cheyenne Scott Assessments Encounter Date Diagnosis [...] (ICD-10 - E78.5) Continue statin therapy 08/24/2024 Polyneuropathy (ICD-10 - G62.9) Symptoms are [...] head 08/24/2024 Cognitive decline (ICD-10 - R41.89) 08/05/2024 Diabetic peripheral neuropathy associated with type 2 diabetes mellitus (ICD-10 - E11.42) 10/08/2024 Encounter for immunization (ICD-10 - Z23) 08/09/2024 Essential hypertension with goal blood pressure less than 130\/80 (ICD-10 - I10) Well-controlled on current regimen 06/17/2024 Hypothyroidism, unspecified type (ICD-10 - E03.9) labs need to be updated. encouraged compliance with diet and monitoring glucose so we can adjust medications appropriately, anabel in light of her other metabolic issues and pain necessitating injections. 06/17/2024 Diabetic peripheral neuropathy associated with type 2 diabetes mellitus (ICD-10 - E11.42) 06/16/2024 Breast cancer screening by mammogram (ICD-10 - Z12.31) 05/12/2024 Lumbago with sciatica, right side (ICD-10 - M54.41) I cannot find any imaging of her lower back over the past year despite her multiple falls, recommend imaging to rule out any underlying compression or other fractures. Recommend scheduled Tylenol 3 times a day, rest, topical lidocaine. Return precautions reviewed 05/12/2024 Lumbago with sciatica, left side (ICD-10 - M54.42) 07/06/2024 Type 2 diabetes mellitus with diabetic chronic kidney disease (ICD-10 - E11.22) 04/13/2024 Orthostatic hypotension (ICD-10 - I95.1) 04/13/2024 Stroke-like symptoms (ICD-10 - R29.90) documentation reviewed and no changes recommended today, continue FU with cardiology. We will touch base again in about 8 weeks and re-eval labs with magnesium and A1C 03/18/2024 Type 2 diabetes mellitus with diabetic chronic kidney disease (ICD-10 - E11.22) 02/26/2024 Diabetic peripheral neuropathy associated with type 2 diabetes mellitus (ICD-10 - E11.42) 02/11/2024 Hypothyroidism, unspecified type (ICD-10 - E03.9) 02/11/2024 Diabetic peripheral neuropathy associated with type 2 diabetes mellitus (ICD-10 - E11.42) Recent labs done by neurology are unremarkable, stable renal/liver function. will obtain A1C and TSH next week. Consider additional intervention for anxiety if additional workup is negative 02/26/2024 Type 2 diabetes mellitus with diabetic chronic kidney disease (ICD-10 - E11.22) 04/13/2024 Hypothyroidism, unspecified type (ICD-10 - E03.9) 06/17/2024 Ischemic cardiomyopathy (ICD-10 - I25.5) 05/12/2024 Other chronic pain (ICD-10 - G89.29) 08/09/2024 Medicare annual wellness visit, subsequent (ICD-10 - Z00.00) Wellness exams are currently up-to-date, she will continue regular follow-up with cardiology and endocrinology. Will need 2nd dose of Shingrix during her FU appt in October. Due for colonoscopy, will address in October if her CV health has been stable 08/09/2024 Hypothyroidism, unspecified type (ICD-10 - E03.9) Continue replacement 08/24/2024 Frequent falls (ICD-10 - R29.6) 01/19/2025 Vitamin B12 deficiency (ICD-10 - E53.8) recommend continue supplement 01/19/2025 Diabetic peripheral neuropathy associated with type 2 diabetes mellitus (ICD-10 - E11.42) Discussed importance of good glucose control, continue gabapentin 08/24/2024 Poor balance (ICD-10 - R26.89) 08/09/2024 Hyperlipidemia, unspecified hyperlipidemia type (ICD-10 - E78.5) Continue statin therapy 05/12/2024 Sacroiliac pain (ICD-10 - M53.3) 06/17/2024 Hypomagnesemia (ICD-10 - E83.42) 04/13/2024 Diabetic peripheral neuropathy associated with type 2 diabetes mellitus (ICD-10 - E11.42) 06/17/2024 Immunization(s) administered (ICD-10 - Z23) 08/09/2024 Vitamin B12 deficiency (ICD-10 - E53.8) recommend continue supplement 01/19/2025 BARRY (generalized anxiety disorder) (ICD-10 - F41.1) Continue venlafaxine 08/24/2024 Word finding difficulty (ICD-10 - R47.89) 04/13/2024 Ischemic cardiomyopathy (ICD-10 - I25.5) 01/19/2025 Vitamin D deficiency (ICD-10 - E55.9) encoruaged to continue supplement 08/09/2024 Diabetic peripheral neuropathy associated with type 2 diabetes mellitus (ICD-10 - E11.42) Discussed importance of good glucose control, continue gabapentin 04/13/2024 Hypomagnesemia (ICD-10 - E83.42) 08/09/2024 BARRY (generalized anxiety disorder) (ICD-10 - F41.1) Continue venlafaxine 01/19/2025 Stage 3b chronic kidney disease (ICD-10 - N18.32) stable on most recent labs, avoid NSAIDS, continue efforts for better glucose control 01/19/2025 Orthostatic hypotension (ICD-10 - I95.1) cardiology managing 08/09/2024 Vitamin D deficiency (ICD-10 - E55.9) encoruaged to continue supplement 08/09/2024 Stage 3b chronic kidney disease (ICD-10 - N18.32) stable on most recent labs, avoid NSAIDS, continue efforts for better glucose control 01/19/2025 Frequent falls (ICD-10 - R29.6) has had therapy in the past, declines additional. likely secondary to severity of neuropathy in addition to orthostasis/auton omic dysfunction. has consult with neurology in the past year 01/19/2025 PAD (peripheral artery disease) (ICD-10 - I73.9) 08/09/2024 Inflammatory arthritis (ICD-10 - M19.90) is [...] 07/05/2019 C-VITAMIN D, 25-HYDROXY 07/05/2019 C-CRP 07/05/2019 H-MICROALB/FOURDRINIER WIRE WEAVER UR 07/18/2017 M-Complete Blood Count Auto Diff 021 M-Erythrocyte Sedimentation Rate 021 M-Comprehensive Metabolic Panel 08/23/19 21 M-Basic Metabolic Panel 06/07/2021 M-Hemoglobin A1C 06/07/2021 M-Hemoglobin A1C 08/23/2020 M-Hemoglobin A1C 02/11/2024 F-J-Aliorhbe Protein 08/23/2020 M-Lipid Panel 06/07/2021 M-Thyroid Stimulating Hormone 02/11/2024 M-Thyroid Stimulating Hormone 08/23/2020 W-Xsem-Knphdsb Antibody Titer 08/23/2020 M-Vitamin B12 12/20/2020 M-RA Latex Turbid. 08/23/2020 Insurance Providers Payer Name Payer Address Payer Phone Subscriber Number Group Number Insured Name Patient Relationship to Insured Coverage Start Date Coverage End Date [employer] [address] [address] [place] [address] [id number] Marilyn Sepulveda Self - patient is the insured SpecifiedBy [address] [place] [address] ACL Marilyn Sepulveda Self - patient is the insured Medications Administered Medication Instructions Date of Administration Dosage Notes Triamcinolone Acetonide 40mg Injection 03/22/2019 1 mL Kenalog 07/22/2013 1 Medical (General) History Medical History History ICD Code type II diabetes hypertension Hypothyroidism arthritis hormone replacement therapy Tachycardia Colonoscopy 2018, tubular adenoma x 2 DEXA 2013, normal STEMI with subsequent systolic CHF. Sten jorge alberto at [facility]. 04/2020 GERD Gout polymyalgia Rheumatica SCC left side of neck Surgical History Surgery Date(Month/Year) hysterectomy Heart Cath-2 cardiac stents 05/2020 Heart Cath 03/12/2024 Hospitalization History Reason Date(Month/Year) [facility] 04/06-04/08/2024 Heart issues 05/2020 dehydration/UTI above
--- NOTE | 2025-02-05 19:15 | XR_ITS ---
PROCEDURE INFORMATION: Exam: XR Right Shoulder Exam date and time: 02/05/2025 7:41 PM Age: 79 years old Clinical indication: Injury or trauma; Fall; Blunt trauma (contusions or hematomas); Shoulder; Right; Additional info: Tenderness S/P fall TECHNIQUE: Imaging protocol: Radiologic exam of the right shoulder. Views: 2 or more views. COMPARISON: CR XR SHOULDER RT MIN 2V 02/05/2025 7:41 PM FINDINGS: Bones/joints: Normal. Soft tissues: Normal. IMPRESSION: No acute findings.
--- NOTE | 2025-02-05 19:15 | XR_ITS ---
PROCEDURE INFORMATION: Exam: XR Left Hand Exam date and time: 02/05/2025 7:44 PM Age: 79 years old Clinical indication: Injury or trauma; Fall; Bleeding/hemorrhage; Left index finger; Additional info: Tenderness of 2nd digit TECHNIQUE: Imaging protocol: Radiologic exam of the left hand. Views: 3 or more views. COMPARISON: CR XR HAND LT MIN 3V 02/05/2025 7:44 PM FINDINGS: Bones/joints: There is osteoarthritis of the left hand that is most advanced at the interphalangeal joint of the left thumb and the distal interphalangeal joints of the index and middle fingers. There is advanced osteoarthritis at the 1st carpal/metacarpal joint. There is soft tissue swelling associated with the osteoarthritic changes within the fingers. Soft tissues: See Bones/joints finding. Vasculature: Vascular calcifications are present at the level of the wrist. IMPRESSION: No acute findings. Osteoarthritis.
--- NOTE | 2025-02-05 19:15 | CT_ITS ---
PROCEDURE INFORMATION: Exam: CT Head Without Contrast Exam date and time: 02/05/2025 7:48 PM Age: 79 years old Clinical indication: Injury or trauma; Fall; Blunt trauma (contusions or hematomas); Additional info: Fall on blood thinners TECHNIQUE: Imaging protocol: Computed tomography of the head without contrast. Radiation optimization: All CT scans at this facility use at least one of these dose optimization techniques: automated exposure control; mA and/or kV adjustment per patient size (includes targeted exams where dose is matched to clinical indication); or iterative reconstruction. COMPARISON: CT ANGIO HEAD 04/06/2024 1:09 PM FINDINGS: Brain: No evidence for intracranial hemorrhage, mass lesions or acute stroke. Intracranial vascular calcifications. Mild small vessel ischemic change in the periventricular white matter. Cerebral ventricles: No ventriculomegaly. Pituitary gland and sella: Negative Paranasal sinuses: Visualized sinuses are unremarkable. No fluid levels. Mastoid air cells: Visualized mastoid air cells are well aerated. Orbital cavities: Negative. Bones: Unremarkable. No acute fracture. Soft tissues: Unremarkable. Vasculature: Negative. Other findings: Mild generalized atrophy. IMPRESSION: 1. No evidence for intracranial hemorrhage, mass lesions or acute stroke. 2. Intracranial vascular calcifications. 3. Mild generalized atrophy. 4. Mild small vessel ischemic change in the periventricular white matter.
--- NOTE | 2025-02-05 19:15 | CT_ITS ---
PROCEDURE INFORMATION: Exam: CT Cervical Spine Without Contrast Exam date and time: 02/05/2025 7:50 PM Age: 79 years old Clinical indication: Injury or trauma; Fall; Blunt trauma; Additional info: Fall on blood thinners with midline ttp TECHNIQUE: Imaging protocol: Computed tomography of the cervical spine without contrast. Radiation optimization: All CT scans at this facility use at least one of these dose optimization techniques: automated exposure control; mA and/or kV adjustment per patient size (includes targeted exams where dose is matched to clinical indication); or iterative reconstruction. COMPARISON: CT CERVICAL SPINE WO CON 03/11/2024 11:20 AM FINDINGS: Bones: Mild dorsal kyphosis. No fracture or bone destruction. Predental space narrowing consistent with arthritis. Gzrp-tf-wbqtwdoo multilevel degenerative disc disease predominantly at C5-C6 and C6-C7 levels with disc space narrowing and small disc osteophyte complexes. Small calcified disc protrusion C7-T1. Small calcified disc protrusion C3-C4 level. Zhjk-go-oezffppk multilevel facet arthropathy. Ligamentum flavum thickening at C5 level image . Lungs: Lung apices are normal. Vasculature: Carotid calcification. Soft tissues: Unremarkable. IMPRESSION: 1. Mild dorsal kyphosis. 2. No fracture or bone destruction. 3. Predental space narrowing consistent with arthritis. 4. Dlae-bl-ockotvum multilevel degenerative disc disease predominantly at C5-C6 and C6-C7 levels with disc space narrowing and small disc osteophyte complexes. 5. Small calcified disc protrusion C7-T1. 6. Small calcified disc protrusion C3-C4 level. 7. Qvtp-bq-oamenzau multilevel facet arthropathy. 8. Carotid calcification. 9. Ligamentum flavum thickening at C5 level image 3.
[2025-02-05] MEDS: ACETAMINOPHEN 500MG TAB 1000 MG PO (19:23)
--- NOTE | 2025-02-05 19:52 | PC.NURSE ---
pt to CT at this time.
[2025-02-05 19:54] LABS: Hematocrit 35.2 % (37.0-47.0); Hemoglobin 12.0 g/dL (12.2-16.2); Immature Granulocytes % 0.1 %; Mean Corpuscular HGB Conc 34.1 g/dL (31.8-35.4); Mean Corpuscular Hemoglobin 30.3 pg (27.0-31.2); Mean Corpuscular Volume 88.9 fl (81-99); Nucleated Red Blood Cells % 0 %; Platelet Count 207 K/mm3 (142-424); Red Blood Count 3.96 M/mm3 (4.20-5.40); Red Cell Distribution Width-SD 39.8 fL; White Blood Count 6.8 K/mm3 (4.8-10.8)
--- NOTE | 2025-02-05 20:00 | PC.NURSE ---
Pt back to room from CT
[2025-02-05 20:05] LABS: Albumin Level 4.1 g/dl (3.5-5.0); Chloride 93 mmol/L (98-107)
[2025-02-05 20:06] LABS: Potassium 4.6 mmoL/L (3.5-5.1); Sodium 131 mmol/L (136-145)
[2025-02-05 20:07] LABS: INR 0.99 (0.9-1.1); Prothrombin Time 11.0 seconds (10.1-12.5)
[2025-02-05 20:08] LABS: Alanine Aminotransferase 23 U/L (12-78); Albumin/Globulin Ratio 1.4 (1.1-1.8); Anion Gap 12.6 mEq/L (5-15); Aspartate Amino Transferase 42 U/L (14-36); Blood Urea Nitrogen 22 mg/dl (7-17); Carbon Dioxide 30 mmol/L (22.0-30.0); Creatinine Clearance Estimated 44 mL/min (50-200); Creatinine,Serum 1.20 mg/dl (0.52-1.04); Estimated Glomerular Filt Rate 44 ml/min (>60); GFR (African American) 53 ML/MIN (>60); Globulin 3.0 g/dL (1.3-3.2); Total Protein,Serum 7.1 g/dl (6.3-8.2)
[2025-02-05 20:09] LABS: Alkaline Phosphatase 150 U/L (38-126); Bilirubin,Total 0.7 mg/dl (0.2-1.3); Calcium 8.7 mg/dl (8.4-10.2); Magnesium 1.3 mg/dl (1.6-2.3)
[2025-02-05 20:18] LABS: Glucose 433 mg/dl (74-100)
--- NOTE | 2025-02-05 20:18 | PC.NURSE ---
critical called from lab. glucose 433. notified
[2025-02-05 20:28] LABS: Microscopic, Urine URINE MICROSCOPIC (MICROSCOPIC)
[2025-02-05 20:32] LABS: Bilirubin,Urine Negative (Negative); Color,Urine YELLOW (Yellow); Glucose,Urine (UA) 3+ (Negative); Ketones,Urine Negative (Negative); Leukocyte Esterase,Urine 1+ (Negative); PH,Urine 6.0 (5.0-8.5); Protein,Urine TRACE (Negative); Specific Gravity, Urine 1.010 (1.005-1.030); Urobilinogen,Urine 0.2 EU/dl (0.2)
[2025-02-05 21:02] LABS: Lactate Venous 1.3 mmol/L (0.4-2.0); VBG HCO3 26.5 mmol/L (23-30); VBG PCO2 45.9 mmol/L (35-51); VBG PH 7.38 mmol/L (7.31-7.41); VBG PO2 44.4 mmol/L (28-40)
[2025-02-05 21:09] LABS: Bacteria,Urine 4+ /lpf
[2025-02-05] MEDS: 0.9 % SODIUM CHLORIDE 1000ML 1,000 ML 999 ML IV (22:30)
[2025-02-06 00:24] VITALS: BP 107/71; PULSE 93; RESP 18; TEMP 36.7; O2SAT 98
--- NOTE | 2025-02-06 08:41 | PC.NURSE ---
Urine culture results reviewed by Dr. Rodriguez, no new orders received.
--- NOTE | 2025-02-07 17:57 | PC.NURSE ---
URINE CULTURE DISCUSSED WITH DR TOLEDO, NO NEW ORDERS
== END 2025-02-06 00:24 | disposition home or self-care (01) ==
PROVIDERS: Emergency Provider Student in an Organized Health Care Education/Training Program; PCP Nurse Practitioner Family
DX: N39.0 Urinary tract infection, site not specified (principal); M25.511 Pain in right shoulder; M79.642 Pain in left hand; E11.65 Type 2 diabetes mellitus with hyperglycemia; E87.1 Hypo-osmolality and hyponatremia; R30.0 Dysuria; R51.9 Headache, unspecified; W18.30XA Fall on same level, unspecified, initial encounter
CPT/HCPCS: 70450; 72125; 73030; 73130; 80053; 81001; 82010; 82803; 83735; 85025; 85610; 86850; 87086; 87088; 87186; 96365; 96366; 99285; J0696; J7030

== ENCOUNTER 2025-02-24 12:52 | Outpatient (CLI) | payer MEDICARE, SELFPAY ==
--- OUTSIDE RECORDS SUMMARY | 2025-01-03 10:45 | XMS_ITS ---
Author Organization [facility] Address [address] [place], [place] [address] Care Team Providers Care Bander Hand Name Role Phone Edinson García Primary Care Provider Cheyenne Scott Unavailable [phone] REASON FOR VISIT 6 month ck Encounters Encounter Location Date Provider Diagnosis [facility] [address] [place], [place] [address] 01/03/2025 Cheyenne Scott Plan Of Treatment No Information Progress Notes * Marilyn DIAZ RDOB:[birth year] (79 yo F)Acc No.[id number]:01/03/2025 Progress Notes Patient: Marilyn GARCÍA Provider: HONORIO Cm :1945 A ge:79 Y S ex:Female Date:01/03/2025 Address:[address], [place] Pcp:Edinson García Subjective: * Chief Complaints: * 1 . 6 month ck. * Medical History: Objective: * Vitals: Assessment: Plan: * Treatment: * * Electronic signature of Apryl Scott APRN on 02/24/2025 at 12:54 PM EDT Sign off status: Pending * Provider: HONORIO Cm Date: 0 01/03/2025 Generated for Kimberly bradford/Otto/Lolis on: 0 02/24/2025 12:54 PM EDT
--- OUTSIDE RECORDS SUMMARY | 2025-01-19 08:15 | XMS_ITS ---
Author Organization [facility] D [facility] Address [address] [place] [address] Care Team Providers Care Recycling Coordinator Name Role Phone Edinson García Primary Care Provider Cheyenne Scott [phone] Allergies Allergen (clinical drug ingredient) Drug/Non Drug [...] subcutaneously once a day; Duration: 30 days transfer and pumphouse operator chief at Active Ezetimibe 10 MG 1 tablet Orally Once a day Active Venlafaxine HCl ER 150 MG Take 1 capsule by mouth once daily; Duration: 90 days Active Problems Problem Type SNOMED Code ICD Code Onset Dates Problem Status W/U Status Risk Notes Problem PAD (peripheral artery disease) (I73.9) Active confirmed Vital Signs Temperature 98.1 degrees Fahrenheit 01/20/20 25 Blood pressure systolic 126 mm Hg 01/20/20 25 Blood pressure diastolic 78 mm Hg 025 Heart Rate 78 /min 01/19/2025 Height 5 ft 3.75 in in 01/19/2025 Weight 155 lbs 01/19/2025 BMI 26.81 kg/m2 01/19/2025 Encounters Encounter Location Date Provider Diagnosis [address] [address] 01/19/2025 Cheyenne Scott Hypothyroidism, unspecified type E03.9 [...] subcutaneously once a day; Duration: 30 days transfer and pumphouse operator chief at [facility] Treatment Notes Assessment Notes Hypothyroidism, unspecified type Continu e replacement Hyperlipidemia, unspecified hyperlipidemia type Continue statin therapy Diabetic peripheral neuropat hy associated with type 2 diabetes mellitus Discussed importance of good glucose control, continue gabapentin BARRY (generalized anxiety disorder) Annalise nue venlafaxine Next Appt Details Follow Up: 6 Months, Reason: Progress Notes * Marilyn DIAZ RDOB:[birth year] (79 yo F)Acc No.[id number]:01/19/2025 Progress Notes Patient: Marilyn GARCÍA Provider: HONORIO Cm :1945 A ge:79 Y S ex:Female Date:01/19/2025 Address:[facility] [address], [place], [id number] Pcp:Edinson García Subjective: * Chief Complaints: * [...] memory. Has neurology consult pending in February ([facility]). * ROS: R ESPIRATORY: no S hortness [...] STEMI with subsequent systolic CHF. Stented at [facility]. 04/2020, GERD, Gout, polymyalgia Rheumatica, SCC left side of neck. * Surgical History: h ysterectomy , Heart Cath-2 cardiac stents 05/2020, Heart Cath 03/12/2024 . * Hospitalization/Major Diagno stic Procedure: a ervin , dehydration/UTI , Heart issues 05/2020, [facility] 04/06-04/08/2024 . * Family History: F [...] once a day , Notes to Pharmacist: transfer and pumphouse operator chief at , Taking Fludrocortisone Acetate 0.1 MG [...] *Please review and pick correct strength-formulation from [employer] options. If intended option is not shown, [...] *Please review and pick correct strength-formulation from [employer] options. If intended option is not shown, [...] days, 1, Refills 5, Notes to Pharmacist: transfer and pumphouse operator chief at . Notes: Discussed importance of good [...] 01/19/2025 Generated for Printi ng/Fatonig/eTransmitting on: 0 02/24/2025 12:55 PM EDT History and Physical Notes * [...] memory. Has neurology consult pending in February ([facility]) Diabetes diet noncompliant with diet foot lesions [...]
--- OUTSIDE RECORDS SUMMARY | 2025-02-24 12:55 | XMS_ITS | Encounter Summary ---
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 - [facility] Social History Tobacco Use Types Packs/Day Years Used Date Smoking Tobacco: Never Alcohol Use Standard Drinks/Week Comments No 0 (1 standard drink = 0.6 oz pur e alcohol) Comments Unknown Sex and Gender Information Value Date Recorded Sex Assigned at Not on file Legal Sex Female 1:44 PM EDT Gender Identity Not on file Sexual Orientation Not on file documented as of this encounter Plan of Treatment Scheduled Procedures Name Priority Associated Diagnoses Date/Ti me CV MYELOGRAM LUMBAR SPINE Gait instability Left foot drop documented as of this encounter Visit Diagnoses Not on filedocumented in this encounter Care Teams School Laboratory Technician Relationship Specialty Start Date End Date Edinson García MD [address] [place] [address] PCP - General Adolescent Medicine 07/25/16 documented as of this encounter
--- OUTSIDE RECORDS SUMMARY | 2025-02-24 12:55 | XMS_ITS | Encounter Summary ---
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
--- OUTSIDE RECORDS SUMMARY | 2025-02-24 12:55 | XMS_ITS | Encounter Summary ---
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
--- OUTSIDE RECORDS SUMMARY | 2025-02-24 12:55 | XMS_ITS | Encounter Summary ---
Author Organization 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
--- OUTSIDE RECORDS SUMMARY | 2025-02-24 12:55 | XMS_ITS | Clinical Summary ---
Author Organization [facility] Address [address] [place] [address] Care Team Providers Care Real Estate Job Titles Name Role Phone Edinson García MD Primary Care Provider [phone] Allergies Active Allergy Reactions Criticality Noted Date [...] (2 of 2 - PPSV23) 12/16/2016 10/21/2016 [id number] Vaccine (4 - season) 2024 06/07/2021, 10/14/2020, [...] (Hb A1C) (07/26/2024 8:23 AM EST) Pathologist [facility] POCT Hemoglobin A1C 11.3 <5.7% Non-Diabet ic % [facility] Kit Lot Number [id number] [facility] Kit Expiration Date 04/2026 [facility]ALTH[facility] Blood Venous blood specimen / Unknown 07/26/2024 8:23 AM EST us Katelin Alicea APRN POINT OF CARE TEST ENTER /EDIT ORDERABLES Final Result [facility] [address] [place] [address] * Acute Hepatitis Panel (10/10/2020 1:24 PM EDT) [facility] Hepatitis B Surf Antigen NEGATIVE Reference Value: [...] Relevant to Health Maintenance Insurance Care Teams Real Estate Job Titles Relationship Specialty Start Date End Date Edinson García MD [address] [place] [address] PCP - General 12/08/20
--- OUTSIDE RECORDS SUMMARY | 2025-02-24 12:55 | XMS_ITS | Encounter Summary ---
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
--- OUTSIDE RECORDS SUMMARY | 2025-02-24 12:55 | XMS_ITS | Encounter Summary ---
Author Organization [facility] Address [address] [place] [id number] Care Team Providers Care Sap Business Objects Developer Name Role Phone Edinson García MD Primary Care Provider [phone] Encounter Details Date Type Department Care Team (Late st Contact Info) Description 11/25/2012 External CPT II TRANSPORT ASSISTANT - [facility] Social History Tobacco Use [...] on filedocumented in this encounter Care Teams Sap Business Objects Developer Relationship Specialty Start Date End Date Edinson García MD [address] [place] [address] PCP - General Adolescent Medicine 07/25/16 documented as of this encounter
--- OUTSIDE RECORDS SUMMARY | 2025-02-24 12:55 | XMS_ITS | Encounter Summary ---
Author Organization [facility] Address [address] [place] [phone] Care Team Providers Care Health Coordinator Name Role Phone Edinson García MD Primary Care Provider [phone] Encounter Details Date Type Department Care Team (Late st Contact Info) Description 03/09/2014 External CPT II RELAY MAN - [facility] Social History Tobacco Use [...] on filedocumented in this encounter Care Teams Health Coordinator Relationship Specialty Start Date End Date Edinson García MD [address] [place] [address] PCP - General Adolescent Medicine 07/25/16 documented as of this encounter
--- OUTSIDE RECORDS SUMMARY | 2025-02-24 12:55 | XMS_ITS | Encounter Summary ---
Author Organization [facility] Address [address] [place] [phone] Care Team Providers Care Private Chef Name Role Phone Edinson García MD Primary Care Provider [phone] Encounter Details Date Type Department Care Team (Late st Contact Info) Description 04/27/2015 External CPT II CASE WORK AIDE - [facility] Social History Tobacco Use [...] on filedocumented in this encounter Care Teams Private Chef Relationship Specialty Start Date End Date Edinson García MD [address] [place] [address] PCP - General Adolescent Medicine 07/25/16 documented as of this encounter
--- OUTSIDE RECORDS SUMMARY | 2025-02-24 12:55 | XMS_ITS | Patient Health Record ---
Author Organization [facility] Address [address] [place] [address] Care Team Providers Care Shoemaking Cutter Name Role Phone RaquelEdinson Primary Care Provider Cheyenne Scott Unavailable [phone] Cheryl Ferguson Unavailable [phone] Migration, Provider Unavailable Unavailable Allergies Allergen (clinical drug ingredient) Drug/Non Drug Allergy documented on EMR Reaction Allergy Type Onset Date Status SULFA (uncoded) rash Allergy Acti ve tramadol traMADol Unknown Drug Allergy Active Results Component Value Reference Range Notes MAGNESIUM (622) Reviewed date:06/23/2024 04:34:22 PM Interpretation: Performing Lab:[facility] [id number], [email or web address] Gaurav Sosa Notes/Report: NON-FASTING; NON-FASTING; NON-FASTING; NON-FASTING; NON-FAST MAGNESIUM 1.5 1.5-2.5 mg/dL HEMOGLOBIN A1c (496) Reviewed date:06/23/2024 04:34:22 PM Interpretation: Performing Lab:[facility] [id number], [email or web address] Gaurav Sosa Notes/Report: NON-FASTING; NON-FASTING; NON-FASTING; NON-FASTING; [...] A1c for diagnosis of diabetes for children. TSH W/REFLEX TO FT4 (74079) Reviewed date:06/23/2024 04:34:22 PM Interpretation: Performing Lab:[facility], [facility] [id number] [employer], GrafightersPovuDB[address] Gaurav Sosa Notes/Report: NON-FASTING; NON-FASTING; NON-FASTING; NON-FASTING; NON-FAST TSH W/REFLEX TO FT4 2.43 0.40-4.50 mIU/L COMPREHENSIVE METABOLIC PANE (19308) Reviewed date:06/23/2024 04:34:22 PM Interpretation: Performing Lab:[facility] [id number] [employer], GrafightersAhbmEE[address] Gaurav Sosa Notes/Report: NON-FASTING; NON-FASTING; NON-FASTING; NON-FASTING; [...] 9) Reviewed date:06/23/2024 04:34:22 PM Interpretation: Performing Lab:[facility], [facility] [address] [facility], Romero RodriguezValcQE[address] Gaurav Sosa Notes/Report: NON-FASTING; NON-FASTING; NON-FASTING; NON-FASTING; [...] MPV 11.1 7.5-12.5 fL ABSOLUTE NEUTROPHILS 4434 1223-9576 cells/uL ABSOLUTE LYMPHOCYTES 9448 109-2279 cells/uL ABSOLUTE MONOCYTES 632 200-950 cells/uL ABSOLUTE EOSINOPHILS 0 15-500 cells/uL ABSOLUTE BASOPHILS 7 0-200 cells/uL NEUTROPHILS 65.2 LYMPHOCYTES 25.4 MONOCYTES 9.3 EOSINOPHILS 0.0 BASOPHILS 0.1 Mammogram : Bilateral Reviewed date:07/07/2024 02:39:29 PM [...] 1 tab(s) orally once a day Active Fludrocortisone Acetate 0.1 MG 1 tab(s) orally once a day Active Levothyroxine Sodium 50 MCG TAKE 1 TABLET EVERY DAY orally once a day; Duration: 90 days Active Metoprolol Succinate ER 100 MG 1 TAB(S) ORALLY ONCE A DAY; Duration: 30 days *Please review and pick correct strength-formulation from [employer] options. If intended option is not shown, discontinue and re-order from Quick Search* 02/26/2024 Active BD TJ 2ND GEN PEN NEEDLE 4MM X 32G - SQ ONCE A DAY; Duration: 90 DAYS *Please review for potential replacement for e-prescription and drug interaction check* Active Clopidogrel Bisulfate 75 MG 1 tab(s) orally once a day; Duration: 90 days Active Xarelto 2.5 MG 1 tablet with food Orally Twice a day Active Gabapentin 600 MG Take 1 tablet by mouth twice daily; Duration: 90 02/02/2025 Active Ezetimibe 10 MG 1 tablet Orally Once a day Active Toujeo SoloStar 300 UNIT/ML 20 units subcutaneously once a day; Duration: 30 days 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 Active Venlafaxine HCl ER 150 MG Take 1 capsule by mouth once daily; Duration: 90 days Active metFORMIN HCl 500 MG 1 tab(s) orally 2 times a day; Duration: 90 days Active Rosuvastatin Calcium 20 MG 1 tablet Orally Once a day Active Immunizations Vaccine Route Administration Date Status Comme nts Adacel (Tdap) Unknown 11/24/2023 Administered Arexvy IM Intramuscular 06/02/2023 Administered Covid Pfizer Unknown 09/21/2020 Administered Covid Pfizer Unknown 10/14/2020 Administered Fluzone High Dose IM Intramuscular 04/23/2018 Administered Fluzone High Dose IM Intramuscular 04/13/2020 Administered Fluzone High Dose IM Intramuscular 04/05/2021 Administered Fluzone High Dose IM Intramuscular 06/12/2022 Administered Fluzone High Dose IM Intramuscular 06/02/2023 Administered Fluzone High Dose IM Intramuscular 06/17/2024 Administered Pneumovax-23 (pneumococccal vaccine polyvalent)2 years or older IM Intramuscular 03/09/2014 Administered Prevnar PCV-13 (Pneumococcal conjugate 13) IM Intramuscular 10/21/2016 Administered SHINGRIX IM Intramuscular 06/17/2024 Administered SHINGRIX IM Intramuscular 10/08/2024 Administered Problems Problem Type SNOMED Code ICD Code Onset Dates Problem Status W/U Status Risk Notes Problem Diabetic renal disease (749753596) Type 2 diabetes mellitus with diabetic chronic kidney disease (E11.22) Active confirmed Problem Type II diabetes mellitus without complication (669668093) Type 2 diabetes mellitus without complications (E11.9) Active confirmed Problem Hypomagnesemia (075404349) Hypomagnesemia (E83.42) Active confirmed Problem Ischemic cardiomyopathy (716802128) Ischemic cardiomyopathy (I25.5) Active confirmed Problem Sciatica (20715609) Lumbago with sciatica, right side (M54.41) Active confirmed Problem Sciatica (33008096) Lumbago with sciatica, left side (M54.42) Active confirmed Problem Vitamin B12 deficiency (453838522) Vitamin B12 deficiency (E53.8) Active confirmed Problem Cervical disc disorder (684268148) DDD (degenerative disc disease), cervical (M50.30) Active confirmed Problem Mixed anxiety and depressive disorder (850564401) Depression with anxiety (F41.8) Active confirmed Problem Vitamin D deficiency (87650176) Vitamin D deficiency (E55.9) Active confirmed Problem Diabetes mellitus type 2 in nonobese (571648518) Diabetes mellitus type 2 in nonobese (E11.9) Active confirmed Problem Chronic serous otitis media of right ear (464807983) Chronic serous otitis media of right ear (H65.21) Active confirmed Problem Long-term current use of insulin (052355413) route aide (current) use of insulin (Z79.4) Active confirmed Problem Chronic pain (65278483) Other chronic pain (G89.29) Active confirmed Problem Postherpetic neuralgia (7560476) Postherpetic neuralgia (B02.29) Active confirmed Problem Urge incontinence of urine (51829027) Urge incontinence of urine (N39.41) Active confirmed Problem 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, 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) Active confirmed Problem Constipation (40553719) Constipation, unspecified constipation type (K59.00) Active confirmed Problem Atherosclerotic heart disease of [place] coronary artery without angina pectoris (254313403975280) Coronary artery disease involving [place] coronary artery of [place] heart without angina pectoris (I25.10) Active confirmed Problem Recurrent falls (640730261) Frequent falls (R29.6) Active confirmed Problem Abnormal mammogram (715292539) Abnormal mammogram (R92.8) Active confirmed Problem Peripheral vascular disease (865475956) PAD (peripheral artery disease) (I73.9) Active confirmed Problem Localized, primary osteoarthritis of the shoulder region () 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) Active confirmed Problem Raised antinuclear antibody (462079236) Positive YURIDIA (antinuclear antibody) (R76.8) Active confirmed Problem Inflammatory arthritis (7987467) Inflammatory arthritis (M19.90) Active confirmed Problem Skin sensation disturbance (84447896) Paresthesia of both feet (R20.2) Active confirmed Problem Generalized anxiety disorder (34359047) BARRY (generalized anxiety disorder) (F41.1) Active confirmed Problem serum creatinine raised (370976001) Elevated serum creatinine (R79.89) Active confirmed Problem Degeneration of lumbar intervertebral disc (66974538) Lumbar degenerative disc disease (M51.36) Active confirmed Problem Hypothyroidism (10433809) Hypothyroidism, unspecified type (E03.9) Active confirmed Problem Polyneuropathy due to type 2 diabetes mellitus (310447829) 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) Active confirmed Problem Hyperlipidaemia (51012874) Hyperlipidemia, unspecified hyperlipidemia type (E78.5) Active confirmed Problem Localized, primary osteoarthritis of the shoulder region () Primary osteoarthritis of right shoulder (M19.011) Active confirmed Problem Gait abnormality (86715951) Gait abnormality (R26.9) Active confirmed Problem Sacroiliac joint pain (539779237) Sacroiliac pain (M53.3) Active confirmed Problem Essential hypertension (12428859) Essential hypertension with goal blood pressure less than 130\/80 (I10) Active confirmed Problem Leukocytosis (657666563) Leukocytosis, unspecified (D72.829) Active confirmed Problem Cyst of right breast (32847215880133140 ) Cyst of right breast (N60.01) Active confirmed Problem Incontinence of feces (69108487) Incontinence of feces, unspecified fecal incontinence type (R15.9) Active confirmed Problem Polyneuropathy (36652345) Polyneuropathy (G62.9) Active confirmed Problem Diabetic peripheral neuropathy associated with type 2 diabetes mellitus (6752948293741) Type 2 diabetes mellitus with diabetic neuropathy, without long-term current use of insulin (E11.40) Active confirmed Problem Normocytic anemia (399982054) Normocytic anemia (D64.9) Active confirmed Problem Neurogenic claudication (676067613) Spinal stenosis of lumbar region with neurogenic claudication (M48.062) Active confirmed Problem Nodule of skin of breast (573603301) Breast nodule (N63.0) Active confirmed Problem Hyperglycemia due to type 2 diabetes mellitus (045379245085166) Uncontrolled type 2 diabetes mellitus with hyperglycemia (E11.65) Active confirmed Problem Poor balance (945928304) Poor balance (R26.89) Active confirmed Problem Celiac artery compression syndrome (2353858) 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) Active confirmed Problem Chronic kidney disease stage 3A (disorder) (104639657) Chronic kidney disease, stage 3a (N18.31) Active confirmed Problem Chronic kidney disease stage 3B (disorder) (015886535) Stage 3b chronic kidney disease (N18.32) Active confirmed Problem 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) 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) Active confirmed Problem Foot-drop (3384651) Foot drop, left (M21.372) Active confirmed Problem Chronic gouty arthritis (07666828) 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) Active confirmed Vital Signs Heart Rate 78 /min 02/24/2025 Temperature 96.6 degrees Fahrenheit 02/24/2025 Blood pressure diastolic 60 mm Hg 02/24/2025 Height 5 ft 3.75 in in 02/24/2025 Blood pressure systolic 136 mm Hg 02/24/2025 Weight 152 lbs 02/24/2025 BMI 26.29 kg/m2 02/24/2025 Encounters Encounter Location Date Provider Diagnosis [facility] [address] [place] [address] 10/30/2024 Provider Migration [facility] [address] [facility] [address] [place] [address] 02/24/2025 Cheyenne Scott Vertigo R42 ; Gait abnormality R26.9 ; Hypothyroidism, unspecified type E03.9 ; Diabetes mellitus type 2 in nonobese E11.9 and Hyponatremia E87.1 [facility] [address] [place] [address] 04/13/2024 Cheyenne Scott Stroke-like symptoms R29.90 ; Orthostatic hypotension I95.1 ; Hypothyroidism, unspecified type E03.9 ; Diabetic peripheral neuropathy associated with type 2 diabetes mellitus E11.42 ; Ischemic cardiomyopathy I25.5 and Hypomagnesemia E83.42 [facility] [address] [address] 05/12/2024 Cheyenne Scott Lumbago with sciatic a, right side M54.41 ; Lumbago with sciatica, left side M54.42 ; Other chronic pain G89.29 and Sacroiliac pain M53.3 [facility] [address] [place] [address] 06/17/2024 Cheyenne Scott Hypothyroidism, unspecified type E03.9 ; Diabetic peripheral neuropathy associated with type 2 diabetes mellitus E11.42 ; Ischemic cardiomyopathy I25.5 ; Hypomagnesemia E83.42 and Immunization(s) administered Z23 [facility] [address] [place] [address] 08/09/2024 Cheyenne Scott Essential hypertensi on with [...] Orthostatic hypotension I95.1 and Frequent falls R29.6 [facility] [address] [place], [place] [address] 08/24/2024 [facility]iatric Cognitive decline R41.89 ; Polyneuropathy G62.9 ; Frequent falls R29.6 ; Poor balance R26.89 and Word finding difficulty R47.89 [facility] [address] [facility] [address] [place], [place] [address] 10/08/2024 [facility] Encounter for immunization Z23 [facility] [address] [address] 01/19/2025 [facility] Hypothyroidism, unspecified type E03.9 ; Hyperlipidemia, unspecified hyperlipidemia type E78.5 ; Vitamin B12 deficiency E53.8 ; Diabetic peripheral neuropathy associated with type 2 diabetes mellitus E11.42 ; BARRY (generalized anxiety disorder) F41.1 ; Vitamin D deficiency E55.9 ; Stage 3b chronic kidney disease N18.32 ; Orthostatic hypotension I95.1 ; Frequent falls R29.6 and PAD (peripheral artery disease) I73.9 [facility] [address] [facility] [address] [place], [place] [address] 02/26/2024 [facility] Diabetic peripheral neuropathy associated with type 2 diabetes mellitus E11.42 and Type 2 diabetes mellitus with diabetic chronic kidney disease E11.22 [facility] [address] [facility] [address] [place], [place] [address] 03/18/2024 Edinson Raquel Type 2 diabetes mellitus with diabetic chronic kidney disease E11.22 [facility] [address] [facility] [address] [place] [address] 04/08/2024 Cheryl Banegasgeno [facility] [address] [facility] [address] [place] [address] 05/17/2024 [facility] [address] [place] [address] 06/16/2024 [facility] Breast cancer screening by mammogram Z12.31 [facility] [address] [facility] [address] [place], [place] [address] 07/06/2024 Cheyenne Scott Type 2 diabetes mellitus with diabetic chronic kidney disease E11.22 [facility] [place] [address] [address] 08/05/2024 Cheyenne Scott Diabetic peripheral neuropathy associated with type 2 diabetes mellitus E11.42 [facility] [place] [address] [address] 11/10/2024 Edinson García [facility] [place] [address] [address] 11/12/2024 Edinson Tsaison [facility] [place] [address] [address] 01/05/2025 Cheyenne Scott [facility] [address] [place] [address] 02/24/2025 Cheyenne Scott Assessments Encounter Date Diagnosis (ICD Code) Assessment Notes Treatment Notes Treatment Clinical Notes Section Notes 02/26/2024 Diabetic peripheral neuropathy associated with type 2 diabetes mellitus (ICD-10 - E11.42) 03/18/2024 Type 2 diabetes mellitus with diabetic chronic kidney disease (ICD-10 - E11.22) 04/13/2024 Stroke-like symptoms (ICD-10 - R29.90) documentation [...] with sciatica, left side (ICD-10 - M54.42) 04/13/2024 Orthostatic hypotension (ICD-10 - I95.1) 06/16/2024 Breast cancer screening by mammogram (ICD-10 [...] 10/08/2024 Encounter for immunization (ICD-10 - Z23) 01/19/2025 Hypothyroidism, unspecified type (ICD-10 - E03.9) [...] type (ICD-10 - E78.5) Continue statin therapy 02/24/2025 Vertigo (ICD-10 - R42) 02/24/2025 Gait abnormality (ICD-10 - R26.9) 02/24/2025 Hypothyroidism, unspecified type (ICD-10 - E03.9) 01/19/2025 Vitamin B12 deficiency (ICD-10 - E53.8) recommend continue supplement 08/09/2024 Medicare annual wellness visit, subsequent (ICD-10 - Z00.00) Wellness exams are currently up-to-date, she will continue regular follow-up with cardiology and endocrinology. Will need 2nd dose of Shingrix during her FU appt in October. Due for colonoscopy, will address in October if her CV health has been stable 08/24/2024 Frequent falls (ICD-10 - R29.6) 08/09/2024 Hypothyroidism, unspecified type (ICD-10 - E03.9) Continue replacement 06/17/2024 Ischemic cardiomyopathy (ICD-10 - I25.5) 04/13/2024 Hypothyroidism, unspecified type (ICD-10 - E03.9) 05/12/2024 Other chronic pain (ICD-10 - G89.29) 02/26/2024 Type 2 diabetes mellitus with diabetic chronic kidney disease (ICD-10 - E11.22) 05/12/2024 Sacroiliac pain (ICD-10 - M53.3) 04/13/2024 Diabetic peripheral neuropathy associated with type 2 diabetes mellitus (ICD-10 - E11.42) 06/17/2024 Hypomagnesemia (ICD-10 - E83.42) 08/09/2024 Hyperlipidemia, unspecified hyperlipidemia type (ICD-10 - E78.5) Continue statin therapy 02/24/2025 Diabetes mellitus type 2 in nonobese (ICD-10 - E11.9) 01/19/2025 Diabetic peripheral neuropathy associated with type 2 diabetes mellitus (ICD-10 - E11.42) Discussed importance of good glucose control, continue gabapentin 08/24/2024 Poor balance (ICD-10 - R26.89) 01/19/2025 BARRY (generalized anxiety disorder) (ICD-10 - F41.1) Continue venlafaxine 02/24/2025 Hyponatremia (ICD-10 - E87.1) 08/24/2024 Word finding difficulty (ICD-10 - R47.89) 06/17/2024 Immunization(s) administered (ICD-10 - Z23) 04/13/2024 Ischemic cardiomyopathy (ICD-10 - I25.5) 08/09/2024 Vitamin B12 deficiency (ICD-10 - E53.8) recommend continue supplement 08/09/2024 Diabetic peripheral neuropathy associated with type 2 diabetes mellitus (ICD-10 - E11.42) Discussed importance of good glucose control, continue gabapentin 04/13/2024 Hypomagnesemia (ICD-10 - E83.42) 01/19/2025 Vitamin D deficiency (ICD-10 - E55.9) encoruaged to continue supplement 01/19/2025 Stage 3b chronic kidney disease (ICD-10 - N18.32) stable on most recent labs, avoid NSAIDS, continue efforts for better glucose control 08/09/2024 BARRY (generalized anxiety disorder) (ICD-10 - F41.1) Continue venlafaxine 08/09/2024 Vitamin D deficiency (ICD-10 - E55.9) encoruaged to continue supplement 01/19/2025 Orthostatic hypotension (ICD-10 - I95.1) cardiology managing 01/19/2025 Frequent falls (ICD-10 - R29.6) has had therapy in the past, declines additional. likely secondary to severity of neuropathy in addition to orthostasis/auton omic dysfunction. has consult with neurology in the past year 08/09/2024 Stage 3b chronic kidney disease (ICD-10 - N18.32) stable on most recent labs, avoid NSAIDS, continue efforts for better glucose control 08/09/2024 Inflammatory arthritis (ICD-10 - M19.90) is off of prednisone, monitor 01/19/2025 PAD (peripheral artery disease) (ICD-10 - I73.9) 08/09/2024 Constipation, unspecified constipation type (ICD-10 - [...] Date DEXA Hip and Spine - Screening Physical Therapy 04/03/2022 Physical Therapy 11/06/2015 Physical Therapy 04/09/2017 Occupational Therapy : Eval [...] 07/05/2019 C-VITAMIN D, 25-HYDROXY 07/05/2019 C-CRP 07/05/2019 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 08/23/2020 Insurance Providers Payer Name Payer Address Payer Phone Subscriber Number Group Number Insured Name Patient Relationship to Insured Coverage Start Date Coverage End Date [facility] MEDICARE [address] [address] [place] [address] [id number] Marilyn Sepulveda Self - patient is the insured [employer] [address] [place] [address] [address] [place] [address] ACL Marilyn Sepulveda Self - patient is [...] subsequent systolic CHF. Sten jorge alberto at [facility]. 04/2020 GERD Gout polymyalgia Rheumatica SCC left side of neck Surgical History Surgery Date(Month/Year) hysterectomy Heart Cath-2 cardiac stents 05/2020 Heart Cath 03/12/2024 Hospitalization History Reason Date(Month/Year) [facility] 04/06-04/08/2024 Heart issues 05/2020 dehydration/UTI above
--- OUTSIDE RECORDS SUMMARY | 2025-02-24 12:55 | XMS_ITS | Encounter Summary ---
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
--- OUTSIDE RECORDS SUMMARY | 2025-02-24 12:55 | XMS_ITS | Encounter Summary ---
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
--- OUTSIDE RECORDS SUMMARY | 2025-02-24 12:56 | XMS_ITS | Clinical Summary ---
Author Organization [facility] Address [address] [id number] Care Team Providers Care Clay Products Glazer Name Role Phone Edinson García MD Primary Care Provider Allergies Active Allergy Reactions Criticality Noted Date Comments Sulfa Antibiotics 08/29/2017 Tramadol Unknown - High Severity 04/05/2021 Medications levothyroxine (SYNTHROID, LEVOTHROID) 50 MCG tablet 8 Active aspirin 81 MG EC tablet Take 1 tablet by mouth Daily. Active predniSONE (DELTASONE) 10 MG tablet Take 0.5 tablets by mouth Daily. 1 Active venlafaxine XR (EFFEXOR-XR) 150 MG 24 hr capsule Take 1 capsule by mouth Daily. Active midodrine (PROAMATINE) 5 MG tablet Take 1 tablet by mouth 3 (Three) Times a Day Before Meals. Active metoprolol succinate XL (TOPROL-XL) 50 MG 24 hr tablet Take 1 tablet by mouth Daily. Active metFORMIN (GLUCOPHAGE) 500 MG tablet Take 1 tablet by mouth 2 (Two) Times a Day With Meals. Active fludrocortisone 0.1 MG tablet Take 1 tablet by mouth Daily. Active Insulin Glargine, 2 Unit Dial, (Toujeo Max SoloStar) 300 UNIT/ML solution pen-injector injection Inject 42 Units under the skin into the appropriate area as directed Daily. Active gabapentin (NEURONTIN) 600 MG tabletIndicatio ns:Polyneuropat hy Take 1 tablet by mouth 2 (Two) Times a Day. 4 Active atorvastatin (LIPITOR) 80 MG tablet Take 1 tablet by mouth Every Night. 90 tablet 4 Active clopidogrel (PLAVIX) 75 MG tablet Take 1 tablet by mouth Daily. 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 Continue GBP 300 q noon and 300 mg qpm Improve DM control and increase exercise Assessment & Plan (08/29/2017 1:12 PM EST): Developing T2DM neuropathy GBP 300 -600 mg qhs EMG/NCS luis m LE Unsteadiness on feet 08/29/2017 Immunizations Immunization Administration Dates Next Due Fluzone High-Dose 65+YRS 07/25/2016 Family History Medical History Relation Name Comments Cancer Father Heart disease Father Hypertension Father Diabetes Mother Heart disease Mother Hypertension Mother Kidney disease Mother Kidney failure Mother Heart attack Sister Relation Name Status Comments Father Mother Sister Social History Tobacco Use Types Packs/Day Years Used Date Smoking Tobacco: Never Smokeless Tobacco: Never Tobacco Cessation:Counseling Given: Not Answered Alcohol Use Standard Drinks/Week Comments No 0 (1 standard drink = 0.6 oz pur e alcohol) AUDIT-C Answer Date Recorded Q1: How often do you have a drink containing alcohol? Never 04/06/2024 Q2: How many drinks containi ng alcohol do you have on a typical day when you are drinking? Patient does not drink Q3: How often do you have si x or more drinks on one occasion? Never 04/06/2024 Abuse Screen Answer Date Recorded Feels Unsafe at Home or Work/School no 04/06/2024 Feels Threatened by Someone no 03/28 Does Anyone Try to Keep You From Having Contact with Others or Doing Things Outside Your Home? no 04/06/2024 Physical Signs of Abuse Present no 04/06/2024 Housing Stability Answer Date Recorded Current Living Arrangements home 03/28 Potentially Unsafe Housing Conditions Not on antonieta e 04/06/2024 Family and Community Support Answer Riley e Recorded Help with Day-to-Day Activities Not on file 05/06/2023 Lonely or Isolated Not on file 05/06/2023 Employment Answer Date Recorded Do you want help finding or keeping work or a sachin b? Not on file 05/06/2023 Disabilities Answer Date Recorded Difficulty Concentrating, Remembering or Making Decisions no 04/06/2024 Difficulty Managing Errands Independently yes 04/06/2024 Education Answer Date Recorded Help with school or training? Not on file Preferred Language Not on file 05/06/2023 Comments No Sex and Gender Information Value Date Recorded Sex Assigned at Not on file Legal Sex Female 1:44 PM EDT Gender Identity Not on file Sexual Orientation Not on file Last Filed Vital Signs Vital Sign Reading Time Taken Comments Blood Pressure 90/55 04/08/2024 9:06 AM EDT Pulse 88 04/08/2024 9:06 AM EDT Temperature 36.5 C (97.7 F) 04/08/2024 11:00 AM EDT Respiratory Rate 18 04/08/2024 11:00 AM EDT Oxygen Saturation 98% 04/08/2024 5:25 AM EDT Inhaled Oxygen Concentration - - Weight 72.3 kg (159 lb 6.4 oz) 04/07/2024 5:00 A M EDT Height 162.6 cm (5' 4 ) 04/07/2024 5:00 AM EDT Body Mass Index 27.36 04/07/2024 5:00 AM EDT Plan of Treatment Scheduled Procedures Name Priority Associated Diagnoses Date/Ti me CV MYELOGRAM LUMBAR SPINE Gait instability Left foot drop Health Maintenance Due Date Last Done Comments DXA SCAN 1945 DIABETIC EYE EXAM 1957 DIABETIC FOOT EXAM 1957 COLOGUARD 1992 COLON CANCER SCREENING 5 YEA R SIGMOIDOSCOPY 1992 COLONOSCOPY [address]ER SCREENING 1992 [address] COLONOGRAPHY 1992 FECAL OCCULT BLOOD TEST 1992 FIT Testing (1 year) 1992 ANNUAL WELLNESS VISIT 08/29/2017 HEPATITIS C SCREENING 08/29/2017 RSV Vaccine - Adults (1 - 1- dose 75+ series) 2022 COVID-19 Vaccine (2023-2 5 season) 2024 06/07/2021, 10/14/2020, 09/21/2020 ZOSTER VACCINE (2 of 2) 08/12/2024 06/17/2024 HEMOGLOBIN A1C 01/24/2025 07/26/2024, 06/29, 04/07/2024 LIPID PANEL 04/08/2025 04/08/2024, 04/07/2024 INFLUENZA VACCINE 04/27/2025 06/17/2024, , 06/12/2022, Additional history exists URINE MICROALBUMIN-CREATININ E RATIO (uACR) 07/26/2025 07/26/2024 TDAP/TD VACCINES (3 - Td or Tdap) 11/23/2033 024, 12/16/2007 Pneumococcal Vaccine 50+ Completed 10/21/2016, 02/25 Procedures Procedure Name Priority Date/Time Associated Diagnosis Comments LIPID PANEL Urgent 04/08/2024 8:06 AM EDT HEMOGLOBIN A1C Urgent 04/07/2024 11:14 AM EDT from Last 3 Months or Most Recently Relevant to Health Maintenance Results * Lipid Panel (04/08/2024 8:06 AM EDT) Total Cholesterol 133 0 - 200 mg/dL 04/08/2024 9:00 AM EDT [facility] Triglycerides 147 0 - 150 mg/dL 04/08/2024 9:00 AM EDT [facility] HDL Cholesterol 58 40 - 60 mg/dL 04/08/2024 9:00 AM EDT [facility] LDL Cholesterol 50 0 - 100 mg/dL 04/08/2024 9:00 AM EDT [facility] VLDL Cholesterol 25 5 - 40 mg/dL 04/08/2024 9:00 AM EDT [facility] LDL/HDL Ratio 0.79 04/08/2024 9:00 AM EDT [facility] Blood Venipuncture / Unknown 04/08/2024 8:06 AM EDT 04/08/2024 8:32 AM EDT Narrative [facility] - 04/08/2024 9:00 AM EDT Cholesterol Reference Ranges (U.S. Department of Health and Human Services ATP III Classifications) Desirable <200 mg/dL Borderline High 200-239 mg/dL High Risk >240 mg/dL Triglyceride Reference Ranges (U.S. Department of Health and Human Services ATP III Classifications) Normal <150 mg/dL Borderline High 150-199 mg/dL High 200-499 mg/dL Very High >500 mg/dL HDL Reference Ranges (U.S. Department of Health and Human Services ATP III Classifications) Low <40 mg/dl (major risk factor for CHD) High >60 mg/dl ('negative' risk factor for CHD) LDL Reference Ranges (U.S. Department of Health and Human Services ATP III Classifications) Optimal <100 mg/dL Near Optimal 100-129 mg/dL Borderline High 130-159 mg/dL High 160-189 mg/dL Very High >189 mg/dL Shweta Ramos MD LAB BLOOD ORDERABLES Final Result [facility]
[address] [phone] * (ABNORMAL) Hemoglobin A1c (04/07/2024 11:14 AM EDT) Hemoglobin A1C 8.60(H) 4.80 - 5.60 % 04/07/2024 11:53 AM EDT [facility] Blood Venipuncture / Unknown 04/07/2024 11:14 AM EDT 04/07/2024 11:32 AM EDT Narrative [facility] - 04/07/2024 11:53 AM EDT Hemoglobin A1C Ranges: Increased Risk for Diabetes 5.7% to 6.4% Diabetes >= 6.5% Diabetic Goal < 7.0% Kaylen Gleason APRN LAB BLOOD ORDERABLES Fin al Result [facility]
[address] [place] [address], from Last 3 Months or Most Recently Relevant to Health Maintenance Insurance [facility] MEDICARE ADVANTAGE HMO Advance Directives * CPR (Attempt to Resuscitate) (Latest Code Status on File) Date Activated Date Inactivated Comments 04/06/2024 11:13 PM 04/08/2024 1:53 PM Question Answer Comments Code Status (Patient has no pulse and is not breathing): CPR (Attempt to Resuscitate) Medical Interventions (Patie nt has pulse or is breathing): Full Support Level Of Support Discussed With: Patient Care Teams Clay Products Glazer Relationship Specialty Start Date End Date Edinson García MD [address] [facility] [address] [place] [address] PCP - General Adolescent Medicine 07/25/16
[2025-02-24 13:45] LABS: Hematocrit 38.9 % (37.0-47.0); Hemoglobin 12.7 g/dL (12.2-16.2); Immature Granulocytes % 0.3 %; Mean Corpuscular HGB Conc 32.6 g/dL (31.8-35.4); Mean Corpuscular Hemoglobin 29.7 pg (27.0-31.2); Mean Corpuscular Volume 91.1 fl (81-99); Nucleated Red Blood Cells % 0 %; Platelet Count 262 K/mm3 (142-424); Red Blood Count 4.27 M/mm3 (4.20-5.40); Red Cell Distribution Width-SD 40.6 fL; White Blood Count 7.7 K/mm3 (4.8-10.8)
[2025-02-24 14:37] LABS: Anion Gap 11.0 mEq/L (5-15); Blood Urea Nitrogen 17 mg/dl (7-17); Calcium 9.5 mg/dl (8.4-10.2); Carbon Dioxide 30 mmol/L (22.0-30.0); Chloride 100 mmol/L (98-107); Creatinine,Serum 1.10 mg/dl (0.52-1.04); Estimated Glomerular Filt Rate 48 ml/min (>60); GFR (African American) 58 ML/MIN (>60); Glucose 193 mg/dl (74-100); Potassium 4.0 mmoL/L (3.5-5.1); Sodium 137 mmol/L (136-145)
[2025-02-24 15:08] LABS: Thyroid Stimulating Hormone 2.54 uIU/mL (0.465-4.68)
== END 2025-02-24 23:59 | disposition home or self-care (01) ==
LOC: LAB 12:53
PROVIDERS: PCP Nurse Practitioner Family; Visit Provider Nurse Practitioner Family
DX: E03.9 Hypothyroidism, unspecified (principal); E87.1 Hypo-osmolality and hyponatremia
CPT/HCPCS: 36415; 80048; 84443; 85025

== ENCOUNTER 2025-04-12 14:16 | Outpatient (CLI) | payer MEDICARE, SELFPAY ==
--- NOTE | 2025-04-12 14:19 | XR_ITS ---
FINAL REPORT CLINICAL HISTORY: swelling FINDINGS: RIGHT WRIST 3 views were obtained. There is no acute fracture or dislocation. There are mild diffuse degenerative changes. Bones are osteopenic. Visualized joint spaces are normally aligned. Soft tissues are unremarkable. IMPRESSION: No acute bony abnormality. Reviewed, Interpreted and Dictated by Treva Renee MD Transcribed by Tere Aguero Authenticated and [facility]
--- OUTSIDE RECORDS SUMMARY | 2025-04-12 14:20 | XMS_ITS | Encounter Summary ---
Author Organization [facility] Address [address] [place] [address] Care Team Providers Care Visitor Services Technician Name Role Phone Edinson García MD Primary Care Provider [phone] Encounter Details Date Type Department Care Team (Late st Contact Info) Description 04/23/2018 External CPT II PASTEURIZING MACHINE OPERATOR - [facility] Social History Tobacco Use [...] on filedocumented in this encounter Care Teams Visitor Services Technician Relationship Specialty Start Date End Date Edinson García MD [address] [place] [address] PCP - General Adolescent Medicine 07/25/16 documented as of this encounter
--- OUTSIDE RECORDS SUMMARY | 2025-04-12 14:20 | XMS_ITS | Encounter Summary ---
Author Organization [facility] Address [address] [place] [address] Care Team Providers Care Bakery Machine Mechanic Name Role Phone Edinson García MD Primary Care Provider Encounter Details Date Type Department Care Team (Late st Contact Info) Description 08/13/2018 External CPT II SALES REPRESENTATIVE MALT LIQUORS - [facility] Social History Tobacco Use [...] on filedocumented in this encounter Care Teams Bakery Machine Mechanic Relationship Specialty Start Date End Date Edinson García MD [address] [place] [address] PCP - General Adolescent Medicine 07/25/16 documented as of this encounter
--- OUTSIDE RECORDS SUMMARY | 2025-04-12 14:20 | XMS_ITS | Encounter Summary ---
Author Organization [facility] Address [address] [place] [id number] Care Team Providers Care Client Experience Specialist Name Role Phone Edinson García MD Primary Care Provider [phone] Encounter Details Date Type Department Care Team (Late st Contact Info) Description 03/09/2014 External CPT II PLUG GROWER - [facility] Social History Tobacco Use [...] on filedocumented in this encounter Care Teams Client Experience Specialist Relationship Specialty Start Date End Date Edinson García MD [address] [place] [address] PCP - General Adolescent Medicine 07/25/16 documented as of this encounter
--- OUTSIDE RECORDS SUMMARY | 2025-04-12 14:20 | XMS_ITS | Clinical Summary ---
Author Organization [facility] Address [address] [place] [address] Care Team Providers Care Costume Draper Name Role Phone Edinson García MD Primary Care Provider [phone] Allergies Active Allergy Reactions Criticality Noted Date [...] Screening 1945 [facility]-Medicare Annual Wellness (AWV) 1945 [facility]-Infant/Child/Adol SDOH Screenings 1945 Diabetes: Dental Exam 1957 [facility]- SDOH Screenings 1965 [facility]-Adult SDOH Screenings 1965 [facility]-Zoster Vaccines (1 of 2) 1966 [facility]-Pneumococcal Vaccine: 50+ Years (2 of 2 - PPSV23, PCV20, or PCV21) 12/16/2016 10/21/2016 [facility]-Diabetes: Hemoglobin A1C 10/25/2024 07/26/2024, 04/07/2024 [id number] Vaccine (4 - season) 2025 06/07/2021, 10/14/2020, 09/21/2020 [facility]-Influenza Vaccine (#1) 03/28/202506/17, 06/02/2023, 04/05/2021, Additional [...] A1C) (07/26/2024 8:23 AM EST) Pathologist [facility] POCT Hemoglobin A1C 11.3 <5.7% Non-Diabet ic % [facility] Kit Lot Number [id number] [facility] Kit Expiration Date 04/2026 HEALTHCARE [facility] Blood Venous blood specimen / Unknown 07/26/2024 8:23 AM EST us Katelin Alicea TIME CLERK POINT OF CARE TEST ENTER /EDIT ORDERABLES Final Result [facility] [address] [place] [address] * Acute Hepatitis Panel (10/10/2020 1:24 PM EDT) [facility] Hepatitis B Surf Antigen NEGATIVE Reference Value: Negative [facility] Hepatitis C Antibody NEGATIVE Reference Range: Negative [facility] Hepatitis A Antibody IgM NEGATIVE Reference Value: Negative [facility] External Hepatitis B Core IgM (HBCM) NEGATIVE Reference Value: Negative [facility] 10/10/2020 1:24 PM EDT 10/10/2020 2:44 PM EDT us Lyssa Delgado APRN, [facility] LAB BLOOD ORDERABLE S Final Result [facility] from Last 3 Months or Most Recently Relevant to Health Maintenance Insurance Care Teams Costume Draper Relationship Specialty Start Date End Date Edinson García MD [address] [place] [address] PCP - General 12/08/20
--- OUTSIDE RECORDS SUMMARY | 2025-04-12 14:20 | XMS_ITS | Encounter Summary ---
Author Organization [facility] Address [address] [place] [id number] Care Team Providers Care Biochemical Engineer Name Role Phone Edinson García MD Primary Care Provider [phone] Encounter Details Date Type Department Care Team (Late st Contact Info) Description 11/25/2012 External CPT II POLICY SPECIALIST - [facility] Social History Tobacco Use [...] on filedocumented in this encounter Care Teams Biochemical Engineer Relationship Specialty Start Date End Date Edinson García MD [address] [place] [address] PCP - General Adolescent Medicine 07/25/16 documented as of this encounter
--- OUTSIDE RECORDS SUMMARY | 2025-04-12 14:20 | XMS_ITS | Encounter Summary ---
[facility] Organization [facility] Address [address] [place] [phone] Care Team Providers Care Hot Billet Shear Operator Name Role Phone Edinson García MD Primary Care Provider [phone] Encounter Details Date Type Department Care Team (Late st Contact Info) Description 01/14/2017 External CPT II FAMILY DEVELOPMENT SPECIALIST - [facility] Social History Tobacco [...] on filedocumented in this encounter Care Teams Hot Billet Shear Operator Relationship Specialty Start Date End Date Edinson García MD [address] [place] [address] PCP - General Adolescent Medicine 07/25/16 documented as of this encounter
--- OUTSIDE RECORDS SUMMARY | 2025-04-12 14:20 | XMS_ITS | Clinical Summary ---
Author Organization [facility] Address [address] [id number] Care Team Providers Care Clinical Law Professor Name Role Phone Edinson García MD Primary Care Provider [phone] Allergies Active Allergy Reactions Criticality Noted Date [...] mplication 04/07/2024 Coronary artery disease invo lving ugashik coronary artery of [place]ash[place] heart without angina pectoris 04/07/2024 Right arm [...] (1 - 1- dose 75+ series) 2022 ZOSTER VACCINE (2 of 2) 08/12/2024 06/17/2024 HEMOGLOBIN A1C 01/24/2025 07/26/2024, 06/29, 04/07/2024 COVID-19 Vaccine (2024-2 6 season) 2025 06/07/2021, 10/14/2020, 09/21/2020 LIPID PANEL 04/08/2025 04/08/2024, 04/07/2024 INFLUENZA VACCINE [...] - 200 mg/dL 04/08/2024 9:00 AM EDT [facility] Triglycerides 147 0 - 150 mg/dL 04/08/2024 9:00 AM EDT [facility] HDL Cholesterol 58 40 - 60 mg/dL 04/08/2024 9:00 AM EDT [facility] LDL Cholesterol 50 0 - 100 mg/dL 04/08/2024 9:00 AM EDT [facility] VLDL Cholesterol 25 5 - 40 mg/dL 04/08/2024 9:00 AM EDT [facility] LDL/HDL Ratio 0.79 04/08/2024 9:00 AM EDT [facility] Blood Venipuncture / Unknown 04/08/2024 8:06 AM EDT 04/08/2024 8:32 AM EDT Narrative [facility] - 04/08/2024 9:00 AM EDT Cholesterol [...] Ramos MD LAB BLOOD ORDERABLES Final Result [facility]
[address] [phone] * (ABNORMAL) Hemoglobin A1c (04/07/2024 11:14 AM EDT) Hemoglobin A1C 8.60(H) 4.80 - 5.60 % 04/07/2024 11:53 AM EDT [facility] Blood Venipuncture / Unknown 04/07/2024 11:14 AM EDT 04/07/2024 11:32 AM EDT Narrative [facility] - 04/07/2024 11:53 AM EDT Hemoglobin A1C Ranges: Increased Risk for Diabetes 5.7% to 6.4% Diabetes >= 6.5% Diabetic Goal < 7.0% Kaylen Gleason APRN LAB BLOOD ORDERABLES Fin al Result [facility]
[address] [place] [address], from Last 3 Months or Most Recently Relevant to Health Maintenance Insurance [facility] MEDICARE ADVANTAGE HMO Advance Directives * CPR (Attempt to Resuscitate) (Latest Code Status on File) Date Activated Date Inactivated Comments 04/06/2024 11:13 PM 04/08/2024 1:53 PM Question Answer Comments Code Status (Patient has no pulse and is not breathing): CPR (Attempt to Resuscitate) Medical Interventions (Patie nt has pulse or is breathing): Full Support Level Of Support Discussed With: Patient Care Teams Clinical Law Professor Relationship Specialty Start Date End Date Edinson García MD [address] [facility] [address] [place] [address] PCP - General Adolescent Medicine 07/25/16
--- OUTSIDE RECORDS SUMMARY | 2025-04-12 14:20 | XMS_ITS | Encounter Summary ---
Author Organization [facility] Address [address] [place] [phone] Care Team Providers Care Drawbridge Operator Name Role Phone Edinson García MD Primary Care Provider [phone] Encounter Details Date Type Department Care Team (Late st Contact Info) Description 11/19/2012 External CPT II SILICA MIXER OPERATOR - [facility] Social History Tobacco [...] on filedocumented in this encounter Care Teams Drawbridge Operator Relationship Specialty Start Date End Date Edinson García MD [address] [place] [address] PCP - General Adolescent Medicine 07/25/16 documented as of this encounter
--- OUTSIDE RECORDS SUMMARY | 2025-04-12 14:20 | XMS_ITS | Encounter Summary ---
Author Organization [facility] Address [address] [place] [phone] Care Team Providers Care Rn Midwife Name Role Phone Edinson García MD Primary Care Provider [phone] Encounter Details Date Type Department Care Team (Late st Contact Info) Description 04/27/2015 External CPT II CREW TRAINER - [facility] Social History Tobacco Use [...] on filedocumented in this encounter Care Teams Rn Midwife Relationship Specialty Start Date End Date Edinson García MD [address] [place] [address] PCP - General Adolescent Medicine 07/25/16 documented as of this encounter
--- OUTSIDE RECORDS SUMMARY | 2025-04-12 14:20 | XMS_ITS | Encounter Summary ---
Author Organization [facility] Address [address] [place] [phone] Care Team Providers Care Ssrs Report Developer Name Role Phone Edinson García MD Primary Care Provider [phone] Encounter Details Date Type Department Care Team (Late st Contact Info) Description 03/04/2016 External CPT II PARTS CONTROL CLERK - [facility] Social History Tobacco Use [...] on filedocumented in this encounter Care Teams Ssrs Report Developer Relationship Specialty Start Date End Date Edinson García MD [address] [place] [address] PCP - General Adolescent Medicine 07/25/16 documented as of this encounter
--- OUTSIDE RECORDS SUMMARY | 2025-04-12 14:20 | XMS_ITS | Encounter Summary ---
Author Organization [facility] Address [address] [place] [phone] Care Team Providers Care Mushroom Spawn Maker Name Role Phone Edinson García MD Primary Care Provider [phone] Encounter Details Date Type Department Care Team (Late st Contact Info) Description 09/30/2012 External CPT II SNOWBLOWER MECHANIC - [facility] Social History Tobacco Use [...] on filedocumented in this encounter Care Teams Mushroom Spawn Maker Relationship Specialty Start Date End Date Edinson García MD [address] [place] [address] PCP - General Adolescent Medicine 07/25/16 documented as of this encounter
--- OUTSIDE RECORDS SUMMARY | 2025-04-12 14:20 | XMS_ITS | Encounter Summary ---
Author Organization [facility] Address [address] [place] [phone] Care Team Providers Care Supervisor Concrete Stone Fabricating Name Role Phone Edinson García MD Primary Care Provider [phone] Encounter Details Date Type Department Care Team (Late st Contact Info) Description 11/06/2015 External CPT II ROBOTICS ENGINEER - [facility] Social History Tobacco Use [...] on filedocumented in this encounter Care Teams Supervisor Concrete [employer] Fabricating Relationship Specialty Start Date End Date Edinson García MD [address] [place] [address] PCP - General Adolescent Medicine 07/25/16 documented as of this encounter
[2025-04-12 15:19] LABS: Hematocrit 40.4 % (37.0-47.0); Hemoglobin 13.4 g/dL (12.2-16.2); Immature Granulocytes % 0.1 %; Mean Corpuscular HGB Conc 33.2 g/dL (31.8-35.4); Mean Corpuscular Hemoglobin 29.8 pg (27.0-31.2); Mean Corpuscular Volume 90.0 fl (81-99); Nucleated Red Blood Cells % 0 %; Platelet Count 267 K/mm3 (142-424); Red Blood Count 4.49 M/mm3 (4.20-5.40); Red Cell Distribution Width-SD 41.2 fL; White Blood Count 7.2 K/mm3 (4.8-10.8)
[2025-04-12 16:07] LABS: Alanine Aminotransferase 27 U/L (12-78); Albumin Level 3.9 g/dl (3.5-5.0); Alkaline Phosphatase 88 U/L (38-126); Anion Gap 11.3 mEq/L (5-15); Aspartate Amino Transferase 39 U/L (14-36); Bilirubin,Direct 0.1 mg/dl (0.0-0.4); Bilirubin,Indirect 0.3 mg/dL (0.0-0.9); Bilirubin,Total 0.4 mg/dl (0.2-1.3); Bilirubin,Unconjugated 0.3 mg/dL (0.0-1.1); Blood Urea Nitrogen 18 mg/dl (7-17); Calcium 9.1 mg/dl (8.4-10.2); Carbon Dioxide 33 mmol/L (22.0-30.0); Chloride 98 mmol/L (98-107); Cholesterol 83 mg/dl (140-200); Creatinine,Serum 1.20 mg/dl (0.52-1.04); Estimated Glomerular Filt Rate 44 ml/min (>60); GFR (African American) 53 ML/MIN (>60); Glucose 211 mg/dl (74-100); HDL Cholesterol 39 mg/dl (40-60); Magnesium 1.5 mg/dl (1.6-2.3); Potassium 4.3 mmoL/L (3.5-5.1); Sodium 138 mmol/L (136-145); Total Protein,Serum 6.4 g/dl (6.3-8.2); Triglycerides 109 mg/dl (30-150); Uric Acid 5.8 mg/dl (2.5-6.2)
[2025-04-12 16:20] LABS: Free T4 (Free Thyroxine) 1.23 ng/dl (0.78-2.19)
[2025-04-12 16:22] LABS: C-Reactive Protein 1.8 mg/L (0-4)
[2025-04-12 16:40] LABS: Thyroid Stimulating Hormone 2.68 uIU/mL (0.465-4.68)
== END 2025-04-12 23:59 | disposition home or self-care (01) ==
LOC: LAB 14:17
PROVIDERS: PCP Nurse Practitioner Family; Visit Provider Nurse Practitioner
DX: I25.10 Atherosclerotic heart disease of native coronary artery without angina pectoris (principal); M79.89 Other specified soft tissue disorders; R20.0 Anesthesia of skin; I10 Essential (primary) hypertension
CPT/HCPCS: 36415; 73100; 80048; 80061; 80076; 83735; 84439; 84443; 84550; 85025; 85651; 86140

== ENCOUNTER 2025-04-27 10:34 | Outpatient (CLI) | payer MEDICARE, SELFPAY ==
--- OUTSIDE RECORDS SUMMARY | 2024-10-30 17:30 | XMS_ITS ---
Author Organization [facility] Address [address] [place] [address] Care Team Providers Care Informix Developer Name Role Phone Edinson García Primary Care Provider Cheyenne Scott Unavailable [phone] Migration, Provider Unavailable Unavailable Allergies Allergen (clinical drug ingredient) Drug/Non Drug Allergy documented on EMR Reaction Allergy Type Onset Date Status SULFA (uncoded) rash Allergy Acti ve tramadol traMADol Unknown Drug Allergy [facility] Con[facility] Encounter Medications Medication SIG (Take, Route, Frequency, Duration) Notes Start Date End Date Status MiraLax - 17 GRAMS ORALLY ONCE A DAY; Duration: 30 DAYS *Please review and pick correct strength-formulation from [facility] options. If intended option is not shown, discontinue and re-order from Quick Search* 06/02/2023 Active ACCU CHECK TEST STRIPS FOR DIABETIC TESTING ONCE A DAY AND NEEDED; Duration: 90 DAYS *Please review for potential replacement for e-prescription and drug interaction check* Active ACCU-CHECK MULTICLIX ONCE A DAY TESTING; Duration: 90 DAYS E11.9 *Please review for potential replacement for e-prescription and drug interaction check* 12/10/2016 Active metFORMIN HCl 500 MG 1 tab(s) orally 2 times a day; Duration: 30 days Active Toujeo SoloStar 300 UNIT/ML 16 subcutaneously once a day household personal assistant at Active Metoprolol Succinate ER 25 MG 1 TAB(S) ORALLY ONCE A DAY; Duration: 30 DAYS *[facility] If intended option is not shown, discontinue and re-order from Quick Search* 02/26/2024 Active Venlafaxine HCl ER 150 MG 1 cap(s) orally once a day; Duration: 30 days Active Gabapentin 600 MG 1 tab(s) orally twice a day; Duration: 90 days 07/12/2024 Active Levothyroxine Sodium 50 MCG TAKE 1 TABLET EVERY DAY orally once a day; Duration: 90 days Active Lidocaine 5 % 1 PATCH applied topically once a day for 12 hours; Duration: 30 days 05/12/2024 Active Clopidogrel Bisulfate 75 MG 1 tab(s) orally once a day; Duration: 90 days Active BD TJ 2ND GEN PEN NEEDLE 4MM X 32G - SQ ONCE A DAY; Duration: 90 DAYS *Please review for potential replacement for e-prescription and drug interaction check* Active Aspirin 81 MG 1 tab(s) orally once a day Active Atorvastatin Calcium 80 MG 1 tab(s) orally once a day; Duration: 30 days Active ACCU CHECK GLUCOMETER BID PRN E11.9 *Please review for potential replacement for e-prescription and drug interaction check* 12/10/2016 Active Midodrine HCl 5 MG 1 tab(s) orally 3 times a day Active Fludrocortisone Acetate 0.1 MG 1 tab(s) orally once a day Active Encounters Encounter Location Date Provider Diagnosis [facility] [address] [facility] [address] [place] [address] 10/30/2024 Provider Migration Plan Of Treatment No Information Progress Notes * Marilyn DIAZ RDOB:[birth year] (79 yo F)Acc No.[id number]:10/30/2024 Patient: Sameera Marilyn SONI Provider: Che stewart Migration :1945 A ge:79 Y S ex:Female Date:10/30/2024 [address] [facility] Pcp:Edinson García Subjective: * Chief Complaints: * 1 . Multum To [facility] Conversion Encounter. * Medical History: * Medications: T aking Toujeo SoloStar 300 UNIT/ML Solution Pen-injector 16 subcutaneously once a day , Notes to Pharmacist: household personal assistant at , Taking Midodrine HCl 5 MG [...] *Please review and pick correct strength-formulation from [facility] options. If intended option is not shown, [...] *Please review and pick correct strength-formulation from [facility] options. If intended option is not shown, discontinue and re-order from Quick Search* * Allergies: S ULFA: rash, traMADol. Objective: * Vitals: Assessment: Plan: * Treatment: * * Electronic signature of Prov ider Migration on 04/27/2025 at 11:11 AM EDT Sign off status: Pending * Provider: Che stewart Migration Date: 0 10/30/2024 Generated for Kimberly bradford/Otto/Lolis on: 1 11:11 AM EDT
--- OUTSIDE RECORDS SUMMARY | 2024-11-08 08:00 | XMS_ITS ---
Author Organization [facility] Address [address] [place], [place] [address] Care Team Providers Care Pile Driver Operator Barge Mounted Name Role Phone Edinson García Primary Care Provider Cheyenne Scott Unavailable [phone] REASON FOR VISIT 3 Month F/U Encounters Encounter Location Date Provider Diagnosis [facility] [address] [place], [place] [address] 11/08/2024 Cheyenne Scott Plan Of Treatment No Information Progress Notes * Marilyn DIAZ RDOB:[birth year] (79 yo F)Acc No.[id number]:11/08/2024 Progress Notes Patient: Marilyn GARCÍA Provider: HONORIO Cm :1945 A ge:79 Y S ex:Female Date:11/08/2024 Address:[address], [place] Pcp:Edinson García Subjective: * Chief Complaints: * 1 . 3 Month F/U. * Medical History: Objective: * Vitals: Assessment: Plan: * Treatment: * * Electronic signature of Apryl Scott APRN on 04/27/2025 at 11:12 AM EDT Sign off status: Pending * Provider: HONORIO Cm Date: 0 11/08/2024 Generated for Kimberly bradford/Otto/Lolis on: 1 11:12 AM EDT
--- OUTSIDE RECORDS SUMMARY | 2025-01-03 10:45 | XMS_ITS ---
Author Organization [facility] Address [address] [place], [place] [address] Care Team Providers Care Voice Over Artist Name Role Phone Edinson García Primary Care Provider Cheyenne Scott Unavailable [phone] REASON FOR VISIT 6 month ck Encounters Encounter Location Date Provider Diagnosis [facility] [address] [place], [place] [address] 01/03/2025 Cheyenne Scott Plan Of Treatment No Information Progress Notes * Marilyn DIAZ RDOB:[birth year] (79 yo F)Acc No.[id number]:01/03/2025 Progress Notes Patient: Marilyn GARCÍA Provider: HONORIO Cm :1945 A ge:79 Y S ex:Female Date:01/03/2025 Address:[address], [place] Pcp:Edinson García Subjective: * Chief Complaints: * 1 . 6 month ck. * Medical History: Objective: * Vitals: Assessment: Plan: * Treatment: * * Electronic signature of Apryl Scott APRN on 04/27/2025 at 11:11 AM EDT Sign off status: Pending * Provider: HONORIO Cm Date: 0 01/03/2025 Generated for Kimberly bradford/Otto/Lolis on: 1 11:11 AM EDT
--- NOTE | 2025-04-27 11:00 | CA_ITS ---
APPROVED REPORT EXAM: Comprehensive 2D, Doppler, and color-flow Echocardiogram Telecommunicator: Yany Ricardo RT(R) Ht: 5 ft 4 in Wt: 145lbs BSA: 1.71 BP: 142/74 mmHg Indications: CAD 2D Dimensions LA Volume 28.70 mL LA Volume Index 16.78 mL/m2 (M/F) 16-34 EF AP4 60.10 % GL Strain -18.4 % M-Mode Dimensions RVDd 2.32 cm (0.9-2.6) LA Diam 3.12 cm (1.9-4.0) LVDd 3.97 cm (3.5-5.7) LVDs 2.90 cm (3.5-5.7) IVSd 0.89 cm (0.6-1.1) PWd 0.93 cm (0.6-1.1) EF (Teich) 53.20% FS 27.00% EDV (Teich) 68.80 mL ESV (Teich) 32.20 mL LV Diastology E Decel Time 197 (160-240 msec) E/A Ratio 0.9 Mitral Valve MV E Max Ji. 152.0 (40-130 cm/s) MV A Velocity 178.0 (40-130 cm/s) E/A Ratio 0.85 MV PHT 58.0 ms Tricuspid Valve TR P. Velocity 341.00 cm/s Left Ventricle The left ventricle is normal size. Left ventricular systolic function is normal. The left ventricular ejection fraction is within the normal range. There is increased left ventricular wall thickness. There is normal LV segmental wall motion. Grade 2 diastolic dysfunction is present. LVEF is 55%. Right Ventricle The right ventricle is normal size. The right ventricular systolic function is normal. Atria The left atrium is moderately dilated. The right atrium is mildly dilated. There is no color Doppler evidence of interatrial shunt. Aortic Valve The aortic valve is mildly thickened. There is no hemodynamically significant aortic valvular stenosis. Trace aortic regurgitation is present. Mitral Valve There is mild mitral annular calcification present. The mitral valve leaflets are mildly thickened. No evidence of mitral valve stenosis. Mild to moderate mitral regurgitation is present. Tricuspid Valve The tricuspid valve leaflets are thin and pliable. Moderate tricuspid regurgitation. RVSP is 40-45 mmHg. Pulmonic Valve The pulmonary valve is grossly normal in structure. Trace pulmonic valve regurgitation is present. Great Vessels The aortic root is normal in size. IVC is normal in size and collapses >50% with inspiration. Pericardium There is no pericardial effusion. Other Information Study Quality: Fair Conclusion Normal biventricular systolic function. Grade 2 diastolic dysfunction. Biatrial dilation. Moderate TR. Mild to moderate MR. Electronically signed by : Karime Johnson MD 04/27/2025 12:16:15
--- OUTSIDE RECORDS SUMMARY | 2025-04-27 11:11 | XMS_ITS | Encounter Summary ---
Author Organization [facility] Address [address] [place] [id number] Care Team Providers Care Rough Rice Tender Name Role Phone Edinson García MD Primary Care Provider [phone] Encounter Details Date Type Department Care Team (Late st Contact Info) Description 03/09/2014 External CPT II IMMIGRATION PARALEGAL - [facility] Social History Tobacco Use [...] on filedocumented in this encounter Care Teams Rough Rice Tender Relationship Specialty Start Date End Date Edinson García MD [address] [place] [address] PCP - General Adolescent Medicine 07/25/16 documented as of this encounter
--- OUTSIDE RECORDS SUMMARY | 2025-04-27 11:11 | XMS_ITS | Encounter Summary ---
[facility] Address [address] [place] [id number] Care Team Providers Care Surgical Coordinator Name Role Phone Edinson García MD Primary Care Provider [phone] Encounter Details Date Type Department Care Team (Late st Contact Info) Description 01/14/2017 External CPT II COIL WINDER REPAIR - [facility] Social History Tobacco Use [...] on filedocumented in this encounter Care Teams Surgical Coordinator Relationship Specialty Start Date End Date Edinson García MD [address] [place] [address] PCP - General Adolescent Medicine 07/25/16 documented as of this encounter
--- OUTSIDE RECORDS SUMMARY | 2025-04-27 11:11 | XMS_ITS | Encounter Summary ---
Author Organization [facility] Address [address] [place] [id number] Care Team Providers Care Program Therapist Name Role Phone Edinson García MD Primary Care Provider [phone] Encounter Details Date Type Department Care Team (Late st Contact Info) Description 11/19/2012 External CPT II ONLINE MARKETER - [facility] Social History Tobacco Use [...] on filedocumented in this encounter Care Teams Program Therapist Relationship Specialty Start Date End Date Edinson García MD [address] [place] [address] PCP - General Adolescent Medicine 07/25/16 documented as of this encounter
--- OUTSIDE RECORDS SUMMARY | 2025-04-27 11:11 | XMS_ITS | Encounter Summary ---
Author Organization [facility] Address [address] [place] [address] Care Team Providers Care Automotive Shop Foreman Name Role Phone Edinson García MD Primary Care Provider [phone] Encounter Details Date Type Department Care Team (Late st Contact Info) Description 04/23/2018 External CPT II BARRER AND TACKER - [facility] Social History Tobacco Use [...] on filedocumented in this encounter Care Teams Automotive Shop Foreman Relationship Specialty Start Date End Date Edinson García MD [address] [place] [address] PCP - General Adolescent Medicine 07/25/16 documented as of this encounter
--- OUTSIDE RECORDS SUMMARY | 2025-04-27 11:11 | XMS_ITS | Encounter Summary ---
Author Organization [facility] Address [address] [place] [address] Care Team Providers Care Coordinator Of Health Services Name Role Phone Edinson García MD Primary Care Provider [phone] Encounter Details Date Type Department Care Team (Late st Contact Info) Description 08/13/2018 External CPT II MORTICIAN SUPPLIES SALES REPRESENTATIVE - [facility] Social History Tobacco Use [...] on filedocumented in this encounter Care Teams Coordinator Of Health Services Relationship Specialty Start Date End Date Edinson García MD [address] [place] [address] PCP - General Adolescent Medicine 07/25/16 documented as of this encounter
--- OUTSIDE RECORDS SUMMARY | 2025-04-27 11:11 | XMS_ITS | Encounter Summary ---
Author Organization [facility] Address [address] [place] [id number] Care Team Providers Care Head Of Acquisitions Name Role Phone Edinson García MD Primary Care Provider [phone] Encounter Details Date Type Department Care Team (Late st Contact Info) Description 04/27/2015 External CPT II MEAT PACKAGER - [facility] Social History Tobacco Use [...] on filedocumented in this encounter Care Teams Head Of Acquisitions Relationship Specialty Start Date End Date Edinson García MD [address] [place] [address] PCP - General Adolescent Medicine 07/25/16 documented as of this encounter
--- OUTSIDE RECORDS SUMMARY | 2025-04-27 11:11 | XMS_ITS | Encounter Summary ---
Author Organization [facility] Address [address] [place] [id number] Care Team Providers Care Spinneret Cleaner Name Role Phone Edinson García MD Primary Care Provider [phone] Encounter Details Date Type Department Care Team (Late st Contact Info) Description 11/25/2012 External CPT II REAL ESTATE UTILIZATION OFFICER - [facility] Social History Tobacco Use [...] on filedocumented in this encounter Care Teams Spinneret Cleaner Relationship Specialty Start Date End Date Edinson García MD [address] [place] [address] PCP - General Adolescent Medicine 07/25/16 documented as of this encounter
--- OUTSIDE RECORDS SUMMARY | 2025-04-27 11:11 | XMS_ITS | Encounter Summary ---
Author Organization [facility] Address [address] [place] [phone] Care Team Providers Care Safety Representative Name Role Phone Edinson García MD Primary Care Provider [phone] Encounter Details Date Type Department Care Team (Late st Contact Info) Description 11/06/2015 External CPT II PIG MACHINE OPERATOR HELPER - [facility] Social History [...] on filedocumented in this encounter Care Teams Safety Representative Relationship Specialty Start Date End Date Edinson García MD [address] [place] [address] PCP - General Adolescent Medicine 07/25/16 documented as of this encounter
--- OUTSIDE RECORDS SUMMARY | 2025-04-27 11:11 | XMS_ITS | Encounter Summary ---
Author Organization [facility] Address [address] [place] [id number] Care Team Providers Care Fast Food Fry Cook Name Role Phone Edinson García MD Primary Care Provider [phone] Encounter Details Date Type Department Care Team (Late st Contact Info) Description 03/04/2016 External CPT II POST OFFICE MARKUP CLERK - [facility] Social History Tobacco [...] on filedocumented in this encounter Care Teams Fast Food Fry Cook Relationship Specialty Start Date End Date Edinson García MD [address] [place] [address] PCP - General Adolescent Medicine 07/25/16 documented as of this encounter
--- OUTSIDE RECORDS SUMMARY | 2025-04-27 11:12 | XMS_ITS | Patient Health Record ---
Author Organization [facility] Address [address] [place] [address] Care Team Providers Care Assistant Professor Of Surgery Name Role Phone Edinson García Primary Care Provider Cheyenne Scott Unavailable [phone] Migration, Provider Unavailable Unavailable Allergies Allergen (clinical drug ingredient) Drug/Non Drug Allergy documented on EMR Reaction Allergy Type Onset Date Status SULFA (uncoded) rash Allergy Acti ve tramadol traMADol Unknown Drug Allergy Active Results Component Value Reference Range Notes Mammogram : Bilateral Reviewed date:07/07/2024 02:39:29 PM Interpretation: Performing Lab: Notes/Report: MAGNESIUM (622) Reviewed date:06/23/2024 04:34:22 PM Interpretation: Performing Lab:[email or web address] [id number] [employer] OdysiiBbiwOZ[address] Gaurav Sosa Notes/Report: NON-FASTING; NON-FASTING; NON-FASTING; NON-FASTING; NON-FAST MAGNESIUM 1.5 1.5-2.5 mg/dL HEMOGLOBIN A1c (496) Reviewed date:06/23/2024 04:34:22 PM Interpretation: Performing Lab:[facility] [email or web address] [id number] [address], OdysiiHopqVU[address] Gaurav Sosa Notes/Report: NON-FASTING; NON-FASTING; NON-FASTING; NON-FASTING; [...] diabetes for children. TSH W/REFLEX TO FT4 (59301) Reviewed date:06/23/2024 04:34:22 PM Interpretation: Performing Lab:CB, [facility] [address], [facility] MinneapolisNppnZZ[address] Gaurav Sosa Notes/Report: NON-FASTING; NON-FASTING; NON-FASTING; NON-FASTING; NON-FAST TSH W/REFLEX TO FT4 2.43 0.40-4.50 mIU/L M-Basic Metabolic Panel Reviewed date:02/25/2025 09:50:41 AM Interpretation: Performing Lab: Notes/Report: NA 137 136-145 mmol/L K 4.0 3.5-5.1 mmoL/L CL 100 98-107 mmol/L CO2 30 22.0-30.0 mmol/L GAP 11.0 5-15 mEq/L BUN 17 7-17 mg/dl CREATT 1.10 0.52-1.04 mg/dl GFRAA 58 >60 ML/MIN EGFR 48 >60 ml/min GLU 193 74-100 mg/dl CA 9.5 8.4-10.2 mg/dl M-Complete Blood Count Auto Diff Reviewed date:02/24/2025 02:19:36 PM Interpretation: Performing Lab: Notes/Report: WBC 7.7 4.8-10.8 K/mm3 RBC 4.27 4.20-5.40 M/mm3 HGB 12.7 12.2-16.2 g/dL HCT 38.9 37.0-47.0 % MCV 91.1 81-99 fl MCH 29.7 27.0-31.2 pg MCHC 32.6 31.8-35.4 g/dL RDW 12.3 11.5-17.5 % PLT 262 142-424 K/mm3 MPV 10.6 7.4-10.4 fl NE% 64.8 37.0-80.0 % LY% 23.4 10-50 % MO% 8.1 1.7-9.3 % EO% 2.9 0.1-12.0 % BA% 0.5 0.1-2.0 % NE# 5.0 1.8-7.8 K/mm3 LY# 1.8 0.7-4.5 K/mm3 MO# 0.6 0.1-1.0 K/mm3 EO# 0.2 0.0-0.4 Kmm3 BA# 0.0 0-0.2 K/mm3 RDW-SD 40.6 NRBC% 0 IG% 0.3 NRBC# 0 IG# 0.02 COMPREHENSIVE METABOLIC PANE L ([id number]) Reviewed date:06/23/2024 04:34:22 PM Interpretation: Performing Lab:SSI, [facility]ise[address], [facility] InstituteYxmeJF[address] Gaurav Sosa Notes/Report: NON-FASTING; NON-FASTING; NON-FASTING; NON-FASTING; [...] date:06/23/2024 04:34:22 PM Interpretation: Performing Lab:CB, [facility] [address], [place] RodriguezCaojAG[address] Gaurav Sosa Notes/Report: NON-FASTING; NON-FASTING; NON-FASTING; NON-FASTING; [...] MPV 11.1 7.5-12.5 fL ABSOLUTE NEUTROPHILS 4434 [phone] cells/uL ABSOLUTE LYMPHOCYTES 0653 224-0155 cells/uL ABSOLUTE MONOCYTES 632 200-950 cells/uL ABSOLUTE EOSINOPHILS 0 15-500 cells/uL ABSOLUTE BASOPHILS 7 0-200 cells/uL NEUTROPHILS 65.2 LYMPHOCYTES 25.4 MONOCYTES 9.3 EOSINOPHILS 0.0 BASOPHILS 0.1 M-Thyroid Stimulating Hormon e Reviewed date:02/25/2025 09:50:41 AM Interpretation: Performing Lab: Notes/Report: TSH 2.54 0.465-4.68 uIU/mL X ray : Spines, Lumbosacral Reviewed date:05/21/2024 09:55:37 AM Interpretation: Performing Lab: Notes/Report: Microalbumin (In-House) Reviewed date:06/17/2024 07:14:10 PM Interpretation:Negative Performing Lab: Notes/Report: Negative ALB 150mg/L CRE 100mg/dL A:C 30-300mg/g Medications Medication SIG (Take, Route, Frequency, Duration) Notes Start Date End Date Status metFORMIN HCl 500 MG 1 tab(s) orally 2 times a day; Duration: 90 days Active Aspirin 81 MG 1 tab(s) orally once a day Active Gabapentin 400 MG 1 tablet Orally twice a day; Duration: 90 days 02/24/2025 Active Fludrocortisone Acetate 0.1 MG 1 tab(s) orally once a day Active Levothyroxine Sodium 50 MCG TAKE 1 TABLET EVERY DAY orally once a day; Duration: 90 days Active Metoprolol Succinate ER 100 MG 1 TAB(S) ORALLY ONCE A DAY; Duration: 30 days *Please review and pick correct strength-formulation from Weimi options. If intended option is not shown, [...] with food Orally Twice a day Active Ezetimibe 10 MG 1 tablet Orally Once a day Active Toujeo SoloStar 300 UNIT/ML 20 units subcutaneously once a day; Duration: 30 days varnish maker helper at Active Venlafaxine HCl ER 150 MG Take 1 capsule by mouth once daily; Duration: 90 days Active Rosuvastatin Calcium 20 MG 1 tablet Orally Once a day Active Meclizine HCl 12.5 MG 1 tablet as needed for vertigo Orally at bedtime; Duration: 7 days 02/24/2025 Active Immunizations Vaccine Route Administration Date Status Comme nts [place] (Tdap) Unknown 11/24/2023 Administered Arexvy IM Intramuscular 06/02/2023 Administered Covid MyWebzz Unknown 09/21/2020 Administered Covid Pfizer Unknown 10/14/2020 [...] Status Risk Notes Problem Diabetic renal disease (744656634) Type 2 diabetes mellitus with diabetic chronic kidney disease (E11.22) Active confirmed Problem Type II diabetes mellitus without complication (450181751) Type 2 diabetes mellitus without complications (E11.9) Active confirmed Problem Hypomagnesemia (140041634) Hypomagnesemia (E83.42) Active confirmed Problem Ischemic cardiomyopathy (031152490) Ischemic cardiomyopathy (I25.5) Active confirmed Problem Sciatica (87519483) Lumbago with sciatica, right side (M54.41) Active confirmed Problem Sciatica (18688519) Lumbago with sciatica, left side (M54.42) Active confirmed Problem Vitamin B12 deficiency (891314945) Vitamin B12 deficiency (E53.8) Active confirmed Problem Cervical disc disorder (856103784) DDD (degenerative disc disease), cervical (M50.30) Active confirmed Problem Mixed anxiety and depressive disorder (321339327) Depression with anxiety (F41.8) Active confirmed Problem Vitamin D deficiency (08106260) Vitamin D deficiency (E55.9) Active confirmed Problem Diabetes mellitus type 2 in nonobese (080085822) Diabetes mellitus type 2 in nonobese (E11.9) Active confirmed Problem Chronic serous otitis media of right ear (108659443) Chronic serous otitis media of right ear (H65.21) Active confirmed Problem Long-term current use of insulin (151966472) snf (current) use of insulin (Z79.4) Active confirmed Problem Chronic pain (65022906) Other chronic pain (G89.29) Active confirmed Problem Postherpetic neuralgia (6112196) Postherpetic neuralgia (B02.29) Active confirmed Problem Urge incontinence of urine (54507094) Urge incontinence of urine (N39.41) Active confirmed Problem 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, 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) Active confirmed Problem Constipation (38450685) Constipation, unspecified constipation type (K59.00) Active confirmed Problem Atherosclerotic heart disease of [place] coronary artery without angina pectoris (262032109899975) Coronary artery disease involving [place] coronary artery of [place] heart without angina pectoris (I25.10) Active confirmed Problem Recurrent falls (494699796) Frequent falls (R29.6) Active confirmed Problem Abnormal mammogram (136789583) Abnormal mammogram (R92.8) Active confirmed Problem Peripheral vascular disease (109876191) PAD (peripheral artery disease) (I73.9) Active confirmed Problem Localized, primary osteoarthritis of the shoulder region () 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) Active confirmed Problem Raised antinuclear antibody (778950442) Positive YURIDIA (antinuclear antibody) (R76.8) Active confirmed Problem Inflammatory arthritis (6635850) Inflammatory arthritis (M19.90) Active confirmed Problem Skin sensation disturbance (13323739) Paresthesia of both feet (R20.2) Active confirmed Problem Generalized anxiety disorder (34535474) BARRY (generalized anxiety disorder) (F41.1) Active confirmed Problem serum creatinine raised (390437891) Elevated serum creatinine (R79.89) Active confirmed Problem Degeneration of lumbar intervertebral disc (77045043) Lumbar degenerative disc disease (M51.36) Active confirmed Problem Hypothyroidism (90484199) Hypothyroidism, unspecified type (E03.9) Active confirmed Problem Polyneuropathy due to type 2 diabetes mellitus (100998485) 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) Active confirmed Problem Hyperlipidaemia (72860221) Hyperlipidemia, unspecified hyperlipidemia type (E78.5) Active confirmed Problem Localized, primary osteoarthritis of the shoulder region () Primary osteoarthritis of right shoulder (M19.011) Active confirmed Problem Gait abnormality (40877877) Gait abnormality (R26.9) Active confirmed Problem Sacroiliac joint pain (116400102) Sacroiliac pain (M53.3) Active confirmed Problem Essential hypertension (15205245) Essential hypertension with goal blood pressure less than 130\/80 (I10) Active confirmed Problem Leukocytosis (972018283) Leukocytosis, unspecified (D72.829) Active confirmed Problem Cyst of right breast (98027143436467866 ) Cyst of right breast (N60.01) Active confirmed Problem Incontinence of feces (70151793) Incontinence of feces, unspecified fecal incontinence type (R15.9) Active confirmed Problem Polyneuropathy (86443328) Polyneuropathy (G62.9) Active confirmed Problem Diabetic peripheral neuropathy associated with type 2 diabetes mellitus (4013356846643) Type 2 diabetes mellitus with diabetic neuropathy, without long-term current use of insulin (E11.40) Active confirmed Problem Normocytic anemia (805428871) Normocytic anemia (D64.9) Active confirmed Problem Neurogenic claudication (233047102) Spinal stenosis of lumbar region with neurogenic claudication (M48.062) Active confirmed Problem Nodule of skin of breast (827514841) Breast nodule (N63.0) Active confirmed Problem Hyperglycemia due to type 2 diabetes mellitus (442027348116903) Uncontrolled type 2 diabetes mellitus with hyperglycemia (E11.65) Active confirmed Problem Poor balance (663603965) Poor balance (R26.89) Active confirmed Problem Celiac artery compression syndrome (2912092) 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) Active confirmed Problem Chronic kidney disease stage 3A (disorder) (780188569) Chronic kidney disease, stage 3a (N18.31) Active confirmed Problem Chronic kidney disease stage 3B (disorder) (050538991) Stage 3b chronic kidney disease (N18.32) Active confirmed Problem Pustular psoriasis of palm of hand (075778422) 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) Active confirmed Problem Foot-drop (9726967) Foot drop, left (M21.372) Active confirmed Problem Chronic gouty arthritis (41908326) 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) Active confirmed Vital Signs Heart Rate 78 /min 02/24/2025 Temperature 96.6 degrees Fahrenheit 02/24/2025 Blood pressure diastolic 60 mm Hg 02/24/2025 Height 5 ft 3.75 in in 02/24/2025 Blood pressure systolic 136 mm Hg 02/24/2025 Weight 152 lbs 02/24/2025 BMI 26.29 kg/m2 02/24/2025 Encounters Encounter Location Date Provider Diagnosis [facility] [address] [place] [address] 10/30/2024 Provider Migration [facility] L[facility]NN [address] [address] 05/12/2024 Cheyenne Scott Lumbago with sciatic a, right side M54.41 ; Lumbago with sciatica, left side M54.42 ; Other chronic pain G89.29 and Sacroiliac pain M53.3 [facility] [address] [place] [address] 06/17/2024 Cheyenne Scott Hypothyroidism, unspecified type E03.9 ; Diabetic peripheral neuropathy associated with type 2 diabetes mellitus E11.42 ; Ischemic cardiomyopathy I25.5 ; Hypomagnesemia E83.42 and Immunization(s) administered Z23 [facility] [address] [place] [address] 08/09/2024 Cheyenne Scott Essential hypertensi on with [...] Orthostatic hypotension I95.1 and Frequent falls R29.6 [facility] [address] [place] [address] 08/24/2024 Cheyenne Scott Cognitive decline R41.89 ; Polyneuropathy G62.9 ; Frequent falls R29.6 ; Poor balance R26.89 and Word finding difficulty R47.89 [facility] [address] [place] [address] 10/08/2024 Cheyenne Scott Encounter for immunization Z23 [facility] [address] [address] 01/19/2025 Cheyenne Sonia Hypothyroidism, unspecified type E03.9 ; Hyperlipidemia, unspecified hyperlipidemia type E78.5 ; Vitamin B12 deficiency E53.8 ; Diabetic peripheral neuropathy associated with type 2 diabetes mellitus E11.42 ; BARRY (generalized anxiety disorder) F41.1 ; Vitamin D deficiency E55.9 ; Stage 3b chronic kidney disease N18.32 ; Orthostatic hypotension I95.1 ; Frequent falls R29.6 and PAD (peripheral artery disease) I73.9 [facility] [address] [place] [address] 02/24/2025 Cheyenne Scott Vertigo R42 ; Gait abnormality R26.9 ; Hypothyroidism, unspecified type E03.9 ; Diabetes mellitus type 2 in nonobese E11.9 ; Hyponatremia E87.1 and Neuropathic pain M79.2 [facility] [address] [place] [address] 04/27/2025 Edinson Besson Neuropathic pain M79 .2 [facility] [address] [place] [address] 05/17/2024 Cheyenne Hareence [facility] [address] [facility] [address] [place] [address] 06/16/2024 Cheyenne Scott Breast cancer screening by mammogram Z12.31 [facility] [address] [facility] [address] [place] [address] 07/06/2024 Cheyenne Scott Type 2 diabetes mellitus with diabetic chronic kidney disease E11.22 [facility] [address] [place] [address] 08/05/2024 Cheyenne Scott Diabetic peripheral neuropathy associated with type 2 diabetes mellitus E11.42 [facility] [address] [address] 11/10/2024 Edinson Besson [facility] [address] [address] 11/12/2024 Edinson Besson [facility] [address] [place] [address] 01/05/2025 Cheyenne Sonia [facility] [address] [facility] [address] [place] [address] 02/24/2025 Cheyenne Hareence [facility] [address] [address] 03/04/2025 Edinsonamy García Assessments Encounter Date Diagnosis (ICD Code) Assessment Notes Treatment Notes Treatment Clinical Notes Section Notes 05/12/2024 Lumbago with sciatica, right side (ICD-10 [...] pressure less than 130\/80 (ICD-10 - I10) Well-controlle d on current regimen 08/24/2024 Polyneuropathy (ICD-10 - [...] statin therapy 02/24/2025 Vertigo (ICD-10 - R42) Encouraged to keep appointment with neurology in February, recommend repeat labs for comparison today. Low-dose meclizine at night only if needed for vertigo symptoms. Also recommend decrease gabapentin as noted with plan to decrease further as tolerated. Return precautions reviewed 02/24/2025 Gait abnormality (ICD-10 - R26.9) 04/27/2025 Neuropathic pain (ICD-10 - M79.2) 02/24/2025 Hypothyroidism, unspecified type (ICD-10 - E03.9) [...] replacement 06/17/2024 Ischemic cardiomyopathy (ICD-10 - I25.5) 05/12/2024 Other chronic pain (ICD-10 - G89.29) 05/12/2024 Sacroiliac pain (ICD-10 - M53.3) 06/17/2024 [...] of good glucose control, continue gabapentin 01/19/2025 Vitamin D deficiency (ICD-10 - E55.9) encoruaged to continue supplement 02/24/2025 Neuropathic pain (ICD-10 - M79.2) 01/19/2025 Stage 3b chronic kidney disease (ICD-10 [...] 07/05/2019 C-VITAMIN D, 25-HYDROXY 07/05/2019 C-CRP 07/05/2019 H-MICROALB/EDUCATIONAL ASSISTANT TEACHER UR 07/18/2017 M-Complete Blood Count Auto Diff 021 M-Erythrocyte Sedimentation Rate 021 M-Comprehensive Metabolic Panel 08/23/19 21 M-Basic Metabolic Panel 06/07/2021 M-Hemoglobin A1C 06/07/2021 M-Hemoglobin A1C 02/11/2024 M-Hemoglobin A1C 08/23/2020 H-L-Gfoqrmeq Protein 08/23/2020 M-Lipid Panel 06/07/2021 M-Thyroid Stimulating Hormone 02/11/2024 M-Thyroid Stimulating Hormone 08/23/2020 O-Fcfs-Sfygran Antibody Titer 08/23/2020 M-Vitamin B12 12/20/2020 M-RA Latex Turbid. 08/23/2020 Insurance Providers Payer Name Payer Address Payer Phone Subscriber Number Group Number Insured Name Patient Relationship to Insured Coverage Start Date Coverage End Date [employer]ARE [address] [address] [place] [address] [phone] [id number] Marilyn Sepulveda Self - patient is the insured [email or web address] [address] [place] [address] ACL Sepulveda, Marilyn Self - patient is the insured Medications Administered Medication Instructions Date of Administration Dosage Notes Triamcinolone Acetonide 40mg Injection 03/22/2019 1 mL Kenalog 07/22/2013 1 Medical (General) History Medical History History ICD Code type II diabetes hypertension Hypothyroidism arthritis hormone replacement therapy Tachycardia Colonoscopy 2018, tubular adenoma x 2 DEXA 2013, normal STEMI with subsequent systolic CHF. Sten jorge alberto at [facility]. 04/2020 GERD Gout polymyalgia Rheumatica SCC left side of neck Surgical History Surgery Date(Month/Year) hysterectomy Heart Cath-2 cardiac stents 05/2020 Heart Cath 03/12/2024 Hospitalization History Reason Date(Month/Year) [facility] 04/06-04/08/2024 Heart issues 05/2020 dehydration/UTI above
--- OUTSIDE RECORDS SUMMARY | 2025-04-27 11:12 | XMS_ITS | Encounter Summary ---
Author Organization [facility] Address [address] [place] [id number] Care Team Providers Care Corporation Lawyer Name Role Phone Edinson García MD Primary Care Provider [phone] Encounter Details Date Type Department Care Team (Late st Contact Info) Description 09/30/2012 External CPT II AUTOMATIC SCREWMAKER - [facility] Social History Tobacco Use [...] on filedocumented in this encounter Care Teams Corporation Lawyer Relationship Specialty Start Date End Date Edinson García MD [address] [place] [address] PCP - General Adolescent Medicine 07/25/16 documented as of this encounter
--- OUTSIDE RECORDS SUMMARY | 2025-04-27 11:12 | XMS_ITS | Clinical Summary ---
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 04/07/2024 Right arm [...] 06/17/2024 HEMOGLOBIN A1C 01/24/2025 07/26/2024, 06/29, 04/07/2024 INFLUENZA VACCINE 02/25/2025 06/17/2024, , 06/12/2022, Additional history exists COVID-19 Vaccine (4 - 2024-2 6 season) 2025 06/07/2021, 10/14/2020, 09/21/2020 LIPID PANEL 04/08/2025 04/08/2024, 04/07/2024 URINE MICROALBUMIN-CREATININ E RATIO (uACR) 07/26/2025 07/26/2024 [...] - 200 mg/dL 04/08/2024 9:00 AM EDT [facility] Triglycerides 147 0 - 150 mg/dL 04/08/2024 9:00 AM EDT [facility] HDL Cholesterol 58 40 - 60 mg/dL 04/08/2024 9:00 AM EDT [facility] LDL Cholesterol 50 0 - 100 mg/dL 04/08/2024 9:00 AM EDT [facility] VLDL Cholesterol 25 5 - 40 mg/dL 04/08/2024 9:00 AM EDT [facility] LDL/HDL Ratio 0.79 04/08/2024 9:00 AM EDT [facility] Blood Venipuncture / Unknown 04/08/2024 8:06 AM EDT 04/08/2024 8:32 AM EDT Narrative [facility] - 04/08/2024 9:00 AM EDT Cholesterol [...] Ramos MD LAB BLOOD ORDERABLES Final Result [facility]
[address] [phone] * (ABNORMAL) Hemoglobin A1c (04/07/2024 11:14 AM EDT) Hemoglobin A1C 8.60(H) 4.80 - 5.60 % 04/07/2024 11:53 AM EDT [facility] Blood Venipuncture / Unknown 04/07/2024 11:14 AM EDT 04/07/2024 11:32 AM EDT Narrative [facility] - 04/07/2024 11:53 AM EDT Hemoglobin A1C Ranges: Increased Risk for Diabetes 5.7% to 6.4% Diabetes >= 6.5% Diabetic Goal < 7.0% Kyalen Gleason APRN LAB BLOOD ORDERABLES Fin al Result [facility]
[address] [place] [address], from Last 3 Months or Most Recently Relevant to Health Maintenance Insurance [facility] MEDICARE ADVANTAGE HMO Advance Directives * CPR (Attempt to Resuscitate) (Latest Code Status on File) Date Activated Date Inactivated Comments 04/06/2024 11:13 PM 04/08/2024 1:53 PM Question Answer Comments Code Status (Patient has no pulse and is not breathing): CPR (Attempt to Resuscitate) Medical Interventions (Patie nt has pulse or is breathing): Full Support Level Of Support Discussed With: Patient Care Teams Machine Tool Electrician Relationship Specialty Start Date End Date Edinson García MD [address] [facility] [address] [place] [address] PCP - General Adolescent Medicine 07/25/16
--- OUTSIDE RECORDS SUMMARY | 2025-04-27 11:12 | XMS_ITS | Clinical Summary ---
Author Organization [facility] Address [address] [place] [address] Care Team Providers Care Auto Repair Shop Manager Name Role Phone Edinson García MD Primary Care Provider [phone] Allergies Active Allergy Reactions Criticality Noted Date [...] 10/21/2016 [facility]-Diabetes: Hemoglobin A1C 10/25/2024 07/26/2024, 04/07/2024 [id number] Vaccine (4 - season) 2025 06/07/2021, 10/14/2020, [...] (Hb A1C) (07/26/2024 8:23 AM EST) Pathologist [facility] POCT Hemoglobin A1C 11.3 <5.7% Non-Diabet ic % [facility] Kit Lot Number [id number] [facility] Kit Expiration Date 04/2026 [facility] Blood Venous blood specimen / Unknown 07/26/2024 8:23 AM EST us Katelin Alicea SENIOR IT PROJECT MANAGER POINT OF CARE TEST ENTER /EDIT ORDERABLES Final Result [facility] [address] [place] [address] * Acute Hepatitis Panel (10/10/2020 1:24 PM EDT) [facility] Hepatitis B Surf Antigen NEGATIVE Reference Value: Negative [facility] Hepatitis C Antibody NEGATIVE Reference Range: Negative [facility] Hepatitis A Antibody IgM NEGATIVE Reference Value: Negative [facility] External Hepatitis B Core IgM (HBCM) NEGATIVE Reference Value: Negative [facility] 10/10/2020 1:24 PM EDT 10/10/2020 2:44 PM EDT us Lyssa Delgado APRN, [facility] LAB BLOOD ORDERABLE S Final Result [facility] from Last 3 Months or Most Recently Relevant to Health Maintenance Insurance Care Teams Auto Repair Shop Manager Relationship Specialty Start Date End Date Edinson García MD [address] [place] [address] PCP - General 12/08/20
== END 2025-04-27 23:59 | disposition home or self-care (01) ==
LOC: RT 10:35
PROVIDERS: PCP Nurse Practitioner Family; Visit Provider Internal Medicine
DX: I08.1 Rheumatic disorders of both mitral and tricuspid valves (principal); I73.9 Peripheral vascular disease, unspecified; I25.10 Atherosclerotic heart disease of native coronary artery without angina pectoris
CPT/HCPCS: 93306